=== PATIENT | male | born 1945 | race Caucasian/White ===

== ENCOUNTER → 2017-08-02 09:25 | Outpatient (CLI) | payer MEDICARE, SELFPAY ==
--- NOTE | 2017-08-02 09:38 | MRI_ITS ---
STUDY: MRI LUMBAR SPINE WITHOUT CONTRAST REASON FOR EXAM: Male, 71 years old. Stenosis. Left hip pain. TECHNIQUE: Standardized fat and water weighted pulse sequences were obtained in the sagittal and axial planes. COMPARISON: None FINDINGS: T9-T10: (Sagittal only). Irregularities of the vertebral endplates secondary to intervertebral osteochondrosis. Degenerative collapse of the disc space height. Minimal posterior marginal spurs. Normal central canal and bilateral intervertebral neural foramina. T10-T11: (Sagittal only). Irregularities of the vertebral endplates due to intervertebral osteochondrosis. Pronounced disc space height narrowing with marked loss of disc hydration. Minimal posterior marginal spurs. Normal central canal. Moderate stenosis of the right intervertebral neural foramen. Normal left intervertebral neural foramen. T11-T12: (Sagittal only). Anterior marginal spurs. Pronounced right sided disc space height narrowing with marked loss of disc hydration. Mild irregularities of the vertebral endplates secondary to intervertebral osteochondrosis. Minimal posterior marginal spurs. Normal central canal. Moderate stenosis of the right intervertebral neural foramen. Normal left intervertebral neural foramen. T12-L1: Anterior and posterior marginal spurs. Pronounced disc space height narrowing with Modic type II degenerative vertebral marrow fatty changes underneath the adjacent vertebral endplates. Posterior marginal spurs. Mild central canal stenosis. The AP canal diameter is 10 mm. Prominent bilateral medial synovial hypertrophy. Moderate degenerative facet hypertrophy. Moderate stenosis of the bilateral intervertebral neural foramina. Normal lumbar lordosis. There is no substantial scoliosis. Normal conus medullaris that terminates at the T12-L1 disc level. L1-2: Anterior marginal spurs. Pronounced right-sided disc space height narrowing with Modic type II degenerative vertebral marrow fatty changes underneath the right side of the adjacent vertebral endplates. Posterior marginal spurs. Normal central canal and bilateral lateral recesses. Mild left posterior ligamentum flavum hypertrophy. Moderate left degenerative facet hypertrophy. Mild right degenerative facet arthropathy. Mild stenosis of the right intervertebral neural foramen. Normal left intervertebral neural foramen. L2-3: Anterior and posterior marginal spurs. Modic type II degenerative vertebral marrow fatty changes underneath the adjacent vertebral endplates. Pronounced disc space height narrowing. Normal central canal and bilateral lateral recesses. Moderate left due to facet arthropathy. Normal right facet joint. Normal bilateral intervertebral neural foramina. L3-4: Pronounced left-sided disc space height narrowing with anterior and posterior marginal spurs. Modic type I degenerative vertebral marrow edema underneath the adjacent vertebral endplates. Left posterior ligamentum flavum hypertrophy and left medial synovial hypertrophy causing left lateral recess stenosis. Normal right lateral recess. Mild [id number] central canal stenosis due to left medial synovial hypertrophy. The central canal at the level of the medial synovial hypertrophy is 9 mm in diameter. Moderately pronounced left degenerative facet arthropathy and moderate right degenerative facet arthropathy. Mild stenosis of the right intervertebral neural foramen. Moderately pronounced stenosis of the left intervertebral neural foramen with suspicious impingement of the left L3 nerve. L4-5: Anterior and posterior marginal spurs with degenerative collapse of the disc space height. Modic type II degenerative vertebral marrow fatty changes underneath the adjacent vertebral endplates. Normal central canal and bilateral lateral recesses. Left medial synovial hypertrophy. Mild to moderate asymmetric degenerative facet arthropathy. Mild stenosis of the right intervertebral neural foramen. Normal left intervertebral neural foramen. L5-S1: Anterior marginal spurs and minimal posterior marginal spurs. Near-complete loss of the disc space height. No extruded disc fragment. Normal central canal and bilateral lateral recesses. Mild asymmetric degenerative facet arthropathy. Normal bilateral intervertebral neural foramina. Normal visualized sacral ala. Normal visualized paraspinous soft tissue structures. MRI/Spine Lumbar (Routine) IMPRESSION: 1. No MRI evidence of lumbar extruded disc fragment. 2. Pronounced L3-L4 left-sided disc space height narrowing with Modic type I degenerative vertebral marrow edema underneath the adjacent vertebral endplates, mild [id number] central canal stenosis due to left medial synovial hypertrophy, and moderately pronounced stenosis of the left intervertebral neural foramen with suspicious impingement of the left L3 nerve. 3. Pronounced L4-L5 disc space height narrowing with Modic type II degenerative vertebral marrow fatty changes underneath the adjacent vertebral endplates and mild stenosis of the right intervertebral neural foramen. 4. Pronounced L2-L3 disc space height narrowing with Modic type II degenerative vertebral marrow fatty changes underneath the adjacent vertebral endplates and moderately pronounced left degenerative facet arthropathy. 5. Pronounced right-sided L1-L2 disc space height narrowing with Modic type II degenerative vertebral marrow fatty changes underneath the right side of the adjacent vertebral endplates and moderate left degenerative facet arthropathy. 6. Pronounced T12-L1 disc space height narrowing with Modic type II degenerative vertebral marrow fatty changes are underneath the adjacent vertebral endplates, mild central canal stenosis and moderate stenosis of both intervertebral neural foramina. 7. Pronounced right-sided T11-T12 disc space height narrowing with mild irregularities of the vertebral endplates secondary to intervertebral osteochondrosis and moderate stenosis of the bilateral intervertebral neural foramina. 8. Pronounced T10-T11 disc space height narrowing with irregularities of the vertebral endplates secondary to intervertebral osteochondrosis and moderate stenosis of the right intervertebral neural foramen. 9. Pronounced T9-T10 disc space height narrowing with irregularities of the vertebral endplates secondary to intervertebral osteochondrosis. Electronically Signed: Ronald Crowell MD at 14:31 EST , Service support ,
== END ==
PROVIDERS: Family Provider Family Medicine; PCP Family Medicine; Visit Provider Nurse Practitioner Acute Care
DX: M48.062 Spinal stenosis, lumbar region with neurogenic claudication (principal)
CPT/HCPCS: 72148

== ENCOUNTER → 2017-08-15 13:46 | Outpatient (CLI) | payer MEDICARE, SELFPAY ==
--- NOTE | 2017-08-15 14:00 | ECHOD_ITS ---
Reason For Study: MV Repair Procedure This was a 2D Doppler, Color Flow transthoracic echocardiogram. The study was technically difficult. Exam performed in department. Left Ventricle Normal size and thickness. The estimated ejection fraction is 65 %. Septal motion consistent with IVCD. No regional wall motion abnormalities noted. Right Ventricle Normal size and thickness. Normal systolic function. Atria The left atrium is mildly enlarged. Normal right atrium. Probable chiari network. Saline contrast study demonstrates trivial right to left interatrial shunt. Hypermobile atrial septum. Mitral Valve Anterior leaflet diffuse mitral valve thickening. Peak transmitral valve gradient 7 mmHg. Mean transmitral valve gradient 2 mmHg. An annuloplasty ring is noted in the mitral position. Tricuspid Valve Normal tricuspid valve. Trivial tricuspid valve insufficiency. Right ventricular systolic pressure estimated to be 33 mmHg. Aortic Valve Trisinus/trileaflet aortic valve. Normal aortic valve. Pulmonic Valve Normal pulmonic valve. Great Vessels Normal aortic root. Normal arch. Normal inferior vena cava. Inferior vena cava collapse with sniff. Pericardium/Pleural No pericardial effusion. Medication 22 gauge I.V. with prn adaptor inserted into right arm. Performed a rapid injection of agitated mix of 9 cc saline and 1cc air to assess for atrial septal defect. MMode/2D Measurements & Calculations LVIDd: 4.2 cm IVSd: 1.2 cm Ao root diam: 4.1 cm LVIDs: 3.1 cm LVPWd: 1.2 cm LA dimension: 3.9 cm RVDd: 3.5 cm FS: 28.0 % LAV(MOD-bp): 62.9 ml LA A4 area: 21.2 cm2 RA A4 area: 14.3 cm2 LAV(MOD-bp) Indexed: 32.5 ml/m2 LAV(MOD-sp2): 68.4 ml LAV(MOD-sp4): 57.9 ml Time Measurements MV dec time: 0.29 sec Doppler Measurements & Calculations MV E max raz: 77.6 cm/sec Lat Peak E' Raz: 10.7 cm/sec Med Peak E' Raz: 6.6 cm/sec MV A max raz: 118.6 cm/sec E/E' lat: 7.3 E/E' med: 11.7 MV E/A: 0.65 MV V2 max: 130.8 cm/sec Ao V2 max: 107.7 cm/sec LV V1 max: 82.2 cm/sec MV max P.8 mmHg Ao max P.7 mmHg LV V1 max P.7 mmHg MV V2 mean: 69.5 cm/sec MV mean P.2 mmHg MV V2 VTI: 26.2 cm PA V2 max: 93.8 cm/sec TR max raz: 261.3 cm/sec TR max P.5 mmHg Interpretation Summary The estimated ejection fraction is 65 %. The left atrium is mildly enlarged. Hypermobile atrial septum. An annuloplasty ring is noted in the mitral position. Right ventricular systolic pressure estimated to be 33 mmHg. Compared to echo report dated 05/23/2016, no appreciable changes noted. Saline contrast study demonstrates trivial right to left interatrial shunt. Ordering Physician: Demond Lal Referring Physician: Victorino Vernon Performed By: Samantha Cerda RDCS, RVT
== END ==
PROVIDERS: Family Provider Family Medicine; PCP Family Medicine; Visit Provider Nurse Practitioner Family
DX: I25.10 Atherosclerotic heart disease of native coronary artery without angina pectoris (principal); Z95.2 Presence of prosthetic heart valve; Z95.1 Presence of aortocoronary bypass graft; Z98.890 Other specified postprocedural states
CPT/HCPCS: 93306; A4216

== ENCOUNTER → 2018-01-03 09:31 | Outpatient (CLI) | payer MEDICARE, SELFPAY ==
--- NOTE | 2018-01-03 09:34 | STE_ITS ---
Reason For Study: PREOP Stress Results Protocol: Dobutamine Protocol Maximum Predicted HR: 149 bpm Target HR: 127 bpm% Maximum Predicted HR: 85 % DurationHeart Rate Stage (mm:ss) (bpm) BPDos e BASELINE 70 131/89 STAGE 1 3:43 71 135/9910.00 STAGE 2 3:00 10 8 154/8420.00 STAGE 3 3:52 12 6 133/7630.00 RECOVERY 88 134/74 Stress Duration: 10:35 mm:ss Maximum Stress HR: 126 bpm Baseline Echocardiogram Findings The estimated ejection fraction is 65 %. Stress Echo Wall motion Data Resting WMIntermediate WMStress WM Resting Wall Motion Wall Motion Stress No regional wall motion No regional wall motion abnormalities noted. abnormalities noted. EKG Data Normal intervals are noted. The patient was titrated from 10 mcg to a maximun of 30 mcg of dobutamine during the stress. No clinical angina was noted. This was 91% of maximum predicted heart rate. The maximum heart rate attained was 137 beats per minute. During dobutamine infusion, there were no ST or T wave changes noted to suggest ischemia. Interpretation Summary The estimated ejection fraction is 65 %. Normal adequate dobutamine echocardiogram. Negative for ischemia by EKG and echocardiographic criteria. No anginal symptoms noted. Frequent PVCs and runs of ventricular arrhythmias which were self terminating. This is a nonspecific finding given dobutamine. No associated wall motion abnormalities during infusion. Final LVEF is 75%. Patient tolerated procedure well. No complications. Ordering Physician: Lamine Lassiter Referring Physician: Lamine Lassiter Performed By: Elvira Arellano RDCS
== END ==
PROVIDERS: Family Provider Family Medicine; PCP Family Medicine; Visit Provider Internal Medicine Cardiovascular Disease
DX: I25.10 Atherosclerotic heart disease of native coronary artery without angina pectoris (principal); I42.9 Cardiomyopathy, unspecified; Z98.890 Other specified postprocedural states; Z95.1 Presence of aortocoronary bypass graft; Z95.2 Presence of prosthetic heart valve
CPT/HCPCS: 93017; 93350; J7030; A4216

== ENCOUNTER → 2018-03-02 10:32 | Outpatient (CLI) | payer MEDICARE, SELFPAY ==
[2018-03-02 12:28] LABS: Absolute Lymphocyte Count 1.04 X10^3/ul (0.83-4.51); Absolute Neutrophil Count 6.4 X10^3/uL (2.0-7.7); Basophil# 0.03 X10^3/uL; Basophil% 0.3 % (0-1); Eosinophil# 0.67 X10^3/uL; Eosinophils% 7.5 % (0-5); Hematocrit 47.3 % (40-54); Hemoglobin 14.7 g/dl (13.0-16.5); Lymphocyte # 1.04 X10^3/ul (4.0); Lymphocyte % 11.6 % (19-41); Mean Corp Hgb Conc 31.1 g/gl (32-36); Mean Corpuscular Hgb 30.9 pg (27.0-32.0); Mean Corpuscular Volume 99.6 fL (80-94); Mean Platelet Vol. 11.3 fl (6.2-12.0); Monocyte# 0.78 X10^3/uL; Monocyte% 8.7 % (0-10); Neutrophil % 71.8 % (47-70); Platelet Count 219 K/mm3 (150-450); RBC Distribution Width CV 13.7 % (11.6-14.6); Red Blood Count 4.75 M/mm3 (4.6-6.2); White Blood Count 8.9 K/mm3 (4.4-11.0)
[2018-03-02 12:31] LABS: POSITIVE COUNT NO; POSITIVE DIFFERENTIAL NO; POSITIVE MORPHOLOGY NO
[2018-03-02 12:54] LABS: ALB/GLOB Ratio 0.9 RATIO (0.9-2.4); AST(SGOT) 15 U/L (15-37); Alanine Aminotransfer ALT/SGPT 19 U/L (16-61); Albumin, Serum 3.4 g/dL (3.2-5.0); Alkaline Phosphatase 91 U/L (45-117); Anion Gap 8 (5-15); BUN 16 mg/dL (7-18); BUN/Creat Ratio 14.3 RATIO (10-20); Calcium,Total 8.9 mg/dL (8.5-10.1); Chloride 107 mmol/L (98-107); Cholesterol 91 mg/dL (200); Creatinine, Serum 1.12 mg/dL (0.70-1.30); EST Glomerular Filtration Rate 69 mL/min (>60); Est Glom Filt Rate - Afr Amer 83 mL/min (>60); Globulin 3.7 g/dL (2.2-4.2); Glucose 64 mg/dL (74-106); High Density Lipoprotein 28 mg/dL; PSA,Total - Annual Screen 0.46 ng/mL (0.00-4.00); Potassium 4.3 mmol/L (3.5-5.1); Protein, Total 7.1 g/dL (6.4-8.2); Sodium Level 141 mmol/L (136-145); Triglycerides 79 mg/dL; Very Low Density Lipoprotein 16 mg/dL (5-40)
== END ==
PROVIDERS: Family Provider Family Medicine; PCP Family Medicine; Visit Provider Family Medicine
DX: I25.10 Atherosclerotic heart disease of native coronary artery without angina pectoris (principal); E78.5 Hyperlipidemia, unspecified; N40.0 Benign prostatic hyperplasia without lower urinary tract symptoms
CPT/HCPCS: 36415; 80053; 80061; 84153; 85025; G0103

== ENCOUNTER → 2018-03-08 14:58 | Outpatient (CLI) | payer MEDICARE, SELFPAY ==
--- NOTE | 2018-03-08 15:01 | US_ITS ---
STUDY: RENAL ULTRASOUND - COMPLETE REASON FOR EXAM: Male, 72 years old. Incomplete bladder emptying TECHNIQUE: Ultrasound evaluation of the kidneys was performed with real-time and static krueger-scale imaging. COMPARISON: None. FINDINGS: RIGHT KIDNEY: Normal location of the right kidney, which is normal in size. The right kidney measures 10.5 x 4.5 x 4.5 cm. There is diffuse thinning of the renal cortex. The renal cortex measures 0.9 cm. There is a 3 x 2 x 2.7 cm septated right renal cyst. There are no right renal calculi. There is no right hydronephrosis. DISTAL RIGHT URETER: There is non-visualization of the distal right ureter. There is no demonstrated right ureterovesical junction calculus. There is a visualized right ureteral jet. LEFT KIDNEY: Normal location of the left kidney, which is normal in size. The left kidney measures 10.5 x 5.5 x 6 cm. There is a normal cortex of the left kidney. The renal cortex measures 1.2 cm. There is no left renal mass or cyst. There are no left renal calculi. There is no left hydronephrosis. DISTAL LEFT URETER: There is non-visualization of the distal left ureter. There is no demonstrated left ureterovesical junction calculus. There is a visualized left ureteral jet. BLADDER: The distended urinary bladder has a volume of 120 ml. The empty urinary bladder has a volume of 34 ml. There is a 3.3 cm wall thickness of the distended urinary bladder is a focal wall prominence of 1.1 cm which is slightly heterogeneous and lobular in contour. There is layering debris within the urinary bladder. There are no demonstrated bladder calculi. US/Kidney and Bladder IMPRESSION: Abnormal urinary bladder with asymmetric lobular wall thickening of up to 1.2 cm. Debris within the urinary bladder. Present bilateral ureteral jets. Postvoid residual 34 ml. Septated right upper renal pole cyst. Right renal cortical thinning. Electronically Signed: Reyna Holm MD at 4:53 EDT , Service support ,
== END ==
PROVIDERS: Family Provider Family Medicine; PCP Family Medicine; Visit Provider Family Medicine
DX: R33.9 Retention of urine, unspecified (principal)
CPT/HCPCS: 76770

== ENCOUNTER → 2018-04-13 11:45 | Outpatient (CLI) | payer MEDICARE, SELFPAY ==
[2018-04-13 16:19] LABS: Absolute Lymphocyte Count 1.04 X10^3/ul (0.83-4.51); Absolute Neutrophil Count 5.4 X10^3/uL (2.0-7.7); Basophil# 0.05 X10^3/uL; Basophil% 0.7 % (0-1); Eosinophil# 0.51 X10^3/uL; Eosinophils% 6.7 % (0-5); Hematocrit 46.7 % (40-54); Hemoglobin 14.9 g/dl (13.0-16.5); Lymphocyte # 1.04 X10^3/ul (4.0); Lymphocyte % 13.7 % (19-41); Mean Corp Hgb Conc 31.9 g/gl (32-36); Mean Corpuscular Hgb 31.3 pg (27.0-32.0); Mean Corpuscular Volume 98.1 fL (80-94); Mean Platelet Vol. 11.8 fl (6.2-12.0); Monocyte# 0.55 X10^3/uL; Monocyte% 7.2 % (0-10); Neutrophil # 5.44 X10^3/uL (2.7-7.7); Neutrophil % 71.6 % (47-70); Platelet Count 200 K/mm3 (150-450); RBC Distribution Width CV 13.7 % (11.6-14.6); RBC Distribution Width SD 49.3 fl (35.1-43.9); Red Blood Count 4.76 M/mm3 (4.6-6.2); White Blood Count 7.6 K/mm3 (4.4-11.0)
[2018-04-13 16:21] LABS: POSITIVE COUNT NO; POSITIVE DIFFERENTIAL NO; POSITIVE MORPHOLOGY NO
[2018-04-13 16:32] LABS: Anion Gap 9 (5-15); BUN 15 mg/dL (7-18); BUN/Creat Ratio 13.5 RATIO (10-20); Calcium,Total 8.6 mg/dL (8.5-10.1); Chloride 106 mmol/L (98-107); Creatinine, Serum 1.11 mg/dL (0.70-1.30); EST Glomerular Filtration Rate 69 mL/min (>60); Est Glom Filt Rate - Afr Amer 84 mL/min (>60); Glucose 76 mg/dL (74-106); Potassium 4.7 mmol/L (3.5-5.1); Sodium Level 142 mmol/L (136-145)
== END ==
PROVIDERS: Family Provider Family Medicine; PCP Family Medicine; Referring Provider Family Medicine; Visit Provider Family Medicine
DX: R31.9 Hematuria, unspecified (principal)
CPT/HCPCS: 36415; 80048; 85025; 87086; 87088

== ENCOUNTER → 2018-04-20 13:25 | Outpatient (CLI) | payer MEDICARE, SELFPAY ==
--- NOTE | 2018-04-20 13:27 | CT_ITS ---
STUDY: CT ABDOMEN AND PELVIS WITH CONTRAST REASON FOR EXAM: Male, 72 years old. Painless hematuria for several months RADIATION DOSAGE (If Supplied By Facility): CTDIvol = ( 18.13 ) mGy, DLP = ( 1301.40 ) mGycm TECHNIQUE: Transaxial images were obtained from the dome of the diaphragm to the symphysis pubis without oral contrast. 100ml ml of Isovue 300 contrast was administered. Sagittal and coronal images were reconstructed. Individualized dose optimization techniques were used for this CT. COMPARISON: 03/08/2018 FINDINGS: The visualized lung bases are unremarkable. The visualized portions of the heart are within normal limits. Normal liver. Normal gallbladder and extrahepatic biliary system. Normal spleen. Normal pancreas. Normal bilateral adrenal glands. Well-defined low-density cystic lesion of the upper right kidney measures up to 3 cm, similar in size since recent renal ultrasound. Normal left kidney. Normal visualized stomach. Normal small intestine. There are multiple colonic diverticula consistent with diverticulosis. There is non-visualization of the appendix. There is diffuse atherosclerotic calcification of the abdominal aorta with elongation and tortuosity, but without a demonstrated aneurysm. Normal inferior vena cava. Normal retroperitoneum. There is irregular, lobular wall thickening of the left side of the urinary bladder that is identified anterior and posterior to the left ureter insertion (axial image 67 of series 1004). Wall thickness measures up to 13 mm, similar since prior ultrasound, accounting for differences in modality. Normal abdominal wall. There are diffuse degenerative changes of the visualized lumbar spine. Laminectomy defects at L2, L3, L4. No lytic or sclerotic bone lesions. CT/Abdomen/Pelvis WITH Contrast IMPRESSION: 1. Lobular wall thickening of the urinary bladder (from dome to base, left side) worrisome for neoplasm. Cystoscopic evaluation is recommended. 2. No pelvic sidewall or retroperitoneal adenopathy. 3. Stable cyst of the upper right kidney. 4. Atherosclerosis. 5. Diverticulosis. Electronically Signed: Nura Duval MD at 19:53 EST , Service support ,
== END ==
PROVIDERS: Family Provider Family Medicine; PCP Family Medicine; Referring Provider Family Medicine; Visit Provider Family Medicine
DX: R31.9 Hematuria, unspecified (principal)
CPT/HCPCS: 74177; Q9967

== ENCOUNTER 2018-05-11 05:29 | Day surgery (SDC) | payer MEDICARE, SELFPAY ==
[2018-05-04 11:19] VITALS: BP 132/69; PULSE 72; RESP 16; TEMP 37.1; O2SAT 96; BMI 29.3
--- NOTE | 2018-05-11 | BLB_PTH ---
PATIENT: VALE GARCIA LOC: [facility] – [place] U#:[id number] AGE/SX: 72/M ROOM: RE05/11/[address]: Dr. Rylan Gudino MD : 1945 BED: DIS: 05/11/2018 SPEC #: [id number] RECD: 05/11/18 09:04 STATUS: ARAM NARESH #: [id number] GENESIS: 05/11/18 00:[address]: Rylan Gudino DEPT: SURGICAL PATHOLOGY RECD BY: Jaya Garcia ENTERED: 05/11/18 13:00 SP TYPE: TURB OTHR DR: Dr. 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 BLADDER CANCER (TUR) SUMMARY: Procedure - TURBT Histologic type - urothelial (transitional cell) carcinoma Associated epithelial lesions - none identified Histologic grade - urothelial carcinoma (WHO 2004/ISUP) - high grade Tumor configuration - invasive and flat Adequacy of material for determining muscularis propria invasion - muscularis propria (detrusor muscle) is present and involved by tumor. Lymph-Vascular invasion - present. See comment. Microscopic extent of tumor - tumor invades muscularis propria (detrusor muscle). Additional pathologic findings - chronic inflammation. The above summary is in compliance with [employer] (CAP) Cancer Protocols Checklist and [place] Joint Committee on Cancer (AJCC), Staging Manual, 8th Ed. SJ:rg 05/14/18 COMMENT Most of the tumor consists of muscle invasive tumor. Immunohistochemistry ([id number]) supports the diagnosis of lymph-vascular invasion. MICROSCOPIC DESCRIPTION Slides are reviewed. GROSS DESCRIPTION Received in fixative is one container labeled with the patient's name and designated bladder tumor. The specimen consists of multiple fragments of cullen, indurated tissue that in aggregate measure 5 x 3 x 0.8 cm. The entire specimen is submitted in four cassettes. / SJ:rg 05/11/18 TC:0 CPT: 82942 ADDENDUM ADDENDUM ADDENDUM ADDENDUM ADDENDUM ADDENDUM ADDENDUM ADDENDUM ADDENDUM ADDENDUM ADDENDUM ADDENDUM ADDENDUM 07/27/2018 10:20 ADDENDUM 07/27/2018 10:20 ADDENDUM 07/27/2018 10:20 ADDENDUM 07/27/2018 10:20 ADDENDUM 07/27/2018 10:20 This addendum is added to incorporate an outside pathology consultation report. The case was examined at [facility] (#[id number]) and the following diagnosis was rendered. Urinary bladder, tumor, transurethral resection of bladder tumor: Invasive urothelial carcinoma, high grade, with plasmacytoid features. Tumor invades into the muscularis propria. Angiolymphatic invasion is identified. 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 Please see complete above mentioned consultation report in EMR
--- NOTE | 2018-05-11 | IMM_PTH ---
PATIENT: VALE GARCIA LOC: [facility] U#:[id number] AGE/SX: 72/M ROOM: RE05/11/[address]: Dr. Rylan Gudino MD : 1945 BED: DIS: 05/11/2018 SPEC #: [id number] RECD: 05/14/18 10:07 STATUS: ARAM REQ #: [id number] GENESIS: 05/11/18 00:[address]: Rylan Gudino DEPT: IMMUNOHISTOCHEMISTRY RECD BY: Talia Pelletier ENTERED: 05/14/18 10:15 SP TYPE: IMMUNO OTHR DR: Dr. Demond Davis MD Tissues: Urinary bladder, NOS Procedures: CD31 (add) Factor VIII (initial) PHYSICIAN & INSTITUTION [place] [id number] SPECIMEN INFORMATION: Tissue Source: Bladder tumor Clinical Info: Neoplasm of bladder Specimen Number: [id number] #3 CPT code: 15589, 74016 METHODOLOGY: Deparaffinized sections of prefer/formalin-fixed tissue or PAP/DQ stained slides are incubated with monoclonal/polyclonal antibodies/oligonucleotide probes. Localization is made via biotin free immunoperoxidase method. Appropriate controls are performed and reacted as expected. Results on target cell population are indicated in the following table: RESULTS: ANTIBODY / CLONE RESULT Block 3 Factor VIII (R Ag) positive CD31 (BOB/70A) positive These tests were developed and their performance characteristics determined by [facility]. They may not have been cleared or approved by the U.S. Food and Drug Administration. The FDA has determined that such clearance or approval is not necessary. INTERPRETATION: Bladder tumor, TUR: Invasive urothelial carcinoma, positive for lymph-vascular invasion. SJ:deirdre 05/14/18
[2018-05-11 05:49] VITALS: BP 136/71; PULSE 78; RESP 14; TEMP 36.8; O2SAT 99; BMI 29.3
[2018-05-11] MEDS: Cefazolin 2 GM in 0.9% Normal Saline 100 ML IV (07:24)
--- NOTE | 2018-05-11 08:14 | DCINST_ITS ---
Discharge Diet: Light diet - advance as tolerated Discharge Activity: May Not Drive, May Shower Call your doctor if your incision/area has: Continuous Slow Oozing, Sudden Increased Bleeding, Increased Pain/ Swelling, Increased Redness, Foul Smelling Discharge, Swelling at the incision site Call your doctor if you observe: Fever of 101 or Higher, Inability to urinate, Uncontrolled pain Suture Line Care: Avoid Pulling/Pushing, Avoid Pinching/Bending Instructions: Treating Bladder Cancer: TUR (Transurethral Resection) Allergies/Adverse Reactions: Allergies No Known Allergies Allergy (Verified 05/04/18 11:12) Medications to take at Discharge Tamsulosin HCl [Flomax] 0.4 mg PO DAILY 12/11/13 Travoprost 0.004% [Travatan 0.004% Eye Drop] 1 drp EACH EYE DAILY 12/11/13 aspirin 81 mg tablet,delayed release 81 mg PO QDAY 07/05/17 naproxen sodium 220 mg tablet 220 mg PO PRN PRN tab 07/05/17 atorvastatin 40 mg tablet 40 mg PO QDAY tab 12/22/17 metoprolol tartrate 25 mg tablet 25 mg PO BID tab 12/22/17 Acetaminophen [Tylenol Extra Strength] 500 - 1,000 mg PO Q6H PRN PRN 05/04/18 L.acidoph,Paracasei, B.lactis [Probiotic] 1 each PO DAILY 05/04/18 Multivitamin [Multiple Vitamins] 1 each PO DAILY 05/04/18 Acetaminophen [Tylenol Extra Strength] 500 mg PO Q4H PRN PRN #20 tablet 05/11/18 Ibuprofen 600 mg PO Q4H PRN PRN #20 tablet 05/11/18 Phenazopyridine [Pyridium] 100 mg PO TID PRN PRN #14 tablet 05/11/18 The following prescriptions were given: Acetaminophen [Tylenol Extra Strength] 500 mg PO Q4H PRN PRN #20 tablet PRN Reason: Pain Ibuprofen 600 mg PO Q4H PRN PRN #20 tablet PRN Reason: Pain Phenazopyridine [Pyridium] 100 mg PO TID PRN PRN #14 tablet PRN Reason: burning with urination Primary Care Physician: Demond Davis MD [Primary Care Provider] - Test Results: Test results from this visit will be discussed in further detail at your follow- up appointment, if applicable. Please Follow Up With: Terese,Yemi, MD When: in 2 weeks, please call to make an appointment.
[2018-05-11 08:22] VITALS: BP 136/71; BP 70/51; PULSE 48; RESP 16; TEMP 36.8; O2SAT 96
[2018-05-11 08:30] VITALS: BP 136/71; BP 80/51; PULSE 58; RESP 16; O2SAT 98
--- NOTE | 2018-05-11 08:37 | PCM.OPRPT ---
Report of Operation Date of Procedure: 05/11/18 Pre-Operative Diagnosis: Large bladder tumor, appears invasive Post-Operative Diagnosis: Same Surgery/Procedure Performed:: Transurethral resection of a very large bladder tumor Description of Surgical Findings:: 72-year-old male taken back to the operating room after smooth induction of general anesthesia he was placed supine on the table in the dorsolithotomy position I placed a 26 Croatian continuous flow resectoscope through the urethra the entire length the urethra is normal sphincter is normal prostate was normal slightly obstructive inside the bladder was heavily trabeculated bladder and there was a tumor that was sessile in nature, flat but very large against the patient's left lateral wall extending all the way up to the dome I started at the dome resected deep into the muscle fibers but I could tell immediately this was a muscle invasive cancer and that was not can be completely resectable by TUR resected down to the muscle fibers all the way down the left lateral side I then Ellik out all the tumor tissue that I resected for diagnosis and then extensively cauterized the left lateral wall the bladder all the way up to the dome. Did not give mitomycin since this is appears to be invasive tumor no benefit. Obtain good hemostasis drain the bladder patient anesthetic was reversed taken back to PACU good condition will follow-up in 2 weeks to review the tissue report. Type of Anesthesia:: General Drains: none - Admit VTE Documentation VTE Present on Admission: No VTE Mechan Device Prophylaxis: SCD's
[2018-05-11] MEDS: Ketorolac 15 MG/ML Vial IV (08:40)
[2018-05-11 08:45] VITALS: BP 109/69; BP 136/71; PULSE 72; RESP 16; O2SAT 99
[2018-05-11 08:54] VITALS: BP 108/59; BP 136/71; PULSE 62; RESP 16; TEMP 36.8; O2SAT 96
[2018-05-11] MEDS: Ondansetron 4 MG/2 ML Vial IV (09:40)
[2018-05-11] MEDS: Phenazopyridine 95 MG Tablet PO (09:45)
[2018-05-11] MEDS: Acetaminophen 325 MG Tablet 650 MG PO (09:45)
[2018-05-11 11:24] VITALS: BP 120/70; BP 136/71; PULSE 70; RESP 16; TEMP 36.8; O2SAT 99
== END 2018-05-11 11:24 | disposition home or self-care (01) ==
LOC: SDC 05:29 → AC 05:30
PROVIDERS: Family Provider Family Medicine; PCP Family Medicine; Referring Provider Urology; Visit Provider Urology
PROC: 0TBB8ZZ Excision of Bladder, Via Natural or Artificial Opening Endoscopic (ICD-10-PCS; CPT 52240; principal; 2018-05-11 07:20)
DX: C67.2 Malignant neoplasm of lateral wall of bladder (principal); N32.89 Other specified disorders of bladder; N40.1 Benign prostatic hyperplasia with lower urinary tract symptoms; R35.1 Nocturia; R31.0 Gross hematuria; R35.0 Frequency of micturition; I25.10 Atherosclerotic heart disease of native coronary artery without angina pectoris; I48.91 Unspecified atrial fibrillation; I10 Essential (primary) hypertension; H26.9 Unspecified cataract; H40.9 Unspecified glaucoma; H91.90 Unspecified hearing loss, unspecified ear; Z79.82 Long term (current) use of aspirin; Z79.899 Other long term (current) drug therapy; I25.2 Old myocardial infarction; Z87.891 Personal history of nicotine dependence; Z95.1 Presence of aortocoronary bypass graft
CPT/HCPCS: 52240; 88307; 88341; 88342; J7120; J2405

== ENCOUNTER → 2018-05-31 14:36 | Outpatient (CLI) | payer MEDICARE, SELFPAY ==
[2018-05-29 15:30] VITALS: BMI 28.7
--- NOTE | 2018-05-31 14:37 | CT_ITS ---
STUDY: CT CHEST WITHOUT CONTRAST REASON FOR EXAM: Male, 72 years old. The patient has a history of a bladder cancer. RADIATION DOSAGE (If Supplied By Facility): CTDIvol = ( 19.05 ) mGy, DLP = ( 714.16 ) mGycm TECHNIQUE: Transaxial imaging was performed without the administration of intravenous contrast material. Multiplanar coronal and sagittal images were reformatted. Individualized dose optimization techniques were used for this CT. COMPARISON: None. FINDINGS: There is evidence of emphysematous changes worse in the upper lobes. Mild degree of increased markings at the right lung base suggestive of a scarring. There is no demonstrated pleural abnormality. Sternal cerclage wires and vascular clips are present from a prior sternotomy and coronary artery bypass graft procedure (CABG). There are calcifications of the coronary arteries. There are several mediastinal lymph nodes. The largest is in the precarinal space and measures 2.1 cm. Normal hilar regions. Normal unenhanced pulmonary arteries. There is atherosclerotic calcification of the aortic arch with tortuosity and elongation of the aortic arch and descending thoracic aorta. The ascending thoracic aorta is slightly dilated measuring 4.1 cm in transverse dimension. There are multi-level degenerative changes of the thoracic spine. There is no demonstrated abnormality of the visualized upper abdomen. CT/Chest without Contrast IMPRESSION: Emphysematous changes worse in the upper lobes. Enlarged mediastinal lymph nodes. Electronically Signed: Shashank Ann MD at 15:17 EST Tel [phone], Service support ,
[2018-05-31 14:56] LABS: CREATININE FINGERSTICK 1.9 mg/dL (0.70-1.30)
--- OUTSIDE RECORDS SUMMARY | 2018-07-17 11:53 | XMS RPT_ITS ---
:1945 Author Organization [facility] Support Name Relationship Address Phone R Unavailable Unavailable Unavailable YUE GARCIA Unavailable [address] + [place] [address] R Unavailable Unavailable Unavailable YUE GARCIA Unavailable [address] + [place] [address] R Unavailable Unavailable Unavailable YUE GARCIA Unavailable [address] + [place] [address] R Unavailable Unavailable Unavailable YUE GARCIA Unavailable [address] + [place] [address] R Unavailable Unavailable Unavailable YUE GARCIA Unavailable [address] + [place] [address] R Unavailable Unavailable Unavailable YUE GARCIA Unavailable [address] + [place] [address] R Unavailable Unavailable Unavailable YUE GARCIA Unavailable [address] + [place] [address] R Unavailable Unavailable Unavailable YUE GARCIA Unavailable [address] + [place] [address] R Unavailable Unavailable Unavailable YUE GARCIA Unavailable [address] + [place] [address] R Unavailable Unavailable Unavailable YUE GARCIA Unavailable [address] + [place] [address] R Unavailable Unavailable Unavailable YUE GARCIA Unavailable [address] + [place] [address] R Unavailable Unavailable Unavailable YUE GARCIA Unavailable [address] + [place] [address] R Unavailable Unavailable Unavailable YUE GARCIA Unavailable [address] + [place] [address] R Unavailable Unavailable Unavailable YUE GARCIA Unavailable [address] + [place] [address] R Unavailable Unavailable Unavailable YUE GARCIA Unavailable [address] + [place] [address] R Unavailable Unavailable Unavailable YUE GARCIA Unavailable [address] + [place] [address] R Unavailable Unavailable Unavailable YUE GARCIA Unavailable [address] + [place] [address] R Unavailable Unavailable Unavailable YUE GARCIA Unavailable [address] + [place] [address] R Unavailable Unavailable Unavailable YUE GARCIA Unavailable [address] + [place] [address] R Unavailable Unavailable Unavailable YUE GARCIA Unavailable [address] + [place] [address] R Unavailable Unavailable Unavailable YUE GARCIA Unavailable [address] + [place] [address] R Unavailable Unavailable Unavailable YUE GARCIA Unavailable [address] + [place] [address] R Unavailable Unavailable Unavailable YUE GARCIA Unavailable [address] + [place] [address] R Unavailable Unavailable Unavailable YUE GARCIA Unavailable [address] + [place] [address] NOT GIVEN Unavailable Unavailable Unavailable YUE GARCIA Unavailable [address] + [place], [place] [phone] YUE GARCIA Unavailable [address] Unavailable [place] [phone] R Unavailable Unavailable Unavailable YUE GARCIA Unavailable [address] [phone] [place] [address] R Unavailable Unavailable Unavailable YUE GARCIA Unavailable [address] [phone] [place] [address] NOT GIVEN Unavailable Unavailable Unavailable YUE GARCIA Unavailable [address] + [place], [place] [phone] RAYYUE Lacey Unavailable [address] Unavailable [place], [place] [phone] R Unavailable Unavailable Unavailable RAYLYUE Unavailable [address] [phone] [place] [address] NOT GIVEN Unavailable Unavailable Unavailable RAYLYUE Unavailable [address] + [place], [place] [phone] RAYLYUE Unavailable [address] Unavailable [place], [place] [phone] NOT GIVEN Unavailable Unavailable Unavailable RAYLYUE Unavailable [address] + [place], [place] [phone] RAYYUE Lacey Unavailable [address] Unavailable [place], [place] [phone] R Unavailable Unavailable Unavailable RAYYUE Lacey Unavailable [address] + [place] [address] NOT GIVEN Unavailable Unavailable Unavailable RAYYUE Lacey Unavailable [address] + [place], [place] [phone] RAYYUE Lacey Unavailable [address] Unavailable [place], [place] [phone] Care Team Providers Name Role Phone JIMY DEL ROSARIO Admitting Unavailable JIMY DEL ROSARIO Attending Unavailable JIMY DEL ROSARIO Primary Care Unavailable RED, CECILY A Referring Unavailable RED, CECILY A Consulting Unavailable PROVIDER, UNKNOWN Consulting Unavailable PROVIDER, UNKNOWN Consulting Unavailable PROVIDER, UNKNOWN Consulting Unavailable PAUL LOPEZ Admitting Unavailable PAUL LOPEZ Attending Unavailable PAUL LOPEZ Primary Care Unavailable MARISOL, DR FILIBERTO Brewer Admitting Unavailable MARISOL, DR FILIBERTO Brewer Attending Unavailable RED, CECILY A Referring Unavailable MARISOL, DR FILIBERTO Brewer Primary Care Unavailable RED, CECILY A Consulting Unavailable PROVIDER, UNKNOWN Consulting Unavailable PROVIDER, UNKNOWN Consulting Unavailable PROVIDER, UNKNOWN Consulting Unavailable MARISOL, DR FILIBERTO Brewer Admitting Unavailable MARISOL, DR FILIBERTO Brewer Attending Unavailable MARISOL, DR FILIBERTO Brewer Primary Care Unavailable RED, CECILY A Consulting Unavailable PROVIDER, UNKNOWN Consulting Unavailable PROVIDER, UNKNOWN Consulting Unavailable PROVIDER, UNKNOWN Consulting Unavailable RED, CECILY A Admitting Unavailable RED, CECILY A Attending Unavailable RED, CECILY A Primary Care Unavailable RED, CECILY A Consulting Unavailable PROVIDER, UNKNOWN Consulting Unavailable PROVIDER, UNKNOWN Consulting Unavailable PROVIDER, UNKNOWN Consulting Unavailable Shamar Cardona Attending Unavailable TereseRylan Referring Unavailable Schinner, Demond E Primary Care Unavailable PraShamar campuzano Consulting Unavailable CebuCecily lacey Attending Unavailable Schinner, Demond E Referring Unavailable CebulCecily Attending Unavailable Cebul, Cecily Referring Unavailable Schinner, Demond E Primary Care Unavailable CeCecily cortez Attending Unavailable Cebul, Cecily Referring Unavailable Schinner, Demond E Primary Care Unavailable Lamine Lassiter Attending Unavailable Lamine Lassiter Referring Unavailable Red, Cecily Primary Care Unavailable Lamine Lassiter Attending Unavailable PraShamar campuzano Attending Unavailable TereseRylan Referring Unavailable Schinner, Demond E Primary Care Unavailable PraShamar campuzano Attending Unavailable TereseRylan Referring Unavailable Schinner, Demond E Primary Care Unavailable Shamar Cardona Consulting Unavailable CeCecily cortez Attending Unavailable Cebul, Cecily Referring Unavailable Schinner, Demond E Primary Care Unavailable Shamar Cardona Consulting Unavailable Rylan Gudino Attending Unavailable TereseRylan Referring Unavailable Schinner, Demond E Primary Care Unavailable Schinner, Demond E Attending Unavailable Schinner, Demond E Primary Care Unavailable Schinner, Demond E Referring Unavailable Schinner, Demond E Attending Unavailable Schinner, Demond E Primary Care Unavailable Schinner, Demond E Referring Unavailable Schinner, Demond E Attending Unavailable Schinner, Demond E Referring Unavailable Schinner, Demond E Primary Care Unavailable Schinner, Demond E Attending Unavailable Schinner, Demond E Primary Care Unavailable Lamine Lassiter Attending Unavailable Neda Cecily Referring Unavailable Red, Cecily Primary Care Unavailable Lamine Lassiter Attending Unavailable Frannie Seklton MENAGERIE CARETAKER-C Attending Unavailable Red, Cecily Primary Care Unavailable Frannie Skelton MENAGERIE CARETAKER-C Referring Unavailable Demond Lal Attending Unavailable Red, Cecily Primary Care Unavailable Demond Lal H Referring Unavailable Demond Lal H Attending Unavailable Red, Cecily Referring Unavailable Red, Cecily Primary Care Unavailable CebuCecily lacey Attending Unavailable Schinner, Demond E Referring Unavailable Cristian Baxter D.O. Attending Unavailable Cristian Baxter D.O. Referring Unavailable Schinner, Demond E Primary Care Unavailable TereseRylan lancaster Referring Unavailable Schinner, Demond E Primary Care Unavailable Shamar Cardona Consulting Unavailable Shamar Cardona Attending Unavailable Daniela Jeffers Attending Unavailable Schinner, Demond E Primary Care Unavailable Jeffers, Daniela Referring Unavailable Jeffers Daniela Attending Unavailable Demond Davis E Referring Unavailable Shamar Cardona Attending Unavailable Brendan, Shamar Referring Unavailable Demond Davis E Primary Care Unavailable Brendan, Shamar Attending Unavailable Rylan Gudino Referring Unavailable Schincornelio, Demond E Primary Care Unavailable Shamar Cardona Consulting Unavailable Cealexl, Cecily Attending Unavailable Cebul, Cecily Referring Unavailable SchDemond disla E Primary Care Unavailable Cealexl, Cecily Consulting Unavailable Brendan, Shamar Attending Unavailable Pratatianna, Shamar Referring Unavailable Schincornelio, Demond E Primary Care Unavailable PROBLEMS PROBLEMS DATE TYPE CONDITION / CODE ATTENDING STATUS SOURCE 07/06/2018 Unknown C67.2 - Malignant Shamar Cardona Active [facility] of lateral [facility] wall of bladder / Hospital C67.2(ICD-10) Repository 07/05/2018 Unknown R59.1 - Generalized CebuCecily lacey Active [facility] enlarged lymph nodes Community / R59.1(ICD-10) Hospital Repository 06/21/2018 Unknown R59.0 - Localized Cebul, Cecily Active [facility] enlarged lymph nodes Community / R59.0(ICD-10) Hospital Repository 06/18/2018 Unknown C67.9 - Malignant Shamar Cardona Active [facility] neoplasm of bladder, Community unspecified / Hospital C67.9(ICD-10) Repository 06/15/2018 Unknown R06.02 - Shortness of Jeffers, Active [facility] breath / Daniela Community R06.02(ICD-10) Hospital Repository 06/01/2018 Unknown C67.1 - Malignant CebuCecily lacey Active [facility] neoplasm of dome of Community bladder / Hospital C67.1(ICD-10) Repository 04/13/2018 Unknown 599.70 - Hematuria, Demond Davis Active [facility] unspecified / E Community 599.70(ICD-9) Hospital Repository 04/13/2018 Unknown R31.9 - Hematuria, Schmariocornelio Demond Active [facility] unspecified / E Community R31.9(ICD-10) Hospital Repository 12/22/2017 Unknown Z01.810 - Encounter Lamine Lassiter for preprocedural [facility] examination / Repository Z01.810(ICD-10) 12/22/2017 Unknown 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 / I25.10(ICD-10) 12/22/2017 Unknown 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 / Z95.1(ICD-10) Hospital Repository 12/22/2017 Unknown I42.9 - Lamine Lassiter Active [facility] Cardiomyopathy, Community unspecified / Hospital I42.9(ICD-10) Repository 12/22/2017 Unknown Z98.890 - Other Lamine Lassiter Active [facility] specified Community postprocedural states Hospital / Z98.890(ICD-10) Repository 12/22/2017 Unknown 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 / Z95.2(ICD-10) Hospital Repository 12/22/2017 Unknown 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 Active [facility] hyperlipidemia / Community E78.2(ICD-10) Hospital Repository PROCEDURES PROCEDURES No Procedure Records FoundRESULTS RESULTS ONCOLOGY VISIT REPORT Observed: 07/06/2018 Status: F Source: [place] 1:36 PM [facility] REPOSITORY [facility] [address] [place] [id number] OFFICE VISIT Date of Service: 07/05/18 0909 MR#: [id number] Acct: [id number] Name: VALE GARCIA Rep #: [id number] : 1945 From: Shamar Cardona MD Age/Sex: 72/M Location: ONC Status: Signed Subjective - Date of Service Date of Service:: 07/05/18 - Chief Complaint F/U for bx results and start chemotherapy. - History of Present Illness 72y.o. man presented with hematuria, CT scan showed bladder mass on 04/20/2018 . He had cystoscopy on 05/11/2018 which showed sessile tumor involving the left lateral wall extending all the way to the dome of the bladder. 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 Referred for neoadjuvant chemotherapy. PET/CT scan on 06/11/2018 showed hypermetabolic activities in bladder, bilateral pelvic nodes, retroperitoneal nodes, L inguinal node, mediastinal/bilateral hilar nodes and Posterior aspects of the 8th thoracic vertebra. He was referred of bone scan, bx of L inguinal node and mediastinal nodes and comes for follow up. - Past Medical/Social History Past Medical History Cancer: Bladder cancer Social History Smoking Status Former smoker Review of Systems Constitutional:: Denies: Fever, Sweats, Weight loss, Appetite change, Chills Cardiovascular:: Denies: Chest pain, Palpitations, Dyspnea on exertion, Orthopnea, PND, Shortness of breath Respiratory: Denies: Cough, Hemoptysis, Shortness of Breath, Wheezing Gastrointestinal:: Denies: Abdominal pain, Nausea, Vomiting, Diarrhea, Constipation, Hematochezia Genitourinary: Denies: Dysuria, Hematuria, 15, Flank pain Musculoskeletal:: Denies: Back pain, Myalgia, Arthralgia Skin: Denies: Rash, Skin Changes, Wounds Neurological:: Denies: Headache, Dizziness, Visual changes, Tinnitus, Hearing loss Psychiatric: Denies: Anxiety, Depression, Homicidal Ideations, Suicidal Ideations Vital Signs Height 5 ft 7.5 in Weight: 85.729 kg Weight in Pounds 189.0 lbs Pulse Ox 96 - Physical Exam General: Alert, Oriented x3, No apparent distress Diagnostic Data: Diagnostic Data PET, CT Tumor Imaging 06/11/18 10:37 IMPRESSION: 1. ABNORMAL EXAMINATION INDICATIVE OF MALIGNANT VIABLE NEOPLASM. 2. Increased glucose concentration observed in the lower pelvis contiguous to the posterior aspect of the urinary bladder wall fulfills quantitative criteria for viable neoplasm and presumably is loss control representative of the patient's primary urinary bladder malignancy. 3. Enhanced FDG uptake visualized in the abdominal retroperitoneum, bilateral hemipelvis and left inguinal lymph node distributions fulfills quantitative criteria for viable neoplasm. 4. Neoplastic infiltration appears evident in the mediastinal structures and bilateral thoracic perihilum. (Rich et al, Journal of Clinical Oncology 16:2142, 1998). 5. Apparent viable osseous neoplasm involves the posterior element of the eighth thoracic vertebra as defined above. (Maxime et al, Clinical Nuclear Medicine, 29:161, 2004). Electronic Signature Gunner Martinez D.O. Electronically Signed: Gunner Martinez DO at 21:35 EST Tel , Service support , 06/18/2018 Bone scan reviewed. NM/Bone Scan Whole Body IMPRESSION: 1. 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 2. Facilitated uptake noted in the cervical, additional thoracic and defined lumbar vertebra, bilateral elbows, both wrist articulations, right-left shoulders, forefoot bilaterally is likely attributed to degenerative arthritis. Plain film radiography correlation may be of benefit in the region of the lumbar spine and additional defined thoracic spine. Electronically Signed: Gunner Martinez, at 21:53 EST Pathology Data: 06/29/2016 EBUS bx of mediastinal nodes reviewed, is negative. 06/25/2017 Left groin bx reviewed, Left groin lymph node, biopsy: Polytypic lymphoid tissue. No evidence of malignancy. 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 PET/CT shows activities in mediastinal, retroperitoneal, pelvic and Left groin nodes, T8 vertebra bone, and bladder. Discussed findings, prognosis which is poor but depends on response to chemotherapy and management as stage IV disease with chemotherapy. Pt agrees to proceed. Discussed risks, benefits and side effects. Plan is to start chemotherapy with Cisplatin D1, Gemzar D1 AND 8, every 21 days today. Will do 2 cycles and reassess with CT scan. RTC 1 wk wi CBC/CMP/Mag. Medications: Prescriptions This Visit Medication Instructions Recorded Lidocaine/Prilocaine 1 applicatio TP DAILY PRN PRN 30 06/04/18 [Lidocaine-Prilocaine Cream] Days #1 tube Primary Care Provider: Demond Davis MD Referring Provider: Rylan Gudino - Problem List (1) Bladder cancer Status: Chronic Qualifiers: Bladder location: dome Qualified Code(s): C67.1 - Malignant neoplasm of dome of bladder (2) Chemotherapy management, encounter for Status: Acute Code Visit Office Visits / Consults: 63052 OV L5 Est 07/06/18 1336 <Electronically signed by Shamar Cardona MD> Date Shamar Cardona MD Cosigner Signature: Date (if applicable) CC: Rylan Gudino MD OPERATIVE REPORT - Observed: 06/29/2018 Status: F Source: [place] ENDOSCOPY 2:01 PM [facility] REPOSITORY [facility] Medical Records Department [address] [place] [address] Operative Report - Endoscopy MR#: [id number] Acct: [id number] Name: VALE GARCIA Rep #: [id number] : 1945 72 From: Cristian Baxter DO PCP: Demond Davis MD [place]: [place] [facility] Name: Vale Garcia Procedure Date: 06/29/2018 12:28 PM Date of : 1945 Age: 72 Procedure: Bronchoscopy Indications: Mediastinal adenopathy Providers: Cristian Baxter MD, Bob Anderson MD Referring MD: Cristian Baxter MD Medicines: General Anesthesia Complications: No immediate complications Procedure: Pre-Anesthesia Assessment: - [place] Protocol: - Pre-procedure Verification: Prior to the procedure, the patient's identity was verified by full name and date of . The patient's identity was verified on all pertinent medical records, including History and Physical. Also prior to the procedure, a History and Physical was performed, and patient medications, allergies and sensitivities were reviewed. The patient's tolerance of previous anesthesia was reviewed. The risks and benefits of the procedure and the sedation options and risks were discussed with the patient. All questions were answered and informed consent was obtained. - Time-Out: Prior to the start of the procedure, the patient's identification, proposed procedure, accurate signed consent, correctly labeled images and records, and need for prophylactic antibiotics were verified by the physician and the nurse in the procedure room. After I obtained informed consent, the scope was passed under direct vision. Throughout the procedure, the patient's blood pressure, pulse, and oxygen saturations were monitored continuously. The ultrasound bronchoscope was introduced through the mouth, via laryngeal mask airway and advanced to the tracheobronchial tree. The procedure was accomplished without difficulty. The patient tolerated the procedure well. Findings: The laryngeal mask airway is in good position. The vocal cords appear normal. The subglottic space is normal. The trachea is of normal caliber. The derek is sharp. The tracheobronchial tree was examined to at least the first subsegmental level. Bronchial mucosa and anatomy are normal; there are no endobronchial lesions, and no secretions. The scope was withdrawn and replaced with the EBUS bronchoscope to accomplish the ultrasound examination. Lymph Nodes: An endobronchial ultrasound endoscope was utilized to systematically examine the right lower paratracheal region (level 4R), subcarinal mediastinum (level 7) and left hilar region (level 10L) in order to assist with guiding the biopsy needle. Lymph node sizing was performed via endobronchial ultrasound for h/o bladder cancer. Sampling by transbronchial needle aspiration was also performed using an Olympus EBUS-TBNA 19 gauge needle in the right lower paratracheal region (level 4R), subcarinal mediastinum (level 7) and left hilar region (level 10L) and sent for routine cytology. - The 4R (lower paratracheal) node was evaluated. Five samples with the needle were obtained. - The 7 (subcarinal) node was. One sample with the needle was obtained. - The 10L (hilar) node was. Two samples with the needle were obtained. Impression: - Mediastinal adenopathy - The airway examination was normal. - Endobronchial ultrasound was performed. - Lymph node sampling was performed. Recommendation: - Await cytology results. - Follow up with referring physician as previously scheduled. Procedure Code(s): --- Professional --- 58579, Bronchoscopy, rigid or flexible, including fluoroscopic guidance, when performed; with endobronchial ultrasound (EBUS) guided transtracheal and/or transbronchial sampling (eg, aspiration[s]/biopsy[ies]), 3 or more mediastinal and/or hilar lymph node stations or structures Diagnosis Code(s): --- Professional --- R59.0, Localized enlarged lymph nodes R09.89, Other specified symptoms and signs involving the circulatory and respiratory systems CPT copyright 2017 [employer]. All rights reserved. The codes documented in this report are preliminary and upon batch blender review may be revised to meet current compliance requirements. DO Cristian Dillon MD 06/29/2018 2:01:16 PM This report has been signed electronically. Bob Anderson MD Number of Addenda: 0 Note Initiated On: 06/29/2018 12:28 PM 06/29/18 1401 Date Cristian Baxter DO Cosigner Signature: Date (if indicated) CC: Cristian Baxter D.O.; Demond Davis MD Date Dictated: 06/29/18 1228 Date Transcribed: Global Compensation Analyst: RICKY Signed FLUID/WASHING Observed: 06/29/2018 Status: F Source: [place] 12:00 AM [facility] REPOSITORY Patient: VALE GARCIA : 1945 (72/M) Acct Num: [id number] Phys: Cristian Baxter D.O. Unit Num: [id number] Loc: EN Specimen: [id number] Received: 06/29/18906 Spec Type: Fluid TISSUES 1 TISSUES: A. Lung, NOS B. Lung, NOS C. Lung, NOS D. Lung, NOS E. Lung, NOS F. Lung, NOS G. Lung, NOS H. Lung, NOS I. Lung, NOS J. Lung, NOS K. Lung, NOS COMMENT The specimen is evaluated at the time of procedure by Dr. Tao. Immediate Evaluation: A. Aspiration #1, site 4R: Negative for malignant cells. Specimen predominantly consists of respiratory epithelial cells. Reported to Dr. Baxter at 1:10 p.m. B. Aspiration #2, site 4R: Specimen predominantly consists of blood and a few respiratory cells. Negative for malignant cells. Reported to Dr. Anderson at 1: 16 p.m. C. Aspiration #3, site 7: Negative for malignant cells. Lymphocytes are present. Adequate for evaluation. Reported to Drs. Baxter and Justin at 1:24 p.m. D. Aspiration #4, site 10L: Specimen consists of mostly blood. Reported to Dr. Anderson at 1:27 p.m. E. Aspiration #5, site 10L: Negative for malignant cells. Respiratory epithelial cells and lymphocytes noted. Reported to Dr. Baxter at 1:31 p.m. F. Aspiration #6, site 4R: The specimen predominantly consists of mostly blood. Nondiagnostic. G. Aspiration #7, site 4R: Negative for malignant cells. A few lymphocytes and respiratory epithelial cells noted. Reported to Drs. Baxter and Justin at 1: 40 p.m. H. Aspiration #8, site 4R: Negative for malignant cells. Paucicellular. Rare lymphocytes are noted. Reported to Dr. Baxter at 1:43 p.m. Case has been reviewed in consultation with Dr. Napier who concurs with the above diagnosis. IDC:AM CYTOLOGY GROSS A - Received labeled with the patient's name and and designated TBNA, aspiration #1, site 4R. The specimen consists of two smears that are submitted for immediate cytologic evaluation (wet read). B - Received labeled with the patient's name and and designated TBNA, aspiration #2, site 4R. The specimen consists of two smears that are submitted for immediate cytologic evaluation (wet read). C - Received labeled with the patient's name and and designated TBNA, aspiration #3, site 7. The specimen consists of two smears that are submitted for immediate cytologic evaluation (wet read). D - Received labeled with the patient's name and and designated TBNA, aspiration #4, site 10L. The specimen consists of two smears that are submitted for immediate cytologic evaluation (wet read). E - Received labeled with the patient's name and and designated TBNA, aspiration #5, site 10L. The specimen consists of two smears that are submitted for immediate cytologic evaluation (wet read). F - Received labeled with the patient's name and and designated TBNA, aspiration #6, site 4R. The specimen consists of two smears that are submitted for immediate cytologic evaluation (wet read). G - Received labeled with the patient's name and and designated TBNA, aspiration #7, site 4R. The specimen consists of two smears that are submitted for immediate cytologic evaluation (wet read). H - Received labeled with the patient's name and and designated TBNA, aspiration #8, site 4R. The specimen consists of two smears that are submitted for immediate cytologic evaluation (wet read). I - Received in RPMI and labeled with the patient's name and and designated site 4R. Submitted for cytology preparation including cell block. J - Received in RPMI and labeled with the patient's name and and designated site 7. Submitted for cytology preparation including cell block. K - Received in RPMI and labeled with the patient's name and and designated site 10L. Submitted for cytology preparation including cell block. / SJ:deirdre 06/29/18 TC:5 CPT: 89429 x3, 58473 x3, 64189 x3, 70687 x5 CYTOLOGY STUDY Slides are reviewed. DIAGNOSIS CYTOLOGY A. EBUS, TBNA, Aspiration #1, site 4R (smears): Negative for malignant cells. Specimen predominantly consists of respiratory epithelial cells. B. EBUS, TBNA, Aspiration #2, site 4R (smears): Specimen predominantly consists of blood and a few respiratory cells. Negative for malignant cells. C. EBUS, TBNA, Aspiration #3, site 7 (smears): Negative for malignant cells. Lymphocytes are present. Adequate for evaluation. D. EBUS, TBNA, Aspiration #4, site 10L (smears): Specimen consists of mostly blood. E. EBUS, TBNA, Aspiration #5, site 10L (smears): Negative for malignant cells. Paucicellular specimen. A few respiratory epithelial cells and lymphocytes are noted. F. EBUS, TBNA, Aspiration #6, site 4R (smears): Negative for malignant cells. The specimen predominantly consists of blood. Rare respiratory epithelial cells noted. Nondiagnostic specimen. G. EBUS, TBNA, Aspiration #7, site 4R (smears): Negative for malignant cells. A few lymphocytes and respiratory epithelial cells noted. H. EBUS, TBNA, Aspiration #8, site 4R (smears): Negative for malignant cells. Paucicellular specimen. Rare lymphocytes are noted. I. EBUS, TBNA fluid, site 4R (cell block): Negative for malignancy. Respiratory epithelial cells and lymphocytes are noted. J. EBUS TBNAfluid, site 7 (cell block): Negative for malignancy. Respiratory epithelial cells and lymphocytes are noted. K. EBUS TBNA fluid, site 10L (cell block): Negative for malignancy. Respiratory epithelial cells and lymphocytes are noted. SJ:deirdre 07/02/18 HEADER OPERATION: EBUS with TBNA PRE-OP DIAGNOSIS: Mediastinal lymphadenopathy TISSUE SUBMITTED: A AND B - Site 4R (paratracheal), C - Site 7 (subcarina), D AND E - Site 10L (left hilar), F-H - Site 4R (paratracheal), I - Site 4R, J - Site 7 , K - Site 10L Signed Calvin Tao MD 07/02/18 <signature on file> Performed By: #### PFLU #### [facility] [address] [place], [place], [address] SURGERY VISIT REPORT Observed: 06/21/2018 Status: F Source: [place] 10:09 AM [facility] REPOSITORY [facility] [address] [place] [address] OFFICE VISIT Date of Service: 06/21/18 MR#: [id number] Acct: [id number] Name: VALE GARCIA Rep #: [id number] : 1945 Provider: Cecily Hernandez MD Age/Sex: 72/M Location: [facility] Status: Signed Intake Vital Signs06/21/18 Body Mass Index (BMI) 28.8 Intake Visit Reasons: discuss left groin LN biopsy Chief Complaint: F/U for PET/CT results. Allergies No Known Allergies Allergy (Verified 06/18/18 14:38) Medications Tamsulosin HCl [Flomax] 0.4 mg PO DAILY 12/11/13 [History Confirmed 06/18/18] Travoprost 0.004% [Travatan-Z 0.004% Eye Drop] 1 drp EACH EYE DAILY 12/11/13 [History Confirmed 06/18/18] aspirin 81 mg tablet,delayed release 162 mg PO QDAY 07/05/17 [History Confirmed 06/18/18] naproxen sodium 220 mg tablet 220 mg PO PRN PRN tab 07/05/17 [History Confirmed 06/18/18] atorvastatin 40 mg tablet 40 mg PO QDAY tab 12/22/17 [History Confirmed 06/18/18] metoprolol tartrate 25 mg tablet 25 mg PO BID tab 12/22/17 [History Confirmed 06/18/18] Acetaminophen [Tylenol] 500 - 1,000 mg PO Q6H PRN PRN 05/04/18 [History Confirmed 06/18/18] Multivitamin [Multiple Vitamins] 1 ea PO DAILY 05/04/18 [History Confirmed 06/18/18] Ibuprofen 600 mg PO Q4H PRN PRN #20 tab 05/11/18 [Rx Confirmed 06/18/18] Lidocaine/Prilocaine [Lidocaine-Prilocaine Cream] 1 applicatio TP DAILY PRN PRN 30 Days #1 tube 06/04/18 [Rx Confirmed 06/18/18] Ondansetron [Zofran] 8 mg PO Q8H PRN PRN 10 Days #30 tab 06/04/18 [Rx Confirmed 06/18/18] Dexamethasone [Decadron] 4 mg PO DAILY@0800 06/05/18 [History Confirmed 06/18/18] PFSH Medical History Lymphadenopathy, inguinal (Acute) Atherosclerosis of [place] coronary artery (Chronic) SOB (shortness of breath) (Chronic) PVCs (premature ventricular contractions) (Chronic) HTN (hypertension) (Chronic) HLD (hyperlipidemia) (Chronic) Cardiomyopathy (Chronic) Severe mitral insufficiency (Chronic) Bladder cancer (Acute 04/2018) Glaucoma (Acute) PORT PLACEMENT (Acute) Status post gamma knife treatment (Acute) Surgical History Hx of CABG (Chronic) History of heart valve replacement (Chronic) H/O arthroscopic knee surgery (Acute) History of back surgery (Acute) History of toe surgery (Acute) Family History Father Myocardial infarction CAD (coronary artery disease) Mother Heart disease Social History Smoking Status: Former smoker how long ago did patient quit smokin, 2ppd second hand exposure: Yes alcohol intake: former year quit: 1970 HPI HPI HPI: VALE GARCIA, is a 72 M who presents to the office today for planned ultrasound-guided biopsy left groin adenopathy. The patient has a history of bladder cancer. PET CT scan highlighted activity and adenopathy of the left groin. He presents now for tissue biopsy [facility] Imaging Services [address] [place] [address] Ext Non Vasc Limited/Soft Tiss MR#: [id number]:[id number] Name: VALE GARCIA [facility] #:[id number] : 1946M 72 From: Ronald Crowell MD PCP:Demond Davis MD Status:REG CLI Study:Ext Non Vasc Limited/Soft Tiss Date of Exam:06/18/18 Exam#[id number] Ordering Dr: Cecily Hernandez MD STUDY: SUPERFICIAL ULTRASOUND - BILATERAL GROIN. REASON FOR EXAM: Male, 72 years old. Lymphadenopathy. TECHNIQUE: A superficial ultrasound was performed with real- time and static white-scale imaging. COMPARISON: CT pelvis 04/20/2018. FINDINGS: Prominent lymph node in the right groin measuring 1.3 x 1.7 x 0.4 cm. Prominent lymph node in the left groin measuring 1.2 x 1.1 x 0.4 cm. US/Ext Non Vasc Limited/Soft Tiss IMPRESSION: Prominent lymph nodes in both inguinal regions. The dimensions are given above. These are unchanged when compared to CT of the pelvis dated 04/20/2018. Electronically Signed: Ronald Crowell MD at 11:25 EST , Service support , CC: Demond Davis MD; Cecily Hernandez MD Global Compensation Analyst: Exam Other: Nondescript rubbery fibrous fullness of the left groin. Nontender. No firm mass. Office Procedures [facility] [place] Procedure Performed By: Procedure performed by: Belen Details Ultrasound-guided mammotome biopsy left groin adenopathy Timeout and informed consent was obtained. 72-year-old gentleman was taken to procedure room placed upon the table. Left groin was prepped with Betadine. Ultrasound was performed demonstrating some mild nondescript adenopathy of the left groin. Medial to the femoral vessels and superficially there was a slightly elongated chain of lymph nodes. None of these appear to be overtly significantly enlarged. Under ultrasound guidance I was able to instill 1% lidocaine mixed 50-50 with 0.5% Marcaine. A total of 9 cc was used. I then made a small stab incision. A 13-gauge mammotome device was inserted. Under ultrasound guidance several cores were obtained of the lymph node chain. A marking clip was left in position. He tolerated this procedure well pressure was held for hemostasis. There was no significant bleeding no discomfort. He had good function of his leg. Steri-Strip Telfa OpSite dressing applied. After confirmation with pathology the specimen was placed in saline and immediately sent to pathology. Cecily Hernandez M.D., F.A.C.S. Assessment AND Plan Problems 1. Lymphadenopathy, inguinal R59.0 Plan Successful left groin ultrasound-guided mammotome lymph node biopsy with marking clip placement. The patient will be notified of pathology results as they become available Cecily Hernandez M.D., F.Drew.C.S. CC: Dr Demond Davis and Dr. Shamar Cardona Orders Orders: Coding Level of Care Code Attention Honey Processor Diagnoses Lymphadenopathy, inguinal R59.0 Comment [id number] 06/21/18 1009 <Electronically signed by Cecily Hernandez MD> Date Cecily Hernandez MD Cosigner Signature: Date (if applicable) CC: Demond Davis MD; Shamar Cardona MD MISCELLANEOUS LAB Collected: 06/21/2018 Status: F Source: [place] PROCEDURE 7:30 AM [facility] REPOSITORY Order Comment: Comments: [id number] Left groin LN; lymphadenopathy Test(s) Ordered: Flow [id number] TYPE CODE TESTS RESULT OUT OF RANGE REFERENCE UNITS LAB L801.1541 Insufficient Normal MISC quant. LAB TEST Performed By: #### L801.1541 #### [facility] [address] [place], [place], [id number] IMMUNOHISTOCHEMISTRY Observed: 06/21/2018 Status: F Source: [place] 12:00 AM [facility] REPOSITORY Patient: VALE GARCIA : 1945 (72/M) Acct Num: [id number] Phys: Cecily Hernandez MD Unit Num: [id number] Loc: LABSPEC Specimen: [id number] Received: 06/25/18 - 2612 Spec Type: IMMUNO TISSUES 1 TISSUES: Inguinal lymph node, NOS SPECIMEN INFORMATION: Tissue Source: Left groin lymph node, biopsy Clinical Info: Lymphadenopathy Specimen Number: [id number] CPT code: 07902, 69813 x8 METHODOLOGY: Deparaffinized sections of prefer/formalin-fixed tissue or PAP/DQ stained slides are incubated with monoclonal/polyclonal antibodies/oligonucleotide probes. Localization is made via biotin free immunoperoxidase method. Appropriate controls are performed and reacted as expected. Results on target cell population are indicated in the following table: RESULTS: ANTIBODY / CLONE RESULT CD3 (PS1) positive CD5 (SP10) positive CD20 (L26) positive CD45 (RP2/18) positive CD79a (11E3) positive CD138 (B-A38) negative AE1-3 (AE1/AE3/PCK26) negative P53 (DO-7) negative Ki-67 (30-9) positive, low These tests were developed and their performance characteristics determined by [facility]. They may not have been cleared or approved by the U.S. Food and Drug Administration. The FDA has determined that such clearance or approval is not necessary. INTERPRETATION: Left groin lymph node, biopsy: Polytypic lymphoid tissue. No evidence of malignancy. AM:deirdre 06/26/18 Comment: There is no evidence of lymphoproliferative disorder. PHYSICIAN AND INSTITUTION [address] [address] Signed Davon Napier DO 06/26/18 <signature on file> Performed By: #### PIMM #### [facility] [address] [place] [address]. [place], [place], [id number] LYMPH NODE BIOPSY Observed: 06/21/2018 Status: F Source: [place] 12:00 AM [facility] REPOSITORY Patient: VALE GARCIA : 1945 (72/M) Acct Num: [id number] Phys: Mary DRAKE,Cecily Unit Num: [id number] Loc: LABSPEC Specimen: [id number] Received: 06/21/18 - 08 Spec Type: LYMPH NODE TISSUES 1 TISSUES: Inguinal lymph node, NOS COMMENT Immunohistochemistry ([id number]) supports the above diagnosis. 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 GROSS DESCRIPTION Received in fixative is one container labeled with the patient's name and designated left groin lymph node tissue. The specimen consists of multiple elongated fragments of cullen-yellow fibroadipose tissue that in aggregate measure 2 x 1.5 x 0.1 cm. One core is submitted for flow cytometry study. Four touch imprints are prepared, two stained with Diff-Quik and two stained with H AND E stain. The entire specimen is submitted in one cassette. / SJ:deirdre 06/21/18 TC: 4 CPT: 16317 HEADER OPERATION: Left groin lymph node biopsy PRE-OP DIAGNOSIS: Lymphadenopathy TISSUE SUBMITTED: Left groin lymph node tissue MICROSCOPIC DESCRIPTION Slides are reviewed. MICROSCOPIC DIAGNOSIS Left groin lymph node, core biopsy: Lymphoid tissue with reactive change. No evidence of lymphoproliferative disorder. See comment. AM:deirdre 06/25/18 Signed Davon Napier DO 06/26/18 <signature on file> Performed By: #### PLYMN #### [facility] [address] [place], [place], [address] EXT NON VASC Observed: 06/18/2018 Status: F Source: [place] LIMITED/SOFT TISS 10:05 AM [facility] REPOSITORY [facility] Imaging Services [address] [place] [address] Ext Non Vasc Limited/Soft Tiss MR#: [id number] Acct: [id number] Name: VALE GARCIA Rep #: [id number] : 1945 M 72 From: Ronald Crowell MD PCP: Demond Davis MD Status: REG CLI Study: Ext Non Vasc Limited/Soft Tiss Date of Exam: 06/18/18 Exam# [id number] Ordering Dr: Cecily Hernandez MD STUDY: SUPERFICIAL ULTRASOUND - BILATERAL GROIN. REASON FOR EXAM: Male, 72 years old. Lymphadenopathy. TECHNIQUE: A superficial ultrasound was performed with real- time and static white-scale imaging. COMPARISON: CT pelvis 04/20/2018. FINDINGS: Prominent lymph node in the right groin measuring 1.3 x 1.7 x 0.4 cm. Prominent lymph node in the left groin measuring 1.2 x 1.1 x 0.4 cm. US/Ext Non Vasc Limited/Soft Tiss IMPRESSION: Prominent lymph nodes in both inguinal regions. The dimensions are given above. These are unchanged when compared to CT of the pelvis dated 04/20/2018. Electronically Signed: Ronald Crowell MD at 11:25 EST , Service support , CC: Demond Davis MD; Cecily Hernandez MD Global Compensation Analyst: Signed BONE SCAN WHOLE Observed: 06/18/2018 Status: F Source: [place] BODY 7:57 AM [facility] REPOSITORY [facility] Imaging Services [address] [place] [address] Bone Scan Whole Body MR#: [id number] Acct: [id number] Name: VALE GARCIA Rep #: [id number] : 1945 M 72 From: Gunner Martinez DO PCP: Demond Davis MD Status: REG CLI Study: Bone Scan Whole Body Date of Exam: 06/18/18 Exam# [id number] Ordering Dr: Shamar Cardona MD CLINICAL: 72-year-old male with reported history of carcinoma of the urinary bladder. WHOLE BODY 99m Tc MDP RADIONUCLIDE BONE SCINTIGRAPHY COMPARISON: None available FINDINGS: Following the intravenous administration of 24.7 mCi of 99m Tc MDP, whole body bone images reveal: 1. Increased radiopharmaceutical concentration is identified in the left posterior lateral eighth rib, left proximal clavicle and eighth thoracic vertebra. 2. Facilitated uptake is visualized in the mid-lower cervical spine posteriorly on the left and right, first-third, fifth, ninth- 12th thoracic, first-fifth lumbar vertebra heterogeneously, acromioclavicular compartments of both shoulders, glenohumeral compartment of the right shoulder, bilateral elbows, both wrist articulations, the right-left forefoot. 3. The remaining skeletal structures are scintigraphically unremarkable with normal-appearing renal images and urinary bladder activity identified. NM/Bone Scan Whole Body IMPRESSION: 1. 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 2. Facilitated uptake noted in the cervical, additional thoracic and defined lumbar vertebra, bilateral elbows, both wrist articulations, right-left shoulders, forefoot bilaterally is likely attributed to degenerative arthritis. Plain film radiography correlation may be of benefit in the region of the lumbar spine and additional defined thoracic spine. Electronically Signed: Gunner Martinez DO at 21:53 EST Tel , Service support , CC: Demond Davis MD; Shamar Cardona MD Global Compensation Analyst: Signed PULMONARY VISIT REPORT Observed: 06/15/2018 Status: F Source: [place] 2:05 PM [facility] REPOSITORY [facility] [address] [place] [address] OFFICE VISIT Date of Service: 06/15/18 MR#: [id number] Acct: [id number] Name: SIMONWillamVALE Alvarez Rep #: [id number] : 1945 Provider: Daniela Jeffers Age/Sex: 72/M Location: [facility] Status: Signed Assessment AND Plan 1. Mediastinal adenopathy R59.0 Plan New. Discussed the risks and benefits of an endobronchial ultrasound-guided biopsy procedure, patient is agreeable conveys understanding. Placed on the schedule for June 29, 2018. Blood coag studies to be drawn today. Follow-up with Dr. Baxter in 1 month, if pathology reports are available sooner the patient will be contacted to be added to the schedule to be seen sooner. Discussed this case with Dr. Baxter. Orders Orders: 2. 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 3. Pelvic lymphadenopathy R59.0 Plan Defer management to oncology, biopsy by general surgery pending. Orders Orders: 4. History of heart valve replacement Z95.2 Plan Complicates exam, plan, care and prognosis. The patient will need to hold his aspirin 7 days prior to the EBUS procedure. Plan Detail Other Orders Orders: HPI ONCOLOGY REFERRAL FOR EBUS: Chief Complaint: None HPI Comments Details: This patient presents the office today for initial consultation regarding mediastinal lymphadenopathy. He is ambulatory, currently in room air and accompanied today by his . The patient states that he was recently seen by his oncologist for bladder cancer, after receiving news that a PET scan showed positive lymph nodes in the lungs requiring additional testing. The patient was briefly educated on the need for an EBUS procedure. The patient reports that he was diagnosed with bladder cancer back in April. His symptoms began back in February with hematuria. He recently received an implanted chest port placement to prepare him for chemotherapy. Chemotherapy has been on delay as they are awaiting results of lymph node biopsy in both the chest and groin. The patient denies any shortness of breath, cough, pain or any other complaints. He states that he feels fine. He was previously a smoker of 2 packs/day x 30 years, quitting back in 1994. See complete review of systems. PET scan was completed on June 11, 2018 and showed increased uptake in the urinary bladder whalen, abdominal retroperitoneum, bilateral hemipelvis and left inguinal lymph node, mediastinum and bilateral thoracic perihilum. Also some concern for bone involvement, with a bone scan pending. Intake Vital Signs06/15/18 Height 5 ft 7.5 in 06/15/18 Weight: 187 lb Intake Visit Reasons: ONCOLOGY REFERRAL FOR EBUS Accompanied by: Allergies No Known Allergies Allergy (Verified 06/15/18 09:10) Medications Tamsulosin HCl [Flomax] 0.4 mg PO DAILY 12/11/13 [History Confirmed 06/15/18] Travoprost 0.004% [Travatan-Z 0.004% Eye Drop] 1 drp EACH EYE DAILY 12/11/13 [History Confirmed 06/15/18] aspirin 81 mg tablet,delayed release 81 mg PO QDAY 07/05/17 [History Confirmed 06/15/18] naproxen sodium 220 mg tablet 220 mg PO PRN PRN tab 07/05/17 [History Confirmed 06/15/18] atorvastatin 40 mg tablet 40 mg PO QDAY tab 12/22/17 [History Confirmed 06/15/18] metoprolol tartrate 25 mg tablet 25 mg PO BID tab 12/22/17 [History Confirmed 06/15/18] Acetaminophen [Tylenol] 500 - 1,000 mg PO Q6H PRN PRN 05/04/18 [History Confirmed 06/15/18] L.acidoph,Paracasei, B.lactis [Probiotic] 1 ea PO DAILY 05/04/18 [History Confirmed 06/15/18] Multivitamin [Multiple Vitamins] 1 ea PO DAILY 05/04/18 [History Confirmed 06/15/18] Ibuprofen 600 mg PO Q4H PRN PRN #20 tab 05/11/18 [Rx Confirmed 06/15/18] Lidocaine/Prilocaine [Lidocaine-Prilocaine Cream] 1 applicatio TP DAILY PRN PRN 30 Days #1 tube 06/04/18 [Rx Confirmed 06/15/18] Ondansetron [Zofran] 8 mg PO Q8H PRN PRN 10 Days #30 tab 06/04/18 [Rx Confirmed 06/15/18] Dexamethasone [Decadron] 4 mg PO DAILY@0800 06/05/18 [History Confirmed 06/15/18] PFSH Medical History Atherosclerosis of [place] coronary artery (Chronic) SOB (shortness of breath) (Chronic) PVCs (premature ventricular contractions) (Chronic) HTN (hypertension) (Chronic) HLD (hyperlipidemia) (Chronic) Cardiomyopathy (Chronic) Severe mitral insufficiency (Chronic) Glaucoma (Acute) PORT PLACEMENT (Acute) Status post gamma knife treatment (Acute) Bladder cancer (Acute 04/2018) Surgical History Hx of CABG (Chronic) History of heart valve replacement (Chronic) H/O arthroscopic knee surgery (Acute) History of back surgery (Acute) History of toe surgery (Acute) Family History Father Myocardial infarction CAD (coronary artery disease) Mother Heart disease Social History Smoking Status: Former smoker how long ago did patient quit smokin, 2ppd second hand exposure: Yes alcohol intake: former year quit: 1970 Review of Systems Const CONSTITUTIONAL: Positive fatigue; negative anorexia, body ache, chills, daytime sleepiness, fever(s), night sweats, oral thrush, stops breathing during sleep, weight loss, sleeping in chair, weight loss, weight gain, frequent colds, seasonal allergies, other, headache(s) or orthopnea EETM Ear Nose Throat Mouth: Positive hearing normal; negative hoarseness, dry mouth in morning, change in vision, itchy eyes, eye pain, swallowing Difficulty, ear pain, headache(s), mouth pain, nasal congestion, nasal discharge, sinus pain, sinus pressure, sore throat, other, hard of hearing, nose bleed or post nasal drip Cardio Cardiovascular: Negative chest pain, chest pain at rest, chest pain with activity, irregular heart rhythm, edema, shortness of breath when lying down, palpitations, other or murmur Resp Respiratory: Positive as per HPI; negative shortness of breath, pain with cough, wheezing, chest congestion, cough, chest tightness, pain on inspiration, inhalers, increase use of rescue inhalers, snoring, apnea or other Gastro Gastrointestional: Negative bloody stools, change in appetite, difficulty swallowing, reflux, hematemesis, melena stool, loose stool, constipation or other Genitourinary: Negative blood in urine, nocturia, pain with urination or other Musc Musculoskeletal: Negative body pain, back pain, neck pain or other Skin/Breast Skin/Breast: Negative dry skin, itching, unusual bruising, breast lump, other or rash Neuro Neurological: Negative restless legs, confusion, weakness or other Psych Psychocological: Negative abnormal sleep pattern, anxiety, thoughts of hurting self/others, hopelessness or other Lymph Lymphatic: Negative easy bleeding, easy bruising, other or swollen lymph nodes Exam Const Constitutional: Positive cooperative, in no acute respiratory distress, healthy appearing, well developed, well nourished, good hygiene and conversant Head Head: Positive normocephalic and atraumatic; negative cyanosis of lips/distal nose Eyes Eye: Positive clear conjunctiva; negative nystagmus or scleral abnormality Ears Ear: Positive hearing normal and external ears normal; negative hard of hearing Nose Nose: Positive external nose normal and no nasal discharge; negative epistaxis Mouth Mouth: Positive oral mucosae normal, no lesions, dentures and posterior oropharynx is adequate; negative post nasal drip, malodorous breath or oral thrush present Mallampati Score: I: Mallampati Score Neck Neck: Positive normal visual inspection, full ROM and trachea midline; negative lymphadenopathy, JVD or tender Chest Wall Chest: Positive normal inspection of the chest and symmetric chest movement; negative increased A/P diameter Resp lung sounds: Positive clear to auscultation, good air exchange, normal expiratory time and normal respiratory effort; negative diminished, wheezes, rhonchi, rales, dullness to percussion or wheeze present on forced exhalation Cardio Cardiac: Positive regular rate, regular rhythm, S1 normal and S2 normal; negative murmur GI GI: Positive normal to inspection; negative distended Genitourinary: Positive deferred Musc Musculoskeletal: Positive steady gait and ROM normal; negative kyphosis or scoliosis Skin Pulmonary Skin Exam: Positive intact; negative rash Pulses Pulse: Yes pulses normal x4 extremities Extremities Extremities: Yes capillary refill normal, No clubbing, No cyanosis, No edema, No stasis dermatitis Neuro Neurologic: Yes conversant, Yes no focal neuro deficits, Yes understands questions, Yes cooperative, Yes normal concentration, No tremor, Yes normal cognition, Yes normal coordination Lymph Lymphatic: No lymphadenopathy, No tenderness, No cervical adenopathy Psych Appearance: Positive grossly normal, eye contact and well kempt Mental Status: Positive mental status grossly normal Mood: Positive congruent mood Affect: Positive normal affect Coding Level of Care Code Off vis,new,level 4 Diagnoses Mediastinal adenopathy R59.0 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 Bladder location: dome Pelvic lymphadenopathy R59.0 History of heart valve replacement Z95.2 Time Spent (min) 45 06/15/18 1405 <Electronically signed by Daniela DAVE> Date Daniela DAVE Cosigner Signature: Date (if applicable) CC: Demond Davis MD ONCOLOGY VISIT REPORT Observed: 06/15/2018 Status: F Source: [place] 11:01 AM [facility] REPOSITORY [facility] [place] [address] OFFICE VISIT Date of Service: 06/04/18 1726 MR#: [id number] Acct: [id number] Name: SIMONWillamVALE Rep #: [id number] : 1945 From: Mili DAVE Age/Sex: 72/M Location: [facility] Status: Signed Subjective - Date of Service Date of Service:: 06/04/18 - Chief Complaint Chemotherapy education cisplatin gemcitabine - History of Present Illness 72y.o. man presented with hematuria, CT scan showed bladder mass on 04/20/2018 . He had cystoscopy on 05/11/2018 which showed sessile tumor involving the left lateral wall extending all the way to the dome of the bladder. 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 Referred for neoadjuvant chemotherapy. - Interval History The patient is presenting to clinic accompanied by spouse for chemotherapy education. It is been proposed he began neoadjuvant chemotherapy with cisplatin gemcitabine. Patient underwent staging CT chest and comes in to discuss results as well. Denies any outstanding complaint since he was last evaluated by Dr. Cardona. Describes good support system at home by way of family and spouse. - Past Medical/Social History Past Medical History Cancer: Bladder cancer Social History Smoking Status Former smoker Review of Systems Constitutional:: Reports: Weakness, Fatigue, Weight loss. Denies: Fever, Sweats, Appetite change, Chills Cardiovascular:: Denies: Chest pain, Palpitations, Dyspnea on exertion, Orthopnea, PND, Shortness of breath Respiratory: Denies: Cough, Hemoptysis, Shortness of Breath, Wheezing Gastrointestinal:: Denies: Abdominal pain, Nausea, Vomiting, Diarrhea, Constipation, Hematochezia Genitourinary: Denies: Dysuria, Hematuria, 15, Flank pain Musculoskeletal:: Denies: Back pain, Myalgia, Arthralgia Skin: Denies: Rash, Skin Changes, Wounds Neurological:: Denies: Headache, Dizziness, Numbness, Tingling, Frequent falls, Visual changes, Tinnitus, Hearing loss Psychiatric: Denies: Anxiety, Depression, Homicidal Ideations, Suicidal Ideations Vital Signs Height 5 ft 7.5 in Weight: 186 lb Weight in Pounds 186.0 lbs Pulse Ox 96 - Physical Exam General: Alert, Oriented x3, No apparent distress HEENT: Atraumatic, Normocephalic Psychiatric:: Appropriate affect, Euthymic Diagnostic Data: 05/31/2018 CT chest without contrast demonstrated several mediastinal lymph nodes with the largest in the precarinal space measuring 2.1 cm. Assessment and Plan 1. Invasive Bladder cancer it is been proposed the patient begin neoadjuvant chemotherapy with cisplatin and gemcitabine. CT chest without contrast was obtained 05/31/2018 for staging purposes. Imaging demonstrated several mediastinal lymph nodes with the largest in the precarinal space measuring 2.1 cm these results were communicated to the patient. Recommend PET/CT to investigate further. It is been proposed the patient begin neoadjuvant chemotherapy with cisplatin and gemcitabine. The patient has been thoroughly educated to risks/benefits associated with chemotherapy. Specifically, he has been educated to potential side effects, recommendations for symptom management, and circumstances in which he should contact provider immediately, such as the development of any signs/symptoms of infection inclusive of temperature > 100.4. Encouraged to go directly to ED should fever occur outside normal clinic hours. He has been provided written educational information and after hours contact information and prescriptions for prn antiemetics/EMLA cream. Greater than 50% of this one hour visit was spent in counseling and a significant amount of time was allotted for questions. All the patient's concerns were addressed to his satisfaction and he is agreeable to proceed. Tentatively, he will commence with cycle 1 on 06/14/2018, pending the results of PET/CT. Patient was also evaluated by Dr. Simental who led the decision- making process involved in the development the treatment plan as outlined above. Mili Vences, MSN, ACQUISITION MANAGER, AOCNP Medications: Prescriptions This Visit Medication Instructions Recorded Dexamethasone [Decadron] 4 mg PO DAILY@0800 63 Days #18 06/04/18 Primary Care Provider: Demond Davis MD Referring Provider: Rylan Gudino - Problem List (1) Bladder cancer Status: Chronic Qualifiers: Bladder location: dome Qualified Code(s): C67.1 - Malignant neoplasm of dome of bladder (2) Educational circumstance Status: Acute (3) Mediastinal adenopathy Status: Acute 06/06/18 1753 <Electronically signed by Mili Vences MENAGERIE CARETAKER-C> Date Mili Vences MENAGERIE CARETAKER-C 06/15/18 1101<Electronically signed by Shamar Cardona MD> Cosigner Signature: Date (if applicable) Shamar Cardona MD CC: PROTHROMBIN TIME W/INR Collected: 06/15/2018 Status: F Source: [place] 10:35 AM [facility] REPOSITORY TYPE CODE TESTS RESULT OUT OF RANGE REFERENCE UNITS LAB L300.4150 11.7-14.9 SECONDS Normal PROTIME 13.8 LAB L300.4200 Normal INR 1.1 Performed By: #### L300.3900, L300.4310 #### [facility] [address] [place], [place], [id number] PARTIAL THROMBOPLAST Collected: 06/15/2018 Status: F Source: [place] TIME 10:35 AM [facility] REPOSITORY TYPE CODE TESTS RESULT OUT OF RANGE REFERENCE UNITS LAB L300.4310 24.1-36.2 Seconds Normal PTT 32.5 Performed By: #### L300.3900, L300.4310 #### [facility] [address] [place], [address] ONCOLOGY VISIT REPORT Observed: 06/14/2018 Status: F Source: [place] 9:18 AM [facility] REPOSITORY [facility] [place] [place] [address] OFFICE VISIT Date of Service: 06/14/18 0859 MR#: [id number] Acct: [id number] Name: VALE GARCIA Rep #: [id number] : 1945 From: Shamar Cardona MD Age/Sex: 72/M Location: [facility] Status: Signed Subjective - Date of Service Date of Service:: 06/14/18 - Chief Complaint F/U for PET/CT results. - History of Present Illness 72y.o. man presented with hematuria, CT scan showed bladder mass on 04/20/2018 . He had cystoscopy on 05/11/2018 which showed sessile tumor involving the left lateral wall extending all the way to the dome of the bladder. 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 Referred for neoadjuvant chemotherapy. He had a PET/CT scan to stage disease and comes for follow up. - Past Medical/Social History Past Medical History Cancer: Bladder cancer Social History Smoking Status Former smoker Review of Systems Constitutional:: Denies: Fever, Sweats, Weight loss, Appetite change, Chills Cardiovascular:: Denies: Chest pain, Palpitations, Dyspnea on exertion, Orthopnea, PND, Shortness of breath Respiratory: Denies: Cough, Hemoptysis, Shortness of Breath, Wheezing Gastrointestinal:: Denies: Abdominal pain, Nausea, Vomiting, Diarrhea, Constipation, Hematochezia Genitourinary: Reports: Urinary frequency Musculoskeletal:: Denies: Back pain, Myalgia, Arthralgia Skin: Denies: Rash, Skin Changes, Wounds Neurological:: Denies: Headache, Dizziness, Visual changes, Tinnitus, Hearing loss Psychiatric: Denies: Anxiety, Depression, Homicidal Ideations, Suicidal Ideations Vital Signs Height 5 ft 7.5 in Weight: 84.822 kg Weight in Pounds 187.0 lbs Pulse Ox 96 - Physical Exam General: Alert, Oriented x3, No apparent distress Laboratory Data: Laboratory Tests Diagnostic Data: Diagnostic Data PET, CT Tumor Imaging 06/11/18 10:37 IMPRESSION: 1. ABNORMAL EXAMINATION INDICATIVE OF MALIGNANT VIABLE NEOPLASM. 2. Increased glucose concentration observed in the lower pelvis contiguous to the posterior aspect of the urinary bladder wall fulfills quantitative criteria for viable neoplasm and presumably is loss control representative of the patient's primary urinary bladder malignancy. 3. Enhanced FDG uptake visualized in the abdominal retroperitoneum, bilateral hemipelvis and left inguinal lymph node distributions fulfills quantitative criteria for viable neoplasm. 4. Neoplastic infiltration appears evident in the mediastinal structures and bilateral thoracic perihilum. (Rich et al, Journal of Clinical Oncology 16:2142, 1998). 5. Apparent viable osseous neoplasm involves the posterior element of the eighth thoracic vertebra as defined above. (Maxime et al, Clinical Nuclear Medicine, 29:161, 2004). Electronic Signature Gunner Martinez D.O. Electronically Signed: Gunner Martinez DO at 21:35 EST Tel , Service support , Assessment and Plan Invasive Bladder cancer for neoadjuvant chemotherapy. PET/CT shows activities in mediastinal, retroperitoneal, pelvic and Left groin nodes, T8 vertebra bone, and bladder. Discussed findings and complex nature of management. Discussed going ahead with therapy for metastatic disease vs finding more information with more biopsies. Pt want more biopsies and further evaluation. Plan is to obtain bone scan. Surgery consult for Left groin node bx. Pulmonary consult for EBUS + bx of mediastinal nodes. To hold chemotherapy with Cisplatin and Gemzar. RTC 2 wks. Medications: Prescriptions This Visit Medication Instructions Recorded Medications Added to Medication List This Visit 0.9% Normal Saline Med 06/14/18 00:00 Active 250 ml IV UD PRN 0.9% Saline Lock Med 06/14/18 00:00 Active Primary Care Provider: Demond Davis MD Referring Provider: Rylan Gudino - Problem List (1) Bladder cancer Status: Chronic Qualifiers: Bladder location: dome Qualified Code(s): C67.1 - Malignant neoplasm of dome of bladder (2) Retroperitoneal lymphadenopathy Status: Acute (3) Mediastinal adenopathy Status: Acute (4) Pelvic lymphadenopathy Status: Acute Code Visit Office Visits / Consults: 09782 OV L5 Est 06/14/18917 <Electronically signed by Shamar Cardona MD> Date Shamar Cruz Signature: Date (if applicable) CC: COMPREHENSIVE METABOLIC Collected: 06/14/2018 Status: F Source: [place] PROFIL 8:05 AM [facility] REPOSITORY Order Comment: Reason for Laboratory Test . TYPE CODE TESTS RESULT OUT OF RANGE REFERENCE UNITS LAB L501.0100 74-106 mg/dL Normal GLU 85 Result Comment: Please note revised GLUCOSE reference range effective 2017. LAB L501.1000 7-18 mg/dL Normal BUN 13 LAB L501.1100 0.70-1.30 mg/dL Normal CREAT,SERUM 1.08 Result Comment: The validity of the calculated GFR AND GFRAA in patients over 70 years has not been determined. Clinical correlation is essential. LAB L501.1110 >60 mL/min Normal EST GFR 72 Result Comment: Non- GFR Calc LAB L501.1115 >60 mL/min Normal EST GFR - AA 87 Result Comment: GFR Calc LAB L501.1255 ml/min Normal Estimated CRCL 58.65 LAB L501.1300 10-20 RATIO Normal BUN/CRE 12.0 LAB L501.1500 6.4-8. g/dL Normal 2 T PROT 6.9 LAB L501.1800 3.2-5. g/dL Normal 0 ALB 3.3 LAB L501.1950 2.2-4. g/dL Normal 2 GLOB 3.6 LAB L501.2000 0.9-2. RATIO Normal 4 A/G 0.9 LAB L501.2200 8.5-10 mg/dL Normal .1 CA 8.7 LAB L501.4100 15-37 U/L Low AST 12 LAB L501.4305 45-117 U/L Normal ALK P 109 LAB L501.4405 16-61 U/L Normal ALT 16 LAB L501.4600 0.20-1 mg/dL Normal .00 T BILI 0.60 LAB L501.5300 136-14 mmol/L Normal 5 NA 142 LAB L501.5600 3.5-5. mmol/L Normal 1 K 4.0 LAB L501.5900 98-107 mmol/L Normal CL 107 LAB L501.6100 21.0-3 mmol/L Normal 2.0 CO2 27.0 LAB L501.6200 5-15 Normal GAP 8 Performed By: #### L500.4050, L501.2300, L501.5200 #### [facility] [address] [place], [address] PHOSPHORUS Collected: 06/14/2018 Status: F Source: [place] 8:05 AM [facility] REPOSITORY Order Comment: Reason for Laboratory Test . TYPE CODE TESTS RESULT OUT OF RANGE REFERENCE UNITS LAB L501.2300 2.5-4.9 mg/dL Normal PHOS 3.1 Performed By: #### L500.4050, L501.2300, L501.5200 #### [facility] [address] [place], [place], [address] MAGNESIUM Collected: 06/14/2018 Status: F Source: [place] 8:05 [facility] REPOSITORY Order Comment: Reason for Laboratory Test . TYPE CODE TESTS RESULT OUT OF RANGE REFERENCE UNITS LAB L501.5200 1.6-2.6 mg/dL Normal MG 2.4 Performed By: #### L500.4050, L501.2300, L501.5200 #### [facility] [address] [place], [place], [address] CBC W/DIFF, AUTOMATED Collected: 06/14/2018 Status: F Source: [place] 8:05 [facility] REPOSITORY Order Comment: Reason for Laboratory Test . TYPE CODE TESTS RESULT OUT OF RANGE REFERENCE UNITS LAB L100.1000 4.4-11.0 K/mm3 Normal WBC 7.8 LAB L100.1200 4.6-6.2 M/mm3 Normal RBC 4.70 LAB L100.1300 13.0-16.5 g/dl Normal HGB 14.2 LAB L100.1400 40-54 % Normal HCT 44.3 LAB L100.1500 80-94 fL High MCV 94.3 LAB L100.1600 27.0-32.0 pg Normal MCH 30.2 LAB L100.1700 32-36 g/gl Normal MCHC 32.1 LAB L100.1810 11.6-14.6 % Normal RDW CV 13.6 LAB L100.1820 35.1-43.9 fl High RDW SD 47.1 LAB L100.1900 150-450 K/mm3 Normal PLT 178 LAB L100.2000 6.2-12.0 fl Normal MPV 10.9 LAB L100.2100 47-70 % Normal NEUT% 68.0 LAB L100.2200 19-41 % Low LY% 11.9 LAB L100.2300 0-10 % High MONO% 11.2 LAB L100.2400 0-5 % High EO% 8.2 LAB L100.2500 0-1 % Normal BASO% 0.6 LAB L100.2550 0.0-0.9 % Normal IM GRAN % 0.100 Result Comment: IG% - Immature Granulocytes (promyelocytes, myelocytes and metamyelocytes) > 1% indicates that a LEFT SHIFT is Present. LAB L100.2620 2.0-7.7 X10 3/uL Normal Absolute Neut 5.3 LAB L100.2720 0.83-4.51 X10 3/ul Normal Absolute Lymph 0.93 Performed By: #### L100.0100 #### [facility] [address] [facility] [place], [address] PET/CT TUMOR BASE Observed: 06/11/2018 Status: F Source: [facility] INIT 10:38 AM [facility] REPOSITORY [facility] Imaging Services [address] [place] [address] PET/CT Tumor Base -Thigh Init MR#: [id number] Acct: [id number] Name: SIMONVALE Lacey Kim Rep #: [id number] : 1945 M 72 From: Gunner Martinez DO PCP: Demond Davis MD Status: REG RCR Study: PET/CT Tumor Base -Thigh Init Date of Exam: 06/11/18 Exam# [id number] Ordering Dr: Shamar Cardona MD EXAMINATION: FDG PET/CT INDICATIONS: A 72-year-old male with reported history of carcinoma of the urinary bladder presenting for initial staging examination. COMPARISON EXAMINATION: CT of the chest report dated 05/31/18, CT of the abdomen and pelvis report dated 04/20/18 INDEX LESION SIZE SUV INTERPRETATION Lower pelvis, posterior aspect urinary bladder wall 18.4- mm (frame 106) 10.4 Fulfills quantitative criteria for viable neoplasm Abdominal retroperitoneum, bilateral hemipelvis, left inguinal lymph node distributions 28.6-mm (largest) (frame 117) 9.2 (max) Fulfills quantitative criteria for viable neoplasm Mediastinal structures, bilateral thoracic perihilum 13.8- mm (largest) (frame 246) 4.7 (max) Fulfills quantitative criteria for viable neoplasm Eighth thoracic vertebra 4.1 Fulfills quantitative criteria for viable osseous neoplasm TECHNIQUE: Following the intravenous administration of 15.4 mCi of F-18 deoxyglucose via the left antecubital fossa, multiplanar image acquisitions of the neck, chest, abdomen and pelvis to level of mid thigh, obtained at one hour post radiopharmaceutical administration contemporaneously interpreted with the current CT of the neck, chest, abdomen and pelvis to level of mid thigh, dated 06/11/[address] of the chest report dated 05/31/18, CT of the abdomen and pelvis report dated 04/20/18 reveal: SERUM GLUCOSE LEVEL: 73 mg/dl. HEIGHT: 67 inches. WEIGHT: 182 lbs. FINDINGS: 1. An increase in glucose metabolism is manifest in the lower pelvis contiguous to thickened urinary bladder wall generating a calculated maximal standard uptake value of 10.4. The maximal axial diameter of the corresponding metabolic, morphologic abnormality on review of CT of the pelvis dated 06/11/18 is 18.4-mm. 2. Multiple foci of increased FDG concentration are manifest in the mid abdominal retroperitoneum and bilateral hemipelvis, the left inguinal region, corresponding to soft tissue adenopathy, lymph nodes. The calculated maximal standard uptake value is 9.2. The maximal axial diameter of the largest, most conspicuous metabolic, morphologic abnormality on review of CT of the abdomen and pelvis dated 06/11/18 is 28.6-mm (AP). 3. There is an increase in FDG concentration defined in the pre-carinal level mediastinum and bilateral thoracic perihilum generating a calculated maximal standard uptake value of 4.7. The maximal axial diameter of the largest individual metabolic, morphologic abnormality on review of CT of the chest dated 06/11/18 is 13.8-mm (transverse). 4. Facilitated fluorine labeled glucose uptake is visualized in the region of the eighth thoracic vertebra to the left of the midline involving the posterior element to include the lamina, spinous process. The calculated maximal standard uptake value is 4.1. 5. Normal physiologic distribution of the radiopharmaceutical is apparent in the hepatic (2.7) and splenic parenchyma, both renal units, bladder and visualized intestinal tract. The visualized portion of the cerebral cortex demonstrate symmetric and preserved glucose metabolism. Diffuse radiopharmaceutical concentration is noted in all four quadrants of the abdomen and pelvis. An increase in glucose concentration is observed in the lower lumbar spine commensurate with postsurgical changes attributed to visualized spinal fusion operative intervention. Pertinent CT findings are as follows: CHEST: Michelet-cath placement is noted. Atherosclerotic calcification is defined in the thoracic aorta. The maximal axial diameter of the ascending thoracic aorta is 40.5-mm (AP). Coronary arterial calcification is observed. Right-left axillary soft tissue densities with fatty hilus formation are non-glucose avid. Emphysematous change is noted in the bilateral upper lung zones. There are no parenchymal densities-nodules defined in the right-left hemithorax manifesting quantitatively significant increased glucose metabolism. ABDOMEN AND PELVIS: There is atherosclerotic calcification defined in the abdominal aorta without evidence of dilatation-aneurysm formation. Pelvic arterial calcification is observed. Right-left inguinal soft tissue densities with fatty hilus formation are non-glucose avid. Colonic diverticulosis is defined. Postsurgical change appears evident in the lower pelvic mesentery. SKELETAL: Degenerative changes are noted in the cervical, thoracic and lumbar spine. Orthopedic hardware placement is defined in the lower lumbar spine commensurate with spinal fusion operative intervention demonstrating facilitated glucose metabolism as previously described. PET/PET/CT Tumor Base -Thigh Init IMPRESSION: 1. ABNORMAL EXAMINATION INDICATIVE OF MALIGNANT VIABLE NEOPLASM. 2. Increased glucose concentration observed in the lower pelvis contiguous to the posterior aspect of the urinary bladder wall fulfills quantitative criteria for viable neoplasm and presumably is loss control representative of the patient's primary urinary bladder malignancy. 3. Enhanced FDG uptake visualized in the abdominal retroperitoneum, bilateral hemipelvis and left inguinal lymph node distributions fulfills quantitative criteria for viable neoplasm. 4. Neoplastic infiltration appears evident in the mediastinal structures and bilateral thoracic perihilum. (Rich et al, Journal of Clinical Oncology 16:2142, 1998). 5. Apparent viable osseous neoplasm involves the posterior element of the eighth thoracic vertebra as defined above. (Maxime et al, Clinical Nuclear Medicine, 29:161, 2004). Electronic Signature Gunner Martinez D.O. Electronically Signed: Gunner Martinez DO at 21:35 EST Tel , Service support , CC: Demond Davis MD; Shamar Cardona MD Global Compensation Analyst: Signed DISCHARGE INSTRUCTION Observed: 06/07/2018 Status: F Source: [place] 2:44 PM [facility] REPOSITORY [facility] Medical Records Department [address] [place] [id number] Instructions for Home/Discharge Instructions 06/07/18 1208 MR#: [id number] Acct: [id number] Name: VALE GARCIA Rep #: [id number] : 1945 72 From: Cecily Hernandez MD PCP: Demond Davis MD [place] [facility] [place] Diet: Light diet - advance as tolerated - if you have questions about your diet instructions, please talk to you doctor. Discharge Activity: May Not Drive - for one day or while taking narcotic pain medicine. May shower in (days): 1 Lifting Restrictions: 10 pounds Call your doctor if your incision/area has: Continuous Slow Oozing, Sudden Increased Bleeding, Increased Pain/ Swelling, Increased Redness, Foul Smelling Discharge Call your doctor if you observe: Fever of 101 or Higher Suture Line Care: Avoid Pulling/Pushing, Avoid Pinching/Bending Additional Dressing/Incision Instructions:: Change or remove dressing in 3 days. Leave steri-strips in place for 1 week. Allergies/Adverse Reactions: Allergies No Known Allergies Allergy (Verified 06/05/18 15:44) Medications to take at Discharge Tamsulosin HCl [Flomax] 0.4 mg PO DAILY 12/11/13 Travoprost 0.004% [Travatan-Z 0.004% Eye Drop] 1 drp EACH EYE DAILY 12/11/13 aspirin 81 mg tablet,delayed release 81 mg PO QDAY 07/05/17 naproxen sodium 220 mg tablet 220 mg PO PRN PRN tab 07/05/17 atorvastatin 40 mg tablet 40 mg PO QDAY tab 12/22/17 metoprolol tartrate 25 mg tablet 25 mg PO BID tab 12/22/17 Acetaminophen [Tylenol] 500 - 1,000 mg PO Q6H PRN PRN 05/04/18 L.acidoph,Paracasei, B.lactis [Probiotic] 1 ea PO DAILY 05/04/18 Multivitamin [Multiple Vitamins] 1 ea PO DAILY 05/04/18 Ibuprofen 600 mg PO Q4H PRN PRN #20 tab 05/11/18 Lidocaine/Prilocaine [Lidocaine-Prilocaine Cream] 1 applicatio TP DAILY PRN PRN 30 Days #1 tube 06/04/18 Ondansetron [Zofran] 8 mg PO Q8H PRN PRN 10 Days #30 tablet 06/04/18 Dexamethasone [Decadron] 4 mg PO DAILY@0800 06/05/18 Primary Care Physician: Demond Davis MD [Primary Care Provider] - Test Results: Test results from this visit will be discussed in further detail at your follow-up appointment, if applicable. Please Follow Up With: Cecily Hernandez MD - [phone] When: Office follow up may be as needed 06/07/18 7939 <Electronically signed by Cecily Hernandez MD> Date Cecily Hernandez MD CC: Demond Davis MD OPERATIVE REPORT Observed: 06/07/2018 Status: F Source: [place] 1:07 PM [facility] REPOSITORY [facility] Medical Records Department [address] [place] [address] Operative Report 06/07/18 1303 MR#: [id number] Acct: [id number] Name: VALE GARCIA Rep #: [id number] : 1945 72 From: Cecily Hernandez MD PCP: Demond Davis MD Status: REG SDC Y Location: AC16-1 Problem List (1) Cancer of bladder wall Status: Acute Report of Operation Date of Procedure: 06/07/18 Pre-Operative Diagnosis: Urinary bladder carcinoma Post-Operative Diagnosis: Same Surgery/Procedure Performed:: Right internal jugular 6 [place] power port placement. Reference #[id number]. Lot number are [id number]. Expiry date 10/17/2019 Description of Surgical Findings:: Timeout and informed consent was obtained. 32-year gentleman was taken to the operating room. He was placed on the table. Ancef 2 g given intravenously preoperatively. The right neck and chest were sterilely prepped and draped. 1% lidocaine mixed 50-50 with 0.5% Marcaine was used as local anesthetic. A total of 18 cc was used. Ultrasound was used to identify the right internal jugular vein. Under ultrasound guidance local was instilled. A micropuncture needle inserted. Micropuncture wire inserted. Micropuncture sheath inserted. I initially tried to get the micropuncture wire to advance and it retrograde went up the neck. I tried an 035 J-wire and it made the same maneuver. I finally used a 035 angled Glidewire with each we advanced straight into the SVC. I was able to advance my micropuncture sheath. I then exchanged out for an 035 J-wire. Local was instilled down upon the chest and a transverse incision was created in the subtendinous pocket was created with electrocautery. The tubing was tunneled from the neck to the chest site. Then over the J-wire sheath dilator was inserted under fluoroscopic control. The wire and dilator were removed. The catheter was advanced through the sheath. The sheath was split. The catheter was positioned at the SVC atrial junction. It was amputated to length and connected the port and secured with the port attachment device. The port was placed in the pocket and secured there with interrupted 2-0 silk. The port site was closed with interrupted 3-0 Vicryl subdermal stitches. The neck was closed with interrupted 5-0 Vicryl subdermal stitches. Steri- Strips Telfa OpSite dressings applied. Sponge and instrument and needle counts were reported the surgeon be correct. Specimens none. Drains none. Blood loss minimal. The patient tolerated the procedure well and was taken to the recovery room in satisfactory condition without apparent complication. Stat portable chest x-ray is pending. Cecily Hernandez M.D., F.A.C.S. Type of Anesthesia:: Local MAC Anesthesiologist: Gordon Chaudhry 06/07/18 1307 <Electronically signed by Cecily Hernandez MD> Date Cecily Hernandez MD CC: Demond Davis MD; Cecily Hernandez MD Signed CXR FOR LINE PLACEMENT Observed: 06/07/2018 Status: F Source: [place] 12:08 PM [facility] REPOSITORY [facility] Imaging Services [address] [place] [address] CXR for Line Placement MR#: [id number] Acct: [id number] Name: VALE GARCIA Rep #: [id number] : 1945 M 72 From: Shashank Ann MD PCP: Demond Davis MD Status: [place] [facility] Study: CXR for Line Placement Date of Exam: 06/07/18 Exam# [id number] Ordering Dr: Cecily Hernandez MD STUDY: X-RAY CHEST REASON FOR EXAM: Male, 72 years old. Port placement. TECHNIQUE: Single AP portable view of the chest. COMPARISON: Comparison is made with prior study dated December 11, 2013. FINDINGS: A right-sided portacatheter has been placed. The tip is in the proximal portion of the superior vena cava. Increased markings with areas of confluence in the right infrahilar region suggestive of possible atelectasis superimposed on scarring. There is no demonstrated pleural abnormality. Sternal cerclage wires and vascular clips are present from a prior sternotomy and coronary artery bypass graft procedure (CABG). Normal mediastinum and yakov. Normal visualized pulmonary arteries. There is atherosclerotic calcification of the aortic arch with tortuosity. There are diffuse degenerative changes of the visualized thoracic spine. Normal visualized ribs, clavicles, and shoulders. There is no demonstrated abnormality of the visualized soft tissue structures of the upper abdomen. RAD/CXR for Line Placement IMPRESSION: The tip of the right portacatheter is in the proximal portion of the superior vena cava. Increased markings in the right infrahilar region suggestive of atelectasis superimposed on scarring. Electronically Signed: Shashank Ann MD at 13:51 EST Tel [phone], Service support , CC: Demond Davis MD; Cecily Hernandez MD Global Compensation Analyst: Signed SURGERY VISIT REPORT Observed: 06/01/2018 Status: F Source: [place] 1:44 PM [facility] REPOSITORY [facility] [address] [place] [address] [address] [place] [address] OFFICE VISIT Date of Service: 06/01/18 MR#: [id number] Acct: [id number] Name: VALE GARCIA Rep #: [id number] : 1945 Provider: Cecily Hernandez MD Age/Sex: 72/M Location: [facility] Status: Signed Intake Vital Signs06/01/18 Body Mass Index (BMI) 28.7 06/01/18 Height 5 ft 7 in 06/01/18 Weight: 184 lb 5 oz 06/01/18 Body Mass Index (BMI) 28.8 06/01/18 Blood Pressure 135/75 H Intake Visit Reasons: Port Placement Consult Chief Complaint: port placement --[facility] Material Spreader Required: No Is patient in pain?: No Allergies No Known Allergies Allergy (Verified 06/01/18 13:33) Medications Tamsulosin HCl [Flomax] 0.4 mg PO DAILY 12/11/13 [History Confirmed 06/01/18] Travoprost 0.004% [Travatan 0.004% Eye Drop] 1 drp EACH EYE DAILY 12/11/13 [History Confirmed 06/01/18] aspirin 81 mg tablet,delayed release 81 mg PO QDAY 07/05/17 [History Confirmed 06/01/18] naproxen sodium 220 mg tablet 220 mg PO PRN PRN tab 07/05/17 [History Confirmed 06/01/18] atorvastatin 40 mg tablet 40 mg PO QDAY tab 12/22/17 [History Confirmed 06/01/18] metoprolol tartrate 25 mg tablet 25 mg PO BID tab 12/22/17 [History Confirmed 06/01/18] Acetaminophen [Tylenol Extra Strength] 500 - 1,000 mg PO Q6H PRN PRN 05/04/18 [History Confirmed 06/01/18] L.acidoph,Paracasei, B.lactis [Probiotic] 1 ea PO DAILY 05/04/18 [History Confirmed 06/01/18] Multivitamin [Multiple Vitamins] 1 ea PO DAILY 05/04/18 [History Confirmed 06/01/18] Acetaminophen [Tylenol Extra Strength] 500 mg PO Q4H PRN PRN #20 tab 05/11/18 [Rx Confirmed 06/01/18] Ibuprofen 600 mg PO Q4H PRN PRN #20 tab 05/11/18 [Rx Confirmed 06/01/18] PFSH Medical History Atherosclerosis of [place] coronary artery (Chronic) SOB (shortness of breath) (Chronic) PVCs (premature ventricular contractions) (Chronic) HTN (hypertension) (Chronic) HLD (hyperlipidemia) (Chronic) Cardiomyopathy (Chronic) Severe mitral insufficiency (Chronic) Bladder cancer (Acute 04/2018) Glaucoma (Acute) Status post gamma knife treatment (Acute) Surgical History Hx of CABG (Chronic) History of heart valve replacement (Chronic) H/O arthroscopic knee surgery (Acute) History of back surgery (Acute) History of toe surgery (Acute) Family History Father Myocardial infarction CAD (coronary artery disease) Mother Heart disease Social History Smoking Status: Former smoker how long ago did patient quit smokin alcohol intake: former year quit: 1970 HPI HPI HPI: VALE GARCIA, is a 72 M who presents to the office today for surgical consultation regarding port placement with a history of recently diagnosed 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 performed a bladder biopsy on May 11, 2018. The patient is being seen by Dr. Cardona and chemotherapy is being recommended. The patient has need for IV access for form of a port to facilitate treatment. He has had previous cardiac surgery with valve replacement and coronary artery bypass.. He has also had previous back surgery. He denies any history of DVT. He is not on any anticoagulation ROS General General: No weight change, appetite, fatigue, colon cancer, breast cancer or weakness HEENT HEENT: No difficulty swallowing, eye injury, eye surgery, swollen glands or hoarseness Endo Endocrine: No thyroid disease, diabetes mellitus, thyroid cancer, Hair loss, heat intolerance or cold intolerance Musc Musculoskeletal: Yes back problems and arthritis; no rheumatoid arthritis, gout or joint pain Cardio Cardiovascular: Yes heart disease and heart attack; no murmur, pacemaker, atrial fibrillation, high blood pressure, heart stent, palpitations, shortness of breat with exertion or chest pain Additional Details: CABG x3 2010 Resp Respiratory: No shortness of breath, No sleep apnea, No cough, No COPD, No asthma, No emphysema, No wheezing Gastro Gastrointestinal: No abdominal pain, No nausea or vomiting, No diarrhea, No constipation, No blood in stool, No acid reflux, No hemorrhoids, No ulcers, No gallbladder problem, No black,tarry stools Francisco J Hematologic: Yes blood thinners, No blood disorders, Yes bleeding, No anemia, No blood clots Neuro Neurologic: No weakness Exam Const General: cooperative Nutritional Appearance: average body habitus Orientation: alert, awake [facility] Head: normal to inspection Eyes General: appearance normal, both eyes and all related structures Chest Other: Markedly increased anterior posterior diameter Resp Other: Diminished respiratory excursion, clear Cardio Rate: regular rate Rhythm: regular rhythm Heart Sounds: no murmurs Other: Well-healed median sternotomy incision GI Palpation: soft, no hepatosplenomegaly Extrem General: no clubbing, cyanosis or edema Psych Affect: normal affect Assessment AND Plan Problems 1. 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 Plan I have recommended the patient a right internal jugular port placement. He is aware of the technique, benefits, risks, alternatives. He has had an opting to ask and have questions answered. We will schedule and expedite his management. I very much appreciate the ongoing opportunity of assisting with his surgical care. Cc: Dr. Demond Davis and Dr. Cardona and Dr. Terese Hernandez M.D., F.A.C.S. Coding Level of Care Code Detailed, Low Diagnoses 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 Bladder location: dome 06/01/18 1344 <Electronically signed by Cecily Hernandez MD> Date Cecily Hernandez MD Cosigner Signature: Date (if applicable) CC: Demond Davis MD; Shamar Cardona MD; Rylan Gudino MD CREATININE FINGERSTICK Collected: 05/31/2018 Status: F Source: [place] 2:53 PM [facility] REPOSITORY TYPE CODE TESTS RESULT OUT OF REFERENCE UNITS RANGE LAB L9100.0210 0.70-1.30 mg/dL High CREATININE WB 1.9 LAB L9100.0220 >60 mL/min Low EGFR WB 38.0000 Performed By: #### L9100.0200 #### [facility] Point of Care [address] [place] [address] CHEST WITHOUT Observed: 05/31/2018 Status: F Source: [place] CONTRAST 2:37 PM [facility] REPOSITORY [facility] Imaging Services [address] [place] [address] Chest without Contrast MR#: [id number] Acct: [id number] Name: VALE GARCIA Rep #: [id number] : 1945 M 72 From: Shashank Ann MD PCP: Demond Davis MD Status: REG CLI Study: Chest without Contrast Date of Exam: 05/31/18 Exam# [id number] Ordering Dr: Shamar Cardona MD STUDY: CT CHEST WITHOUT CONTRAST REASON FOR EXAM: Male, 72 years old. The patient has a history of a bladder cancer. RADIATION DOSAGE (If Supplied By Facility): CTDIvol = ( 19.05 ) mGy, DLP = ( 714.16 ) mGycm TECHNIQUE: Transaxial imaging was performed without the administration of intravenous contrast material. Multiplanar coronal and sagittal images were reformatted. Individualized dose optimization techniques were used for this CT. COMPARISON: None. FINDINGS: There is evidence of emphysematous changes worse in the upper lobes. Mild degree of increased markings at the right lung base suggestive of a scarring. There is no demonstrated pleural abnormality. Sternal cerclage wires and vascular clips are present from a prior sternotomy and coronary artery bypass graft procedure (CABG). There are calcifications of the coronary arteries. There are several mediastinal lymph nodes. The largest is in the precarinal space and measures 2.1 cm. Normal hilar regions. Normal unenhanced pulmonary arteries. There is atherosclerotic calcification of the aortic arch with tortuosity and elongation of the aortic arch and descending thoracic aorta. The ascending thoracic aorta is slightly dilated measuring 4.1 cm in transverse dimension. There are multi-level degenerative changes of the thoracic spine. There is no demonstrated abnormality of the visualized upper abdomen. CT/Chest without Contrast IMPRESSION: Emphysematous changes worse in the upper lobes. Enlarged mediastinal lymph nodes. Electronically Signed: Shashank Ann MD at 15:17 EST Tel [phone], Service support , CC: Demond Davis MD; Shamar Cardona MD Global Compensation Analyst: Signed ONCOLOGY CONSULTATION Observed: 05/30/2018 Status: F Source: [place] 4:48 PM [facility] REPOSITORY [facility] [address] [place] [address] Oncology Consultation Date of Service: 05/29/18 1614 MR#: [id number] Acct: [id number] Name: VALE GARCIA Kim Rep #: [id number] : 1945 From: Shamar Cardona MD Age/Sex: 72/M Location: OMD Status: Signed Consult Referring Physician: Dr. Gudino Consult Results: Invasive bladder cancer Subjective Date of Service:: 05/29/18 Chief Complaint: Referred for neoadjuvant chemotherapy. History of Present Illness: 72y.o. man presented with hematuria, CT scan showed bladder mass on 04/20/2018 . He had cystoscopy on 05/11/2018 which showed sessile tumor involving the left lateral wall extending all the way to the dome of the bladder. 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 He is now referred for neoadjuvant chemotherapy. Power of Wholesale And Retail Merchant: No Living Will: No Health History: Past Medical History Cancer: Bladder cancer Past Medical History (Last Updated 05/29/18 @ 15:30 by Rut Javier) Atherosclerosis of [place] coronary artery (Chronic) SOB (shortness of breath) (Chronic) PVCs (premature ventricular contractions) (Chronic) HTN (hypertension) (Chronic) HLD (hyperlipidemia) (Chronic) Cardiomyopathy (Chronic) Severe mitral insufficiency (Chronic) Glaucoma (Acute) Status post gamma knife treatment (Acute) Past Surgical History (Last Updated 05/29/18 @ 15:37 by Rut Javier) Hx of CABG (Chronic) History of heart valve replacement (Chronic) H/O arthroscopic knee surgery (Acute) History of back surgery (Acute) History of toe surgery (Acute) Family History (Last Reviewed 12/22/17 @ 10:11 by Jane Oviedo) Father Myocardial infarction CAD (coronary artery disease) Allergies/Adverse Reactions: Allergy/AdvReac Type Severity Reaction Status Date / Time No Known Allergies Allergy Verified 05/29/18 15:27 Review of Systems Constitutional:: Denies: Fever, Sweats, Weight loss, Appetite change, Chills Cardiovascular:: Denies: Chest pain, Palpitations, Dyspnea on exertion, Orthopnea, PND, Shortness of breath Respiratory: Denies: Cough, Hemoptysis, Shortness of Breath, Wheezing Gastrointestinal:: Denies: Abdominal pain, Nausea, Vomiting, Diarrhea, Constipation, Hematochezia Genitourinary: Reports: Hematuria. Denies: Dysuria, Flank pain Musculoskeletal:: Denies: Back pain, Myalgia, Arthralgia Skin: Denies: Rash, Skin Changes, Wounds Neurological:: Denies: Headache, Dizziness, Visual changes, Tinnitus, Hearing loss Psychiatric: Denies: Anxiety, Depression, Homicidal Ideations, Suicidal Ideations Vital Signs Height 5 ft 7.5 in Weight: 84.368 kg Weight in Pounds 186.0 lbs Pulse Ox 99 - Physical Exam General: Alert, Oriented x3, No apparent distress HEENT: Atraumatic, PERRLA, EOMI, Normocephalic Oropharynx:: Dry mucosa Neck:: Supple, Trachea midline. Negative for: JVD, bilateral Cardiac:: Regular rate, Regular rhythm, Normal S1, Normal S2. Negative for: Murmur Lungs: Clear to auscultation, Excusion symmetrical. Negative for: Rhonchi, Wheezes Abdomen:: Bowel sounds x 4, Soft, Non-tender, Non-distended. Negative for: Hepatosplenomegaly Extremities:: Negative for: Cyanosis, Edema Neurological: Neuro grossly intact Skin:: Negative for: Lesions, Rash, Petechiae, Ecchymosis Psychiatric:: Appropriate affect, Euthymic Lymphatics:: Negative for: Cervical lymphadenopathy, Supraclavicular lymphadenopathy, Axillary lymphadenopathy Diagnostic Data: 04/20/2018 CT a/p reviewed. CT/Abdomen/Pelvis WITH Contrast IMPRESSION: 1. Lobular wall thickening of the urinary bladder (from dome to base, left side) worrisome for neoplasm. Cystoscopic evaluation is recommended. 2. No pelvic sidewall or retroperitoneal adenopathy. 3. Stable cyst of the upper right kidney. 4. Atherosclerosis. 5. Diverticulosis. Electronically Signed: Nura Duval MD at 19:53 EST Pathology Data: 05/11/2018 Pathology reviewed. MICROSCOPIC DIAGNOSIS Bladder tumor, TUR: Invasive high-grade urothelial carcinoma. Flat carcinoma in situ. BLADDER CANCER (TUR) SUMMARY: Procedure - TURBT Histologic type urothelial (transitional cell) carcinoma Associated epithelial lesions none identified Histologic grade - urothelial carcinoma (WHO 2004/ISUP) - high grade Tumor configuration invasive and flat Adequacy of material for determining muscularis propria invasion - muscularis propria (detrusor muscle) is present and involved by tumor. Lymph-Vascular invasion present. See comment. Microscopic extent of tumor tumor invades muscularis propria (detrusor muscle). Additional pathologic findings chronic inflammation. The above summary is in compliance with [employer] of [place] Path[employer] (CAP) Cancer Protocols Checklist and [place] Joint Committee on Cancer (AJCC), Staging Manual, 8th Ed. Assessment and Plan Invasive Bladder cancer for neoadjuvant chemotherapy. Discussed neoadjuvant chemotherapy with MVAC vs Cisplatin and Gemzar, risks benefits and side effects. Recommended Cisplatin and Gemzar, Pt accepted. Plan is to obtain CT chest to rule out lung metastases. Surgery consult for Port placement. To start chemotherapy with Cisplatin and Gemzar next week. RTC 1 wk. Primary Care Provider: Demond Davis MD Referring Provider: Rylan Gudino - Problem List (1) Bladder cancer Status: Chronic Qualifiers: Bladder location: dome Qualified Code(s): C67.1 - Malignant neoplasm of dome of bladder Code Visit Office Visits / Consults: 31216 OP Consult L5 05/30/18 1648 <Electronically signed by Shamar Cardona MD> Date Shamar Cardona MD Cosigner Signature: Date (if applicable) CC: Demond Davis MD; Rylan Gudino MD OPERATIVE REPORT Observed: 05/11/2018 Status: F Source: [place] 8:39 [facility] REPOSITORY [facility] Medical Records Department [address] [place] [address] Operative Report 05/11/18 0837 MR#: [id number] Acct: [id number] Name: VALE GARCIA Rep #: [id number] : 1945 72 From: Rylan Gudino MD PCP: Demond Davis MD Status: [facility] Location: [place] [address] Report of Operation Date of Procedure: 05/11/18 Pre-Operative Diagnosis: Large bladder tumor, appears invasive Post-Operative Diagnosis: Same Surgery/Procedure Performed:: Transurethral resection of a very large bladder tumor Description of Surgical Findings:: 72-year-old male taken back to the operating room after smooth induction of general anesthesia he was placed supine on the table in the dorsolithotomy position I placed a 26 [place]anese continuous flow resectoscope through the urethra the entire length the urethra is normal sphincter is normal prostate was normal slightly obstructive inside the bladder was heavily trabeculated bladder and there was a tumor that was sessile in nature, flat but very large against the patient's left lateral wall extending all the way up to the dome I started at the dome resected deep into the muscle fibers but I could tell immediately this was a muscle invasive cancer and that was not can be completely resectable by TUR resected down to the muscle fibers all the way down the left lateral side I then Ellik out all the tumor tissue that I resected for diagnosis and then extensively cauterized the left lateral wall the bladder all the way up to the dome. Did not give mitomycin since this is appears to be invasive tumor no benefit. Obtain good hemostasis drain the bladder patient anesthetic was reversed taken back to PACU good condition will follow-up in 2 weeks to review the tissue report. Type of Anesthesia:: General Drains: none - Admit VTE Documentation VTE Present on Admission: No VTE Mechan Device Prophylaxis: SCD's 05/11/18838 <Electronically signed by Rylan Gudino MD> Date Rylan Gudino MD CC: Demond Davis MD; Rylan Gudino MD Signed DISCHARGE INSTRUCTION Observed: 05/11/2018 Status: F Source: [place] 8:14 AM [facility] REPOSITORY [facility] Medical Records Department [address] [place] [address] Instructions for Home/Discharge Instructions 05/11/18812 MR#: [id number] Acct: [id number] Name: VALE GARCIA Rep #: [id number] : 1945 72 From: Rylan Gudino MD PCP: Demond Davis MD Status: [place] [facility] [place]charge Diet: Light diet - advance as tolerated Discharge Activity: May Not Drive, May Shower Call your doctor if your incision/area has: Continuous Slow Oozing, Sudden Increased Bleeding, Increased Pain/ Swelling, Increased Redness, Foul Smelling Discharge, Swelling at the incision site Call your doctor if you observe: Fever of 101 or Higher, Inability to urinate, Uncontrolled pain Suture Line Care: Avoid Pulling/Pushing, Avoid Pinching/Bending Instructions: Treating Bladder Cancer: TUR (Transurethral Resection) Allergies/Adverse Reactions: Allergies No Known Allergies Allergy (Verified 05/04/18 11:12) Medications to take at Discharge Tamsulosin HCl [Flomax] 0.4 mg PO DAILY 12/11/13 Travoprost 0.004% [Travatan 0.004% Eye Drop] 1 drp EACH EYE DAILY 12/11/13 aspirin 81 mg tablet,delayed release 81 mg PO QDAY 07/05/17 naproxen sodium 220 mg tablet 220 mg PO PRN PRN tab 07/05/17 atorvastatin 40 mg tablet 40 mg PO QDAY tab 12/22/17 metoprolol tartrate 25 mg tablet 25 mg PO BID tab 12/22/17 Acetaminophen [Tylenol Extra Strength] 500 - 1,000 mg PO Q6H PRN PRN 05/04/18 L.acidoph,Paracasei, B.lactis [Probiotic] 1 each PO DAILY 05/04/18 Multivitamin [Multiple Vitamins] 1 each PO DAILY 05/04/18 Acetaminophen [Tylenol Extra Strength] 500 mg PO Q4H PRN PRN #20 tablet 05/11/18 Ibuprofen 600 mg PO Q4H PRN PRN #20 tablet 05/11/18 Phenazopyridine [Pyridium] 100 mg PO TID PRN PRN #14 tablet 05/11/18 The following prescriptions were given: Acetaminophen [Tylenol Extra Strength] 500 mg PO Q4H PRN PRN #20 tablet PRN Reason: Pain Ibuprofen 600 mg PO Q4H PRN PRN #20 tablet PRN Reason: Pain Phenazopyridine [Pyridium] 100 mg PO TID PRN PRN #14 tablet PRN Reason: burning with urination Primary Care Physician: Demond Davis MD [Primary Care Provider] - Test Results: Test results from this visit will be discussed in further detail at your follow-up appointment, if applicable. Please Follow Up With: Rylan Gudino MD When: in 2 weeks, please call to make an appointment. 05/11/18813 <Electronically signed by Rylan Gudino MD> Date Rylan Gudino MD CC: Demond Davis MD BLADDER TUR Observed: 05/11/2018 Status: F Source: [place] 12:00 AM [facility] REPOSITORY Patient: VALE GARCIA : 1945 (72/M) Acct Num: [id number] Phys: Terese DRAKE,Rylan Dougherty Unit Num: [id number] [place] [facility] Specimen: [id number] Received: 05/11/18 - 903 Spec Type: TURB TISSUES 1 TISSUES: Urinary bladder, NOS COMMENT Most of the tumor consists of muscle invasive tumor. Immunohistochemistry ([id number]) supports the diagnosis of lymph-vascular invasion. GROSS DESCRIPTION Received in fixative is one container labeled with the patient's name and designated bladder tumor. The specimen consists of multiple fragments of cullen, indurated tissue that in aggregate measure 5 x 3 x 0.8 cm. The entire specimen is submitted in four cassettes. / KRISTI:deirdre 05/11/18 TC:0 CPT: 59604 HEADER OPERATION: Cysto, transurethral resection bladder, [employer] PRE-OP DIAGNOSIS: Neoplasm of bladder TISSUE SUBMITTED: Bladder tumor MICROSCOPIC DESCRIPTION Slides are reviewed. MICROSCOPIC DIAGNOSIS Bladder tumor, TUR: Invasive high-grade urothelial carcinoma. Flat carcinoma in situ. BLADDER CANCER (TUR) SUMMARY: Procedure - TURBT Histologic type - urothelial (transitional cell) carcinoma Associated epithelial lesions - none identified Histologic grade - urothelial carcinoma (WHO 2004/ISUP) - high grade Tumor configuration - invasive and flat Adequacy of material for determining muscularis propria invasion - muscularis propria (detrusor muscle) is present and involved by tumor. Lymph-Vascular invasion - present. See comment. Microscopic extent of tumor - tumor invades muscularis propria (detrusor muscle). Additional pathologic findings - chronic inflammation. The above summary is in compliance with [employer] (CAP) Cancer Protocols Checklist and [place] Joint Committee on Cancer (AJCC), Staging Manual, 8th Ed. KRISTI:deirdre 05/14/18 Signed Calvin Tao 05/14/18 <signature on file> Performed By: #### PBLB #### [facility] [address] [place], [place], [id number] IMMUNOHISTOCHEMISTRY Observed: 05/11/2018 Status: F Source: [place] 12:00 AM [facility] REPOSITORY Patient: VALE GARCIA : 1945 (72/M) Acct Num: [id number] Phys: Terese DRAKE,Rylan Dougherty Unit Num: [id number] [place] [facility] [place]: [id number] Received: 05/14/18 - 1007 Spec Type: IMMUNO TISSUES 1 TISSUES: Urinary bladder, NOS - #3 SPECIMEN INFORMATION: Tissue Source: Bladder tumor Clinical Info: Neoplasm of bladder Specimen Number: [id number] #3 CPT code: 53616, 54275 METHODOLOGY: Deparaffinized sections of prefer/formalin-fixed tissue or PAP/DQ stained slides are incubated with monoclonal/polyclonal antibodies/oligonucleotide probes. Localization is made via biotin free immunoperoxidase method. Appropriate controls are performed and reacted as expected. Results on target cell population are indicated in the following table: RESULTS: ANTIBODY / CLONE RESULT Block 3 Factor VIII (R Ag) positive CD31 (BOB/70A) positive These tests were developed and their performance characteristics determined by [facility]. They may not have been cleared or approved by the U.S. Food and Drug Administration. The FDA has determined that such clearance or approval is not necessary. INTERPRETATION: Bladder tumor, TUR: Invasive urothelial carcinoma, positive for lymph-vascular invasion. SJ:deirdre 05/14/18 PHYSICIAN AND INSTITUTION [place] [address] Signed Calvin Tao 05/14/18 <signature on file> Performed By: #### PIMM #### [facility] [address] [place] [address]. [place], [place], [id number] ABDOMEN/PELVIS WITH Observed: 04/20/2018 Status: F Source: [place] CONTRAST 1:28 PM [facility] REPOSITORY [facility] Imaging Services [address] [place] [id number] Abdomen/Pelvis WITH Contrast MR#: [id number] Acct: [id number] Name: VALE GARCIA Rep #: [id number] : 1945 M 72 From: Nura Duval MD PCP: Demond Davis MD Status: REG CLI Study: Abdomen/Pelvis WITH Contrast Date of Exam: 04/20/18 Exam# [id number] Ordering Dr: Demond Davis MD STUDY: CT ABDOMEN AND PELVIS WITH CONTRAST REASON FOR EXAM: Male, 72 years old. Painless hematuria for several months RADIATION DOSAGE (If Supplied By Facility): CTDIvol = ( 18.13 ) mGy, DLP = ( 1301.40 ) mGycm TECHNIQUE: Transaxial images were obtained from the dome of the diaphragm to the symphysis pubis without oral contrast. 100ml ml of Isovue 300 contrast was administered. Sagittal and coronal images were reconstructed. Individualized dose optimization techniques were used for this CT. COMPARISON: 03/08/2018 FINDINGS: The visualized lung bases are unremarkable. The visualized portions of the heart are within normal limits. Normal liver. Normal gallbladder and extrahepatic biliary system. Normal spleen. Normal pancreas. Normal bilateral adrenal glands. Well-defined low-density cystic lesion of the upper right kidney measures up to 3 cm, similar in size since recent renal ultrasound. Normal left kidney. Normal visualized stomach. Normal small intestine. There are multiple colonic diverticula consistent with diverticulosis. There is non-visualization of the appendix. There is diffuse atherosclerotic calcification of the abdominal aorta with elongation and tortuosity, but without a demonstrated aneurysm. Normal inferior vena cava. Normal retroperitoneum. There is irregular, lobular wall thickening of the left side of the urinary bladder that is identified anterior and posterior to the left ureter insertion (axial image 67 of series 1004). Wall thickness measures up to 13 mm, similar since prior ultrasound, accounting for differences in modality. Normal abdominal wall. There are diffuse degenerative changes of the visualized lumbar spine. Laminectomy defects at L2, L3, L4. No lytic or sclerotic bone lesions. CT/Abdomen/Pelvis WITH Contrast IMPRESSION: 1. Lobular wall thickening of the urinary bladder (from dome to base, left side) worrisome for neoplasm. Cystoscopic evaluation is recommended. 2. No pelvic sidewall or retroperitoneal adenopathy. 3. Stable cyst of the upper right kidney. 4. Atherosclerosis. 5. Diverticulosis. Electronically Signed: Nura Duval MD at 19:53 EST , Service support , CC: Demond Davis MD Global Compensation Analyst: Signed CBC W/DIFF, AUTOMATED Collected: 04/13/2018 Status: F Source: [place] 11:46 AM [facility] REPOSITORY TYPE CODE TESTS RESULT OUT OF RANGE REFERENCE UNITS LAB L100.1000 4.4-11.0 K/mm3 Normal WBC 7.6 LAB L100.1200 4.6-6.2 M/mm3 Normal RBC 4.76 LAB L100.1300 13.0-16.5 g/dl Normal HGB 14.9 LAB L100.1400 40-54 % Normal HCT 46.7 LAB L100.1500 80-94 fL High MCV 98.1 LAB L100.1600 27.0-32.0 pg Normal MCH 31.3 LAB L100.1700 32-36 g/gl Low MCHC 31.9 LAB L100.1810 11.6-14.6 % Normal RDW CV 13.7 LAB L100.1820 35.1-43.9 fl High RDW SD 49.3 LAB L100.1900 150-450 K/mm3 Normal PLT 200 LAB L100.2000 6.2-12.0 fl Normal MPV 11.8 LAB L100.2100 47-70 % High NEUT% 71.6 LAB L100.2200 19-41 % Low LY% 13.7 LAB L100.2300 0-10 % Normal MONO% 7.2 LAB L100.2400 0-5 % High EO% 6.7 LAB L100.2500 0-1 % Normal BASO% 0.7 LAB L100.2550 0.0-0.9 % Normal IM GRAN % 0.100 Result Comment: IG% - Immature Granulocytes (promyelocytes, myelocytes and metamyelocytes) > 1% indicates that a LEFT SHIFT is Present. LAB L100.2620 2.0-7.7 X10 3/uL Normal Absolute Neut 5.4 LAB L100.2720 0.83-4.51 X10 3/ul Normal Absolute Lymph 1.04 Performed By: #### L100.0100, L500.2500 #### [facility] [address] [place], [place], [id number] BASIC METABOLIC Collected: 04/13/2018 Status: F Source: [place] PROFILE (BMP) 11:46 AM [facility] REPOSITORY TYPE CODE TESTS RESULT OUT OF RANGE REFERENCE UNITS LAB L501.0100 74-106 mg/dL Normal GLU 76 Result Comment: Please note revised GLUCOSE reference range effective 2017. LAB L501.1000 7-18 mg/dL Normal BUN 15 LAB L501.1100 0.70-1.30 mg/dL Normal CREAT,SERUM 1.11 Result Comment: The validity of the calculated GFR AND GFRAA in patients over 70 years has not been determined. Clinical correlation is essential. LAB L501.1110 >60 mL/min Normal EST GFR 69 Result Comment: Non- GFR Calc LAB L501.1115 >60 mL/min Normal EST GFR - AA 84 Result Comment: GFR Calc LAB L501.1300 10-20 RATIO Normal BUN/CRE 13.5 LAB L501.2200 8.5-10.1 mg/dL CA Normal 8.6 LAB L501.5300 136-145 mmol/L NA Normal 142 LAB L501.5600 3.5-5.1 mmol/L K Normal 4.7 LAB L501.5900 98-107 mmol/L CL Normal 106 LAB L501.6100 21.0-32.0 mmol/L Normal CO2 27.0 LAB L501.6200 5-15 Normal GAP 9 Performed By: #### L100.0100, L500.2500 #### [facility] [address] [facility]. [place], [place], [address] Observed: 04/13/2018 Status: F Source: [place] CULTURE, URINE 10:00 AM [facility] REPOSITORY Urine Culture Below infection level. ORGANISM 1: GPC Poss Enterococcus sp Pollock Count <1000 Performed By: #### M100.0650 #### [facility] [address] [place], [address] KIDNEY AND BLADDER Observed: 03/08/2018 Status: F Source: [place] 3:01 PM [facility] REPOSITORY [facility] Imaging Services [address] [place] [address] Kidney and Bladder MR#: [id number] Acct: [id number] Name: VALE GARCIA Rep #: [id number] : 1945 M 72 From: Reyna Holm MD PCP: Demond Davis MD Status: REG CLI Study: Kidney and Bladder Date of Exam: 03/08/18 Exam# [id number] Ordering Dr: Demond Davis MD STUDY: RENAL ULTRASOUND - COMPLETE REASON FOR EXAM: Male, 72 years old. Incomplete bladder emptying TECHNIQUE: Ultrasound evaluation of the kidneys was performed with real-time and static krueger-scale imaging. COMPARISON: None. FINDINGS: RIGHT KIDNEY: Normal location of the right kidney, which is normal in size. The right kidney measures 10.5 x 4.5 x 4.5 cm. There is diffuse thinning of the renal cortex. The renal cortex measures 0.9 cm. There is a 3 x 2 x 2.7 cm septated right renal cyst. There are no right renal calculi. There is no right hydronephrosis. DISTAL RIGHT URETER: There is non-visualization of the distal right ureter. There is no demonstrated right ureterovesical junction calculus. There is a visualized right ureteral jet. LEFT KIDNEY: Normal location of the left kidney, which is normal in size. The left kidney measures 10.5 x 5.5 x 6 cm. There is a normal cortex of the left kidney. The renal cortex measures 1.2 cm. There is no left renal mass or cyst. There are no left renal calculi. There is no left hydronephrosis. DISTAL LEFT URETER: There is non-visualization of the distal left ureter. There is no demonstrated left ureterovesical junction calculus. There is a visualized left ureteral jet. BLADDER: The distended urinary bladder has a volume of 120 ml. The empty urinary bladder has a volume of 34 ml. There is a 3.3 cm wall thickness of the distended urinary bladder is a focal wall prominence of 1.1 cm which is slightly heterogeneous and lobular in contour. There is layering debris within the urinary bladder. There are no demonstrated bladder calculi. US/Kidney and Bladder IMPRESSION: Abnormal urinary bladder with asymmetric lobular wall thickening of up to 1.2 cm. Debris within the urinary bladder. Present bilateral ureteral jets. Postvoid residual 34 ml. Septated right upper renal pole cyst. Right renal cortical thinning. Electronically Signed: Reyna Holm MD at 4:53 EDT , Service support , CC: Demond Davis MD Global Compensation Analyst: Signed CBC W/DIFF, AUTOMATED Collected: 03/02/2018 Status: F Source: [place] 10:33 AM [facility] REPOSITORY Order Comment: Order Date: 03/02/18 Order Info: [id number] - CBCD TYPE CODE TESTS RESULT OUT OF RANGE REFERENCE UNITS LAB L100.1000 4.4-11.0 K/mm3 Normal WBC 8.9 LAB L100.1200 4.6-6.2 M/mm3 Normal RBC 4.75 LAB L100.1300 13.0-16.5 g/dl Normal HGB 14.7 LAB L100.1400 40-54 % Normal HCT 47.3 LAB L100.1500 80-94 fL High MCV 99.6 LAB L100.1600 27.0-32.0 pg Normal MCH 30.9 LAB L100.1700 32-36 g/gl Low MCHC 31.1 LAB L100.1810 11.6-14.6 % Normal RDW CV 13.7 LAB L100.1820 35.1-43.9 fl High RDW SD 50.0 LAB L100.1900 150-450 K/mm3 Normal PLT 219 LAB L100.2000 6.2-12.0 fl Normal MPV 11.3 LAB L100.2100 47-70 % High NEUT% 71.8 LAB L100.2200 19-41 % Low LY% 11.6 LAB L100.2300 0-10 % Normal MONO% 8.7 LAB L100.2400 0-5 % High EO% 7.5 LAB L100.2500 0-1 % Normal BASO% 0.3 LAB L100.2550 0.0-0.9 % Normal IM GRAN % 0.100 Result Comment: IG% - Immature Granulocytes (promyelocytes, myelocytes and metamyelocytes) > 1% indicates that a LEFT SHIFT is Present. LAB L100.2620 2.0-7.7 X10 3/uL Normal Absolute Neut 6.4 LAB L100.2720 0.83-4.51 X10 3/ul Normal Absolute Lymph 1.04 Performed By: #### L100.0100, L500.4050, L500.4100, L501.9910 #### [facility] [address] [place], [address] COMPREHENSIVE METABOLIC Collected: 03/02/2018 Status: F Source: [facility] 10:33 AM [facility] REPOSITORY Order Comment: Order Date: 03/02/18 Order Info: [id number] - CMP Order Info: [id number] - LIPID Order Info: 2857-1 - PSA TYPE CODE TESTS RESULT OUT OF RANGE REFERENCE UNITS LAB L501.0100 74-106 mg/dL Low GLU 64 Result Comment: Please note revised GLUCOSE reference range effective 2017. LAB L501.1000 7-18 mg/dL Normal BUN 16 LAB L501.1100 0.70-1.30 mg/dL Normal CREAT,SERUM 1.12 Result Comment: The validity of the calculated GFR AND GFRAA in patients over 70 years has not been determined. Clinical correlation is essential. LAB L501.1110 >60 mL/min Normal EST GFR 69 Result Comment: Non- GFR Calc LAB L501.1115 >60 mL/min Normal EST GFR - AA 83 Result Comment: GFR Calc LAB L501.1300 10-20 RATIO Normal BUN/CRE 14.3 LAB L501.1500 6.4-8.2 g/dL T Normal PROT 7.1 LAB L501.1800 3.2-5.0 g/dL Normal ALB 3.4 LAB L501.1950 2.2-4.2 g/dL Normal GLOB 3.7 LAB L501.2000 0.9-2.4 RATIO Normal A/G 0.9 LAB L501.2200 8.5-10.1 mg/dL CA Normal 8.9 LAB L501.4100 15-37 U/L Normal AST 15 LAB L501.4305 45-117 U/L Normal ALK P 91 LAB L501.4405 16-61 U/L Normal ALT 19 LAB L501.4600 0.20-1.00 mg/dL T Normal BILI 0.40 LAB L501.5300 136-145 mmol/L NA Normal 141 LAB L501.5600 3.5-5.1 mmol/L K Normal 4.3 LAB L501.5900 98-107 mmol/L CL Normal 107 LAB L501.6100 21.0-32.0 mmol/L Normal CO2 26.0 LAB L501.6200 5-15 Normal GAP 8 Performed By: #### L100.0100, L500.4050, L500.4100, L501.9910 #### [facility] [address] [place], [address] LIPID PROFILE Collected: 03/02/2018 Status: F Source: [place] 10:33 AM [facility] REPOSITORY Order Comment: Order Date: 03/02/18 Order Info: [id number] - CMP Order Info: [id number] - LIPID Order Info: [id number] - PSA TYPE CODE TESTS RESULT OUT OF RANGE REFERENCE UNITS LAB L501.4900 200 mg/dL Normal CHOL 91 Result Comment: <200 mg/dL Desirable 200-240 mg/dL Borderline >240 mg/dL High Risk LAB L501.5000 mg/dL Normal TRIG 79 Result Comment: The drugs N-Acetylcysteine and Metamizole may falsely depress this assay. Serum Triglycerides Reference Interval Normal <150 mg/dL Borderline high 150 - 199 mg/dL High 200 - 499 mg/dL Very High > or = 500 mg/dL LAB L501.6400 mg/dL Low HDL 28 Result Comment: The drugs N-Acetylcysteine and Metamizole may falsely depress this assay. Reference Range HDL <40 mg/dL Low HDL Cholesterol HDL >or= 60 mg/dL High HDL Cholesterol LAB L501.6500 0-130 mg/dL Normal LDL 47 LAB L501.6600 5-40 mg/dL Normal VLDL 16 Performed By: #### L100.0100, L500.4050, L500.4100, L501.9910 #### [facility] [address] [place], [address] PSA,TOTAL - ANNUAL Collected: 03/02/2018 Status: F Source: [place] SCREEN 10:33 AM [facility] REPOSITORY Order Comment: Order Date: 03/02/18 Order Info: [id number] - CMP Order Info: [id number] - LIPID Order Info: [id number] - PSA TYPE CODE TESTS RESULT OUT OF RANGE REFERENCE UNITS LAB L501.9910 0.00-4.00 ng/mL Normal PSA,TOT 0.46 SCREEN Result Comment: This test was performed using the TPSA assay method for the [employer] chemistry system. Values obtained with different assay methods cannot be used interchangably. When changing PSA assays in the course of monitoring a patient, additional sequential testing should be carried out to confirm baseline values. Performed By: #### L100.0100, L500.4050, L500.4100, L501.9910 #### [facility] [address] [place], [address] STRESS TEST ECHO W/O Observed: 01/03/2018 Status: F Source: [place] CONTRAST 2:43 PM [facility] REPOSITORY [facility] Cardiovascular Services [address] [facility] [place] [place] [address] Stress Test Echo w/o Contrast MR#: [id number] Acct: [id number] Name: VALE GARCIA Rep #: [id number] : 1945 72 From: Lamine Lassiter MD Primary Care: Cecily Red MD Status: REG CLI Ordering Dr: Lamine Lassiter MD Sex: M C Reason For Study: PREOP Stress Results Protocol: Dobutamine Protocol Maximum Predicted HR: 149 bpm Target HR: 127 bpm% Maximum Predicted HR: 85 % DurationHeart Rate Stage (mm:ss) (bpm) BPDos e BASELINE 70 131/89 STAGE 1 3:43 71 135/9910.00 STAGE 2 3:00 10 8 154/8420.00 STAGE 3 3:52 12 6 133/7630.00 RECOVERY 88 134/74 Stress Duration: 10:35 mm:ss Maximum Stress HR: 126 bpm Baseline Echocardiogram Findings The estimated ejection fraction is 65 %. Stress Echo Wall motion Data Resting WMIntermediate WMStress WM Resting Wall Motion Wall Motion Stress No regional wall motion No regional wall motion abnormalities noted. abnormalities noted. EKG Data Normal intervals are noted. The patient was titrated from 10 mcg to a maximun of 30 mcg of dobutamine during the stress. No clinical angina was noted. This was 91% of maximum predicted heart rate. The maximum heart rate attained was 137 beats per minute. During dobutamine infusion, there were no ST or T wave changes noted to suggest ischemia. Interpretation Summary The estimated ejection fraction is 65 %. Normal adequate dobutamine echocardiogram. Negative for ischemia by EKG and echocardiographic criteria. No anginal symptoms noted. Frequent PVCs and runs of ventricular arrhythmias which were self terminating. This is a nonspecific finding given dobutamine. No associated wall motion abnormalities during infusion. Final LVEF is 75%. Patient tolerated procedure well. No complications. Ordering Physician: Lamine Lassiter Referring Physician: Lamine Lassiter Performed By: Elvira Arellano [facility] 01/03/18 1443 Date Lamine Lassiter MD CC: Lamine Lassiter MD; Cecily Red MD Date Dictated: 01/03/18 0953 Date Transcribed: 01/03/18 144 Global Compensation Analyst: Signed CARDIOLOGY VISIT Observed: 12/22/2017 Status: F Source: [place] REPORT 10:38 AM [facility] REPOSITORY [facility] [address] [facility] [address] [place] [address] OFFICE VISIT Date of Service: 12/22/17 MR#: [id number] Acct: [id number] Name: VALE GARCIA Rep #: [id number] : 1945 Provider: Lamine Lassiter MD Age/Sex: 72/M Location: [facility] Status: Signed HPI HPI Chief Complaint: Routine f/u Details: referring physician: Dr. Red Mr Junior is a very pleasant 72-year-old gentleman with a history of hypertension, hypercholesterolemia, coronary artery disease status post 3 vessel bypass surgery at [facility] in 2009. At that time he received a JET to the RCA, and SVG to the obtuse marginal, and SVG to the left circumflex. Since that time the patient has had progressively worsening shortness of breath and was found to have severe mitral regurgitation. Patient was evaluated at the [facility] and underwent successful redo median sternotomy and mitral valve repair with a #35 mm Evans annuloplasty band by Dr. Cherry on 07/22/13 at the [facility]. Patient returns now for follow-up, and is part of is ongoing cardiac fitness, underwent a stress echocardiogram to evaluate him for cardiac rehab. This took place in November 2013 which was found to be normal. Since that time he has been doing very well. He denies any symptoms. He denies any chest pain, angina or shortness of breath.he has participated in and completed cardiac rehab.he has successfully quit smoking. He is quite active and taking his medicines without difficulty. The patient had a particularly heavy job around January 2013 at which time he had profound shortness of breath. The patient sought medical attention at [facility], and on 02/27/13the patient underwent diagnostic coronary angiogram. The patient hadboth right femoral artery and right brachial artery access, in order to visualize the JET. The patient was found to haveminimal disease of his left main, LAD, and ramus The left circumflex was nondominant and was 100% occluded. The RCA was also 100% occluded. His SVG to the OM1 was widely patent. It also retrofilledthe distal portion of the left circumflex artery. His JET to the PDA waswide Patent. His left ventriculogram estimated EF to be 45%with2- 3+ mitral regurgitation. It is unnclear whether the second saphenous vein graft to the OM wasaccessed. To better evaluate the mitral regurgitation, and determine whether it was catheter induced, the patient underwent a transesophageal echocardiogram on 03/01/13 at [facility]. This demonstrated an EF of 40-45% with mild to moderate RV dysfunction. The left atrium measured 5.4 cm,and there was evidence of bileaflet mitral valve prolapse. The estimated RVSP was 30 mmHg,and there was evidence of severe mitral regurgitationwwith a effective regurgitant orifice of 0.5 cmand in regurgitant volume of greater than 60 cc. At that time, the patient was recommended to have mitral valve repair surgery, but wished to be evaluated by his primary toolmaker helper, Dr Wiggins. The patient went [facility] on a vacation in March, and after a sending him out on a chair lift, the patient had profound shortness of breath requiring them to descend back down the mountain. Patient had no anginal symptoms at that time. Patient was referred here for a second opinion regarding medical management of this mitral ration versus surgical correction. the patient reports that he has been compliant with his medications, and does not smoke any longer. He reports and confirms that he has had progressively worsening dyspnea on exertion over the last several months, early satiety,abdominal fullness, but no evidence of lower extremity edema. He does report a decrease in his exercise capacity. Patient had repeat echocardiogram on 08/16/17 which showed normal LV function, no mitral regurgitation, and an RVSP of 33 mmHg. He is now here in follow-up. He is doing fairly well except for repeated episodes of C. difficile and recently finished antibiotics. Patient now requires back surgery, and his last stress echocardiogram was in 2013. He denies any chest pain, angina, shortness of breath or dyspnea on exertion. In fact he feels great. In our office today his blood pressure is130/64, and pulse is 64 and regular. His physical exam demonstrates a barrel chest, distant breath sounds bilaterally although clear to auscultation, regular rate and rhythm with a late peaking loud 4-6 holosystolic murmur best heard at the left lower sternal border, radiating to the axilla. I can detect no diastolic murmur or S3. He has no edema. He does have some abdominal fullness and mild hepatic engorgement. His EKG dated 02/26/13 demonstrated normal sinus rhythm with first-degree AV block, no evidence of previous myocardial infarction. EKG today demonstrates normal sinus rhythm with first-degree AV block, low voltage, old inferior wall myocardial infarction, probably involving the posterior wall as well, no acute changes per Intake Vital Signs12/22/17 Height 5 ft 8 in 12/22/17 Weight: 183 lb 12/22/17 Body Mass Index (BMI) 27.8 12/22/17 Blood Pressure 130/64 Intake Visit Reasons: 6 M FU Accompanied by: Is patient in pain?: No Allergies No Known Allergies Allergy (Verified 12/22/17 10:12) Medications Tamsulosin HCl [Flomax] 0.4 mg PO DAILY 12/11/13 [History Confirmed 12/22/17] Travoprost 0.004% [Travatan 0.004% Eye Drop] 1 drp EACH EYE DAILY 12/11/13 [History Confirmed 12/22/17] amoxicillin 500 mg tablet 500 mg PO .COMPLEX tab 07/05/17 [History Confirmed 07/05/17] aspirin 81 mg tablet,delayed release 81 mg PO QDAY 07/05/17 [History Confirmed 12/22/17] naproxen sodium 220 mg tablet 220 mg PO QDAY tab 07/05/17 [History Confirmed 12/22/17] atorvastatin 40 mg tablet 20 mg PO QDAY tab 12/22/17 [History Confirmed 12/22/17] metoprolol tartrate 25 mg tablet 25 mg PO BID tab 12/22/17 [History Confirmed 12/22/17] [facility] Medical History Atherosclerosis of [place] coronary artery (Chronic) SOB (shortness of breath) (Chronic) PVCs (premature ventricular contractions) (Chronic) HTN (hypertension) (Chronic) HLD (hyperlipidemia) (Chronic) Cardiomyopathy (Chronic) Severe mitral insufficiency (Chronic) Surgical History Hx of CABG (Chronic) History of heart valve replacement (Chronic) Family History Father Myocardial infarction CAD (coronary artery disease) Social History Smoking Status: Former smoker how long ago did patient quit smokin alcohol intake: former year quit: 1970 ROS Const Const: Positive for other (Here for pre-op eval for back surgery. Just finished ATB for c-diff in November); negative for fatigue, weakness, body ache, fever(s), headache(s), chills, frequent falls, night sweats, daytime sleepiness, difficulty sleeping, excessive sweating, weight gain, weight loss, increased appetite, poor appetite or anorexia Eyes Eyes: Negative for blind spots, loss of peripheral vision, transient loss of vision, blurry vision, change in vision, double vision, floaters, tunnel vision or other ENT ENT: Negative for headache(s), dizziness, hearing loss, tinnitus, Nosebleed/epistaxis, balance problems, post nasal drip, lip swelling, tongue swelling, bleeding gums, hoarseness, neck pain, dry mouth or other Cardio Chest Pain: No Palpitations: No Edema: None Muscle aches with walking: None Resp Respiratory: Negative for SOB with activity, SOB at rest, SOB orthopnea\SOB lying down, Coughing up blood/hemoptysis, chest congestion, pain on inspiration, snoring, stridor, wheezing, crackles, paroxysmal nocturnal dyspnea or other GI GI: Negative nausea, vomiting, heartburn, constipation, belching, bloating, cramping, vomiting blood/hematemesis, bright, red blood in stools, black,tarry stools, loose stools, Difficulty Swallowing or other : Negative for hematuria, frequent nighttime urination/ nocturia, erectile dysfunction or abnormal vaginal bleeding Musc Musc: Negative for balance problems, muscle aches/ myalgia, muscle weakness or joint pain Skin Skin: Negative redness, non-healing lesions, rash, unusual bruising, skin ulcer, wounds, jaundice or other Neuro Neuro: Negative for weakness, headache(s), frequent falls, blurry vision, double vision, dizziness, lightheadedness, near syncope, syncope, orthostatic symptoms, confusion, memory loss, restless legs, vertigo, seizures, lack of coordination or other Francisco J Hematologic/Lymphatic: Negative for easy bleeding, easy bruising, enlarged lymph nodes or other Endo Endo: Negative for fatigue, excessive sweating, cold intolerance, heat intolerance, flushing, increased thirst/drinking, increased hunger, hair loss, hair growth or other Psych Psych: Negative for anxiety, depression, thoughts of harming anyone, thoughts of harming yourself, visual hallucinations, panic attacks or audible hallucinations Allergy Allergy/Immunology: Negative for lip swelling, Negative for tongue swelling, Negative for rash, Negative for throat swelling, Negative for hives Cardiology Exam Const Appearance: cooperative, healthy appearing and no acute distress Nutritional Appearance: well nourished Orientation: alert, oriented x3 and oriented to person Head Head: normal to inspection, atraumatic and normocephalic Nose: external nose normal Face and Sinus: face symmetric Mouth: oral mucosae normal Eyes General: appearance normal, both eyes and all related structures Eyelids: eyelids normal Conjunctivae: conjunctivae normal Pupils: PERRL and normal by confrontation EOM: EOM intact bilaterally Neck Neck: normal visual inspection and full ROM Carotids: normal carotid upstroke Chest Chest inspection: normal inspection of the chest Auscultation: Bilateral: Clear to Auscultation Cardio Palpation: normal PMI Rate: regular rate Rhythm: regular rhythm Heart sounds: S1 normal and S2 normal GI GI: normal to inspection, no hepatosplenomegaly and bowel sounds present Neuro General: alert, oriented x3, awake, CN's II-XI intact bilaterally and moves all extremities Skin Skin: no rashes or lesions noted Extremities Pulses: Normal: Right Femoral Pulse, Left Femoral Pulse, Right Dorsalis Pedis Pulse, Left Dorsalis Pedis Pulse, Right Posterior Tibial Pulse, Left Posterior Tibial Pulse, Right Radial Pulse, Left Radial Pulse Lower Extremity Edema: None: Bilateral Psych Psychological: normal affect Assessment AND Plan 1. Atherosclerosis of [place] coronary artery of [place] heart without angina pectoris I25.10 CABG: JET to RCA, SVG to OM, SVG to CFX 11/2009. Plan 1. Coronary artery disease: No exertional anginal symptoms at this time. Patient requires back surgery and his last stress test was in 2013. I recommended he undergo a dobutamine echocardiogram for cardiac risk stratification. If this is negative for inducible ischemia he will be deemed at low risk for noncardiac surgery. If it is abnormal however he will require repeat catheterization with graft angiography for screening. I would not recommend SBE prophylaxis for his back surgery specifically however if he requires antibiotics per neurosurgery's protocol that is fine. Please be aware that he has had multiple episodes of C. difficile as a result of SBE prophylaxis antibiotics. In the meantime we will continue his baby aspirin, Lipitor, Lopressor. Orders Orders: 2. Mixed hyperlipidemia E78.2 Plan 2. Hyperlipidemia: We are awaiting a repeat lipid panel. Continue Lipitor. 3. 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 Status post mitral valve repair/ replacement: Patient is doing quite well. His most recent echocardiogram showed no significant mitral regurgitation in the face of normal RVSP. Continue lifelong SBE prophylaxis as indicated. 4. Return office in 6 months This note was generated using a voice recognition system and there may be incorrect words, spelling or punctuation that were not noted when reviewing the office note prior to saving. Orders Orders: Plan Detail Other Orders Orders: Follow Up +6M (Maikol) Coding Level of Care Code Off vis,est,level 3 Diagnoses Atherosclerosis of [place] coronary artery of [place] heart without angina pectoris I25.10 [place] vs. transplanted heart: [place] heart Associated angina: without angina Mixed hyperlipidemia E78.2 Hyperlipidemia type: mixed hyperlipidemia History of heart valve replacement Z95.2 Coding Level of Care Code Off vis,est,level 3 Diagnoses Atherosclerosis of [place] coronary artery of [place] heart without angina pectoris I25.10 [place] vs. transplanted heart: [place] heart Associated angina: without angina Mixed hyperlipidemia E78.2 Hyperlipidemia type: mixed hyperlipidemia History of heart valve replacement Z95.2 12/22/17 1038 <Electronically signed by Lamine Lassiter MD> Date Lamine Lassiter MD Cosigner Signature: Date (if applicable) CC: Cecily Brewer Observed: 11/27/2017 Status: F Source: [facility]JESH [facility] DIFF COMPLETE 1:00 PM [facility] REPOSITORY C-DIFF TOXIN POSITIVE C-DIFF AG POSITIVE { CALLED TO [employer] { READ BACK BY KL TO CWB AT 1533 INTERNAL NEG QC PASS INTERNAL POS QC PASS EXTERNAL QC DONE? YES INTERPRETATION: POSITIVE Ag,POSITIVE Tox = C. Diff is present & producing toxins POSITIVE Ag,NEGATIVE Tox = C. Diff is present NEGATICE Ag,NEGATICE Tox = C. Diff is not present A low percentage of specimens may test negative for antigen but positive for toxin. A fresh specimen should be resumbitted for retesting. Performed By: #### [id number] #### [facility],[address] [place] [id number] Observed: 11/27/2017 Status: F Source: [facility] CULTURE STOOL 1:00 PM [facility] REPOSITORY CULTURE STOOL _STOOL CULTURE_ M I C R O B I O L O G Y R E P O R T FINAL Antimicrobial Susceptibility and Organism Identification Report Specimen Number : [id number] Requested : 11/27/17 Specimen Source : STOOL Collected : 11/27/17 13:00 [facility] : OUTPATIENT Received : 11/27/17 13:00 Requesting Physician : NEDA TONY Patient/Specimen Tests and Comments Specimen Comments FINAL REPORT: SALMONELLA:NEGATIVE SHIGELLA:NEGATIVE YERSINIA:NEGATIVE CAMPYLOBACTER:NEGATIVE Tech : Source : STOOL ID # : [id number] FINAL Report Date : / / : Collected : 11/27/17 13:00 11/30/17.1140.BKO. 11/29/17.1142.BKO. 11/28/17.1150.BKO. 11/30/17.1140.BKO.COMPLETE Performed By: #### [id number] #### [facility],[address] [place] [address] ECHOCARDIOGRAM COMPLETE Observed: 08/16/2017 Status: F Source: [place] 10:31 AM [facility] REPOSITORY [facility] Cardiovascular Services [address] [place] [address] Echo Complete 08/15/17 1349 MR#: [id number] Acct: [id number] Name: VALE GARCIA Rep #: [id number] : 1945 71 From: Lamine Lassiter MD Attending Dr: Demond Lal NP Status: REG CLI Ordering Dr: Demond Lal MENAGERIE CARETAKER-C Date: 08/15/17 Location: [facility] Sex: M C Admitted: Reason For Study: MV Repair Procedure This was a 2D Doppler, Color Flow transthoracic echocardiogram. The study was technically difficult. Exam performed in department. Left Ventricle Normal size and thickness. The estimated ejection fraction is 65 %. Septal motion consistent with IVCD. No regional wall motion abnormalities noted. Right Ventricle Normal size and thickness. Normal systolic function. Atria The left atrium is mildly enlarged. Normal right atrium. Probable chiari network. Saline contrast study demonstrates trivial right to left interatrial shunt. Hypermobile atrial septum. Mitral Valve Anterior leaflet diffuse mitral valve thickening. Peak transmitral valve gradient 7 mmHg. Mean transmitral valve gradient 2 mmHg. An annuloplasty ring is noted in the mitral position. Tricuspid Valve Normal tricuspid valve. Trivial tricuspid valve insufficiency. Right ventricular systolic pressure estimated to be 33 mmHg. Aortic Valve Trisinus/trileaflet aortic valve. Normal aortic valve. Pulmonic Valve Normal pulmonic valve. Great Vessels Normal aortic root. Normal arch. Normal inferior vena cava. Inferior vena cava collapse with sniff. Pericardium/Pleural No pericardial effusion. Medication 22 gauge I.V. with prn adaptor inserted into right arm. Performed a rapid injection of agitated mix of 9 cc saline and 1cc air to assess for atrial septal defect. MMode/2D Measurements AND Calculations LVIDd: 4.2 cm IVSd: 1.2 cm Ao root diam: 4.1 cm LVIDs: 3.1 cm LVPWd: 1.2 cm LA dimension: 3.9 cm RVDd: 3.5 cm FS: 28.0 % LAV(MOD-bp): 62.9 ml LA A4 area: 21.2 cm2 RA A4 area: 14.3 cm2 LAV(MOD-bp) Indexed: 32.5 ml/m2 LAV(MOD-sp2): 68.4 ml LAV(MOD-sp4): 57.9 ml Time Measurements MV dec time: 0.29 sec Doppler Measurements AND Calculations MV E max viky: 77.6 cm/sec Lat Peak E' Viky: 10.7 cm/sec Med Peak E' Viky: 6.6 cm/sec MV A max viky: 118.6 cm/sec E/E' lat: 7.3 E/E' med: 11.7 MV E/A: 0.65 MV V2 max: 130.8 cm/sec Ao V2 max: 107.7 cm/sec LV V1 max: 82.2 cm/sec MV max P.8 mmHg Ao max P.7 mmHg LV V1 max P.7 mmHg MV V2 mean: 69.5 cm/sec MV mean P.2 mmHg MV V2 VTI: 26.2 cm PA V2 max: 93.8 cm/sec TR max viky: 261.3 cm/sec TR max P.5 mmHg Interpretation Summary The estimated ejection fraction is 65 %. The left atrium is mildly enlarged. Hypermobile atrial septum. An annuloplasty ring is noted in the mitral position. Right ventricular systolic pressure estimated to be 33 mmHg. Compared to echo report dated 05/23/2016, no appreciable changes noted. Saline contrast study demonstrates trivial right to left interatrial shunt. Ordering Physician: Demond Lal Referring Physician: Cecily Red Performed By: Samantha Cerda RDCS, RVT 08/16/17 1031 Date Lamine Lassiter MD CC: HU Lla; Cecily Red MD Date Dictated: 08/15/17 1349 Date Transcribed: 08/16/17 1031 Global Compensation Analyst: Signed EMERGENCY DEPARTMENT Observed: 08/05/2017 Status: F Source: [facility] SUMMARY 7:05 AM [facility] EMERGENCY DEPARTMENT SUMMARY NAME NUMBER SEX AGE ADMIT DISC TYPE MED.RECORD# RAYL VALE E [id number] M 71 07/31/17 07/31/17 E.R. [id number] ROOM:ER-D DATE OF :1945 PHYSICIAN NO.:[id number] PHYSICIAN NAME:ANA Damon M.D. PHYSICIAN:E-Sign Dr. Cecily Red MD CHIEF COMPLAINT: Diarrhea. HISTORY OF PRESENT ILLNESS: The patient had a colonoscopy done on the by Dr. Del Rosario. He states that ever since then he has been having ongoing diarrhea. Apparently, the colonoscopy showed a polyp that was removed and sent to be further evaluated. He has been taken Imodium, but continues to have diarrhea. He is not complaining of significant pain. He has not had any blood in his stools. He is not complaining of dizziness or lightheadedness. No chest pain or shortness of breath. PAST MEDICAL HISTORY: Significant for coronary artery disease. He has had previous coronary bypass surgery. He has also had carotid surgeries. MEDICATIONS: Per med rec list. ALLERGIES: He has no allergies. PAST SURGICAL HISTORY: He had the colonoscopy for a workup for anemia. SOCIAL HISTORY: He lives at home with his family. He comes here with his . He uses oral tobacco. He does not smoke. He does not drink alcohol. REVIEW OF SYSTEMS: As mentioned above. No cough, congestion, shortness of breath, dizziness, pain or swelling to the extremities. PHYSICAL EXAMINATION: This is a 71-year-old male alert, appropriate, does not appear toxic or in acute distress. His skin is pink, warm, and dry. HEENT: All within normal limits. Neck is supple without adenopathy or carotid bruits. Lungs are clear without crackles or wheezes. Cardiac exam is regular rhythm without any ectopy, murmurs, gallops, or rubs. Abdomen is very soft and nontender. Active bowel sounds. He has good peripheral pulses. Good capillary refill. Vital signs: Blood pressure 147/92, pulse 96, respirations 18, and temperature 97.5. DIAGNOSTIC DATA: He had some laboratory studies obtained, which showed a CBC with a white count of 11,300, normal differential, H&H 15.4 and 45.8. CMP was essentially all within normal limits with a BUN and creatinine of 13 and 1.1. CRP was 3.9. EMERGENCY DEPARTMENT COURSE AND TREATMENT: Orthostatic blood pressure and pulse were essentially unremarkable as noted in the chart. DIAGNOSIS: Post colonoscopy diarrhea. PLAN/DISPOSITION: We will order stool for culture. He did not have any diarrhea while in the ER. I did give him a prescription for Lomotil. He is to follow up with his family doctor or Dr. Del Rosario in the next 2 to 3 days if diarrhea persists, returning if symptoms worsen. D: Filiberto Damon MD TD: 09:39 JOB #: [id number] Electronically signed by: ANA Damon M.D. 08/05/17 07:05 Transcribed by: am 08/01/2017 09:15 ELECTRONICALLY SIGNED BY: ANA Damon M.D. 08/05/17 07:05 Observed: 08/02/2017 Status: F Source: [facility] CULTURE STOOL 11:00 AM [facility] REPOSITORY CULTURE STOOL _STOOL CULTURE_ M I C R O B I O L O G Y R E P O R T FINAL Antimicrobial Susceptibility and Organism Identification Report Specimen Number : [id number] Requested : 08/02/17 Specimen Source : STOOL Collected : 08/02/17 11:00 [facility] [place] : OUTPATIENT Received : 08/02/17 11:00 Requesting Physician : ERROL TERRY Patient/Specimen Tests and Comments Specimen Comments FINAL REPORT: SALMONELLA:NEGATIVE SHIGELLA:NEGATIVE YERSINIA:NEGATIVE CAMPYLOBACTER:NEGATIVE Tech : Source : STOOL ID # : [id number] FINAL Report Date : / / : Collected : 08/02/17 11:00 08/05/17.0702.LEIGHANNN. 08/04/17.1149.BKO. 08/03/17.1055.BKO. 08/05/17.0702.JLN.COMPLETE Performed By: #### [id number] #### Rajesh Replaced By [facility],[address] [place], [place] [id number] SPINE LUMBAR Observed: 08/02/2017 Status: F Source: [place] (ROUTINE) 9:38 AM [facility] REPOSITORY [facility] Imaging Services [address] [place] [id number] Spine Lumbar (Routine) MR#: [id number] Acct: [id number] Name: VALE GARCIA Rep #: [id number] : 1945 M 71 From: Ronald Crowell MD PCP: Cecily Red MD Status: REG CLI Study: Spine Lumbar (Routine) Date of Exam: 08/02/17 Exam# [id number] Ordering Dr: Frannie Skelton MENAGERIE CARETAKER-C STUDY: MRI LUMBAR SPINE WITHOUT CONTRAST REASON FOR EXAM: Male, 71 years old. Stenosis. Left hip pain. TECHNIQUE: Standardized fat and water weighted pulse sequences were obtained in the sagittal and axial planes. COMPARISON: None FINDINGS: T9-T10: (Sagittal only). Irregularities of the vertebral endplates secondary to intervertebral osteochondrosis. Degenerative collapse of the disc space height. Minimal posterior marginal spurs. Normal central canal and bilateral intervertebral neural foramina. T10-T11: (Sagittal only). Irregularities of the vertebral endplates due to intervertebral osteochondrosis. Pronounced disc space height narrowing with marked loss of disc hydration. Minimal posterior marginal spurs. Normal central canal. Moderate stenosis of the right intervertebral neural foramen. Normal left intervertebral neural foramen. T11-T12: (Sagittal only). Anterior marginal spurs. Pronounced right sided disc space height narrowing with marked loss of disc hydration. Mild irregularities of the vertebral endplates secondary to intervertebral osteochondrosis. Minimal posterior marginal spurs. Normal central canal. Moderate stenosis of the right intervertebral neural foramen. Normal left intervertebral neural foramen. T12-L1: Anterior and posterior marginal spurs. Pronounced disc space height narrowing with Modic type II degenerative vertebral marrow fatty changes underneath the adjacent vertebral endplates. Posterior marginal spurs. Mild central canal stenosis. The AP canal diameter is 10 mm. Prominent bilateral medial synovial hypertrophy. Moderate degenerative facet hypertrophy. Moderate stenosis of the bilateral intervertebral neural foramina. Normal lumbar lordosis. There is no substantial scoliosis. Normal conus medullaris that terminates at the T12-L1 disc level. L1-2: Anterior marginal spurs. Pronounced right-sided disc space height narrowing with Modic type II degenerative vertebral marrow fatty changes underneath the right side of the adjacent vertebral endplates. Posterior marginal spurs. Normal central canal and bilateral lateral recesses. Mild left posterior ligamentum flavum hypertrophy. Moderate left degenerative facet hypertrophy. Mild right degenerative facet arthropathy. Mild stenosis of the right intervertebral neural foramen. Normal left intervertebral neural foramen. L2-3: Anterior and posterior marginal spurs. Modic type II degenerative vertebral marrow fatty changes underneath the adjacent vertebral endplates. Pronounced disc space height narrowing. Normal central canal and bilateral lateral recesses. Moderate left due to facet arthropathy. Normal right facet joint. Normal bilateral intervertebral neural foramina. L3-4: Pronounced left-sided disc space height narrowing with anterior and posterior marginal spurs. Modic type I degenerative vertebral marrow edema underneath the adjacent vertebral endplates. Left posterior ligamentum flavum hypertrophy and left medial synovial hypertrophy causing left lateral recess stenosis. Normal right lateral recess. Mild [id number] central canal stenosis due to left medial synovial hypertrophy. The central canal at the level of the medial synovial hypertrophy is 9 mm in diameter. Moderately pronounced left degenerative facet arthropathy and moderate right degenerative facet arthropathy. Mild stenosis of the right intervertebral neural foramen. Moderately pronounced stenosis of the left intervertebral neural foramen with suspicious impingement of the left L3 nerve. L4-5: Anterior and posterior marginal spurs with degenerative collapse of the disc space height. Modic type II degenerative vertebral marrow fatty changes underneath the adjacent vertebral endplates. Normal central canal and bilateral lateral recesses. Left medial synovial hypertrophy. Mild to moderate asymmetric degenerative facet arthropathy. Mild stenosis of the right intervertebral neural foramen. Normal left intervertebral neural foramen. L5-S1: Anterior marginal spurs and minimal posterior marginal spurs. Near-complete loss of the disc space height. No extruded disc fragment. Normal central canal and bilateral lateral recesses. Mild asymmetric degenerative facet arthropathy. Normal bilateral intervertebral neural foramina. Normal visualized sacral ala. Normal visualized paraspinous soft tissue structures. MRI/Spine Lumbar (Routine) IMPRESSION: 1. No MRI evidence of lumbar extruded disc fragment. 2. Pronounced L3-L4 left-sided disc space height narrowing with Modic type I degenerative vertebral marrow edema underneath the adjacent vertebral endplates, mild [id number] central canal stenosis due to left medial synovial hypertrophy, and moderately pronounced stenosis of the left intervertebral neural foramen with suspicious impingement of the left L3 nerve. 3. Pronounced L4-L5 disc space height narrowing with Modic type II degenerative vertebral marrow fatty changes underneath the adjacent vertebral endplates and mild stenosis of the right intervertebral neural foramen. 4. Pronounced L2-L3 disc space height narrowing with Modic type II degenerative vertebral marrow fatty changes underneath the adjacent vertebral endplates and moderately pronounced left degenerative facet arthropathy. 5. Pronounced right-sided L1-L2 disc space height narrowing with Modic type II degenerative vertebral marrow fatty changes underneath the right side of the adjacent vertebral endplates and moderate left degenerative facet arthropathy. 6. Pronounced T12-L1 disc space height narrowing with Modic type II degenerative vertebral marrow fatty changes are underneath the adjacent vertebral endplates, mild central canal stenosis and moderate stenosis of both intervertebral neural foramina. 7. Pronounced right-sided T11-T12 disc space height narrowing with mild irregularities of the vertebral endplates secondary to intervertebral osteochondrosis and moderate stenosis of the bilateral intervertebral neural foramina. 8. Pronounced T10-T11 disc space height narrowing with irregularities of the vertebral endplates secondary to intervertebral osteochondrosis and moderate stenosis of the right intervertebral neural foramen. 9. Pronounced T9-T10 disc space height narrowing with irregularities of the vertebral endplates secondary to intervertebral osteochondrosis. Electronically Signed: Ronald Crowell MD at 14:31 EST , Service support , CC: Frannie Skelton; Cecily Red MD Global Compensation Analyst: Signed CBC Collected: 07/31/2017 Status: F Source: RAJESH LECHUGA 8:37 AM [facility] REPOSITORY TYPE CODE TESTS RESULT OUT OF RANGE REFERENCE UNITS LAB CBC(LOINC) CBC Result Comment: CBC-COMPLETE BLOOD COUNT LAB WBC(LOINC) 4.5 - 10.8 x 10EE3/UL WBC High 11.3 LAB RBC(LOINC) 4.50 - x 10EE6/UL 6.00 RBC 4.95 LAB HEMOGLOBIN(LOINC 13.0 - g/dl ) 17.5 HEMOGLOBIN 15.4 LAB HEMATOCRIT(LOINC 40.0 - % ) 52.0 HEMATOCRIT 45.8 LAB MCV(LOINC) 81 - 98 fl MCV 92 LAB MCH(LOINC) 27 - 33 pg MCH 31 LAB MCHC(LOINC) 32 - 36 X10 3 MCHC 34 LAB RDW/CV(LOINC) 12.0 - % 15.6 RDW/CV High 17.5 LAB PLATELET(LOINC) 150 - 450 x10EE3/UL PLATELET 167 LAB MPV(LOINC) 6.4 - 10.5 fl MPV 9.4 Result Comment: AUTOMATED DIFFERENTIAL LAB NEUT %(LOINC) 46.0 - 76.0 % NEUT % 75.1 LAB LYMPH %(LOINC) 20.0 - 45.0 % Low LYMPH % 8.8 LAB MONOS %(LOINC) 0.0 - 10.0 % MONOS % 9.6 LAB EO %(LOINC) 0.0 - 7.0 % EO % 6.2 LAB BASO %(LOINC) 0.0 - 2.0 % BASO % 0.3 LAB Lymph #(LOINC) 0.80 - 2.80 x10EE3/U L Lymph # 1.00 LAB Neut #(LOINC) 1.50 - 7.10 x10EE3/U L Neut # High 8.50 LAB [place] #(LOINC) 0.20 - 1.00 x10EE3/U L [place] # High 1.10 LAB EO #(LOINC) 0.00 - 0.50 x10EE3/U L EO # High 0.70 LAB Baso #(LOINC) 0.00 - 0.10 x10EE3/U L Baso # 0.00 LAB MANUAL DIFF(LOINC) MANUAL DIFF N/A LAB MORPHOLOGY(LOINC ) MORPHOLOGY N/A Result Comment: {CD] Performed By: #### [id number] #### [place] [id number] C-REACTIVE PROTEIN Collected: 07/31/2017 Status: F Source: [facility] 8:[address] [facility] REPOSITORY TYPE CODE TESTS RESULT OUT OF RANGE REFERENCE UNITS LAB CRP(LOINC) 0.00 - 1.00 mg/dl High CRP 3.90 Performed By: #### [id number] #### [place] [id number] CMP WITH EGFR Collected: 07/31/2017 Status: F Source: [facility] 8:[address] [facility] REPOSITORY TYPE CODE TESTS RESULT OUT OF RANGE REFERENCE UNITS LAB CMP with eGFR(LOINC) CMP with eGFR Result Comment: COMPREHENSIVE METABOLIC PANEL LAB SODIUM(LOINC) 136 - 145 mmol/l SODIUM 141 LAB POTASSIUM(LOINC) 3.5 - 5.1 mmol/L POTASSIUM 3.5 LAB CHLORIDE(LOINC) 98 - 107 mmol/L CHLORIDE 105 LAB CO2(LOINC) 21.0 - mmol/L 31.0 CO2 28.8 LAB GLUCOSE(LOINC) 74 - 106 mg/dl GLUCOSE 95 LAB BUN(LOINC) 6 - 20 mg/dl BUN 13 LAB CREATININE(LOINC) 0.7 - 1.3 mg/dl CREATININE 1.1 LAB AST/SGOT(LOINC) 13 - 39 U/L AST/SGOT 16 LAB ALK PHOS(LOINC) 38 - 126 U/L ALK PHOS 66 LAB CALCIUM(LOINC) 8.6 - mg/dl 10.2 CALCIUM 9.0 LAB TOTAL PROTEIN(LOINC) 6.4 - 8.3 g/dl TOTAL Low PROTEIN 6.2 LAB ALBUMIN(LOINC) 3.4 - 4.8 g/dL ALBUMIN 3.6 LAB GLOBULIN(LOINC) 1.5 - 3.8 G/DL GLOBULIN 2.6 LAB A/G RATIO(LOINC) 0.9 - 1.6 A/G RATIO 1.4 LAB TOTAL BILI(LOINC) 0.0 - 1.5 mg/dl TOTAL BILI 0.6 LAB B/C RATIO(LOINC) 0 - 30 ratio B/C RATIO 12 LAB ALT/SGPT(LOINC) 10 - 40 U/L ALT/SGPT 24 LAB ANION GAP(LOINC) 10 - 20 mmol/L ANION GAP 11 LAB AGE(LOINC) years AGE 71 LAB eGFR(LOINC) 60 - 999 ML/MINUTE eGFR >60 LAB eGFR(AA)(LOINC) 60 - 999 ML/MINUTE eGFR(AA) >60 Result Comment: ACCORDING TO THE NATIONAL KIDNEY DISEASE EDUCATION PROGRAM(NKDE), A NORMAL eGFR IS A VALUE GREATER THAN OR EQUAL TO 60 ML/MIN/1.73 SQ METERS. CHRONIC KIDNEY DISEASE: <60mL/MIN/1.73 SQ METERS KIDNEY FAILURE: <15mL/MIN/1.73 SQ METERS THIS TEST SHOULD ONLY BE USED FOR PATIENTS 18 YEARS OF AGE AND OLDER. Performed By: #### [id number] #### Rajesh Replaced By [facility],[address] [place] [address] OPERATIVE REPORT Observed: 07/27/2017 Status: F Source: RAJESHMEEK LECHUGA 10:35 AM [facility] OPERATIVE REPORT NAME NUMBER SEX AGE ADMIT DISC TYPE MED.RECORD# RADHA Alvarez [id number] M 71 07/26/17 07/26/17 O/P [id number] ROOM:[facility] DATE OF :1945 PHYSICIAN NO.:[id number] PHYSICIAN NAME:E-SIGN DR. DEL ROSARIO PHYSICIAN:E-Sign Dr. Cecily Red MD DATE OF SURGERY: July 26, 2017 SURGEON: Jimy Del Rosario MD BUSINESS BANKING REPRESENTATIVE: ANESTHESIOLOGIST: ANESTHETIC: MAC. PREOPERATIVE DIAGNOSES: (1) Anemia. (2) Screening colonoscopy. POSTOPERATIVE DIAGNOSES: (1) Hiatal hernia. (2) Sigmoid diverticulosis. (3) Rectal polyp 10 cm from the anal verge. (4) Anal verge polyp. OPERATION PERFORMED: (1) EGD. (2) Colonoscopy with hot snare polypectomy 10 cm from the anal verge and cold grasp polypectomy at the anal verge. (3) Random cold grasp biopsy of rectal mucosa. (4) Bowel tattoo at the distal margin of the rectal polyp 10 cm from the anal verge. COMPLICATIONS: None. ESTIMATED BLOOD LOSS: Minimal. DRAINS: None. SPECIMENS: (1) Rectal polyp 10 cm from the anal verge. (2) Anal verge polyp. (3) Rectal mucosa biopsy. SIGNIFICANT FINDINGS: Small hiatal hernia without associated gastritis or esophagitis. No evidence of peptic ulcer disease. Colon prep was good. Mild diverticulosis confined to the sigmoid colon, large pedunculated polyp 10 cm from the anal verge and a small, sessile polyp at the anal verge. A bowel tattoo was placed at the distal margin of the 10 cm rectal polyp. No new active or old bleeding was appreciated. No overt etiologies for anemia were appreciated. DISPOSITION: Home. Diet: Regular. Activity: Regular. Medications: Regular. Follow up in Dr. Del Rosario's clinic in two weeks. DESCRIPTION OF OPERATION: Prior to initiation of MAC anesthesia, the patient's oropharyngeal cavity was locally anesthetized, and a bite block was placed. Following the initiation of MAC anesthesia, the patient was placed in the left lateral decubitus position. The flexible endoscope was then introduced into the oral cavity and advanced under direct visualization. There were no abnormalities appreciated along the length of the esophagus. The GE junction appeared grossly within normal limits. The scope was advanced into the stomach, and the stomach was insufflated. There was no evidence of gastritis. The scope was then advanced to the gastric antrum and retroflexed. On retroflexion, the patient was noted to have a small hiatal hernia. The scope was then straightened and advanced to the second portion of the duodenum. The scope was then slowly withdrawn from that vantage point. There were no abnormalities appreciated within the second portion of the duodenum, first portion of the duodenum, the duodenal bulb, or the gastric antrum. There was no evidence of peptic ulcer disease. The scope was then desufflated and removed. On removal, the esophagus was once again inspected, and there was no evidence of esophagitis, varices or any other abnormalities. The vocal cords were seen on the way out and were within normal limits. The patient was then prepared for colonoscopy. A digital rectal examination was performed. There were no findings on digital rectal examination. The flexible colonoscope was then introduced into the anus and advanced to the ileocecal junction under direct visualization. The scope was then slowly withdrawn and the colonic mucosa inspected meticulously. It was noted that the colonic prep was good. There were no abnormalities appreciated within the cecum, ascending colon, transverse colon, or descending colon. Within the sigmoid colon, the patient was found to have a small, sparse, mild diverticulosis. The diverticulosis was confined to the sigmoid colon. There was no evidence of diverticulitis and/or diverticular bleeding. As the scope was withdrawn, at approximately the rectosigmoid junction the patient began to have numerous small plaques. The plaques were punctate and white with surrounding hyperemia. Within the rectum, some random mucosal biopsies were obtained from these areas using cold grasp biopsy forceps. Within the rectum, 10 cm from the anal verge, the patient was found to have a large pedunculated polyp. The polyp was removed using the hot snare polypectomy device and retrieved with the suction basket. Because of the size, a bowel tattoo was placed at the distal margin of the lesion. As the scope was withdrawn, the patient was found to have a small sessile polyp at the anal verge. The polyp was removed using the cold grasp polypectomy device. Retroflexion of the scope within the rectum did not reveal any further abnormalities. The scope was straightened, the colon desufflated, and the scope removed. The patient was then awakened and taken to the PACU in good and stable condition. D: Jimy Del Rosario MD TD: 10:44 JOB #: [id number] Electronically signed by: ANIL DEL ROSARIO 07/27/17 10:35 Transcribed by: bravo 07/27/2017 08:55 HISTORY AND PHYSICAL Observed: 07/27/2017 Status: F Source: [facility] EXAM 10:35 AM [facility] HISTORY AND PHYSICAL EXAMINATION NAME NUMBER SEX AGE ADMIT DISC TYPE MED.RECORD# RADHA Alvarez [id number] M 71 07/26/17 O/P [id number] ROOM:[facility] DATE OF :1945 PHYSICIAN NO.:[id number] PHYSICIAN NAME:E-АЛЕКСАНДР DEL ROSARIO PHYSICIAN:E- Александр Red MD CHIEF COMPLAINT: Anemia. HISTORY OF PRESENT ILLNESS: Mr. Garcia is a 71-year-old male who presents with anemia. At this point, the patient denies any upper gastrointestinal symptoms. Specifically, he denies signs and symptoms of peptic ulcer disease. He denies frequent reflux. He does admit to taking NSAIDs on a frequent basis. He does use tobacco. He denies alcohol and/or illicit drug use. The patient denies any worrisome lower GI signs and symptoms. He denies any family history of colonic problems. He has never had a colonoscopy. PAST MEDICAL HISTORY: Significant for obesity, coronary artery disease, and mitral valve disease. PAST SURGICAL HISTORY: Foot surgery in 2003, CABG x2 in 2009, left carotid artery surgery in 2009, mitral valve repair in 2013, and gamma knife resection of a vestibular schwannoma in October of 2015. MEDICATIONS: See MAR. ALLERGIES: None. SOCIAL HISTORY: The patient is . Positive tobacco use. Negative for alcohol. Negative for drugs. REVIEW OF SYSTEMS: Ten system review of systems is negative. PHYSICAL EXAMINATION GENERAL APPEARANCE: He is alert and oriented. VITAL SIGNS: He is afebrile, with his vital signs stable and within normal limits. LUNGS: Clear to auscultation bilaterally. HEART: Regular rate and rhythm. ABDOMEN: Soft, nontender and nondistended. EXTREMITIES: No cyanosis, edema or gross deformities. NEUROLOGICAL: His GCS is 15. Cranial nerves II through XII are grossly intact. He has 5/5 muscle strength. Sensation is grossly intact. PREOPERATIVE ASSESSMENT: 1. The patient was evaluated by Cardiology and felt to be sufficiently safe from a cardiac standpoint for the procedure. Echocardiogram in March of 2015 was normal. 2. The patient did receive a vascular consult with a carotid duplex ultrasound that was sufficiently patent. 3. Plan to proceed with EGD and colonoscopy for evaluation of anemia and colon cancer screening. The risks, benefits, and alternatives were discussed with the patient. All questions were answered. The patient voiced understanding and agreement with the plan. D: Jimy Del Rosario MD TD: 08:49 JOB #: [id number] Electronically signed by: E-SIGN DR. DEL ROSARIO 07/27/17 10:35 Transcribed by: bravo 07/26/2017 11:28 Update to H&P: [] No changes: I have examined the patient and reviewed the H&P and there are no changes. [] As previously dictated with the following changes: PHYSICIAN SIGNATURE: TIME: DATE: FINAL SURGICAL Observed: 07/26/2017 Status: F Source: [facility] PATHOLOGY REPORT 2:09 PM [facility] REPOSITORY . Pathology Reports Accession: Collected Date/Time: Received Date/Time: Pathologist: [id number] 07/26/2017 14:09 EST 07/26/2017 14:09 EST DO GUILHERME BEATTY Final Surgical Pathology Report DIAGNOSIS: A) RECTAL BIOPSIES -- FEATURES SUGGESTIVE OF ISCHEMIC COLITIS. NEGATIVE FOR DYSPLASIA. 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 C) FRAGMENTS OF TUBULAR ADENOMA, ANAL VERGE. COMMENT: [facility] - A# [id number] CLINICAL INFORMATION: ANEMIA, SCREENING SPECIMEN: A COLON, BX - RECTUM, RANDOM MUCOSAL BIOPSY B COLON, BX - RECTUM 10 CM FROM ANAL VERGE C POLYP, COLORECT - ANAL VERGE POLYP GROSS DESCRIPTION: _A. Received in formalin labeled rectum random mucosal biopsies are 2 cullen-red glistening soft tissues averaging 0.4 cm. A S -1 B. Received in formalin labeled rectum 10 cm from verge are multiple cullen glistening soft tissues ranging from 0.2-0.6 cm. A S -1 C. Received in formalin labeled anal verge polyp are 3 cullen glistening soft tissues averaging 0.4 cm. A S -1 Dictated by TAMIKA HAIR ([facility]) MICROSCOPIC DESCRIPTION: A,B&C) Slides reviewed. Electronically Signed by Pathology Report verified by [facility] Electronically signed by GUILHERME BEATTY DO Sign out Date: 07/27/2017 12:42 Performing Lab: [address] Performed By: #### SPFR #### [place] [address] CARDIOLOGY VISIT Observed: 07/19/2017 Status: F Source: [place] REPORT 2:08 PM [facility] REPOSITORY [facility] [address] [place] [address] OFFICE VISIT Date of Service: 07/13/17 MR#: [id number] Acct: [id number] Name: VALE GARCIA Rep #: [id number] : 1945 Provider: HU Lal Age/Sex: 71/M Location: [facility] Status: Signed with Addenda ADDENDUM by HU Lal on 07/14/17 at 1452 Addendum entered and electronically signed by TENZIN Aquino 07/14/17 14:52: Carotid duplex ultrasound from outside hospital was reviewed. Right side shows 60-79% stenosis with previous documentation showing 0-39%. There was question regarding the accuracy of the test. Left internal carotid artery showed 1-39%. Based on these results patient may proceed with upper and lower GI scope. He should also proceed with reevaluation for accuracy of right internal carotid artery. Assessment AND Plan 1. Atherosclerosis of [place] coronary artery of [place] heart without angina pectoris I25.10 CABG: JET to RCA, SVG to OM, SVG to CFX 11/2009. Plan - TENZIN Aquino Patient denies any chest pain, arm pain, jaw pain, neck pain, shortness of breath, or fatigue suggestive of angina at this time. We will continue to monitor this. We will not make any medication regimen changes and will continue risk factor modification. Orders Orders: 2. History of heart valve replacement Z98.890; Z95.2 Mitral valve repair 07/22/2013 at [facility] and redo of median sternotomy Plan - TENZIN Aquino Patient's last echocardiogram from May 2016 showed stable mitral valve angioplasty ring. Patient denies any shortness of breath, activity intolerance, or lower extremity pedal edema. We will repeat an echocardiogram as a part of his yearly evaluation of his mitral valve repair. We will continue current medications. We will wait for the results of the echocardiogram for further recommendation. Orders Orders: 3. Essential hypertension I10 Plan TENZIN Curtis Patient's blood pressure is well-controlled today in the office. We will continue to monitor this. We will not make any medication regimen changes. 4. Mixed hyperlipidemia E78.2 TENZIN Laureano This is managed by primary care physician. We will continue current cholesterol-lowering medication. 5. Hx of CABG Z95.1 CABG: JET to RCA, SVG to OM, SVG to CFX 11/2009. Franko - TENZIN Aquino We will continue to monitor this. We will continue current medications which include aspirin, cholesterol medication, and beta-joaquin. Orders Orders: 6. Hematuria, unspecified type R31.9 Plan - TENZIN Aquino Patient states having 2 episodes of hematuria over the last 2 months. He was asked to continue to follow-up with primary care physician and/or urologist for this. We will defer to their treatment and recommendation. 7. Pre-op evaluation Z01.818 Plan - TENZIN Aquino Patient states having upcoming upper and lower GI scope due to low iron level. This is to rule out any sources of bleeding. He had an ECG done yesterday that showed sinus rhythm with first-degree AV block and was similar to previous ECG. Patient did mention having a carotid duplex ultrasound done in March that showed significant change. We will obtain records from the [place] for further evaluation. We will wait for the results of his carotid duplex ultrasound for further recommendations/clearance of colonoscopy. Depending on the results of his carotid duplex ultrasound his colonoscopy may have to be held. If his carotid ultrasound is satisfactory he may proceed with colonoscopy. He will not be undergoing any stress test for further evaluation. His echocardiogram is done mainly for yearly evaluation of his mitral valve repair. Plan Detail Additional Comments - TENZIN Aquino Discussed the above patient with Dr. Lassiter, he agrees with the plan of care. Thank you for allowing us to participate in the patients plan of care, if you have any questions please do not hesitate to call. This note was generated using a voice recognition system and there may be incorrect words, spelling or punctuation that were not noted when reviewing the office note prior to saving. Follow Up 6 Months (DJN) 07/14/17 2182 <Electronically signed by Demond DAVE> Date Demond Lal cc: Cecily Red MD * Signed HPI 6 M FU: Details: VALE GARCIA, is a 71 M who presents to the office today for cardiovascular outpatient follow-up. Patient has history of coronary artery disease status post bypass surgery at [facility] in 2009 with a JET to the RCA, SVG to obtuse marginal, and SVG to left circumflex, severe mitral valve regurgitation status post mitral valve repair with a #35 mm Evans angioplasty band by Dr. Cherry in July 2013 at [facility], hypertension, and hyperlipidemia. Pt. states have blood in urine for the second time in two months. Pt. states having a decrease in iron, which has prompted an upper and lower GI scope. He now takes Iron supplement, which has resulted in black stool. Pt. denies chest, arm, jaw, or neck discomfort. His exercise tolerance is stable. Pt. denies symptoms of CHF, palpitations, lightheadedness, dizziness, near syncope, or syncopal episodes. Pt. denies edema or claudication issues. Pt. denies orthopnea, PND, fever, chills, blood in stool, myalgia, or unexplainable fatigue. Echocardiogram from May 2016 showed an ejection fraction 65%, RVSP of 26 mmHg, normal functioning mitral angioplasty ring, and when compared to previous echocardiogram in March 2015 no appreciable change were noted. Stress test from November 2013 showed an estimated ejection fraction of 60%, was negative for myocardial ischemia by both ECG and echo criteria. Intake Vital Signs07/13/17 Height 5 ft 8 in 07/13/17 Weight: 189 lb 07/13/17 Body Mass Index (BMI) 28.7 07/13/17 Blood Pressure 134/84 Intake Visit Reasons: 6 M FU Allergies No Known Allergies Allergy (Verified 07/13/17 11:23) Medications Atorvastatin Calcium [Lipitor] 20 mg PO BID 12/11/13 [History Confirmed 07/05/17] Metoprolol Tartrate [Lopressor (Beta Joaquin)] 25 mg PO DAILY 12/11/13 [History Confirmed 07/05/17] Tamsulosin HCl [Flomax] 0.4 mg PO DAILY 12/11/13 [History Confirmed 07/05/17] Travoprost 0.004% [Travatan 0.004% Eye Drop] 1 drp EACH EYE DAILY 12/11/13 [History Confirmed 07/05/17] amoxicillin 500 mg tablet 500 mg PO .COMPLEX tab 07/05/17 [History Confirmed 07/05/17] aspirin 81 mg tablet,delayed release 81 mg PO QDAY 07/05/17 [History Confirmed 07/05/17] naproxen sodium 220 mg tablet 220 mg PO QDAY tab 07/05/17 [History Confirmed 07/05/17] Ejection fraction %: 65 to 70 [facility] Medical History Atherosclerosis of [place] coronary artery (Chronic) SOB (shortness of breath) (Chronic) PVCs (premature ventricular contractions) (Chronic) HTN (hypertension) (Chronic) HLD (hyperlipidemia) (Chronic) Cardiomyopathy (Chronic) Severe mitral insufficiency (Chronic) Surgical History Hx of CABG (Chronic) History of heart valve replacement (Chronic) Family History Father Myocardial infarction CAD (coronary artery disease) Social History Smoking Status: Former smoker how long ago did patient quit smokin alcohol intake: former year quit: 1970 ROS Const Const: Negative for fatigue, weakness, body ache, fever(s) or chills ENT ENT: Negative for dizziness Cardio Chest Pain: No Palpitations: Positive for No Edema: None Muscle aches with walking: None Resp Respiratory: Negative for SOB with activity, SOB at rest, SOB orthopnea\SOB lying down or paroxysmal nocturnal dyspnea GI GI: Negative nausea, black,tarry stools, bright, red blood in stools or vomiting blood/hematemesis : Positive for hematuria; negative for frequent nighttime urination/ nocturia Musc Musc: Negative for muscle aches/ myalgia Neuro Neuro: Negative for weakness, Negative for dizziness, Negative for lightheadedness, Negative for near syncope, Negative for syncope, Negative for orthostatic symptoms Endo Endo: Negative for fatigue Cardiology Exam Const Appearance: cooperative, healthy appearing, comfortable and no acute distress Orientation: alert, awake and oriented x3 Head Head: normal to inspection Mouth: oral mucosae normal Neck Neck: no JVD and normal visual inspection Carotids: normal carotid upstroke Chest Chest inspection: normal inspection of the chest and normal respiratory effort Auscultation: Bilateral: Clear to Auscultation Cardio Rate: regular rate Rhythm: regular rhythm Heart sounds: S1 normal and S2 normal; negative rub or gallop GI GI: normal to inspection Neuro General: alert, awake, oriented x3 and CN's II-XI intact bilaterally Skin Skin: no rashes or lesions noted Extremities Pulses: Normal: Right Posterior Tibial Pulse, Left Posterior Tibial Pulse, Right Radial Pulse, Left Radial Pulse Lower Extremity Edema: None: Bilateral Psych Psychological: normal affect Assessment AND Plan 1. Atherosclerosis of [place] coronary artery of [place] heart without angina pectoris I25.10 CABG: JET to RCA, SVG to OM, SVG to CFX 11/2009. Plan - Demond H Roof, MENAGERIE CARETAKER-C Patient denies any chest pain, arm pain, jaw pain, neck pain, shortness of breath, or fatigue suggestive of angina at this time. We will continue to monitor this. We will not make any medication regimen changes and will continue risk factor modification. Orders Orders: 2. History of heart valve replacement Z98.890; Z95.2 Mitral valve repair 07/22/2013 at [facility] and redo of median sternotomy TENZIN Laureano Patient's last echocardiogram from May 2016 showed stable mitral valve angioplasty ring. Patient denies any shortness of breath, activity intolerance, or lower extremity pedal edema. We will repeat an echocardiogram as a part of his yearly evaluation of his mitral valve repair. We will continue current medications. We will wait for the results of the echocardiogram for further recommendation. Orders Orders: 3. Essential hypertension I10 TENZIN Laureano Patient's blood pressure is well-controlled today in the office. We will continue to monitor this. We will not make any medication regimen changes. 4. Mixed hyperlipidemia E78.2 TENZIN Laureano This is managed by primary care physician. We will continue current cholesterol-lowering medication. 5. Hx of CABG Z95.1 CABG: JET to RCA, SVG to OM, SVG to CFX 11/2009. TENZIN Laureano We will continue to monitor this. We will continue current medications which include aspirin, cholesterol medication, and beta-joaquin. Orders Orders: 6. Hematuria, unspecified type R31.9 TENZIN Laureano Patient states having 2 episodes of hematuria over the last 2 months. He was asked to continue to follow-up with primary care physician and/or urologist for this. We will defer to their treatment and recommendation. 7. Pre-op evaluation Z01.818 TENZIN Laureano Patient states having upcoming upper and lower GI scope due to low iron level. This is to rule out any sources of bleeding. He had an ECG done yesterday that showed sinus rhythm with first-degree AV block and was similar to previous ECG. Patient did mention having a carotid duplex ultrasound done in March that showed significant change. [facility]. We will wait for the results of his carotid duplex ultrasound for further recommendations/clearance of colonoscopy. Depending on the results of his carotid duplex ultrasound his colonoscopy may have to be held. If his carotid ultrasound is satisfactory he may proceed with colonoscopy. He will not be undergoing any stress test for further evaluation. His echocardiogram is done mainly for yearly evaluation of his mitral valve repair. Plan Detail Additional Comments - Demond Lal NP-C Discussed the above patient with Dr. Lassiter, he agrees with the plan of care. Thank you for allowing us to participate in the patients plan of care, if you have any questions please do not hesitate to call. This note was generated using a voice recognition system and there may be incorrect words, spelling or punctuation that were not noted when reviewing the office note prior to saving. Follow Up 6 Months (DJN) Coding Level of Care Code Off vis,est,level 3 Diagnoses Atherosclerosis of [place] coronary artery of [place] heart without angina pectoris I25.10 [place] vs. transplanted heart: [place] heart Associated angina: without angina History of heart valve replacement Z98.890; Z95.2 Essential hypertension I10 Hypertension type: essential hypertension Mixed hyperlipidemia E78.2 Hyperlipidemia type: mixed hyperlipidemia Hx of CABG Z95.1 Hematuria, unspecified type R31.9 Hematuria type: unspecified type Pre-op evaluation Z01.818 07/13/17 1633 <Electronically signed by Demond LOVEC> Date Demond LOVEC Cosigner Signature: Date (if applicable) CC: Cecily Red MD CBC Collected: 07/12/2017 Status: F Source: [facility]ESH LECHUGA 10:52 AM [facility] REPOSITORY TYPE CODE TESTS RESULT OUT OF RANGE REFERENCE UNITS LAB CBC(LOINC) CBC Result Comment: CBC-COMPLETE BLOOD COUNT LAB WBC(LOINC) 4.5 - 10.8 x 10EE3/UL WBC High 12.3 LAB RBC(LOINC) 4.50 - x 10EE6/UL 6.00 RBC 4.87 LAB HEMOGLOBIN(LOINC 13.0 - g/dl ) 17.5 HEMOGLOBIN 14.7 LAB HEMATOCRIT(LOINC 40.0 - % ) 52.0 HEMATOCRIT 44.9 LAB MCV(LOINC) 81 - 98 fl MCV 92 LAB MCH(LOINC) 27 - 33 pg MCH 30 LAB MCHC(LOINC) 32 - 36 X10 3 MCHC 33 LAB RDW/CV(LOINC) 12.0 - % 15.6 RDW/CV High 17.3 LAB PLATELET(LOINC) 150 - 450 x10EE3/UL PLATELET 245 LAB MPV(LOINC) 6.4 - 10.5 fl MPV 9.9 Result Comment: AUTOMATED DIFFERENTIAL LAB NEUT %(LOINC) 46.0 - 76.0 % NEUT % High 77.1 LAB LYMPH %(LOINC) 20.0 - 45.0 % Low LYMPH % 9.6 LAB MONOS %(LOINC) 0.0 - 10.0 % MONOS % 7.8 LAB EO %(LOINC) 0.0 - 7.0 % EO % 5.0 LAB BASO %(LOINC) 0.0 - 2.0 % BASO % 0.5 LAB Lymph #(LOINC) 0.80 - 2.80 x10EE3/U L Lymph # 1.20 LAB Neut #(LOINC) 1.50 - 7.10 x10EE3/U L Neut # High 9.40 LAB [place] #(LOINC) 0.20 - 1.00 x10EE3/U L [place] # 1.00 LAB EO #(LOINC) 0.00 - 0.50 x10EE3/U L EO # High 0.60 LAB Baso #(LOINC) 0.00 - 0.10 x10EE3/U L Baso # 0.10 LAB MANUAL DIFF(LOINC) MANUAL DIFF N/A LAB MORPHOLOGY(LOINC ) MORPHOLOGY N/A Result Comment: {CD] Performed By: #### [id number] #### [facility],[address] [place], [place] [id number] CMP WITH EGFR Collected: 07/12/2017 Status: F Source: [facility] 10:52 AM [facility] REPOSITORY TYPE CODE TESTS RESULT OUT OF RANGE REFERENCE UNITS LAB CMP with eGFR(LOINC) CMP with eGFR Result Comment: COMPREHENSIVE METABOLIC PANEL LAB SODIUM(LOINC) 136 - 145 mmol/l SODIUM 141 LAB POTASSIUM(LOINC) 3.5 - 5.1 mmol/L POTASSIUM 4.3 LAB CHLORIDE(LOINC) 98 - 107 mmol/L CHLORIDE 106 LAB CO2(LOINC) 21.0 - mmol/L 31.0 CO2 29.9 LAB GLUCOSE(LOINC) 74 - 106 mg/dl GLUCOSE 82 LAB BUN(LOINC) 6 - 20 mg/dl BUN 15 LAB CREATININE(LOINC) 0.7 - 1.3 mg/dl CREATININE 1.1 LAB AST/SGOT(LOINC) 13 - 39 U/L AST/SGOT 15 LAB ALK PHOS(LOINC) 38 - 126 U/L ALK PHOS 72 LAB CALCIUM(LOINC) 8.6 - mg/dl 10.2 CALCIUM 9.0 LAB TOTAL PROTEIN(LOINC) 6.4 - 8.3 g/dl TOTAL PROTEIN 6.4 LAB ALBUMIN(LOINC) 3.4 - 4.8 g/dL ALBUMIN 3.8 LAB GLOBULIN(LOINC) 1.5 - 3.8 G/DL GLOBULIN 2.6 LAB A/G RATIO(LOINC) 0.9 - 1.6 A/G RATIO 1.5 LAB TOTAL BILI(LOINC) 0.0 - 1.5 mg/dl TOTAL BILI 0.6 LAB B/C RATIO(LOINC) 0 - 30 ratio B/C RATIO 14 LAB ALT/SGPT(LOINC) 10 - 40 U/L ALT/SGPT 16 LAB ANION GAP(LOINC) 10 - 20 mmol/L ANION Low GAP 9 LAB AGE(LOINC) years AGE 71 LAB eGFR(LOINC) 60 - 999 ML/MINUTE eGFR >60 LAB eGFR(AA)(LOINC) 60 - 999 ML/MINUTE eGFR(AA) >60 Result Comment: ACCORDING TO THE NATIONAL KIDNEY DISEASE EDUCATION PROGRAM(NKDE), A NORMAL eGFR IS A VALUE GREATER THAN OR EQUAL TO 60 ML/MIN/1.73 SQ METERS. CHRONIC KIDNEY DISEASE: <60mL/MIN/1.73 SQ METERS KIDNEY FAILURE: <15mL/MIN/1.73 SQ METERS THIS TEST SHOULD ONLY BE USED FOR PATIENTS 18 YEARS OF AGE AND OLDER. Performed By: #### [id number] #### Rajesh Replaced By [facility],[address] [place] [address] ALLERGIES ALLERGIES DATE TYPE / CODE NAME / CODE REACTION SEVERITY SOURCE 07/05/2018 Drug No Known Unknown [place] Allergy/872510811(S Allergies/F[address] [place]) [address](RXNORM) Hospital Repository Miscellaneous No Known Drug Moderate Rajesh Lechuga Allergy/326684104(S Allergies ([facility] NOM[facility]) Modifier) Hospital (Qualifier Repository Value) ENCOUNTERS ENCOUNTERS ADMIT/DISCHARGE ACCOUNT ADMITTING ENCOUNTER LOCATION SOURCE NUMBER CLASS 07/05/2018 [id number] Ambulatory BMSBuilding:B [place] 7 [facility] Repository 07/05/2018 [id number] Ambulatory [place] Senthil 4 [facility] ing:ONC Repository 06/29/2018/ [id number] Ambulatory Senthil [place] 9 0 [facility] ing:EN Repository 06/21/2018 [id number] Ambulatory Senthil [place] 2 [facility] ing:SDC Repository 06/21/2018 [id number] Ambulatory Senthil Senthil 1 [facility] ing:LABSPEC Repository 06/21/2018/ [id number] Ambulatory BMSBuilding:B [place] 9 8 [facility] Repository 06/18/2018 [id number] Ambulatory [place] Senthil 7 [facility] ing:NM Repository 06/15/2018 [id number] Ambulatory Senthil [place] 6 [facility] ing:MEDOUTP Repository 06/15/2018/ [id number] Ambulatory BMSBuilding:B Senth[place] 8 5 [facility] Repository 06/14/2018 [id number] Ambulatory BMSBuilding:B [place] 0 [facility] Repository 06/07/2018 [id number] Ambulatory BMSBuilding:B S[place] 2 [facility] Repository 06/07/2018/ [id number] Ambulatory [place] Senthil 8 7 [facility] ing:SDCRoom: Repository AC16 06/04/2018 [id number] Ambulatory BMSBuilding:B S[place] 4 [facility] Repository 06/01/2018/ [id number] Ambulatory BMSBuilding:B S[place] 8 4 MS.[facility] Repository 05/31/2018 [id number] Ambulatory [place] Senthil 1 [facility] ing:CT Repository 05/29/2018 [id number] Ambulatory BMSBuilding:B [place] 4 [facility] Repository 05/11/2018/ [id number] Ambulatory Senthil [place] 8 4 [facility] ing:SDC Repository 04/20/2018 [id number] Ambulatory Senthil [place] 2 [facility] ing:CT Repository 04/13/2018 [id number] Ambulatory Senthil [place] 5 [facility] ing:MFPLAB Repository 03/08/2018 [id number] [place]ulatory [place] 4 [facility] ing:US Repository 03/02/2018 [id number] Ambulatory Senthil Esnthil 7 [facility] ing:MFPLAB Repository 01/03/2018 [id number] Ambulatory [place] 0 [facility] ing:CVS Repository 01/03/2018 [id number] Ambulatory BMSBuilding:W Senthil 5 [facility] Repository 12/22/2017/ [id number] Ambulatory BMSBuilding:B Senthil 8 0 MS.[facility] Repository 11/27/2017/ [id number] CECILY RED Ambulatory [facility] 8 [facility] Repository 08/15/2017 [id number] Ambulatory BMSBuilding:W Senth[place] 5 [facility] Repository 08/15/2017 [id number] Ambulatory [place] 7 [facility] ing:CVS Repository 08/02/2017/ [id number] DR FILIBERTO DAMON Ambulatory [address] Repository 08/02/2017 [id number] Ambulatory Senthil Senthil 8 [facility] ing:MRI Repository 07/31/2017/ [id number] DR FILIBERTO DAMON Emergency Buildin[address] [place] [address] C oom: ERBed: D [facility] Repository 07/26/2017/ [id number] [place], Ambulatory BuildinR [place] [address] JIMY Platt oom: [address] Repository 07/13/2017/01/25 [id number] Ambulatory BMSBuilding:B S[place] 8 8 MS.[facility] Repository 07/12/2017/ [id number] PAUL LOPEZ [facility] Rajesh [address] Repository PAYERS PAYERS ENCOUNTER GUARANTOR PAYER SUBSCRIBER SOURCE 07/05/2018 VALE Alvarez Primary VALE Alvarez RAYLDOB: [place] [id number] TR Insurance:ANTHEM [id number] Community [address] [facility] [place] [address]Tel: Number: Repository [id number] (HP) Date:3242-29-26TG [address] [place] [address] 245[address]UC: 07/05/2018 Secondary NOT GIVENUNK [place] Insurance:SELF PAY [facility] Number: Effective Repository Date:2018-07-05 07/05/2018 VALE Alvarez Primary VALE Alvarez RAYLDOB: [place] [id number] TR Insurance:ANTHEM [id number] Community [address] [facility] [facility] [place] [address]Tel: Number: Repository [id number] (HP) Date:9576-43-30IY [address] [place] [address] 46588ZE: 07/05/2018 Secondary NOT GIVENUNK Senthli Insurance:SELF PAY [facility] Number: Effective Repository Date:2018-05-28 06/29/2018 VALE Alvarez Primary VALE Alvarez RAYLDOB: [place] [id number] TR Insurance:ANTHEM [id number] Community [address] [facility] [place] [address]Ocy: Number: Repository [id number] (HP) Date:5542-63-51YX [address]JHRPH [place] [address]RS: 06/29/2018 Secondary NOT GIVENUNK Senthil Insurance:SELF PAY [facility] Number: Effective Repository Date:2018-06-15 06/21/2018 VALE Alvarez Primary VALE Alvarez RAYLDOB: Senthil [id number] TR Insurance:ANTHEM [id number] Community [address] [facility] [place] [address]Cph: Number: Repository [id number] (HP) Date:0562-21-05[address]FALWJXF, [place] [address]QY: 06/21/2018 Secondary NOT GIVENUNK Senthil Insurance:SELF PAY [facility] Number: Effective Repository Date:2018-06-15 06/21/2018 VALE Alvarez Primary VALE Alvarez RAYLDOB: [place] [id number] TR Insurance:ANTHEM [id number] Community [address] [facility] [place] [address]Vrj: Number: Repository [id number] (HP) Date:3273-42-40[address]DXANFIZ, [place] [address]CU: 06/21/2018 Secondary NOT GIVENUNK Senthil Insurance:SELF PAY [facility] Number: Effective Repository Date:2018-06-21 06/21/2018 VALE Alvarez Primary VALE Alvarez RAYLDOB: S[place] [id number] TR Insurance:ANTHEM [id number] Community [address] [facility] [place] [address]Jwm: Number: Repository [id number] (HP) Date:0753-10-14[address]MOXTLPY [place] [address]NF: 06/21/2018 Secondary NOT GIVENUNK Senthil Insurance:SELF PAY [facility] Number: Effective Repository Date:2018-06-18 06/18/2018 VALE Alvarez Primary VALE Alvarez RAYLDOB: Senthil [id number] TR Insurance:ANTHEM [id number] Community [address] [facility] [place] [address]Adq: Number: Repository [id number] (HP) Date:6692-30-91LJ [address]KQXFSQP, [place] [address]AE: 06/18/2018 Secondary NOT GIVENUNK Senthil Insurance:SELF PAY [facility] Number: Effective Repository Date:2018-06-14 06/15/2018 VALE Alvarez Primary VALE Alvarez RAYLDOB: Senthil [id number] TR Insurance:ANTHEM [id number] Community [address] [facility] [place] [address]Epa: Number: Repository [id number] (HP) Date:9103-20-06UC [address] [place] [address]WI: 06/15/2018 Secondary NOT GIVENUNK [place] Insurance:SELF PAY [facility] Number: Effective Repository Date:2018-06-15 06/15/2018 VALE Alvarez Primary VALE Alvarez RAYLDOB: S[place] [id number] TR Insurance:ANTHEM [id number] Community [address] [facility] [place] [address]Yyx: Number: Repository [id number] (HP) Date:2524-86-50LD [address] [place] [address] 16492IQ: 06/15/2018 Secondary NOT GIVENUNK [place] Insurance:SELF PAY [facility] Number: Effective Repository Date:2018-06-14 06/14/2018 VALE Alvarez Primary VALE Alvarez RAYLDOB: Senthil [id number] TR Insurance:ANTH [id number] Community [address] [facility] [place] [address]Zsz: Number: Repository [id number] (HP) Date:7994-96-74AX [address] [place] [address] 13178DG: 06/14/2018 Secondary NOT GIVENUNK [place] Insurance:SELF PAY [facility] Number: Effective Repository Date:2018-06-14 06/07/2018 VALE Alvarez Primary VALE Alvarez RAYLDOB: Senthil [id number] TR Insurance:ANTHEM [id number] Community [address] [facility] [place] [address]Zhd: Number: Repository [id number] (HP) Date:3395-68-58KR [address] [place] [address] 42667HD: 06/07/2018 Secondary NOT GIVENUNK [place] Insurance:SELF PAY [facility] Number: Effective Repository Date:2018-06-07 06/07/2018 VALE Alvarez Primary VALE Alvarez RAYLDOB: Senthil [id number] TR Insurance:ANTH [id number] Community [address] [facility] [place] [address]Tel: Number: Repository [id number] (HP) Date:1924-84-71HF [address]OR[address] [place] [address] 48461WT: 06/07/2018 Secondary NOT GIVENUNK [place] Insurance:SELF PAY [facility] Number: Effective Repository Date:2018-06-01 06/04/2018 VALE Alvarez Primary VALE Alvarez RAYLDOB: [place] [id number] TR Insurance:ANTHEM [id number] Community [address] [facility] [place] [address]Tel: Number: Repository [id number] (HP) Date:1998-46-16HX [address] [place] [address] 81979AV: 06/04/2018 Secondary NOT GIVENUNK Senthil Insurance:SELF PAY [facility] Number: Effective Repository Date:2018-06-04 06/01/2018 VALE Alvarez Primary VALE Alvarez RAYLDOB: [place] [id number] TR Insurance:ANTHEM [id number] Community [address] [facility] [place] [address]Tel: Number: Repository [id number] (HP) Date:9070-97-49NX [address] [place] [address] [place] [address]BG: 06/01/2018 Secondary NOT GIVENUNK [place] Insurance:SELF PAY [facility] Number: Effective Repository Date:2018-05-31 05/31/2018 VALE Alvarez Primary VALE Alvarez RAYLDOB: [place] [id number] TR Insurance:ANTHEM [id number] Community [address] [facility] [place] [address]Bny: Number: Repository [id number] (HP) Date:6614-41-22YI [address] [place] [address] 896[address]LD: 05/31/2018 Secondary NOT GIVENUNK Senthil Insurance:SELF PAY [facility] Number: Effective Repository Date:2018-05-29 05/29/2018 VALE Alvarez Primary VALE Alvarez RAYLDOB: Senth[place] [id number] TR Insurance:ANTHEM [id number] Community [address] [facility] [place] [address]Juz: Number: Repository [id number] (HP) Date:6388-94-79TJ [address] [place] [address] 62561ZH: 05/29/2018 Secondary NOT GIVENUNK [place] Insurance:SELF PAY [facility] Number: Effective Repository Date:2018-05-29 05/11/2018 VALE Alvarez Primary VALE Alvarez RAYLDOB: S[place] [id number] TR Insurance:ANTHEM [id number] Community [address] [facility] [place] [address]Flt: Number: Repository [id number] (HP) Date:9929-23-86FQ [address] [place] [address] 94225VR: 05/11/2018 Secondary NOT GIVENUNK [place] Insurance:SELF PAY [facility] Number: Effective Repository Date:2018-04-30 04/20/2018 VALE Alvarez Primary VALE Alvarez RAYLDOB: [place] [id number] TR Insurance:ANTHEM [id number] Community [address] [facility] [place] [address]Ggs: Number: Repository [id number] (HP) Date:4947-65-68AG [address] [place] [address] 13719SL: 04/20/2018 Secondary NOT GIVENUNK Senthil Insurance:SELF PAY [facility] Number: Effective Repository Date:2018-04-16 04/13/2018 VALE Alvarez Primary VALE Alvarez RAYLDOB: S[place] [id number] TR Insurance:ANTHEM [id number] Community [address] [facility] [place] [address]Bcw: Number: Repository [id number] (HP) Date:9379-83-34IN [address] [address]ZO: 04/13/2018 Secondary NOT GIVENUNK Senthil Insurance:SELF PAY [facility] Number: Effective Repository Date:2018-04-13 03/08/2018 VALE Alvarez Primary VALE Alvarez RAYLDOB: [place] [id number] TR Insurance:ANTH [id number] Community [address] [facility] [place] [address]Lzb: Number: Repository [id number] (HP) Date:0467-61-41SB [address] [place] [address] 56955DY: 03/08/2018 Secondary NOT GIVENUNK [place] Insurance:SELF PAY [facility] Number: Effective Repository Date:2018-03-05 03/02/2018 VALE Alvarez Primary VALE Alvarez RAYLDOB: [place] [id number] TR Insurance:ANTH [id number] Community [address] [facility] [place] [address]Tef: Number: Repository [id number] (HP) Date:2110-17-29PM [address] [place] [address] 049[address]NB: 03/02/2018 Secondary NOT GIVENUNK Senth[place] Insurance:SELF PAY [facility] Number: Effective Repository Date:2018-03-02 01/03/2018 VALE Alvarez Primary VALE Alvarez RAYLDOB: [place] [id number] TR Insurance:ANTH [id number] Community [address] [facility] [place] [address]Eiw: Number: Repository [id number] (HP) Date:9738-00-47HS [address]LAUQXOM, [place] [address]YH: 01/03/2018 Secondary NOT GIVENUNK [place] Insurance:SELF PAY [facility] Number: Effective Repository Date:2018-01-02 01/03/2018 VALE Alvarez Primary VALE Alvarez RAYLDOB: S[place] [id number] TR Insurance:ANTH [id number] Community [address] [facility] [place] [address]Yzd: Number: Repository [id number] (HP) Date:3551-94-63GA [address]AXIABJM, [place] [address]DG: 01/03/2018 Secondary NOT GIVENUNK S[place] Insurance:SELF PAY [facility] Number: Effective Repository Date:2018-01-03 12/22/2017 VALE Alvarez Primary VALE Alvarez RAYLDOB: S[place] [id number] Insurance:ANTH [id number] Community [address] MEDICARE [facility] [place], Number: Repository [place] [address]Kix: [id number] Date:8381-67-34ED [address] () [address]MGWEAFJ, [place] [address]AU: 12/22/2017 Secondary NOT GIVENUNK [place] Insurance:SELF PAY [facility] Number: Effective Repository Date:2017-12-22 11/27/2017 VALE Alvarez Primary Insurance:PAULA GEORGEOB: Rajesh Lechuga RAYLDOB: [facility] [id number] [facility] [id number] [address] TR Number: [address] [place] [address], Repository [address] [place] [address], [id number] [place] [id number] [place] Date:Plan Name:B3P O [id number]: [address]VTEAAYJ, [place] [address]WU: [phone] ([phone] 08/15/2017 VALE Alvarez Primary VALE Alvarez RAYLDOB: S[place] [id number] TR Insurance:ANTHEM [id number] Community [address] [facility] [place] [address]Ybt: Number: Repository [phone] [id number] (HP) Date:4172-85-42CD [address]KAAQLAY, [place] [address]PA: 08/15/2017 Secondary NOT GIVENUNK [place] Insurance:SELF PAY [facility] Number: Effective Repository Date:2017-08-15 08/15/2017 VALE Alvarez Primary VALE Alvarez RAYLDOB: S[place] [id number] TR Insurance:[facility] [id number] Community [address] [facility] [place] [address]Equ: Number: Repository [phone] [id number] (HP) Date:9845-97-21ZC [address]XDSDQOE, [place] [address]GG: 08/15/2017 Secondary NOT GIVENUNK [place] Insurance:SELF PAY [facility] Number: Effective Repository Date:2017-07-13 08/02/2017 VALE Alvarez Primary Insurance:PAULA Alvarez RAYLDOB: Rajesh Lechuga RAYLDOB: [facility] [id number] [facility] [id number] [address] TR Number: [address] [place] [address], Repository [address] [place] [address], [id number] [place] [id number] [place] Date:Plan Name:[facility] [id number]: [address]VOSZUFNVENTURA BENITES [id number]: [phone] ([phone] 08/02/2017 VALE Alvarez Primary VALE Alvarez RAYLDOB: [place] [id number] TR Insurance:[facility] [id number] Community [address] [facility] [place] [address]Pbw: Number: Repository [phone] [id number] (HP) Date:0412-03-86SZ [address]HDNNRHCVENTURA BENITES [address]MO: 08/02/2017 Secondary NOT GIVENUNK S[place] Insurance:SELF PAY [facility] Number: Effective Repository Date:2017-07-20 07/31/2017 VALE Alvarez Primary Insurance:PAULA GEORGEOB: Rajesh Chetindigo GEORGEOB: [facility] [id number] [facility] [address] [facility] TR Number: [address] [place] [address], Repository [address] [place] [address], [id number] [place] [id number] [place] Date:Plan Name:[facility] [id number]: [address]MMVBGNX, [place] [address]AF: [phone] 07/26/2017 VALE Alvarez Primary Insurance:PAULA GEORGEOB: Rajesh GEORGEOB: [facility] [id number] [facility] [address] [facility] TR Number: [address] [place] [address], Repository [address] [place] [address], [id number] [place] [id number] [place] Date:Plan Name:[facility] [id number]: [address]YCEAHCY, [place] [address]NA: [phone] 07/13/2017 VALE Alvarez Primary VALE GEORGEOB: Senthil [id number] Insurance:ANTH [id number] Community [address] [facility]ICARE [facility] [place], Number: Repository [place] [address]Npz: [id number] Date:4997-15-18RG [address] () [address]ORRRLBG, [place] [address]YV: 07/13/2017 Secondary NOT GIVENUNK [place] Insurance:SELF PAY [facility] Number: Effective Repository Date:2017-06-21 07/12/2017 VALE Alvarez Primary Insurance:PAULA Alvarez RAYOSIRISOB: Rajesh Lechuga RAYLDOB: [facility] [id number] [facility] OUTPATIENTPolicy [address] [facility] TR [facility]: [facility] Rep[facility], [id number] [place] [id number] [place] Date:Plan Name:[facility] [id number]: JEREMIAH [address]WJGZPQP, [place] [address]HI: [phone] ([phone]
== END ==
PROVIDERS: Family Provider Family Medicine; PCP Family Medicine; Referring Provider Internal Medicine Medical Oncology; Visit Provider Internal Medicine Medical Oncology
DX: C67.9 Malignant neoplasm of bladder, unspecified (principal)
CPT/HCPCS: 71250

== ENCOUNTER 2018-06-07 09:22 | Day surgery (SDC) | payer MEDICARE, SELFPAY ==
[2018-06-01 13:40] VITALS: BMI 28.7
[2018-06-04 14:01] VITALS: BMI 28.7
[2018-06-07] VITALS (8 sets, daily range): BP systolic 91–120; BP diastolic 68–80; PULSE 66–78; RESP 16; TEMP 36.4–36.9; O2SAT 92–97; BMI 28.4
[2018-06-07] MEDS: Cefazolin 2 GM in 0.9% Normal Saline 100 ML IV (12:05)
--- NOTE | 2018-06-07 12:07 | RAD_ITS ---
STUDY: X-RAY CHEST REASON FOR EXAM: Male, 72 years old. Port placement. TECHNIQUE: Single AP portable view of the chest. COMPARISON: Comparison is made with prior study dated December 11, 2013. FINDINGS: A right-sided portacatheter has been placed. The tip is in the proximal portion of the superior vena cava. Increased markings with areas of confluence in the right infrahilar region suggestive of possible atelectasis superimposed on scarring. There is no demonstrated pleural abnormality. Sternal cerclage wires and vascular clips are present from a prior sternotomy and coronary artery bypass graft procedure (CABG). Normal mediastinum and yakov. Normal visualized pulmonary arteries. There is atherosclerotic calcification of the aortic arch with tortuosity. There are diffuse degenerative changes of the visualized thoracic spine. Normal visualized ribs, clavicles, and shoulders. There is no demonstrated abnormality of the visualized soft tissue structures of the upper abdomen. RAD/CXR for Line Placement IMPRESSION: The tip of the right portacatheter is in the proximal portion of the superior vena cava. Increased markings in the right infrahilar region suggestive of atelectasis superimposed on scarring. Electronically Signed: Shashank Ann MD at 13:51 EST Tel [phone], Service support ,
--- NOTE | 2018-06-07 12:09 | DCINST_ITS ---
Discharge Diet: Light diet - advance as tolerated - if you have questions about your diet instructions, please talk to you doctor. Discharge Activity: May Not Drive - for one day or while taking narcotic pain medicine. May shower in (days): 1 Lifting Restrictions: 10 pounds Call your doctor if your incision/area has: Continuous Slow Oozing, Sudden Increased Bleeding, Increased Pain/ Swelling, Increased Redness, Foul Smelling Discharge Call your doctor if you observe: Fever of 101 or Higher Suture Line Care: Avoid Pulling/Pushing, Avoid Pinching/Bending Additional Dressing/Incision Instructions:: Change or remove dressing in 3 days. Leave steri-strips in place for 1 week. Allergies/Adverse Reactions: Allergies No Known Allergies Allergy (Verified 06/05/18 15:44) Medications to take at Discharge Tamsulosin HCl [Flomax] 0.4 mg PO DAILY 12/11/13 Travoprost 0.004% [Travatan-Z 0.004% Eye Drop] 1 drp EACH EYE DAILY 12/11/13 aspirin 81 mg tablet,delayed release 81 mg PO QDAY 07/05/17 naproxen sodium 220 mg tablet 220 mg PO PRN PRN tab 07/05/17 atorvastatin 40 mg tablet 40 mg PO QDAY tab 12/22/17 metoprolol tartrate 25 mg tablet 25 mg PO BID tab 12/22/17 Acetaminophen [Tylenol] 500 - 1,000 mg PO Q6H PRN PRN 05/04/18 L.acidoph,Paracasei, B.lactis [Probiotic] 1 ea PO DAILY 05/04/18 Multivitamin [Multiple Vitamins] 1 ea PO DAILY 05/04/18 Ibuprofen 600 mg PO Q4H PRN PRN #20 tab 05/11/18 Lidocaine/Prilocaine [Lidocaine-Prilocaine Cream] 1 applicatio TP DAILY PRN PRN 30 Days #1 tube 06/04/18 Ondansetron [Zofran] 8 mg PO Q8H PRN PRN 10 Days #30 tablet 06/04/18 Dexamethasone [Decadron] 4 mg PO DAILY@0800 06/05/18 Primary Care Physician: Demond Davis MD [Primary Care Provider] - Test Results: Test results from this visit will be discussed in further detail at your follow- up appointment, if applicable. Please Follow Up With: Victorino Hernandez MD - [phone] When: Office follow up may be as needed
[2018-06-07] MEDS: Bupivacaine Mpf 0.5% 30 ML VIAL (12:45)
--- NOTE | 2018-06-07 13:03 | PCM.OPRPT ---
Problem List (1) Cancer of bladder wall Status: Acute Report of Operation Date of Procedure: 06/07/18 Pre-Operative Diagnosis: Urinary bladder carcinoma Post-Operative Diagnosis: Same Surgery/Procedure Performed:: Right internal jugular 6 Armenian power port placement. Reference #[id number]. Lot number are [id number]. Expiry date 10/17/2019 Description of Surgical Findings:: Timeout and informed consent was obtained. 32-year gentleman was taken to the operating room. He was placed on the table. Ancef 2 g given intravenously preoperatively. The right neck and chest were sterilely prepped and draped. 1% lidocaine mixed 50-50 with 0.5% Marcaine was used as local anesthetic. A total of 18 cc was used. Ultrasound was used to identify the right internal jugular vein. Under ultrasound guidance local was instilled. A micropuncture needle inserted. Micropuncture wire inserted. Micropuncture sheath inserted. I initially tried to get the micropuncture wire to advance and it retrograde went up the neck. I tried an 035 J-wire and it made the same maneuver. I finally used a 035 angled Glidewire with each we advanced straight into the SVC. I was able to advance my micropuncture sheath. I then exchanged out for an 035 J-wire. Local was instilled down upon the chest and a transverse incision was created in the subtendinous pocket was created with electrocautery. The tubing was tunneled from the neck to the chest site. Then over the J-wire sheath dilator was inserted under fluoroscopic control. The wire and dilator were removed. The catheter was advanced through the sheath. The sheath was split. The catheter was positioned at the SVC atrial junction. It was amputated to length and connected the port and secured with the port attachment device. The port was placed in the pocket and secured there with interrupted 2-0 silk. The port site was closed with interrupted 3-0 Vicryl subdermal stitches. The neck was closed with interrupted 5-0 Vicryl subdermal stitches. Steri-Strips Telfa OpSite dressings applied. Sponge and instrument and needle counts were reported the surgeon be correct. Specimens none. Drains none. Blood loss minimal. The patient tolerated the procedure well and was taken to the recovery room in satisfactory condition without apparent complication. Stat portable chest x-ray is pending. Victorino Hernandez M.D., F.A.C.S. Type of Anesthesia:: Local MAC Anesthesiologist: Gordon Chaudhry
--- NOTE | 2018-06-07 13:07 | OP.PCM_ITS ---
Problem List (1) Cancer of bladder wall Status: Acute Report of Operation Date of Procedure: 06/07/18 Pre-Operative Diagnosis: Urinary bladder carcinoma Post-Operative Diagnosis: Same Surgery/Procedure Performed:: Right internal jugular 6 Romanian power port placement. Reference #[id number]. Lot number are [id number]. Expiry date 10/17/2019 Description of Surgical Findings:: Timeout and informed consent was obtained. 32-year gentleman was taken to the operating room. He was placed on the table. Ancef 2 g given intravenously preoperatively. The right neck and chest were sterilely prepped and draped. 1% lidocaine mixed 50-50 with 0.5% Marcaine was used as local anesthetic. A total of 18 cc was used. Ultrasound was used to identify the right internal jugular vein. Under ultrasound guidance local was instilled. A micropuncture needle inserted. Micropuncture wire inserted. Micropuncture sheath inserted. I initially tried to get the micropuncture wire to advance and it retrograde went up the neck. I tried an 035 J-wire and it made the same maneuver. I finally used a 035 angled Glidewire with each we advanced straight into the SVC. I was able to advance my micropuncture sheath. I then exchanged out for an 035 J- wire. Local was instilled down upon the chest and a transverse incision was created in the subtendinous pocket was created with electrocautery. The tubing was tunneled from the neck to the chest site. Then over the J-wire sheath dilator was inserted under fluoroscopic control. The wire and dilator were removed. The catheter was advanced through the sheath. The sheath was split. The catheter was positioned at the SVC atrial junction. It was amputated to length and connected the port and secured with the port attachment device. The port was placed in the pocket and secured there with interrupted 2-0 silk. The port site was closed with interrupted 3-0 Vicryl subdermal stitches. The neck was closed with interrupted 5-0 Vicryl subdermal stitches. Steri-Strips Telfa OpSite dressings applied. Sponge and instrument and needle counts were reported the surgeon be correct. Specimens none. Drains none. Blood loss minimal. The patient tolerated the procedure well and was taken to the recovery room in satisfactory condition without apparent complication. Stat portable chest x-ray is pending. Victorino Hernandez M.D., F.A.C.S. Type of Anesthesia:: Local MAC Anesthesiologist: Gordon Chaudhry
== END 2018-06-07 14:26 | disposition home or self-care (01) ==
LOC: SDC 09:29 → AC 09:29
PROVIDERS: Family Provider Family Medicine; PCP Family Medicine; Referring Provider Surgery; Visit Provider Surgery
DX: C67.1 Malignant neoplasm of dome of bladder (principal); I25.10 Atherosclerotic heart disease of native coronary artery without angina pectoris; I49.3 Ventricular premature depolarization; E78.5 Hyperlipidemia, unspecified; I11.9 Hypertensive heart disease without heart failure; I43 Cardiomyopathy in diseases classified elsewhere; I34.0 Nonrheumatic mitral (valve) insufficiency; H40.9 Unspecified glaucoma; M19.90 Unspecified osteoarthritis, unspecified site; Z79.82 Long term (current) use of aspirin; Z79.1 Long term (current) use of non-steroidal anti-inflammatories (NSAID); Z79.899 Other long term (current) drug therapy; Z95.1 Presence of aortocoronary bypass graft; Z95.2 Presence of prosthetic heart valve; Z87.891 Personal history of nicotine dependence
CPT/HCPCS: 36561; 71045; 77001; J7120; C1769

== ENCOUNTER → 2018-06-15 10:26 | Outpatient (CLI) | payer MEDICARE, SELFPAY ==
[2018-06-15 09:10] VITALS: BMI 28.8
[2018-06-15 11:10] LABS: International Normalized Ratio 1.1; Prothrombin Time (Protime)PT. 13.8 SECONDS (11.7-14.9)
[2018-06-15 11:11] LABS: Partial Thromboplast Time 32.5 Seconds (24.1-36.2)
== END ==
LOC: PAVLAB 11:49 → ONC 12:03 → MEDOUTP 12:46
PROVIDERS: Family Provider Family Medicine; PCP Family Medicine; Referring Provider Nurse Practitioner Acute Care; Visit Provider Nurse Practitioner Acute Care
DX: Z45.2 Encounter for adjustment and management of vascular access device (principal); C67.9 Malignant neoplasm of bladder, unspecified; R06.02 Shortness of breath
CPT/HCPCS: 36591; 85610; 85730; A4216

== ENCOUNTER → 2018-06-18 07:55 | Outpatient (CLI) | payer MEDICARE, SELFPAY ==
[2018-06-14 08:16] VITALS: BMI 28.8
[2018-06-15 09:10] VITALS: BMI 28.8
--- NOTE | 2018-06-18 07:57 | NM_ITS ---
CLINICAL: 72-year-old male with reported history of carcinoma of the urinary bladder. WHOLE BODY 99m Tc MDP RADIONUCLIDE BONE SCINTIGRAPHY COMPARISON: None available FINDINGS: Following the intravenous administration of 24.7 mCi of 99m Tc MDP, whole body bone images reveal: 1. Increased radiopharmaceutical concentration is identified in the left posterior lateral eighth rib, left proximal clavicle and eighth thoracic vertebra. 2. Facilitated uptake is visualized in the mid-lower cervical spine posteriorly on the left and right, first-third, fifth, ninth-12th thoracic, first-fifth lumbar vertebra heterogeneously, acromioclavicular compartments of both shoulders, glenohumeral compartment of the right shoulder, bilateral elbows, both wrist articulations, the right-left forefoot. 3. The remaining skeletal structures are scintigraphically unremarkable with normal-appearing renal images and urinary bladder activity identified. NM/Bone Scan Whole Body IMPRESSION: 1. 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 2. Facilitated uptake noted in the cervical, additional thoracic and defined lumbar vertebra, bilateral elbows, both wrist articulations, right-left shoulders, forefoot bilaterally is likely attributed to degenerative arthritis. Plain film radiography correlation may be of benefit in the region of the lumbar spine and additional defined thoracic spine. Electronically Signed: Gunner Martinez DO at 21:53 EST Tel , Service support ,
--- NOTE | 2018-06-18 10:05 | US_ITS ---
STUDY: SUPERFICIAL ULTRASOUND - BILATERAL GROIN. REASON FOR EXAM: Male, 72 years old. Lymphadenopathy. TECHNIQUE: A superficial ultrasound was performed with real-time and static white-scale imaging. COMPARISON: CT pelvis 04/20/2018. FINDINGS: Prominent lymph node in the right groin measuring 1.3 x 1.7 x 0.4 cm. Prominent lymph node in the left groin measuring 1.2 x 1.1 x 0.4 cm. US/Ext Non Vasc Limited/Soft Tiss IMPRESSION: Prominent lymph nodes in both inguinal regions. The dimensions are given above. These are unchanged when compared to CT of the pelvis dated 04/20/2018. Electronically Signed: Ronald Crowell MD at 11:25 EST , Service support ,
== END ==
PROVIDERS: Family Provider Family Medicine; PCP Family Medicine; Referring Provider Internal Medicine Medical Oncology; Visit Provider Internal Medicine Medical Oncology
DX: C67.9 Malignant neoplasm of bladder, unspecified (principal); R59.0 Localized enlarged lymph nodes
CPT/HCPCS: 76882; 78306

== ENCOUNTER → 2018-06-21 08:19 | Outpatient (CLI) | payer MEDICARE, SELFPAY ==
--- NOTE | 2018-06-21 | IMM_PTH ---
PATIENT: VALE GARCIA LOC: [facility] U#:[id number] AGE/SX: 79/M ROOM: RE06/21/[address]: Dr. Victorino Hernandez MD : 1945 BED: DIS: SPEC #: [id number] RECD: 06/25/18 13:32 STATUS: ARAM REQ #: [id number] GENESIS: 06/21/18 00:[address]: Victorino Hernandez DEPT: IMMUNOHISTOCHEMISTRY RECD BY: Talia Pelletier ENTERED: 06/25/18 13:34 SP TYPE: IMMUNO OTHR DR: MD Dr. Demond Haywood MD Tissues: Inguinal lymph node, NOS Procedures: CD138 (add) CD20 (add) CD45 (add) CD5 (add) CD79A (add) KI-67 (add) P53 (add) Pankeratin (add) CD3 (initial) PHYSICIAN & INSTITUTION [place] [id number] SPECIMEN INFORMATION: Tissue Source: Left groin lymph node, biopsy Clinical Info: Lymphadenopathy Specimen Number: [id number] CPT code: 11364, 88300 x8 METHODOLOGY: Deparaffinized sections of prefer/formalin-fixed tissue or PAP/DQ stained slides are incubated with monoclonal/polyclonal antibodies/oligonucleotide probes. Localization is made via biotin free immunoperoxidase method. Appropriate controls are performed and reacted as expected. Results on target cell population are indicated in the following table: RESULTS: ANTIBODY / CLONE RESULT CD3 (PS1) positive CD5 (SP10) positive CD20 (L26) positive CD45 (RP2/18) positive CD79a (11E3) positive CD138 (B-A38) negative AE1-3 (AE1/AE3/PCK26) negative P53 (DO-7) negative Ki-67 (30-9) positive, low These tests were developed and their performance characteristics determined by [facility]. They may not have been cleared or approved by the U.S. Food and Drug Administration. The FDA has determined that such clearance or approval is not necessary. INTERPRETATION: Left groin lymph node, biopsy: Polytypic lymphoid tissue. No evidence of malignancy. AM:deirdre 06/26/18 Comment: There is no evidence of lymphoproliferative disorder.
--- NOTE | 2018-06-21 | LYMN_PTH ---
PATIENT: VALE GARCIA LOC: [facility] U#:[id number] AGE/SX: 79/M ROOM: RE06/21/[address]: Dr. Victorino Hernandez MD : 1945 BED: DIS: SPEC #: [id number] RECD: 06/21/18 08:08 STATUS: ARAM NARESH #: [id number] GENESIS: 06/21/18 00:[address]: Victorino Hernandez DEPT: SURGICAL PATHOLOGY RECD BY: Jaya Garcia ENTERED: 06/21/18 08:24 SP TYPE: LYMPH NODE OTHR DR: MD Dr. Demond Haywood MD Tissues: Inguinal lymph node, NOS Procedures: Surgery Specimen Level IV Diff Quik Stain (control) H & E (control) HEADER OPERATION: Left groin lymph node biopsy PRE-OP DIAGNOSIS: Lymphadenopathy TISSUE SUBMITTED: Left groin lymph node tissue MICROSCOPIC DIAGNOSIS Left groin lymph node, core biopsy: Lymphoid tissue with reactive change. No evidence of lymphoproliferative disorder. See comment. AM:deirdre 06/25/18 COMMENT Immunohistochemistry ([id number]) supports the above diagnosis. 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 MICROSCOPIC DESCRIPTION Slides are reviewed. GROSS DESCRIPTION Received in fixative is one container labeled with the patient's name and designated left groin lymph node tissue. The specimen consists of multiple elongated fragments of cullen-yellow fibroadipose tissue that in aggregate measure 2 x 1.5 x 0.1 cm. One core is submitted for flow cytometry study. Four touch imprints are prepared, two stained with Diff-Quik and two stained with H & E stain. The entire specimen is submitted in one cassette. / SJ:deirdre 06/21/18 TC:4 CPT: 30965
[2018-06-21 07:52] VITALS: BMI 28.8
[2018-06-27 10:30] LABS: Miscellaneous Lab Procedure QNS
== END ==
PROVIDERS: Family Provider Family Medicine; PCP Family Medicine; Referring Provider Surgery; Visit Provider Surgery
DX: R59.1 Generalized enlarged lymph nodes (principal)
CPT/HCPCS: 88305; 88341; 88342

== ENCOUNTER 2018-06-29 10:58 | Day surgery (SDC) | payer MEDICARE, SELFPAY ==
[2018-06-15 09:10] VITALS: BMI 28.8
[2018-06-21 07:52] VITALS: BMI 28.8
[2018-06-29] VITALS (12 sets, daily range): BP systolic 76–134; BP diastolic 57–85; PULSE 54–61; RESP 14–18; TEMP 36.3–37.1; O2SAT 93–100; BMI 29.2
--- NOTE | 2018-06-29 | FLU_PTH ---
PATIENT: VALE GARCIA LOC: EN U#:[id number] AGE/SX: 72/M ROOM: RE06/29/[address]: Dr. Cristian Baxter DO : 1945 BED: DIS: 06/29/2018 SPEC #: [id number] RECD: 06/29/18 09:07 STATUS: ARAM NARESH #: [id number] GENESIS: 06/29/18 00:[address]: Cristian Baxter DEPT: CYTOLOGY RECD BY: Gunner Barillas ENTERED: 07/02/18 09:09 SP TYPE: Fluid OTHR DR: Dr. Demond Davis MD Tissues: A - Lung, NOS B - Lung, NOS C - Lung, NOS D - Lung, NOS E - Lung, NOS F - Lung, NOS G - Lung, NOS H - Lung, NOS I - Lung, NOS J - Lung, NOS K - Lung, NOS Procedures: Special Stain Group II Surgery Specimen Level IV Cytospin Fluid Cytology Other HEADER OPERATION: EBUS with TBNA PRE-OP DIAGNOSIS: Mediastinal lymphadenopathy TISSUE SUBMITTED: A & B - Site 4R (paratracheal), C - Site 7 (subcarina), D & E - Site 10L (left hilar), F-H - Site 4R (paratracheal), I - Site 4R, J - Site 7, K - Site 10L DIAGNOSIS CYTOLOGY A. EBUS, TBNA, Aspiration #1, site 4R (smears): Negative for malignant cells. Specimen predominantly consists of respiratory epithelial cells. B. EBUS, TBNA, Aspiration #2, site 4R (smears): Specimen predominantly consists of blood and a few respiratory cells. Negative for malignant cells. C. EBUS, TBNA, Aspiration #3, site 7 (smears): Negative for malignant cells. Lymphocytes are present. Adequate for evaluation. D. EBUS, TBNA, Aspiration #4, site 10L (smears): Specimen consists of mostly blood. E. EBUS, TBNA, Aspiration #5, site 10L (smears): Negative for malignant cells. Paucicellular specimen. A few respiratory epithelial cells and lymphocytes are noted. F. EBUS, TBNA, Aspiration #6, site 4R (smears): Negative for malignant cells. The specimen predominantly consists of blood. Rare respiratory epithelial cells noted. Nondiagnostic specimen. G. EBUS, TBNA, Aspiration #7, site 4R (smears): Negative for malignant cells. A few lymphocytes and respiratory epithelial cells noted. H. EBUS, TBNA, Aspiration #8, site 4R (smears): Negative for malignant cells. Paucicellular specimen. Rare lymphocytes are noted. I. EBUS, TBNA fluid, site 4R (cell block): Negative for malignancy. Respiratory epithelial cells and lymphocytes are noted. J. EBUS TBNAfluid, site 7 (cell block): Negative for malignancy. Respiratory epithelial cells and lymphocytes are noted. K. EBUS TBNA fluid, site 10L (cell block): Negative for malignancy. Respiratory epithelial cells and lymphocytes are noted. KRISTI:deirdre 07/02/18 COMMENT The specimen is evaluated at the time of procedure by Dr. Tao. Immediate Evaluation: A. Aspiration #1, site 4R: Negative for malignant cells. Specimen predominantly consists of respiratory epithelial cells. Reported to Dr. Baxter at 1:10 p.m. B. Aspiration #2, site 4R: Specimen predominantly consists of blood and a few respiratory cells. Negative for malignant cells. Reported to Dr. Anderson at 1:16 p.m. C. Aspiration #3, site 7: Negative for malignant cells. Lymphocytes are present. Adequate for evaluation. Reported to Drs. Baxter and Justin at 1:24 p.m. D. Aspiration #4, site 10L: Specimen consists of mostly blood. Reported to Dr. Anderson at 1:27 p.m. E. Aspiration #5, site 10L: Negative for malignant cells. Respiratory epithelial cells and lymphocytes noted. Reported to Dr. Baxter at 1:31 p.m. F. Aspiration #6, site 4R: The specimen predominantly consists of mostly blood. Nondiagnostic. G. Aspiration #7, site 4R: Negative for malignant cells. A few lymphocytes and respiratory epithelial cells noted. Reported to Drs. Baxter and Justin at 1:40 p.m. H. Aspiration #8, site 4R: Negative for malignant cells. Paucicellular. Rare lymphocytes are noted. Reported to Dr. Baxter at 1:43 p.m. Case has been reviewed in consultation with Dr. Napier who concurs with the above diagnosis. IDC:AM CYTOLOGY STUDY Slides are reviewed. CYTOLOGY GROSS A - Received labeled with the patient's name and and designated TBNA, aspiration #1, site 4R. The specimen consists of two smears that are submitted for immediate cytologic evaluation (wet read). B - Received labeled with the patient's name and and designated TBNA, aspiration #2, site 4R. The specimen consists of two smears that are submitted for immediate cytologic evaluation (wet read). C - Received labeled with the patient's name and and designated TBNA, aspiration #3, site 7. The specimen consists of two smears that are submitted for immediate cytologic evaluation (wet read). D - Received labeled with the patient's name and and designated TBNA, aspiration #4, site 10L. The specimen consists of two smears that are submitted for immediate cytologic evaluation (wet read). E - Received labeled with the patient's name and and designated TBNA, aspiration #5, site 10L. The specimen consists of two smears that are submitted for immediate cytologic evaluation (wet read). F - Received labeled with the patient's name and and designated TBNA, aspiration #6, site 4R. The specimen consists of two smears that are submitted for immediate cytologic evaluation (wet read). G - Received labeled with the patient's name and and designated TBNA, aspiration #7, site 4R. The specimen consists of two smears that are submitted for immediate cytologic evaluation (wet read). H - Received labeled with the patient's name and and designated TBNA, aspiration #8, site 4R. The specimen consists of two smears that are submitted for immediate cytologic evaluation (wet read). I - Received in RPMI and labeled with the patient's name and and designated site 4R. Submitted for cytology preparation including cell block. J - Received in RPMI and labeled with the patient's name and and designated site 7. Submitted for cytology preparation including cell block. K - Received in RPMI and labeled with the patient's name and and designated site 10L. Submitted for cytology preparation including cell block. / SJ:rg 06/29/18 TC:5 CPT: 33200 x3, 46631 x3, 71932 x3, 68757 x5
--- NOTE | 2018-06-29 14:01 | OP.ENDO_ITS ---
Patient Name: Smith Jaeger Procedure Date: 06/29/2018 12:28 PM Date of : 1945 Age: 72 Procedure: Bronchoscopy Indications: Mediastinal adenopathy Providers: Cristian Baxter MD, Bob Anderson MD Referring MD: Cristian Baxter MD Medicines: General Anesthesia Complications: No immediate complications Procedure: Pre-Anesthesia Assessment: - [place] Protocol: - Pre-procedure Verification: Prior to the procedure, the patient's identity was verified by full name and date of . The patient's identity was verified on all pertinent medical records, including History and Physical. Also prior to the procedure, a History and Physical was performed, and patient medications, allergies and sensitivities were reviewed. The patient's tolerance of previous anesthesia was reviewed. The risks and benefits of the procedure and the sedation options and risks were discussed with the patient. All questions were answered and informed consent was obtained. - Time-Out: Prior to the start of the procedure, the patient's identification, proposed procedure, accurate signed consent, correctly labeled images and records, and need for prophylactic antibiotics were verified by the physician and the nurse in the procedure room. After I obtained informed consent, the scope was passed under direct vision. Throughout the procedure, the patient's blood pressure, pulse, and oxygen saturations were monitored continuously. The ultrasound bronchoscope was introduced through the mouth, via laryngeal mask airway and advanced to the tracheobronchial tree. The procedure was accomplished without difficulty. The patient tolerated the procedure well. Findings: The laryngeal mask airway is in good position. The vocal cords appear normal. The subglottic space is normal. The trachea is of normal caliber. The derek is sharp. The tracheobronchial tree was examined to at least the first subsegmental level. Bronchial mucosa and anatomy are normal; there are no endobronchial lesions, and no secretions. The scope was withdrawn and replaced with the EBUS bronchoscope to accomplish the ultrasound examination. Lymph Nodes: An endobronchial ultrasound endoscope was utilized to systematically examine the right lower paratracheal region (level 4R), subcarinal mediastinum (level 7) and left hilar region (level 10L) in order to assist with guiding the biopsy needle. Lymph node sizing was performed via endobronchial ultrasound for h/o bladder cancer. Sampling by transbronchial needle aspiration was also performed using an Olympus EBUS-TBNA 19 gauge needle in the right lower paratracheal region (level 4R), subcarinal mediastinum (level 7) and left hilar region (level 10L) and sent for routine cytology. - The 4R (lower paratracheal) node was evaluated. Five samples with the needle were obtained. - The 7 (subcarinal) node was. One sample with the needle was obtained. - The 10L (hilar) node was. Two samples with the needle were obtained. Impression: - Mediastinal adenopathy - The airway examination was normal. - Endobronchial ultrasound was performed. - Lymph node sampling was performed. Recommendation: - Await cytology results. - Follow up with referring physician as previously scheduled. Procedure Code(s): --- Professional --- 70841, Bronchoscopy, rigid or flexible, including fluoroscopic guidance, when performed; with endobronchial ultrasound (EBUS) guided transtracheal and/or transbronchial sampling (eg, aspiration[s]/biopsy[ies]), 3 or more mediastinal and/or hilar lymph node stations or structures Diagnosis Code(s): --- Professional --- R59.0, Localized enlarged lymph nodes R09.89, Other specified symptoms and signs involving the circulatory and respiratory systems CPT copyright 2017 [employer]. All rights reserved. The codes documented in this report are preliminary and upon belt sander stone review may be revised to meet current compliance requirements. DO Cristian Dillon MD 06/29/2018 2:01:16 PM This report has been signed electronically. Bob Anderson MD Number of Addenda: 0 Note Initiated On: 06/29/2018 12:28 PM
== END 2018-06-29 15:51 | disposition home or self-care (01) ==
PROVIDERS: Family Provider Family Medicine; PCP Family Medicine; Referring Provider Internal Medicine Critical Care Medicine; Visit Provider Internal Medicine Critical Care Medicine
PROC: BB4BZZZ Ultrasonography of Pleura (ICD-10-PCS; principal; 2018-06-29 12:00)
DX: R59.0 Localized enlarged lymph nodes (principal); C67.1 Malignant neoplasm of dome of bladder; I25.10 Atherosclerotic heart disease of native coronary artery without angina pectoris; I49.3 Ventricular premature depolarization; I42.9 Cardiomyopathy, unspecified; I10 Essential (primary) hypertension; E78.5 Hyperlipidemia, unspecified; H40.9 Unspecified glaucoma; N40.0 Benign prostatic hyperplasia without lower urinary tract symptoms; Z79.82 Long term (current) use of aspirin; Z79.1 Long term (current) use of non-steroidal anti-inflammatories (NSAID); Z79.899 Other long term (current) drug therapy; Z87.891 Personal history of nicotine dependence; Z95.2 Presence of prosthetic heart valve; Z95.1 Presence of aortocoronary bypass graft
CPT/HCPCS: 31653; 88108; 88161; 88305; 88313; J7120; A4216

== ENCOUNTER → 2018-07-13 11:58 | Outpatient (CLI) | payer MEDICARE, SELFPAY ==
[2018-06-15 09:10] VITALS: BMI 28.8
[2018-07-12 09:25] VITALS: BMI 28.5
== END ==
PROVIDERS: Family Provider Family Medicine; PCP Family Medicine; Referring Provider Surgery; Visit Provider Surgery
DX: Z53.9 Procedure and treatment not carried out, unspecified reason (principal)

== ENCOUNTER → 2018-08-07 14:48 | Outpatient (CLI) | payer MEDICARE, SELFPAY ==
[2018-07-26 08:47] VITALS: BMI 28.7
[2018-08-02 08:10] VITALS: BMI 27.8
--- NOTE | 2018-08-07 14:49 | CT_ITS ---
STUDY: CT CHEST WITH CONTRAST REASON FOR EXAM: Male, 72 years old. Positioning shortness of breath, history of bladder carcinoma. RADIATION DOSAGE (If Supplied By Facility): CTDIvol = ( 17.61 ) mGy, DLP = ( 2446.27 ) mGycm TECHNIQUE: Transaxial imaging was performed following intravenous administration of Isovue 300 100ml IV. Individualized dose optimization techniques were used for this CT. COMPARISON: None. FINDINGS: There is evidence of emphysematous changes worse in the upper lobes. Mild degree of increased markings at the right lung base suggestive of a scarring. There is no demonstrated pleural abnormality. Sternal cerclage wires and vascular clips are present from a prior sternotomy and coronary artery bypass graft procedure (CABG). There are calcifications of the coronary arteries. There are several subcentimeter mediastinal lymph nodes. Normal hilar regions. Normal unenhanced pulmonary arteries. There is atherosclerotic calcification of the aortic arch with tortuosity and elongation of the aortic arch and descending thoracic aorta. The ascending thoracic aorta is slightly dilated measuring 4.1 cm in transverse dimension. There are multi-level degenerative changes of the thoracic spine. There is no demonstrated abnormality of the visualized upper abdomen. CT/Chest WITH Contrast IMPRESSION: Emphysematous changes worse in the upper lobes. No acute pulmonary process, no suspicious noncalcified mass or nodule. Electronically Signed: Gilmar Jackson MD at 15:35 EST , Service support ,
--- NOTE | 2018-08-07 14:49 | CT_ITS ---
STUDY: CT ABDOMEN AND PELVIS WITH CONTRAST REASON FOR EXAM: Male, 72 years old. History of bladder cancer TECHNIQUE: Transaxial images were obtained from the dome of the diaphragm to the symphysis pubis without oral contrast. Isovue 300 100ml IV/Oral was administered. Sagittal and coronal images were reconstructed. Individualized dose optimization techniques were used for this CT. COMPARISON: None. FINDINGS: Bilateral atelectasis versus scar formation at the lung bases. The visualized portions of the heart are within normal limits. Hypoattenuated focus in the inferior aspect of the right anterior hepatic segment. Normal gallbladder and extrahepatic biliary system. Normal spleen. Normal pancreas. Normal bilateral adrenal glands. Hypoattenuated lesions within both kidneys measuring near water density.. No hydronephrosis. Normal bilateral ureters. Normal visualized stomach. Normal small intestine. Diverticular disease of the mid sigmoid colon without localized inflammation.. The appendix is not definitively visualized. Mild atherosclerotic calcification of the abdominal vasculature. Normal inferior vena cava. Normal retroperitoneum. There is mild asymmetric thickening of the left superior urinary bladder wall. There is mass effect upon the posterior wall of the urinary bladder by prominent median lobe of the prostate. Normal abdominal wall. There are diffuse degenerative changes of the visualized lumbar spine. CT/Abdomen/Pelvis WITH Contrast IMPRESSION: 1. No evidence of an acute intra-abdominal abnormality. 2. Cyst versus hemangioma within the inferior aspect of the right anterior hepatic segment. 3. Simple appearing bilateral renal cysts. 4. Mild sigmoid colonic diverticulosis with no evidence of acute diverticulitis. 5. Prominence of the median lobe of the prostate which exerts mass effect upon the posterior wall of the urinary bladder. 6. Mild asymmetric thickening of the left superior wall of the urinary bladder. Electronically Signed: Jaya Pedroza MD at 3:55 EST Tel , Service support ,
== END ==
PROVIDERS: Family Provider Family Medicine; PCP Family Medicine; Referring Provider Internal Medicine Medical Oncology; Visit Provider Internal Medicine Medical Oncology
DX: C67.3 Malignant neoplasm of anterior wall of bladder (principal); Z79.899 Other long term (current) drug therapy
CPT/HCPCS: 71260; 74177; Q9967; A4216

== ENCOUNTER → 2018-08-20 10:43 | Outpatient (CLI) | payer MEDICARE, SELFPAY ==
[2018-08-17 10:05] VITALS: BMI 28.8
--- NOTE | 2018-08-20 10:50 | ECHODONC_ITS ---
Reason For Study: MV Repair Procedure This was a 2D Doppler, Color Flow transthoracic echocardiogram. Myocardial strain analysis was performed in this exam to aid in the assessment of cardiac function. Exam performed in department. Left Ventricle Normal size and thickness. The estimated ejection fraction is 65 %. Stage 1 diastolic dysfunction. No regional wall motion abnormalities noted. Right Ventricle Mildly dilated right ventricle. Normal systolic function. Atria The left atrium is mildly enlarged. The right atrium is mildly enlarged. Hypermobile atrial septum. Mitral Valve Mild diffuse mitral valve thickening. Mild mitral valve stenosis. Trivial mitral valve insufficiency. Tricuspid Valve Normal tricuspid valve. Trivial tricuspid valve insufficiency. Right ventricular systolic pressure estimated to be 30 mmHg. Aortic Valve Normal aortic valve. Trisinus/trileaflet aortic valve. Pulmonic Valve The pulmonic valve is not well visualized. Great Vessels Normal aortic root. Normal arch. Normal inferior vena cava. Inferior vena cava collapse with sniff. Pericardium/Pleural No pericardial effusion. MMode/2D Measurements & Calculations LVIDd: 3.6 cm IVSd: 1.2 cm Ao root diam: 4.0 cm LVIDs: 2.5 cm LVPWd: 1.2 cm RVDd: 3.8 cm FS: 30.2 % LAV(MOD-bp): 77.1 ml EDV(MOD-sp4): 113.9 ml EDV(MOD-sp2): 96.0 ml LAV(MOD-bp) Indexed: 39.9 ml/m2 ESV(MOD-sp4): 49.2 ml EF(MOD-sp2): 49.6 % LAV(MOD-sp2): 80.8 ml EF(MOD-sp4): 56.8 % LAV(MOD-sp4): 74.0 ml SV(MOD-sp4): 64.7 ml SV(MOD-sp2): 47.6 ml LA A4 area: 24.0 cm2 LA dimension(2D): 3.3 cm RA A4 area: 24.0 cm2 Doppler Measurements & Calculations MV E max raz: 81.0 cm/sec Lat Peak E' Raz: 7.4 cm/sec Med Peak E' Raz: 4.4 cm/sec MV A max raz: 109.0 cm/sec E/E' lat: 10.9 E/E' med: 18.4 MV E/A: 0.74 MV V2 max: 133.2 cm/sec MV P1/2t max raz: 105.3 cm/sec Ao V2 max: 106.0 cm/sec MV max P.1 mmHg MV P1/2t: 93.1 msec Ao max P.5 mmHg MV V2 mean: 74.1 cm/sec MV dec slope: 331.4 cm/sec2 MV mean P.5 mmHg MV V2 VTI: 40.5 cm MVA(P1/2t): 2.4 cm2 LV V1 max: 97.3 cm/sec PA V2 max: 94.2 cm/sec TR max raz: 239.4 cm/sec LV V1 max P.8 mmHg TR max P.0 mmHg Interpretation Summary The estimated ejection fraction is 65 %. Stage 1 diastolic dysfunction. Mildly dilated right ventricle. The left atrium is mildly enlarged. The right atrium is mildly enlarged. Hypermobile atrial septum. Mild mitral valve stenosis. Trivial mitral valve insufficiency. Trivial tricuspid valve insufficiency. Right ventricular systolic pressure estimated to be 30 mmHg. There is no comparison study available. Ordering Physician: Lamine Lassiter Referring Physician: Lamine Lassiter Performed By: Elvira Arellano RDCS
== END ==
PROVIDERS: Family Provider Family Medicine; PCP Family Medicine; Referring Provider Internal Medicine Cardiovascular Disease; Visit Provider Internal Medicine Cardiovascular Disease
DX: I25.10 Atherosclerotic heart disease of native coronary artery without angina pectoris (principal); I34.0 Nonrheumatic mitral (valve) insufficiency; I10 Essential (primary) hypertension; E78.5 Hyperlipidemia, unspecified; I42.9 Cardiomyopathy, unspecified; R06.02 Shortness of breath; Z98.890 Other specified postprocedural states; Z95.1 Presence of aortocoronary bypass graft; Z95.2 Presence of prosthetic heart valve
CPT/HCPCS: 0399T; 93306

== ENCOUNTER → 2018-09-20 13:17 | Outpatient (CLI) | payer MEDICARE, SELFPAY ==
[2018-09-06 08:21] VITALS: BMI 28.7
--- NOTE | 2018-09-20 13:19 | CT_ITS ---
HISTORY: CHEMO CHECK-BLADDER CA, LAST CHEMO 10 DAYS AGO, PREV CABG,LUMBAR FUSION, RT ENDARTECTOMY EXAMINATION: CT Abdomen And Pelvis W/ Contrast TECHNIQUE: Helically acquired images were obtained of the abdomen and pelvis following oral and IV contrast. IV Contrast dosage and agent: 100 Isovue 300 Oral contrast: Yes. COMPARISON: 08/07/18 CT abdomen pelvis. FINDINGS: LOWER CHEST: Emphysema. No acute findings. LIVER: Subcentimeter hypodensity right lobe unchanged most likely an incidental cyst. GALLBLADDER AND BILIARY TREE: No calcified gallstones. There is no gallbladder distension or wall edema. No intra- or extrahepatic biliary ductal dilation. KIDNEYS AND URETERS: Incidental bilateral renal cysts. Symmetric renal excretion bilaterally. No hydronephrosis. ADRENAL GLANDS: No mass. SPLEEN: Normal size without focal cystic or solid mass. PANCREAS: No focal cystic or solid mass. BOWEL: No evidence of acute appendicitis. No stomach or bowel distension. No focal inflammatory change observed. LYMPH NODES: No enlarged mesenteric or retroperitoneal lymph nodes. PERITONEUM: No ascites or free air. No other fluid collection. VESSELS: 3.2 cm infrarenal abdominal aortic aneurysm. Atherosclerosis. No hemorrhage. URINARY BLADDER: Asymmetric wall thickening of the left anterior urinary bladder wall, similar to prior. REPRODUCTIVE ORGANS: No pelvic masses. ABDOMINAL WALL: No discrete abdominal or pelvic wall hernia observed. BONES: 2.1 cm in greatest dimension sclerotic lesion in the right inferior pubic ramus posteriorly, not significant change compared to the most remote study of 04/20/18. No fracture or other osseous lesions. Status post lower lumbar laminectomy and posterior fusion. CT/Abdomen/Pelvis WITH Contrast IMPRESSION: No concerning interval change. Persistent mild residual left anterior urinary bladder wall thickening unchanged. Sclerotic focus left inferior pubic ramus posteriorly, unchanged. 3.2 cm infrarenal abdominal aortic aneurysm, other chronic findings as above. Individualized dose optimization techniques were used for this CT. at 1144 Reported and signed by: Juan García MD Electronically Signed: Juan García, at 23:03 EDT Tel , Service support ,
--- NOTE | 2018-09-20 13:19 | CT_ITS ---
HISTORY: CHEMO CHECK-BLADDER CA, LAST CHEMO 10 DAYS AGO, PREV CABG,LUMBAR FUSION, RT ENDARTECTOMY EXAMINATION: CT Chest W/ Contrast TECHNIQUE: Helically acquired images were obtained of the chest following IV contrast. A radiation dose optimization technique was used for this scan. IV Contrast dosage and agent: 100 Isovue 250 COMPARISON: CT chest 08/07/18. FINDINGS: UPPER ABDOMEN: No acute pathology. Right renal cyst. HEART AND PERICARDIUM: Previous CABG and mitral valve replacement. Heart size normal. No pericardial effusion. VESSELS: Thoracic aorta is tortuous but not dilated. There is no aortic dissection. There is no central pulmonary embolism although this study was not performed with the pulmonary embolism protocol. MEDIASTINUM AND RAYMUNDO: There is no mediastinal or hilar adenopathy. Mildly prominent subcarinal lymph node unchanged. Esophagus is unremarkable. There is no hiatal hernia. OTHER SOFT TISSUES: Included thyroid gland is unremarkable. There is no axillary, supraclavicular or lower cervical adenopathy. LUNGS AND LARGE AIRWAYS: Moderate emphysema again demonstrated. No suspicious nodules or masses in the lungs. No pneumothorax. PLEURA: Unremarkable. No pleural effusion or thickening. BONES: No suspicious lytic or blastic abnormality observed. Degenerative changes with mild S-shaped scoliosis. CT/Chest WITH Contrast IMPRESSION: No evidence of metastatic disease. No concerning interval change. Moderate emphysema. Individualized dose optimization techniques were used for this CT. at 4148 Reported and signed by: Juan García MD Electronically Signed: Juan García, at 22:56 EDT Tel , Service support ,
== END ==
PROVIDERS: Family Provider Family Medicine; PCP Family Medicine; Referring Provider Internal Medicine Medical Oncology; Visit Provider Internal Medicine Medical Oncology
DX: C67.9 Malignant neoplasm of bladder, unspecified (principal)
CPT/HCPCS: 71260; 74177; Q9967

== ENCOUNTER → 2018-10-10 11:20 | Outpatient (CLI) | payer MEDICARE, SELFPAY ==
[2018-10-04 08:39] VITALS: BMI 28.2
[2018-10-10 12:31] LABS: Hemoglobin A1c 5.7 % (4.2-6.3)
[2018-10-10 12:54] LABS: Cholesterol 100 mg/dL (200); Ferritin 203 ng/mL (26-388); High Density Lipoprotein 35 mg/dL; Iron 59 ug/dL (65-175); Iron Binding Capacity,Total 277 ug/dL (250-450); PERCENT IRON SATURATION 21.3 % (15.0-55.0); Triglycerides 121 mg/dL; Very Low Density Lipoprotein 24 mg/dL (5-40)
[2018-10-10 13:12] LABS: Vitamin B12 296 pg/mL (211-911)
== END ==
PROVIDERS: Family Provider Family Medicine; PCP Family Medicine; Referring Provider Family Medicine; Visit Provider Family Medicine
DX: R73.02 Impaired glucose tolerance (oral) (principal); D64.9 Anemia, unspecified; E78.5 Hyperlipidemia, unspecified
CPT/HCPCS: 36415; 80061; 82607; 82728; 82746; 83036; 83540; 83550

== ENCOUNTER → 2018-10-29 10:20 | Outpatient (CLI) | payer MEDICARE, SELFPAY ==
[2018-10-12 13:41] VITALS: BMI 28.2
[2018-10-18 08:57] VITALS: BMI 27.9
--- NOTE | 2018-10-29 10:30 | NM_ITS ---
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 WHOLE BODY 99m Tc MDP RADIONUCLIDE BONE SCINTIGRAPHY COMPARISON: Previous whole body bone scintigraphy study dated 06/18/2018 FINDINGS: Following the intravenous administration of 26.2 mCi of 99m Tc MDP, whole body bone images reveal: 1. Increased radiopharmaceutical concentration is persistently defined in the 10th thoracic, first-second and fifth lumbar vertebra, the sternoclavicular and acromioclavicular compartments of both shoulders, both wrists, the right and left forefoot. 2. The remaining skeletal structures are scintigraphically unremarkable with normal-appearing renal images and urinary bladder activity identified. The previously identified left posterior lateral ribs, left clavicle and eighth thoracic vertebral abnormalities are not visualized on the present examination. NM/Bone Scan Whole Body IMPRESSION: 1. The increase in radiopharmaceutical concentration currently defined in the Kristin lumbar spine, bilateral shoulders, wrist reticulations bilaterally, bilateral forefoot is most consistent with degenerative arthritis. 2. There is interim resolution of the previously identified left posterior ribs, left clavicular and eighth thoracic vertebral scintigraphic abnormalities. 3. Overall compared to the previous whole body bone scintigraphy study dated 06/18/2018, there is current absence of defined skeletal metastatic disease. Electronically Signed: Gunner Martinez DO at 0:01 EDT Tel , Service support ,
== END ==
PROVIDERS: Family Provider Family Medicine; PCP Family Medicine; Referring Provider Internal Medicine Medical Oncology; Visit Provider Internal Medicine Medical Oncology
DX: C67.9 Malignant neoplasm of bladder, unspecified (principal); C79.51 Secondary malignant neoplasm of bone
CPT/HCPCS: 78306

== ENCOUNTER → 2018-11-02 07:49 | Outpatient (CLI) | payer MEDICARE, SELFPAY ==
[2018-10-12 13:41] VITALS: BMI 28.2
[2018-10-18 08:57] VITALS: BMI 27.9
--- NOTE | 2018-11-02 07:50 | CT_ITS ---
STUDY: CT ABDOMEN AND PELVIS WITH CONTRAST REASON FOR EXAM: Male, 73 years old. Bladder cancer RADIATION DOSAGE (If Supplied By Facility): CTDIvol = ( 20.94 ) mGy, DLP = ( 2543.04 ) mGycm TECHNIQUE: Transaxial images were obtained from the dome of the diaphragm to the symphysis pubis with oral contrast. 100 IV/Oral Isovue 300 was administered. Sagittal and coronal images were reconstructed. Individualized dose optimization techniques were used for this CT. COMPARISON: 09/20/2018 FINDINGS: Lung bases described on chest CT report. Subcentimeter cyst of the right hepatic lobe on image 27 is stable. The gallbladder is contracted. Normal spleen. Normal pancreas. Normal bilateral adrenal glands. Simple cyst of the right kidney is stable. No hydronephrosis or solid masses. Normal visualized stomach. No small bowel wall thickening or dilation. Normal colon. There is non-visualization of the appendix. There is diffuse atherosclerotic calcification of the abdominal aorta with elongation and tortuosity, but without a demonstrated aneurysm (maximum diameter measures up to 2.9 cm). Normal inferior vena cava. Normal retroperitoneum. Urinary bladder is not well distended with persistent asymmetric thickening along the left superolateral wall (axial image 74, coronal image 72). Normal abdominal wall. Degenerative and operative changes of the lumbar spine. Sclerotic focus of the posterior, inferior left pubic ramus is stable (axial image 100). CT/Abdomen/Pelvis WITH Contrast IMPRESSION: Since 09/20/2018, stable exam. Localized wall thickening of the left superolateral bladder wall, although bladder is not well-distended. Electronically Signed: Nura Duval MD at 13:54 EDT , Service support ,
--- NOTE | 2018-11-02 07:50 | CT_ITS ---
STUDY: CT CHEST WITH CONTRAST REASON FOR EXAM: Male, 73 years old. Bladder cancer, follow-up RADIATION DOSAGE (If Supplied By Facility): CTDIvol = ( ) mGy, DLP = ( ) mGycm TECHNIQUE: Transaxial imaging was performed following intravenous administration of 100 IV Isovue 300. Multiplanar coronal and sagittal images were reformatted. Individualized dose optimization techniques were used for this CT. COMPARISON: 09/20/2018 FINDINGS: Right jugular chest port is stable. There are emphysematous changes of the lungs mild fibrotic changes. Minimal bronchovascular micronodularity and groundglass opacities of the right upper lobe on images 44-58 new since the prior study, most typical of infection. No suspicious pulmonary nodule. There is no demonstrated pleural abnormality. Normal heart and pericardium. Sternal wires and mediastinal surgical clips compatible with prior CABG. Normal mediastinum. Normal hilar regions. Normal enhanced pulmonary arteries. There is atherosclerotic tortuosity of the aortic arch and descending thoracic aorta. There are multi-level degenerative changes of the thoracic spine. Sclerotic focus of the medial left clavicle on axial image 9 is stable. There is also a sclerotic lesion of left posterolateral eighth rib on image 70, which is also stable. Upper abdomen described on abdomen/pelvis CT report. CT/Chest WITH Contrast IMPRESSION: 1. Since 09/20/2018, stable exam. No intrathoracic metastasis. 2. Stable left clavicle, T8 spinous process and right eighth rib sclerotic lesions. Electronically Signed: Nura Duval MD at 14:00 EDT , Service support ,
[2018-11-02] MEDS: 0.9% Saline Lock 10 ML Syringe IV (08:14)
== END ==
PROVIDERS: Family Provider Family Medicine; PCP Family Medicine; Referring Provider Internal Medicine Medical Oncology; Visit Provider Internal Medicine Medical Oncology
DX: C67.9 Malignant neoplasm of bladder, unspecified (principal); C79.51 Secondary malignant neoplasm of bone
CPT/HCPCS: 71260; 74177; Q9967; A4216

== ENCOUNTER → 2018-11-07 19:46 | Outpatient (CLI) | payer MEDICARE, SELFPAY ==
[2018-10-12 13:41] VITALS: BMI 28.2
== END ==
PROVIDERS: Family Provider Family Medicine; PCP Family Medicine; Referring Provider Nurse Practitioner Acute Care; Visit Provider Nurse Practitioner Acute Care
DX: G47.33 Obstructive sleep apnea (adult) (pediatric) (principal)
CPT/HCPCS: 95811

== ENCOUNTER → 2018-11-22 09:00 | Outpatient (CLI) | payer MEDICARE, SELFPAY ==
[2018-11-08 09:17] VITALS: BMI 28.0
== END ==
PROVIDERS: Family Provider Family Medicine; PCP Family Medicine; Referring Provider Internal Medicine Critical Care Medicine; Visit Provider Internal Medicine Critical Care Medicine
DX: G47.33 Obstructive sleep apnea (adult) (pediatric) (principal)

== ENCOUNTER → 2019-02-05 10:30 | Outpatient (CLI) | payer MEDICARE, SELFPAY ==
[2019-02-05 10:30] VITALS: BMI 27.4
[2019-02-05 12:41] LABS: Hemoglobin A1c 5.3 % (4.2-6.3)
[2019-02-05 12:45] LABS: Cholesterol 106 mg/dL (200); High Density Lipoprotein 32 mg/dL; Triglycerides 157 mg/dL; Very Low Density Lipoprotein 31 mg/dL (5-40)
== END ==
PROVIDERS: Family Provider Family Medicine; PCP Family Medicine; Referring Provider Family Medicine; Visit Provider Family Medicine
DX: E78.5 Hyperlipidemia, unspecified (principal); R73.02 Impaired glucose tolerance (oral)
CPT/HCPCS: 36415; 80061; 83036

== ENCOUNTER → 2019-03-26 08:18 | Outpatient (CLI) | payer MEDICARE, SELFPAY ==
[2018-12-24 11:35] VITALS: BMI 27.4
[2019-02-05 10:30] VITALS: BMI 27.4
--- NOTE | 2019-03-26 08:20 | CT_ITS ---
STUDY: CT ABDOMEN AND PELVIS WITH CONTRAST REASON FOR EXAM: Male, 73 years old. Bladder cancer RADIATION DOSAGE (If Supplied By Facility): CTDIvol = ( 16.33 ) mGy, DLP = ( 1386.19 ) mGycm TECHNIQUE: Transaxial images were obtained from the dome of the diaphragm to the symphysis pubis with oral contrast. IV/Oral Isovue 300 100CC was administered. Sagittal and coronal images were reconstructed. Individualized dose optimization techniques were used for this CT. COMPARISON: 11/02/2018 FINDINGS: The visualized lung bases are unremarkable. The visualized portions of the heart are within normal limits. Normal liver. Normal gallbladder and extrahepatic biliary system. Normal spleen. Normal pancreas. Normal bilateral adrenal glands. No change in the 3 cm cyst in the upper pole the right kidney. Normal left kidney. Normal visualized stomach. Normal small intestine. Normal colon. The appendix is visualized and appears normal. Normal abdominal aorta. Normal inferior vena cava. Normal retroperitoneum. Asymmetric wall thickening of the left side of the dome of the bladder measuring 1.5 x 3.2 cm worrisome for recurrent transitional cell carcinoma the bladder. Normal abdominal wall. Status post transpedicular fixation in the lower lumbar spine. 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 Correlation with cystoscopy is recommended. Electronically Signed: Gunner Mae MD at 11:55 EDT Tel , Service support ,
--- NOTE | 2019-03-26 08:20 | CT_ITS ---
STUDY: CT CHEST WITH CONTRAST REASON FOR EXAM: Male, 73 years old. Bladder cancer RADIATION DOSAGE (If Supplied By Facility): CTDIvol = ( 16.33 ) mGy, DLP = ( 1386.19 ) mGycm TECHNIQUE: Transaxial imaging was performed following intravenous administration of IV Isovue 300 100CC. Individualized dose optimization techniques were used for this CT. COMPARISON: 11/02/2018 FINDINGS: Right internal jugular chest port. Status post median sternotomy. Mild emphysematous changes. No noncalcified nodule or mass. There is no demonstrated pleural abnormality. Normal heart and pericardium. Normal mediastinum. Normal hilar regions. Normal enhanced pulmonary arteries. Normal aorta arch and descending thoracic aorta. No change in the sclerotic areas of the left clavicle and the spinous process of T8 consistent with blastic metastases. Lesion of the right eighth rib is clearly identified. There is no demonstrated abnormality of the visualized upper abdomen. CT/Chest WITH Contrast IMPRESSION: No CT evidence of metastatic disease to the chest. No change in blastic metastases of the left clavicle and the spinous process of T8. Electronically Signed: Gunner Mae MD at 11:51 EDT Tel , Service support ,
== END ==
PROVIDERS: Family Provider Family Medicine; PCP Family Medicine; Referring Provider Internal Medicine Medical Oncology; Visit Provider Internal Medicine Medical Oncology
DX: C67.9 Malignant neoplasm of bladder, unspecified (principal)
CPT/HCPCS: 71260; 74177; Q9967; A4216

== ENCOUNTER → 2019-04-02 08:59 | Outpatient (CLI) | payer MEDICARE, SELFPAY ==
[2019-03-28 10:56] VITALS: BMI 28.8
--- NOTE | 2019-04-02 09:03 | RAD_ITS ---
STUDY: X-RAY - PELVIS AND LEFT HIP REASON FOR EXAM: Male, 73 years old. Hip pain TECHNIQUE: 2 views of the pelvis and hip. COMPARISON: None. FINDINGS: There is a non-specific bowel gas pattern. Normal visualized soft tissue structures. Normal bilateral iliac wings, sacroiliac joints and visualized sacrum. Normal bilateral superior and inferior pubic rami. Normal pubic symphysis. Normal bilateral ischial tuberosities. 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 Normal acetabulum. Normal hip joint. 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 Electronically Signed: Gunner Mae MD at 9:36 EDT Tel , Service support ,
== END ==
PROVIDERS: Family Provider Family Medicine; PCP Family Medicine; Referring Provider Family Medicine; Visit Provider Family Medicine
DX: M25.552 Pain in left hip (principal)
CPT/HCPCS: 73502

== ENCOUNTER → 2019-04-16 | Outpatient (CLI) | payer MEDICARE, SELFPAY ==
[2019-04-05 10:48] VITALS: BMI 28.6
--- NOTE | 2019-04-16 10:26 | NM_ITS ---
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 WHOLE BODY 99m Tc MDP RADIONUCLIDE BONE SCINTIGRAPHY COMPARISON: Previous whole body bone scintigraphy study dated 10/29/2018 FINDINGS: Following the intravenous administration of 25.7 mCi of 99m Tc MDP, whole body bone images reveal: 1. Newly identified increased radiopharmaceutical concentration is visualized in the left proximal clavicle, the left anterolateral fifth rib. 2. Facilitated tracer concentration is noted in the midlower cervical spine, the second, fourth, sixth, 10th-12th thoracic vertebra, first-fifth lumbar vertebra, right elbow, bilateral wrist articulations, dorsal medial compartment of the right ankle, the bilateral midfoot. 3. The remaining skeletal structures are scintigraphically unremarkable with normal-appearing renal images and urinary bladder activity identified. A linear increase in tracer concentration extends from the proximal to distal sternum most consistent with prior median sternotomy. NM/Bone Scan Whole Body IMPRESSION: 1. The increase in radiopharmaceutical concentration defined in the left proximal clavicle, the left anterolateral fifth rib may be further investigated with plain film radiography in the setting of known primary bladder carcinoma. 2. Degenerative arthritis appears expressed in the cervical, thoracic and lumbar spine, right elbow, right and left wrists, right ankle, midfoot bilaterally. 3. Overall compared to the previous whole body bone scintigraphy study dated 10/29/2018, the increase in radiopharmaceutical concentration presently visualized in the left proximal clavicle and left anterolateral rib warrent further radiologic investigation. Electronically Signed: Gunner Martinez DO at 0:03 EDT Tel , Service support ,
--- NOTE | 2019-04-16 14:36 | ECHOD_ITS ---
Reason For Study: valve replacement - eval Procedure This was a 2D Doppler, Color Flow transthoracic echocardiogram. Myocardial strain analysis was performed in this exam to aid in the assessment of cardiac function. Exam performed in department. Left Ventricle Normal size and thickness. The estimated ejection fraction is 65 %. Septal motion consistent with IVCD. No regional wall motion abnormalities noted. Right Ventricle Normal size and thickness. Normal systolic function. Atria The left atrium is moderately enlarged. Normal right atrium. Normal atrial septum. Mitral Valve Moderate diffuse mitral valve thickening. Mitral valve doming/Hockey Sticking. Moderate mitral annular calcification extending into the posterior leaflet. Mild mitral valve stenosis. Peak transmitral valve gradient 8 mmHg. Mean transmitral valve gradient 3 mmHg. Tricuspid Valve Normal tricuspid valve. Trivial tricuspid valve insufficiency. Right ventricular systolic pressure estimated to be 28 mmHg. Aortic Valve Trisinus/trileaflet aortic valve. Normal aortic valve. Pulmonic Valve Normal pulmonic valve. Great Vessels Normal aortic root. Normal arch. Normal inferior vena cava. Inferior vena cava collapse with sniff. Pericardium/Pleural No pericardial effusion. MMode/2D Measurements & Calculations LVIDd: 4.4 cm IVSd: 1.2 cm Ao root diam: 4.0 cm LVIDs: 2.8 cm LVPWd: 1.1 cm RVDd: 3.5 cm FS: 35.0 % LAV(MOD-bp): 77.8 ml LA A4 area: 24.6 cm2 LA dimension(2D): 4.6 cm LAV(MOD-bp) Indexed: 40.7 ml/m2 LAV(MOD-sp2): 74.4 ml LAV(MOD-sp4): 82.0 ml RA A4 area: 15.5 cm2 Time Measurements MV dec time: 0.23 sec Doppler Measurements & Calculations MV E max raz: 90.3 cm/sec Lat Peak E' Raz: 9.4 cm/sec Med Peak E' Raz: 5.7 cm/sec MV A max raz: 129.3 cm/sec E/E' lat: 9.6 E/E' med: 15.9 MV E/A: 0.70 MV V2 max: 142.2 cm/sec MV P1/2t max raz: 94.9 cm/sec Ao V2 max: 106.1 cm/sec MV max P.1 mmHg MV P1/2t: 91.6 msec Ao max P.5 mmHg MV V2 mean: 77.7 cm/sec MV dec slope: 303.5 cm/sec2 MV mean P.8 mmHg MV V2 VTI: 35.3 cm MVA(P1/2t): 2.4 cm2 LV V1 max: 77.1 cm/sec MR max raz: 492.0 cm/sec PA V2 max: 92.4 cm/sec LV V1 max P.4 mmHg MR max P.8 mmHg TR max raz: 224.2 cm/sec TR max P.1 mmHg Interpretation Summary The estimated ejection fraction is 65 %. Mild mitral valve stenosis. Trivial tricuspid valve insufficiency. Right ventricular systolic pressure estimated to be 28 mmHg. Compared to echo report dated 08/20/2018, no appreciable changes noted. Ordering Physician: Lamine Lassiter Referring Physician: Demond Davis Performed By: Samantha Cerda RDCS, RVT
== END | disposition home or self-care (01) ==
LOC: NM 10:21
PROVIDERS: Family Provider Family Medicine; PCP Family Medicine; Referring Provider Internal Medicine Cardiovascular Disease; Visit Provider Internal Medicine Cardiovascular Disease
DX: G47.33 Obstructive sleep apnea (adult) (pediatric) (principal); C67.9 Malignant neoplasm of bladder, unspecified; Z95.2 Presence of prosthetic heart valve
CPT/HCPCS: 78306; 93306

== ENCOUNTER → 2019-04-18 13:53 | Outpatient (CLI) | payer MEDICARE, SELFPAY ==
[2019-04-05 10:48] VITALS: BMI 28.6
--- NOTE | 2019-04-18 13:55 | RAD_ITS ---
STUDY: X-RAY - UNILATERAL RIBS ( LEFT ) WITH CHEST REASON FOR EXAM: Male, 73 years old. Abnormal bone scan. History of bladder carcinoma. TECHNIQUE - RIBS: 4 view(s) of the ribs. TECHNIQUE - CHEST: Single PA view of the chest. COMPARISON: Comparison is made with prior bone scan dated April 16, 2019. FINDINGS - RIBS: Normal visualized ribs without a demonstrated fracture. FINDINGS - CHEST: A right-sided portacatheter is seen with the tip in the proximal superior vena cava. Hyperinflation. Blunting of the left costophrenic angle. Sternal cerclage wires and vascular clips are present from a prior sternotomy and coronary artery bypass graft procedure (CABG). Normal mediastinum and yakov. Normal visualized pulmonary arteries. There is atherosclerotic calcification of the aortic arch with tortuosity. There are diffuse degenerative changes of the visualized thoracic spine. There is degenerative osteoarthritis of the bilateral shoulders. There is no demonstrated abnormality of the visualized soft tissue structures of the upper abdomen. RAD/Ribs Uni Min 3V w/PA Chest IMPRESSION: RIBS: Normal x-ray examination of the ribs. CHEST: Hyperinflation. Electronically Signed: Shashank Ann, at 8:31 EST , Service support ,
--- NOTE | 2019-04-18 13:55 | RAD_ITS ---
HISTORY: Abnormal bone scan. History of bladder cancer. Bone scan report is from April 16, 2019. 3 images of the left shoulder. Findings: No definitive metastatic disease to the left shoulder is perceived. Some left lower arthritis is present. Acromioclavicular arthritis is present. Atherosclerotic disease within the aortic arch. Previous median sternotomy. RAD/Clavicle IMPRESSION: Left shoulder arthritis without definitive lytic or blastic expansile metastasis perceived at 0029 Reported and signed by: Manjit Madsen MD Electronically Signed: Manjit Madsen MD at 0:28 EST Tel , Service support ,
== END ==
PROVIDERS: Family Provider Family Medicine; PCP Family Medicine; Referring Provider Urology; Visit Provider Urology
DX: R93.89 Abnormal findings on diagnostic imaging of other specified body structures (principal); R94.8 Abnormal results of function studies of other organs and systems; Z85.51 Personal history of malignant neoplasm of bladder
CPT/HCPCS: 71101; 73000

== ENCOUNTER 2019-04-26 07:32 | Day surgery (SDC) | payer MEDICARE, SELFPAY ==
[2019-04-05 10:48] VITALS: BMI 28.6
[2019-04-26] VITALS (8 sets, daily range): BP systolic 71–143; BP diastolic 49–88; PULSE 52–77; RESP 16; TEMP 36.3–36.7; O2SAT 96–99; BMI 28.7
--- NOTE | 2019-04-26 07:44 | EKG12_ITS ---
Test Reason : PREOP Blood Pressure : / mmHG Vent. Rate : 077 BPM Atrial Rate : 077 BPM P-R Int : 224 ms QRS Dur : 094 ms QT Int : 406 ms P-R-T Axes : 040 -61 050 degrees QTc Int : 459 ms Sinus rhythm with 1st degree A-V block Left axis deviation Inferior infarct (cited on or before 08-AUG-2003) Abnormal ECG When compared with ECG of 11-DEC-2013 09:16, No significant change was found Confirmed by JAYJAY DRAKE, NARGIS ([id number]), manager editorial JENNIFER MORTON ([id number]) on 04/30/2019 3:00:58 PM Referred By: Rylan Gudino Confirmed By:NARGIS RO MD
[2019-04-26] MEDS: Lactated Ringers 1,000 ML 100 ML IV (08:15)
[2019-04-26] MEDS: Cefazolin 2 GM in 0.9% Normal Saline 100 ML IV (09:41)
--- NOTE | 2019-04-26 09:50 | BLA_PTH ---
PATIENT: VALE GARCIA LOC: [facility] U#:[id number] AGE/SX: 73/M ROOM: RE04/26/[address]: Dr. Rylan Gudino MD : 1945 BED: DIS: 04/26/2019 SPEC #: [id number] RECD: 04/26/19 10:50 STATUS: ARAM REObey #: [id number] GENESIS: 04/26/19 09:[address]: Rylan Gudino DEPT: SURGICAL PATHOLOGY RECD BY: Jim Valle ENTERED: 04/26/19 11:37 SP TYPE: BLADDER BX OTHR DR: Dr. Demond Davis MD Tissues: Urinary bladder, NOS Procedures: Surgery Specimen Level V HEADER OPERATION: Cysto, transurethral resection bladder, [facility] PRE-OP DIAGNOSIS: Malignant neoplasm of lateral wall of bladder; metastatic bony neoplasm TISSUE SUBMITTED: Bladder mass MICROSCOPIC DIAGNOSIS Bladder mass, TUR: Invasive high grade urothelial carcinoma. See cancer summary below. SJ:rg 04/29/19 BLADDER CANCER (TUR) SUMMARY: Procedure - TURBT Histologic type - urothelial (transitional cell) carcinoma Associated epithelial lesions - none identified Histologic grade - urothelial carcinoma (WHO 2004/ISUP) - 3/3 high grade Tumor configuration - invasive Adequacy of material for determining muscularis propria invasion - muscularis propria (detrusor muscle) is present and involved by tumor. Lymph-Vascular invasion - not seen Microscopic extent of tumor - the tumor invades muscularis propria (detrusor muscle). Additional pathologic findings - chronic inflammation. See comment. The above summary is in compliance with [employer] [place] [employer] (CAP) Cancer Protocols Checklist and [place] Joint Committee on Cancer (AJCC), Staging Manual, 8th Ed. COMMENT The entire tumor consists of invasive carcinoma. Extensive detrusor muscle invasion is also noted. Please make reference to previous specimens ([id number]), bladder tumor, TUR with diagnosis of invasive high grade urothelial carcinoma and ([id number]) urine for cytology with diagnosis of mild atypical degenerating urothelial cells are noted. Case has been reviewed in consultation with Dr. Napier who concurs with the above diagnosis. IDC:AM MICROSCOPIC DESCRIPTION Slides are reviewed. GROSS DESCRIPTION Received in fixative is one container labeled with the patient's name and designated bladder mass. The specimen consists of multiple irregular fragments of cullen-pink soft tissue that in aggregate measure 2.5 x 1.5 x 0.3 cm. The entire specimen is submitted in one cassette. / SJ:deirdre 04/26/19 TC:0 CPT: 52552
--- NOTE | 2019-04-26 10:09 | PCM.DC ---
- Discharge Diagnoses Current Active Problems: bladder cancer Reason(s) for Visit for Discharge Instructions: resection of bladder cancer You will use the following diet at home:: Regular Your food should be the consistency of: Regular Discharge Activity: Return to Normal Activity Call your doctor if your incision/area has: Continuous Slow Oozing, Sudden Increased Bleeding Suture Line Care: Avoid Pulling/Pushing, Avoid Pinching/Bending Allergies/Adverse Reactions: Allergies No Known Allergies Allergy (Verified 04/26/19 07:56) Medications to take at Discharge Travoprost 0.004% [Travatan-Z 0.004% Eye Drop] 1 drp EACH EYE QHS 12/11/13 aspirin 81 mg tablet,delayed release 162 mg PO QHS 07/05/17 naproxen sodium 220 mg tablet 220 mg PO PRN PRN tab 07/05/17 atorvastatin 40 mg tablet 40 mg PO QDAY tab 12/22/17 metoprolol tartrate 25 mg tablet 25 mg PO BID tab 12/22/17 Acetaminophen [Tylenol] 500 - 1,000 mg PO Q6H PRN PRN 05/04/18 tamsulosin 0.4 mg capsule 0.8 mg PO DAILY cap 08/17/18 Hydrocodone/Acetaminophen [[place] 5-325 Tablet] 1 ea PO Q4H PRN PRN 5 Days #14 tab 04/26/19 The following prescriptions were given: Hydrocodone/Acetaminophen [[place] 5-325 Tablet] 1 ea PO Q4H PRN PRN 5 Days #14 tab PRN Reason: Pain Score 1-10/10 Prescription Printed Primary Care Physician: Demond Davis MD [Primary Care Provider] - Test Results: Test results from this visit will be discussed in further detail at your follow-up appointment, if applicable. Please Follow Up With: Rylan Gudino MD When: 2 weeks.
--- NOTE | 2019-04-26 10:11 | PCM.OPRPT ---
Report of Operation Date of Procedure: 04/26/19 Pre-Operative Diagnosis: Recurrent bladder cancer with a large mass in the dome of the bladder, the masses 4 x 5 cm Post-Operative Diagnosis: Same Surgery/Procedure Performed:: Transurethral resection of a large bladder tumor Description of Surgical Findings:: 73-year-old male with history of invasive bladder cancer comes back for restaging, recent imaging demonstrates that he has resolution of many of his cancer spots before there is still a persistent mass in the bladder question of this is persistent disease or recurrent disease and also he is completed chemotherapy. Plan to do a resection of the bladder mass today I suspect he still has cancer within the bladder and we plan to do a PET scan to see if is any other disease metastatic. Reviewed the case with the oncologist. Patient was taken back to the operating room at the smooth induction of general anesthesia he was placed in dorsolithotomy position within the bladder with a 21 [place] rigid cystourethroscope the entire length urethra is normal sphincter was intact prostate was normal inside the bladder identified the trigone and then in the left lateral wall the bladder there was a large mass that was occupying the bladder about 4 x 5 cm in size I then switched over the resectoscope and resected this mass to be sessile invasive solid mass. After resecting the mass I then cauterized the resection site patient anesthetic is being reversed plan to see him back in a few weeks to review the tissue report will plan to do a PET scan to see if he is in a metastatic disease and then we may consider either radiation to the bladder or definitive surgery with cystectomy depending on the findings of PET scan. Type of Anesthesia:: General Drains: none - Admit VTE Documentation VTE Present on Admission: No VTE Mechan Device Prophylaxis: SCD's
== END 2019-04-26 12:03 | disposition home or self-care (01) ==
LOC: SDC 07:32 → AC 07:33
PROVIDERS: Family Provider Family Medicine; PCP Family Medicine; Referring Provider Urology; Visit Provider Urology
PROC: 0TBB8ZZ Excision of Bladder, Via Natural or Artificial Opening Endoscopic (ICD-10-PCS; CPT 52240; principal; 2019-04-26 09:40)
DX: C67.2 Malignant neoplasm of lateral wall of bladder (principal); C79.51 Secondary malignant neoplasm of bone; N40.1 Benign prostatic hyperplasia with lower urinary tract symptoms; R35.0 Frequency of micturition; I10 Essential (primary) hypertension; Z79.82 Long term (current) use of aspirin; Z79.1 Long term (current) use of non-steroidal anti-inflammatories (NSAID); Z79.899 Other long term (current) drug therapy; I25.2 Old myocardial infarction; Z87.891 Personal history of nicotine dependence; Z95.1 Presence of aortocoronary bypass graft
CPT/HCPCS: 52240; 88305; 88307; 93005; J7120; J2405

== ENCOUNTER → 2019-06-28 13:16 | Outpatient (CLI) | payer MEDICARE, SELFPAY ==
[2019-06-24 09:15] VITALS: BMI 27.6
--- NOTE | 2019-06-28 13:18 | CT_ITS ---
STUDY: CT ABDOMEN AND PELVIS WITH CONTRAST REASON FOR EXAM: Male, 73 years old. Bladder cancer, assess chemo response. CABG and heart valve repaid RADIATION DOSAGE (If Supplied By Facility): CTDIvol = ( 17.71 ) mGy, DLP = ( 2201.12 ) mGycm TECHNIQUE: Transaxial images were obtained from the dome of the diaphragm to the symphysis pubis with oral contrast. IV 100mL Isovue-300/Readi-Cat was administered. Sagittal and coronal images were reconstructed. Individualized dose optimization techniques were used for this CT. COMPARISON: Comparison is made with prior examination dated March 26, 2019. FINDINGS: The visualized lung bases are unremarkable. Prior CABG. Normal liver. Normal gallbladder and extrahepatic biliary system. Normal spleen. Normal pancreas. Normal bilateral adrenal glands. Stable 3 cm cyst in the upper midportion of the right kidney. Stable 1 cm cyst in the lateral aspect of the left kidney. Normal visualized stomach. Normal small intestine. There are multiple colonic diverticula consistent with diverticulosis. The appendix is visualized and appears normal. There is diffuse atherosclerotic calcification of the abdominal aorta. The distal abdominal aorta has a transverse dimension of 3 cm. Minimal degree of the mural thrombus. Normal inferior vena cava. Normal retroperitoneum. Residual thickening along the left lateral wall of the urinary bladder. The thickness presently measures 7.4 mm versus 15 mm. The left measures approximately 3.8 cm. There is enlargement of the prostate gland. This causes indentation at the bladder base. Normal abdominal wall. There are diffuse degenerative changes of the visualized lumbar spine. The patient is status post interpedicular screw fixation at the L3-L4 level. CT/Abdomen/Pelvis WITH Contrast IMPRESSION: Since prior study, there has been improvement in the thickness of the left lateral bladder wall. Persistent enlargement of the prostate. Electronically Signed: Shashank Ann, at 14:01 EST , Service support ,
--- NOTE | 2019-06-28 13:18 | CT_ITS ---
STUDY: CT CHEST WITH CONTRAST REASON FOR EXAM: Male, 73 years old. Bladder cancer, assess chemo response. CABG and heart valve repair RADIATION DOSAGE (If Supplied By Facility): CTDIvol = ( 17.71 ) mGy, DLP = ( 2201.12 ) mGycm TECHNIQUE: Transaxial imaging was performed following intravenous administration of IV 100mL Isovue-300. Multiplanar coronal and sagittal images were reformatted. Individualized dose optimization techniques were used for this CT. COMPARISON: None. FINDINGS: The lungs are normally expanded with mild bilateral emphysematous changes primarily seen within the bilateral upper lobes near the lung apices. Otherwise normal lung parenchyma. There is no demonstrated pleural abnormality. Heart is of normal size with coronary artery calcifications. Normal mediastinum. Normal hilar regions. Normal enhanced pulmonary arteries. There is atherosclerotic calcification of the aortic arch with tortuosity and elongation of the aortic arch and descending thoracic aorta. Multilevel spondylosis/degenerative disease of the thoracic spine with no acute fracture. There is no demonstrated abnormality of the visualized upper abdomen. CT/Chest WITH Contrast IMPRESSION: Mild emphysematous changes as described above, otherwise no acute cardiopulmonary disease. Electronically Signed: Ina Casillas MD at 2:42 EST , Service support ,
[2019-06-28] MEDS: 0.9% Saline Lock 10 ML Syringe IV (13:35)
== END ==
PROVIDERS: Family Provider Family Medicine; PCP Family Medicine; Referring Provider Internal Medicine Medical Oncology; Visit Provider Internal Medicine Medical Oncology
DX: C67.1 Malignant neoplasm of dome of bladder (principal); R59.0 Localized enlarged lymph nodes
CPT/HCPCS: 71260; 74177; Q9967; A4216

== ENCOUNTER → 2019-08-12 08:50 | Outpatient (CLI) | payer MEDICARE, SELFPAY ==
[2019-07-29 08:55] VITALS: BMI 28.0
[2019-08-05 10:45] VITALS: BMI 27.1
--- NOTE | 2019-08-12 08:52 | NM_ITS ---
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 WHOLE BODY 99m Tc MDP RADIONUCLIDE BONE SCINTIGRAPHY COMPARISON: Previous whole body bone scintigraphy study dated 04/16/2019, CT of the chest, abdomen and pelvis reports 06/28/2019 FINDINGS: Following the intravenous administration of 27.0 mCi of 99m Tc MDP, whole body bone images reveal: 1. Increased radiopharmaceutical concentration persists in the left proximal clavicle. 2. Enhanced tracer distribution is observed in the mid cervical spine posteriorly on the left and right, acromioclavicular compartments of both shoulders, the left wrist, right forefoot, 10th thoracic, first-fifth lumbar vertebra. 3. The remaining skeletal structures are scintigraphically unremarkable with normal-appearing renal images and urinary bladder activity identified. NM/Bone Scan Whole Body IMPRESSION: 1. Increased tracer concentration redefined in the left proximal clavicle is of uncertain etiology. Plain film radiographs dated 04/18/2019 reveal no corresponding radiographic abnormalities. There is interval resolution of the previously defined left anterolateral fifth rib focus. 2. 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 3. Overall compared previous whole body bone scintigraphy study dated 04/16/2019, there is no significant interval change. Electronically Signed: Gunner Martinez DO at 0:05 EST Tel , Service support ,
== END ==
PROVIDERS: PCP Family Medicine; Referring Provider Internal Medicine Medical Oncology; Visit Provider Internal Medicine Medical Oncology
DX: C67.9 Malignant neoplasm of bladder, unspecified (principal); C79.51 Secondary malignant neoplasm of bone
CPT/HCPCS: 78306

== ENCOUNTER → 2019-08-16 08:08 | Outpatient (CLI) | payer MEDICARE, SELFPAY ==
[2019-07-29 08:55] VITALS: BMI 28.0
[2019-08-05 10:45] VITALS: BMI 27.1
--- NOTE | 2019-08-16 08:12 | CT_ITS ---
STUDY: CT CHEST WITH CONTRAST REASON FOR EXAM: Male, 73 years old. bladder cancer with bone mets. chemo only. currently on chemo RADIATION DOSAGE (If Supplied By Facility): CTDIvol = ( 17.62 ) mGy, DLP = ( 2229.27 ) mGycm TECHNIQUE: Transaxial imaging was performed following intravenous administration of Oral and amp; IV Readi-CAT and amp; 100mL Isovue-300. Individualized dose optimization techniques were used for this CT. COMPARISON: 06/28/2019 FINDINGS: Right internal jugular chest port. Status post median sternotomy. Mild emphysematous changes. No noncalcified nodule or mass. There is no demonstrated pleural abnormality. Normal heart and pericardium. Normal mediastinum. Normal hilar regions. Normal enhanced pulmonary arteries. Normal aorta arch and descending thoracic aorta. There are multi-level degenerative changes of the thoracic spine. There is no demonstrated abnormality of the visualized upper abdomen. CT/Chest WITH Contrast IMPRESSION: No CT evidence of metastatic disease. Electronically Signed: Gunner Mae MD at 14:36 EST Tel , Service support ,
--- NOTE | 2019-08-16 08:12 | CT_ITS ---
STUDY: CT ABDOMEN AND PELVIS WITH CONTRAST REASON FOR EXAM: Male, 73 years old. Bladder cancer with bone mets. chemo only and currently on chemo RADIATION DOSAGE (If Supplied By Facility): CTDIvol = ( 17.62 ) mGy, DLP = ( 2229.27 ) mGycm COMPARISON: Previous CT scan of the abdomen and pelvis obtained on 04/05/2019 TECHNIQUE: A CT scan of the abdomen and pelvis was performed with IV contrast contrast administration. Oral contrast was also administered. Coronal and sagittal reconstruction images were reviewed. This exam was performed according to our departmental dose-optimization program, which includes automated exposure control, adjustment of the mA and/or kV according to patient size and/or use of iterative reconstruction technique. FINDINGS: The lung bases and the base of the heart are normal. The liver is normal.The spleen is normal.The adrenal glands are normal.The head, body, and tail of the pancreas are normal. The right and left kidneys were examined and there appears to be a 2 cm simple cyst in the superior right kidney. Both ureters appear to be normal, and no obstructive uropathy is identified. The abdominal aortal is normal along its course and distribution. There is very mild aneurysmal dilatation noted of the distal abdominal aorta measuring 2.9 x 3 cm in maximal AP and transverse dimension with a small amount of mural thrombus identified. This was identified previously and is unchanged No paraortic lymphadenopathy is seen. No abdominal masses or lesions are seen. The CT scan of the pelvis was then reviewed. The common iliac vessels, external iliac vessels, and common femoral vessels are normal along their course and distribution I didn''t notice some bowel wall thickening along the left lateral wall of the urinary bladder which was identified previously and has not significantly changed. This residual wall thickening represents the patient''s known treated bladder carcinoma which is unchanged. No pelvis masses or lesions are seen. The appendix is normal. No pericecal inflammatory reaction is seen. Bone scan windows reveal lumbar spine and pelvis show a spinal fusion at the L3-[address]/Abdomen/Pelvis WITH Contrast IMPRESSION: 1. Left-sided bladder wall thickening is again identified and is unchanged probably due to the sequela of previous bladder cancer treatment. 2. Mild fusiform aneurysmal dilatation of the distal abdominal aorta measuring 2.9 x 3 cm in dimension. AAA Size: Follow-up Recommendation (1): 3.0 - 3.4 cm Every 3 years (1)Based upon the Society for Vascular Surgery Guidelines: J Vasc Surg. 2009 Oct;50(4 Suppl):S2-49 (2)For aortas of max feroz of 2.6-2.9 cm that meet criteria for AAA (>= 1.5 x proximal normal segment) Electronically Signed: Demond Hernandez, at 11:23 EST Tel , Service support ,
[2019-08-16] MEDS: 0.9% Saline Lock 10 ML Syringe IV (08:40)
== END ==
PROVIDERS: PCP Family Medicine; Referring Provider Internal Medicine Medical Oncology; Visit Provider Internal Medicine Medical Oncology
DX: C67.9 Malignant neoplasm of bladder, unspecified (principal); C79.51 Secondary malignant neoplasm of bone
CPT/HCPCS: 71260; 74177; Q9967; A4216

== ENCOUNTER → 2019-09-23 08:12 | Outpatient (CLI) | payer MEDICARE, SELFPAY ==
[2019-09-09 09:07] VITALS: BMI 27.8
[2019-09-20 11:08] VITALS: BMI 27.1
--- NOTE | 2019-09-23 08:12 | CT_ITS ---
STUDY: CT CHEST WITH CONTRAST REASON FOR EXAM: Male, 74 years old. BLADDER CA RADIATION DOSAGE (If Supplied By Facility): CTDIvol = ( 17.20 ) mGy, DLP = ( 1549.00 ) mGycm TECHNIQUE: Transaxial imaging was performed following intravenous administration of Oral and amp; IV Readi-CAT and amp; 100mL Isovue-300. Multiplanar coronal and sagittal images were reformatted. Individualized dose optimization techniques were used for this CT. COMPARISON: Comparison is made with prior examination dated August 16, 2019. FINDINGS: A right-sided portacatheter is seen with the tip in the superior vena cava. There is hyperinflation of the lungs consistent with chronic obstructive lung disease (COPD). Emphysematous blebs are seen in the upper lobes. This is unchanged. There now is evidence of patchy airspace disease in both lower lobes worse on the left side with a nodular appearance. Radiographic follow-up is recommended. There is no demonstrated pleural abnormality. Sternal cerclage wires and vascular clips are present from a prior sternotomy and coronary artery bypass graft procedure (CABG). Coronary artery calcification. There are multiple small lymph nodes within the mediastinum, which are normal in size and morphology most compatible with reactive lymph hyperplasia. Normal hilar regions. Normal enhanced pulmonary arteries. Normal aorta arch and descending thoracic aorta. There are multi-level degenerative changes of the thoracic spine. There is no demonstrated abnormality of the visualized upper abdomen. CT/Chest WITH Contrast IMPRESSION: Bibasilar airspace disease worse on the left side with a nodular appearance. Radiographic follow-up is recommended. Electronically Signed: Shashank Ann, at 10:17 EDT , Service support ,
--- NOTE | 2019-09-23 08:12 | CT_ITS ---
STUDY: CT ABDOMEN AND PELVIS WITH CONTRAST REASON FOR EXAM: Male, 74 years old. BLADDER CA RADIATION DOSAGE (If Supplied By Facility): CTDIvol = ( 17.20 ) mGy, DLP = ( 1549.00 ) mGycm TECHNIQUE: Transaxial images were obtained from the dome of the diaphragm to the symphysis pubis without oral contrast. Oral and amp; IV Readi-CAT and amp; 100mL Isovue-300 was administered. Sagittal and coronal images were reconstructed. Individualized dose optimization techniques were used for this CT. COMPARISON: Comparison is made with prior examination of August 16, 2019. FINDINGS: Since prior examination, there is evidence of patchy bibasilar infiltrates. The left basilar infiltrate has a nodular appearance. Follow-up is recommended. Coronary calcification. Prior CABG. Stable subcentimeter cyst seen in the inferior aspect of the right lobe of the liver. Normal gallbladder and extrahepatic biliary system. Normal spleen. Normal pancreas. Normal bilateral adrenal glands. Stable 2 cm cyst in the upper pole of the right kidney. Stable 1 cm cyst in the lateral aspect of the mid portion of the left kidney. Normal visualized stomach. Normal small intestine. Normal colon. The appendix is visualized and appears normal. There is diffuse atherosclerotic calcification of the abdominal aorta and its major visceral branches. Minimal intimal dilatation of the distal abdominal aorta with a transverse dimension of 2.9 cm. Normal inferior vena cava. Normal retroperitoneum. Once again, there is asymmetrical bladder wall thickening along the left side of the urinary bladder. This is unchanged. There is enlargement of the prostate gland. This causes indentation at the bladder base. Normal abdominal wall. There are diffuse degenerative changes of the visualized lumbar spine. Prior interpedicular screw fixation at the L3-L4 level. Straightening of the normal lumbar lordosis. CT/Abdomen/Pelvis WITH Contrast IMPRESSION: Stable examination except for new patchy infiltrates in the lower lobes more prominent on the left side with a nodular appearance. Radiographic follow-up is recommended. Electronically Signed: Shashank Ann, at 10:14 EDT , Service support ,
[2019-09-23] MEDS: 0.9% Saline Lock 10 ML Syringe IV (08:28)
== END ==
PROVIDERS: PCP Family Medicine; Referring Provider Internal Medicine Medical Oncology; Visit Provider Internal Medicine Medical Oncology
DX: C67.1 Malignant neoplasm of dome of bladder (principal)
CPT/HCPCS: 71260; 74177; Q9967; A4216

== ENCOUNTER → 2019-10-15 11:28 | Outpatient (CLI) | payer MEDICARE, SELFPAY ==
[2019-09-30 10:29] VITALS: BMI 27.1
[2019-10-15 15:13] LABS: Cholesterol 134 mg/dL (200); High Density Lipoprotein 38 mg/dL; Triglycerides 98 mg/dL; Very Low Density Lipoprotein 20 mg/dL (5-40)
[2019-10-15 15:32] LABS: Hemoglobin A1c 5.3 % (4.2-6.3)
== END ==
PROVIDERS: PCP Family Medicine; Referring Provider Family Medicine; Visit Provider Family Medicine
DX: E78.5 Hyperlipidemia, unspecified (principal); R73.02 Impaired glucose tolerance (oral)
CPT/HCPCS: 36415; 80061; 83036

== ENCOUNTER → 2019-10-22 | Outpatient (CLI) | payer MEDICARE, SELFPAY ==
--- NOTE | 2019-10-22 14:00 | LES_PTH ---
PATIENT: VALE GARCIA LOC: [facility] U#:[id number] AGE/SX: 74/M ROOM: RE10/22/[address]: Dr. Victorino Hernandez MD : 1945 BED: DIS: 10/22/2019 SPEC #: [id number] RECD: 10/22/19 15:35 STATUS: ARAM NARESH #: [id number] GENESIS: 10/22/19 14:[address]: Victorino Hernandez DEPT: SURGICAL PATHOLOGY RECD BY: Trish Gallardo ENTERED: 10/23/19 08:54 SP TYPE: Lesion OTHR DR: Dr. 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 Extensive solar elastosis and actinic change with mild to moderate atypia. See comment. AM:deirdre 10/24/19 COMMENT The margins of excision are free of carcinoma. Case has been reviewed in consultation with Dr. Tao who concurs with the above diagnosis. IDC:SJ MICROSCOPIC DESCRIPTION Slides are reviewed. GROSS DESCRIPTION Received in fixative is one container labeled with the patient's name and designated right forearm. The specimen consists of an ellipse of light cullen excised skin measuring 3.3 x 1.7 x 0.2 cm. The specimen is inked, serially sectioned and totally submitted in two cassettes. / AM:deirdre 10/23/19 TC:0 CPT: [id number]
[2019-10-22 14:24] VITALS: BMI 27.1
== END | disposition home or self-care (01) ==
LOC: LABSPEC 15:51
PROVIDERS: PCP Family Medicine; Referring Provider Surgery; Visit Provider Surgery
DX: C44.622 Squamous cell carcinoma of skin of right upper limb, including shoulder (principal)
CPT/HCPCS: 88305

== ENCOUNTER → 2019-11-21 07:45 | Outpatient (CLI) | payer MEDICARE, SELFPAY ==
[2019-09-30 10:29] VITALS: BMI 27.1
[2019-10-31 09:15] VITALS: BMI 27.1
--- NOTE | 2019-11-21 07:46 | CT_ITS ---
STUDY: CT CHEST WITH CONTRAST REASON FOR EXAM: Male, 74 years old. MONITORING BLADDER CANCER FOLLOWING 3 ROUNDS OF CHEMO. RADIATION DOSAGE (If Supplied By Facility): CTDIvol = ( 13.84 ) mGy, DLP = ( 453.31 ) mGycm TECHNIQUE: Transaxial imaging was performed following intravenous administration of Oral and amp; IV Readi-CAT and amp; 100mL Isovue-370. Multiplanar coronal and sagittal images were reformatted. Individualized dose optimization techniques were used for this CT. COMPARISON: Comparison is made with prior examination dated September 23, 2019. FINDINGS: A right-sided port catheter is seen with the tip in the superior vena cava. Stable emphysematous changes with bleb formation more prominent in the upper lobes. The previously seen areas of groundglass appearance in the lower lobes has improved. Minimal residual changes persist. There is no demonstrated pleural abnormality. Sternal cerclage wires and vascular clips are present from a prior sternotomy and coronary artery bypass graft procedure (CABG). There are calcifications of the coronary arteries. There are multiple small lymph nodes within the mediastinum, which are normal in size and morphology most compatible with reactive lymph hyperplasia. Normal hilar regions. Normal enhanced pulmonary arteries. There is atherosclerotic calcification of the aortic arch with tortuosity and elongation of the aortic arch and descending thoracic aorta. There are multi-level degenerative changes of the thoracic spine. There is no demonstrated abnormality of the visualized upper abdomen. CT/Chest WITH Contrast IMPRESSION: Interval improvement in the previously seen areas of groundglass appearance in the lower lobes. Minimal residual changes persist. Electronically Signed: Shashank Ann, at 9:05 EDT , Service support ,
--- NOTE | 2019-11-21 07:46 | CT_ITS ---
STUDY: CT ABDOMEN AND PELVIS WITH CONTRAST REASON FOR EXAM: Male, 74 years old. MONITORING BLADDER CANCER FOLLOWING 2 ROUNDS OF CHEMO. RADIATION DOSAGE (If Supplied By Facility): CTDIvol = ( 18.755 ) mGy, DLP = ( 1570.10 ) mGycm TECHNIQUE: Transaxial images were obtained from the dome of the diaphragm to the symphysis pubis with oral contrast. Oral and amp; IV Readi-CAT and amp; 100mL Isovue-370 was administered. Sagittal and coronal images were reconstructed. Individualized dose optimization techniques were used for this CT. COMPARISON: Comparison is made with prior study dated September 23, 2019. FINDINGS: Since prior study, there has been moderate improvement of the bibasilar groundglass appearance. Minimal residual changes persist. Coronary artery calcifications. Prior CABG. A dual-chamber pacemaker is seen. Normal liver. Normal gallbladder and extrahepatic biliary system. Normal spleen. Normal pancreas. Normal bilateral adrenal glands. Stable 2 cm cyst in the upper pole of the right kidney. Stable 1 cm cyst in the lateral aspect of the midportion of the left kidney. Surgical clips are seen in the region of the gastroesophageal junction most likely secondary to prior hiatal hernia repair. Normal small intestine. There are multiple colonic diverticula consistent with diverticulosis. The appendix is visualized and appears normal. There is diffuse atherosclerotic calcification of the abdominal aorta and its major visceral branches, without a demonstrated aneurysm. Normal inferior vena cava. Normal retroperitoneum. Persistent irregular nodular thickening along the left lateral wall of the urinary bladder. Since prior study, this appears to have become more prominent. Normal abdominal wall. There are diffuse degenerative changes of the visualized lumbar spine. Status post interpedicular screw and pramod fixation at the L3-L4 level. Straightening of the normal lumbar lordosis. CT/Abdomen/Pelvis WITH Contrast IMPRESSION: Since prior study, there is progressive irregular thickening along the left lateral wall of the urinary bladder. The remainder of the examination is unchanged. Electronically Signed: Shashank Ann, at 9:00 EDT , Service support ,
[2019-11-21 08:00] LABS: CREATININE FINGERSTICK 0.9 mg/dL (0.70-1.30); EGFR FINGERSTICK > 60.0000 mL/min (>60)
[2019-11-21] MEDS: 0.9% Saline Lock 10 ML Syringe IV (08:08)
== END ==
PROVIDERS: PCP Family Medicine; Referring Provider Internal Medicine Medical Oncology; Visit Provider Internal Medicine Medical Oncology
DX: C67.9 Malignant neoplasm of bladder, unspecified (principal)
CPT/HCPCS: 71260; 74177; Q9967; A4216

== ENCOUNTER → 2020-01-08 09:16 | Outpatient (CLI) | payer MEDICARE, SELFPAY ==
[2019-10-31 09:15] VITALS: BMI 27.1
[2019-12-30 09:49] VITALS: BMI 28.2
--- NOTE | 2020-01-08 09:19 | STE_ITS ---
Reason For Study: S/P CABG Stress Results Protocol: Bob Protocol Maximum Predicted HR: 147 bpm Target HR: 125 bpm % Maximum Predicted HR: 95 % DurationHeart Rate Stage (mm:ss) (bpm) BP Comment BASELINE 78 102/60 STAGE 1 3:00 110 150/68SLIGHT SOB STAGE 2 2:30 139 17/70 INCREASED SOB, INCREASED ECTOPY, NO CHEST PAIN RECOVERY 90 150/78 Stress Duration: 5:30 mm:ss Maximum Stress HR: 139 bpm Baseline Echocardiogram Findings The estimated ejection fraction is 65 %. Stress Echo Wall motion Data Resting WM Intermediate WM Stress WM Resting Wall Motion Wall Motion Stress No regional wall motion No regional wall motion abnormalities noted. abnormalities noted. EKG Data The baseline ECG displays normal sinus rhythm. The patient exercised according to the regular Bob protocol for a total duration of 5:31. The maximum heart rate attained was 162 beats per minute. This was 110% of maximum predicted heart rate. The patient exercised into stage 2 of the Bob protocol. During stress, there were no ST or T wave changes noted to suggest ischemia. No clinical angina was noted. Doppler Measurements & Calculations MV V2 max: 136.6 cm/sec MV max P.5 mmHg MV V2 mean: 90.8 cm/sec MV mean P.6 mmHg MV V2 VTI: 36.6 cm Interpretation Summary The estimated ejection fraction is 65 %. Normal, adequate, treadmill echocardiogram. Negative for ischemia by EKG and echocardiographic criteria. No anginal symptoms noted. Frequent PVCs and wide-complex rhythm during exercise and into recovery which may be aberrancy. Test terminated due to dyspnea on exertion. Below average exercise capacity for age. Final LVEF is 75%. Appropriate blood pressure response to exercise. Patient tolerated procedure well. No complications. Ordering Physician: Lamine Lassiter Referring Physician: Lamine Lassiter Performed By: Paz Lal, LYNNE, RVT
== END ==
PROVIDERS: PCP Family Medicine; Referring Provider Internal Medicine Cardiovascular Disease; Visit Provider Internal Medicine Cardiovascular Disease
DX: I25.10 Atherosclerotic heart disease of native coronary artery without angina pectoris (principal); Z95.1 Presence of aortocoronary bypass graft
CPT/HCPCS: 93017; 93350

== ENCOUNTER → 2020-01-10 06:22 | Outpatient (CLI) | payer MEDICARE, SELFPAY ==
[2019-12-30 09:49] VITALS: BMI 28.2
[2020-01-10 07:05] LABS: T4 Free Direct 0.92 ng/dL (0.76-1.46)
[2020-01-10 11:46] LABS: T3 Total - Triiodothyronine 1.42 ng/mL (0.6-1.81)
[2020-01-12 04:47] LABS: Adrenocorticotropic Hormone 55.1 pg/mL (7.2-63.3)
== END ==
PROVIDERS: PCP Family Medicine; Referring Provider Nurse Practitioner Family; Visit Provider Nurse Practitioner Family
DX: C67.9 Malignant neoplasm of bladder, unspecified (principal); R53.83 Other fatigue; Z92.89 Personal history of other medical treatment
CPT/HCPCS: 36415; 82024; 82533; 84439; 84480

== ENCOUNTER → 2020-01-15 16:50 | Outpatient (CLI) | payer MEDICARE, SELFPAY ==
[2019-12-30 09:49] VITALS: BMI 28.2
--- NOTE | 2020-01-15 16:50 | MRI_ITS ---
STUDY: MRI BRAIN WITH AND WITHOUT CONTRAST REASON FOR EXAM: Male, 74 years old. BRAIN METS -- dizziness and blurred vision, recent new med, hx bladder cancer with brain met 2016, gamma knife left temporal 2016 TECHNIQUE: Standardized multiplanar fat and water weighted pulse sequences were obtained. IV dotarem 15ml was administered for the contrast portion of the examination. COMPARISON: None. FINDINGS: Normal size of the ventricles and extra-axial spaces for the patient''s age. Minimal periventricular white matter ischemic changes.. Normal bilateral basal ganglia. Normal thalami. There is no extra-axial fluid accumulation. Normal flow voids within the major intracranial circulation suggesting patency by spin echo criteria. Normal venous enhancement. There is a small enhancing lesion noted within the left cerebellopontine angle cistern extending into the proximal internal auditory canal measuring approximately 1.33 x 2.7 cm. Normal sella turcica, pituitary gland, infundibular stalk, optic chiasm and hypothalamus. Normal tectal plate and pineal gland. Normal midbrain, santana and medulla. Normal cerebellum. Normal basal cisterns. Normal bilateral temporal bones. Normal bilateral internal auditory canals. No demonstrated orbital abnormality, within the constraints of a routine brain study. Normal visualized paranasal sinuses. Normal calvarium and skull base. Normal visualized soft tissue structures. Normal visualized upper cervical spine. MRI/Brain W/WO Contrast IMPRESSION: Minimal white matter ischemic changes without evidence for acute infarct. 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 No definitive evidence for metastatic disease Clinical correlation recommended Electronically Signed: Miguel A Ochoa MD at 18:25 EDT , Service support ,
== END ==
PROVIDERS: PCP Family Medicine; Referring Provider Nurse Practitioner Family; Visit Provider Nurse Practitioner Family
DX: C67.9 Malignant neoplasm of bladder, unspecified (principal); H53.8 Other visual disturbances; R53.83 Other fatigue
CPT/HCPCS: 70553; A9575

== ENCOUNTER → 2020-01-27 07:24 | Outpatient (CLI) | payer MEDICARE, SELFPAY ==
[2020-01-20 09:51] VITALS: BMI 27.3
[2020-01-27 07:59] LABS: Absolute Lymphocyte Count 0.91 X10^3/uL (0.83-4.51); Absolute Neutrophil Count 4.2 X10^3/uL (2.0-7.7); Basophil# 0.04 X10^3/uL; Basophil% 0.6 % (0-1); Eosinophil# 0.45 X10^3/uL; Eosinophils% 7.2 % (0-5); Hematocrit 45.1 % (40-54); Hemoglobin 14.4 g/dL (13.0-16.5); Lymphocyte # 0.91 X10^3/ul (4.0); Lymphocyte % 14.6 % (19-41); Mean Corp Hgb Conc 31.9 g/dL (32-36); Mean Corpuscular Hgb 32.1 pg (27.0-32.0); Mean Corpuscular Volume 100.4 fL (80-94); Mean Platelet Vol. 9.8 fl (6.2-12.0); Monocyte# 0.61 X10^3/uL; Monocyte% 9.8 % (0-10); NRBC Flagged by Analyzer 0 % (0-5); Neutrophil # 4.22 X10^3/uL (2.7-7.7); Neutrophil % 67.5 % (47-70); Platelet Count 113 K/mm3 (150-450); RBC Distribution Width CV 12.5 % (11.6-14.6); RBC Distribution Width SD 46.6 fl (35.1-43.9); Red Blood Count 4.49 M/mm3 (4.6-6.2); White Blood Count 6.3 K/mm3 (4.4-11.0)
[2020-01-27 08:23] LABS: ALB/GLOB Ratio 1.2 RATIO (0.9-2.4); AST(SGOT) 15 U/L (15-37); Alanine Aminotransfer ALT/SGPT 18 U/L (16-61); Albumin, Serum 3.5 g/dL (3.2-5.0); Alkaline Phosphatase 83 U/L (45-117); Anion Gap 5 (5-15); BUN 16 mg/dL (7-18); BUN/Creat Ratio 13.1 RATIO (10-20); Calcium,Total 8.5 mg/dL (8.5-10.1); Chloride 106 mmol/L (98-107); Creatinine, Serum 1.22 mg/dL (0.70-1.30); EST Glomerular Filtration Rate 62 mL/min (>60); Est Glom Filt Rate - Afr Amer 75 mL/min (>60); Glucose 93 mg/dL (74-106); Potassium 4.2 mmol/L (3.5-5.1); Protein, Total 6.5 g/dL (6.4-8.2); Sodium Level 139 mmol/L (136-145); Thyroid Stim Hormone (TSH) 2.02 uIU/mL (0.358-3.74)
[2020-01-27 15:28] LABS: Xtra Tube EP Lab EXTRA TUBE
[2020-01-28 14:49] LABS: Adrenocorticotropic Hormone 57.7 pg/mL (7.2-63.3)
== END ==
PROVIDERS: PCP Family Medicine; Referring Provider Nurse Practitioner Family; Visit Provider Nurse Practitioner Family
DX: R53.83 Other fatigue (principal); Z92.89 Personal history of other medical treatment
CPT/HCPCS: 36415; 80053; 82024; 82533; 84443; 85025

== ENCOUNTER → 2020-02-26 07:53 | Outpatient (CLI) | payer MEDICARE, SELFPAY ==
[2020-02-11 09:30] VITALS: BMI 27.1
--- NOTE | 2020-02-26 07:54 | CT_ITS ---
STUDY: CT CHEST WITH CONTRAST REASON FOR EXAM: Male, 74 years old. BLADDER CA, 2 ROUNDS OF CHEMO RADIATION DOSAGE (If Supplied By Facility): CTDIvol = ( 13.46 ) mGy, DLP = ( 396.72 ) mGycm TECHNIQUE: Transaxial imaging was performed following intravenous administration of Oral and amp; IV Readi-CAT and amp; 100mL Isovue-300. Multiplanar coronal and sagittal images were reformatted. Individualized dose optimization techniques were used for this CT. COMPARISON: Comparison is made with prior examination dated 11/21/2019. FINDINGS: A right-sided portacatheter is seen. The tip is in the superior vena cava. Hyperinflation. Emphysematous changes worse in the upper lobes with bullous formation. Minimal scarring in the anterior aspect of the right upper lobe as well as the medial aspect of the lingular segment of the left upper lobe. 6.1 mm slightly ill-defined nodule in the posterior aspect of the right lower lobe as seen on axial image #80. This was not seen on prior study. This may represent focal area of scarring. Follow-up examination in 6 months is recommended. Stable mild scarring at the lung bases. Sternal cerclage wires and vascular clips are present from a prior sternotomy and coronary artery bypass graft procedure (CABG). [place] coronary artery calcifications. There are multiple small lymph nodes within the mediastinum, which are normal in size and morphology most compatible with reactive lymph hyperplasia. Normal hilar regions. Normal enhanced pulmonary arteries. There is atherosclerotic calcification of the aortic arch with tortuosity and elongation of the aortic arch and descending thoracic aorta. There are multi-level degenerative changes of the thoracic spine. Right renal cyst. CT/Chest WITH Contrast IMPRESSION: Stable examination except for a new 6.1 mm slightly ill-defined nodule in the posterior aspect of the right lower lobe as described. This may represent a focal area of scarring. A repeat CT scan in 6 months is recommended. Electronically Signed: Shashank Ann, at 13:24 EDT , Service support ,
--- NOTE | 2020-02-26 07:54 | CT_ITS ---
STUDY: CT ABDOMEN AND PELVIS WITH CONTRAST REASON FOR EXAM: Male, 74 years old. BLADDER CA, 2 ROUNDS OF CHEMO RADIATION DOSAGE (If Supplied By Facility): CTDIvol = ( 15.99 ) mGy, DLP = ( 1026.31 ) mGycm TECHNIQUE: Transaxial images were obtained from the dome of the diaphragm to the symphysis pubis with oral contrast. Oral and amp; IV Readi-CAT and amp; 100mL Isovue-300 was administered. Sagittal and coronal images were reconstructed. Individualized dose optimization techniques were used for this CT. COMPARISON: Comparison is made with prior study dated 11/21/2019. FINDINGS: Emphysematous changes are seen at both lung bases. Prior CABG. Dual chamber pacemaker is in situ. Normal liver. Normal gallbladder and extrahepatic biliary system. Normal spleen. Normal pancreas. Normal bilateral adrenal glands. Stable 2 cm cyst in the upper pole of the right kidney. Stable 1 cm cyst in the lateral aspect of the midportion of left kidney. Surgical clips are once again seen in the gastroesophageal junction. Normal small intestine. There are multiple colonic diverticula consistent with diverticulosis. The appendix is visualized and appears normal. There is diffuse atherosclerotic calcification of the abdominal aorta. Stable dilatation of the infrarenal abdominal aortic aneurysm. Normal inferior vena cava. Normal retroperitoneum. Stable persistent bladder wall thickening along the left lateral wall of the bladder. This is unchanged. Stable enlargement of the prostate with indentation at the bladder base. Normal abdominal wall. There are diffuse degenerative changes of the visualized lumbar spine. CT/Abdomen/Pelvis W IV Cont ONLY IMPRESSION: Stable examination. Electronically Signed: Shashank Ann, at 13:35 EDT , Service support ,
[2020-02-26] MEDS: 0.9% Saline Lock 10 ML Syringe IV (08:27)
== END ==
PROVIDERS: PCP Family Medicine; Referring Provider Internal Medicine Medical Oncology; Visit Provider Internal Medicine Medical Oncology
DX: C67.9 Malignant neoplasm of bladder, unspecified (principal)
CPT/HCPCS: 71260; 74177; Q9967; A4216

== ENCOUNTER → 2020-04-14 09:36 | Outpatient (CLI) | payer MEDICARE, SELFPAY ==
[2020-04-13 10:53] VITALS: BMI 27.2
[2020-04-14 12:53] LABS: Hemoglobin A1c 5.3 % (3.8-5.6)
[2020-04-14 13:14] LABS: Cholesterol 112 mg/dL (200); High Density Lipoprotein 35 mg/dL; Triglycerides 73 mg/dL; Very Low Density Lipoprotein 15 mg/dL (5-40)
== END ==
PROVIDERS: PCP Family Medicine; Referring Provider Family Medicine; Visit Provider Family Medicine
DX: R73.02 Impaired glucose tolerance (oral) (principal); E78.5 Hyperlipidemia, unspecified
CPT/HCPCS: 36415; 80061; 83036

== ENCOUNTER → 2020-05-08 11:07 | Outpatient (CLI) | payer MEDICARE, SELFPAY ==
[2020-05-04 09:26] VITALS: BMI 27.1
[2020-05-08 13:25] LABS: PSA,Total - Annual Screen 0.33 ng/mL (0.00-4.00)
== END ==
PROVIDERS: PCP Family Medicine; Visit Provider Family Medicine
DX: Z12.5 Encounter for screening for malignant neoplasm of prostate (principal)
CPT/HCPCS: 36415; 84153; G0103

== ENCOUNTER → 2020-05-20 07:48 | Outpatient (CLI) | payer MEDICARE, SELFPAY ==
[2020-05-04 09:26] VITALS: BMI 27.1
--- NOTE | 2020-05-20 07:49 | CT_ITS ---
STUDY: CT CHEST WITH CONTRAST REASON FOR EXAM: Male, 74 years old. Bladder cancer-evaluate treatment response, no new problems or pain. Prior CABG, valve repair, [employer]. RADIATION DOSAGE (If Supplied By Facility): CTDIvol = ( 15.13 ) mGy, DLP = ( 1903.11 ) mGycm TECHNIQUE: Transaxial imaging was performed following intravenous administration of Oral and amp; IV Readi-CAT and amp; 100mL Isovue-300. Multiplanar coronal and sagittal images were reformatted. Individualized dose optimization techniques were used for this CT. COMPARISON: Comparison is made with prior examination to 02/26/2020. FINDINGS: A right-sided portacatheter is seen with the tip in the superior vena cava. There is evidence of emphysematous changes more prominent in the upper lobes with centrilobular emphysematous changes. Stable mild increased markings at the right lung base suggestive of scarring. The previously seen 6.1 mm slightly ill-defined nodule in the posterior aspect of the right lower lobe is not seen at this time. This most likely represents an area of scarring. There is no demonstrated pleural abnormality. Sternal cerclage wires and vascular clips are present from a prior sternotomy and coronary artery bypass graft procedure (CABG). There are calcifications of the coronary arteries. There are multiple small lymph nodes within the mediastinum, which are normal in size and morphology most compatible with reactive lymph hyperplasia. Normal hilar regions. Normal enhanced pulmonary arteries. There is atherosclerotic calcification of the aortic arch with tortuosity and elongation of the aortic arch and descending thoracic aorta. There are multi-level degenerative changes of the thoracic spine. There is no demonstrated abnormality of the visualized upper abdomen. CT/Chest WITH Contrast IMPRESSION: Emphysematous changes. Increased markings at the right lung base suggestive of scarring. The previously seen 6.1 mm slightly irregular nodule in the posterolateral aspect of the right lower lobe is not seen at this time. Electronically Signed: Shashank Ann, at 10:15 EST , Service support ,
--- NOTE | 2020-05-20 07:49 | CT_ITS ---
STUDY: CT ABDOMEN AND PELVIS WITH CONTRAST REASON FOR EXAM: Male, 74 years old. Bladder cancer-evaluate treatment response, no new problems or pain. Prior CABG, valve repair, [employer]. RADIATION DOSAGE (If Supplied By Facility): CTDIvol = ( 15.13 ) mGy, DLP = ( 1903.11 ) mGycm TECHNIQUE: Transaxial images were obtained from the dome of the diaphragm to the symphysis pubis without oral contrast. Oral and amp; IV Readi-CAT and amp; 100mL Isovue-300 was administered. Sagittal and coronal images were reconstructed. Individualized dose optimization techniques were used for this CT. COMPARISON: Comparison is made with prior study dated 02/26/2020. FINDINGS: Mild increased markings at the right lung base suggestive of a scarring. Coronary artery calcification. Normal liver. Normal gallbladder and extrahepatic biliary system. Normal spleen. Normal pancreas. Normal bilateral adrenal glands. Stable right renal cysts. Stable 1 cm cyst in the lateral aspect of the midportion of the left kidney. Normal left kidney. Normal visualized stomach. Normal small intestine. There are multiple colonic diverticula consistent with diverticulosis. The appendix is visualized and appears normal. There is diffuse atherosclerotic calcification of the abdominal aorta. Stable dilatation of the infrarenal abdominal aorta with a transverse dimension of 2.5 cm. Normal inferior vena cava. Normal retroperitoneum. Since prior study, the soft tissue mass arising from the lateral wall of the left-sided bladder as increased in size and inhomogeneity. There is enlargement of the prostate gland. This is unchanged. Normal abdominal wall. There are diffuse degenerative changes of the visualized lumbar spine. CT/Abdomen/Pelvis WITH Contrast IMPRESSION: Since prior study, there has been progression of the mass arising from the bladder wall on the left side. The remainder of the examination is unchanged. Electronically Signed: Shashank Ann, at 10:21 EST , Service support ,
[2020-05-20] MEDS: 0.9% Saline Lock 10 ML Syringe IV (08:10)
== END ==
PROVIDERS: PCP Family Medicine; Referring Provider Internal Medicine Medical Oncology; Visit Provider Internal Medicine Medical Oncology
DX: C67.1 Malignant neoplasm of dome of bladder (principal)
CPT/HCPCS: 71260; 74177; Q9967; A4216

== ENCOUNTER → 2020-07-07 09:24 | Outpatient (CLI) | payer MEDICARE, SELFPAY ==
[2020-05-28 10:01] VITALS: BMI 28.3
[2020-06-04 08:52] VITALS: BMI 28.4
[2020-07-07 09:52] LABS: Erythrocyte Sedimentation Rate 2 mm/hr (0-20)
[2020-07-07 10:11] LABS: Absolute Lymphocyte Count 0.42 X10^3/uL (0.83-4.51); Absolute Neutrophil Count 5.1 X10^3/uL (2.0-7.7); Basophil# 0.04 X10^3/uL; Basophil% 0.6 % (0-1); Eosinophil# 0.52 X10^3/uL; Eosinophils% 7.8 % (0-5); Hematocrit 43.7 % (40-54); Hemoglobin 14.3 g/dL (13.0-16.5); Lymphocyte # 0.42 X10^3/ul (4.0); Lymphocyte % 6.3 % (19-41); Mean Corp Hgb Conc 32.7 g/dL (32-36); Mean Corpuscular Hgb 32.9 pg (27.0-32.0); Mean Corpuscular Volume 100.7 fL (80-94); Mean Platelet Vol. 9.9 fl (6.2-12.0); Monocyte# 0.53 X10^3/uL; NRBC Flagged by Analyzer 0 % (0-5); Neutrophil # 5.12 X10^3/uL (2.7-7.7); Neutrophil % 76.8 % (47-70); POSITIVE DIFFERENTIAL YES; Platelet Count 135 K/mm3 (150-450); RBC Distribution Width CV 13.3 % (11.6-14.6); RBC Distribution Width SD 49.7 fl (35.1-43.9); Red Blood Count 4.34 M/mm3 (4.6-6.2); White Blood Count 6.7 K/mm3 (4.4-11.0)
[2020-07-07 10:19] LABS: CRP < 2.90 mg/L (0.0-3.0); Creatinine, Serum 1.32 mg/dL (0.70-1.30); EST Glomerular Filtration Rate 56 mL/min (>60); Est Glom Filt Rate - Afr Amer 68 mL/min (>60)
[2020-07-07 10:21] LABS: Differential Indicated SCAN CRITERIA MET
[2020-07-07 10:36] LABS: Differential Comment SCANNED
[2020-07-08 17:24] LABS: PROEL- A/G Ratio 1.2 (0.7-1.7); PROEL- Albumin 3.6 g/dL (2.9-4.4); PROEL- Alpha-1 Globulin 0.2 g/dL (0.0-0.4); PROEL- Alpha-2 Globulin 0.9 g/dL (0.4-1.0); PROEL- Beta Globulin 0.9 g/dL (0.7-1.3); PROEL- TOTAL PROTEIN 6.6 g/dL (6.0-8.5)
== END ==
PROVIDERS: PCP Family Medicine; Referring Provider Nurse Practitioner; Visit Provider Nurse Practitioner
DX: Z51.0 Encounter for antineoplastic radiation therapy (principal); C67.1 Malignant neoplasm of dome of bladder; M48.062 Spinal stenosis, lumbar region with neurogenic claudication
CPT/HCPCS: 36415; 77336; 77387; 77412; 82565; 84165; 85025; 85652; 86140

== ENCOUNTER → 2020-08-31 08:16 | Outpatient (CLI) | payer MEDICARE, SELFPAY ==
[2020-05-28 10:01] VITALS: BMI 28.3
[2020-08-17 09:54] VITALS: BMI 28.1
--- NOTE | 2020-08-31 08:21 | CT_ITS ---
STUDY: CT CHEST, ABDOMEN T PELVIS WITH CONTRAST REASON FOR EXAM: Male, 74 years old. BLADDER CANCER-CHEMO, NO SURG, CABG AND MITRAL VALVE REPAIR RADIATION DOSAGE (If Supplied By Facility): CTDIvol = ( 17.36 ) mGy, DLP = ( 1946.17 ) mGycm TECHNIQUE: Transaxial imaging was performed following intravenous administration of IV 100mL Isovue-300. Individualized dose optimization techniques were used for this CT. COMPARISON: 05/20/2020 FINDINGS: CHEST Right internal jugular chest port. Mild emphysematous changes. No noncalcified nodule or mass. There is no demonstrated pleural abnormality. Normal heart and pericardium. Normal mediastinum. Normal hilar regions. Normal unenhanced pulmonary arteries. Normal aorta arch and descending thoracic aorta. Normal osseous structures. There is no demonstrated abnormality of the visualized upper abdomen. ABDOMEN The visualized lung bases are unremarkable. The visualized portions of the heart are within normal limits. Normal liver. Normal gallbladder and extrahepatic biliary system. Normal spleen. Normal pancreas. Normal bilateral adrenal glands. 2.5 cm cyst in the upper pole the right kidney. Normal left kidney. Normal visualized stomach. Normal small intestine. There is diverticulosis, with thickening of the colon wall, and pericolonic inflammation changes consistent with acute diverticulitis. The appendix is visualized and appears normal. Normal abdominal aorta. Normal inferior vena cava. Normal retroperitoneum. Normal abdominal wall. Mild dextroscoliosis of the lumbar spine with degenerative disc disease. Status post transpedicular fixation at L3/L4 PELVIS Normal urinary bladder. Normal visualized small intestine. Normal visualized colon. There is no pelvic fluid. There is no pelvic lymphadenopathy or mass lesion. Normal visualized pelvic arteries. Normal abdominal wall. Normal osseous structures. CT/CT Chest, Abd, Pel w/Contrast IMPRESSION: No CT evidence of residual, recurrent, or metastatic bladder cancer. Electronically Signed: Gunner Mae MD at 17:33 EDT Tel , Service support ,
[2020-08-31] MEDS: 0.9% Saline Lock 10 ML Syringe IV (08:35)
== END ==
PROVIDERS: PCP Family Medicine; Referring Provider Internal Medicine Medical Oncology; Visit Provider Internal Medicine Medical Oncology
DX: C67.9 Malignant neoplasm of bladder, unspecified (principal); C79.51 Secondary malignant neoplasm of bone; C77.2 Secondary and unspecified malignant neoplasm of intra-abdominal lymph nodes
CPT/HCPCS: 71260; 74177; Q9967; A4216

== ENCOUNTER → 2020-09-03 08:24 | Outpatient (CLI) | payer MEDICARE, SELFPAY ==
[2020-05-28 10:01] VITALS: BMI 28.3
[2020-08-17 09:54] VITALS: BMI 28.1
--- NOTE | 2020-09-03 08:26 | NM_ITS ---
CLINICAL: 74-year-old male with reported history of carcinoma of the urinary bladder WHOLE BODY 99m Tc MDP RADIONUCLIDE BONE SCINTIGRAPHY COMPARISON: Previous whole body bone scintigraphy report 08/12/2019 FINDINGS: Following the intravenous administration of approximately 25.0 mCi of 99m Tc MDP, whole body bone images reveal: 1. Increased radiopharmaceutical concentration is redemonstrated in the left proximal clavicle. Corresponding sclerotic changes noted in the analogous location on review of CT of the chest dated 08/31/2020. 2. Enhanced tracer uptake is noted in the acromioclavicular, glenohumeral and sternoclavicular compartments of both shoulders, bilateral elbows, wrists and hands, 10th thoracic vertebra posteriorly on the left, first-fifth lumbar vertebra. 3. The remaining skeletal structures are scintigraphically unremarkable with normal-appearing renal images and urinary bladder activity identified. NM/Bone Scan Whole Body IMPRESSION: 1. The increase in tracer uptake defined in the left proximal clavicle is likely most consistent with trauma-fracture. 2. Degenerative arthritis appears expressed in the bilateral shoulders and elbows, right and left wrists, both hands, thoracic and lumbar spine. 3. There is no definitive typical scintigraphic evidence of diffuse axial skeletal metastatic disease on the current examination. Electronically Signed: Gunner Martinez DO at 20:59 EDT Tel , Service support ,
== END ==
PROVIDERS: PCP Family Medicine; Referring Provider Internal Medicine Medical Oncology; Visit Provider Internal Medicine Medical Oncology
DX: C67.9 Malignant neoplasm of bladder, unspecified (principal); C79.51 Secondary malignant neoplasm of bone
CPT/HCPCS: 78306

== ENCOUNTER → 2020-09-18 10:18 | Outpatient (CLI) | payer MEDICARE, SELFPAY ==
[2020-05-28 10:01] VITALS: BMI 28.3
[2020-08-17 09:54] VITALS: BMI 28.1
--- NOTE | 2020-09-18 10:16 | MRI_ITS ---
STUDY: MRI BRAIN WITH AND WITHOUT CONTRAST (ATTENTION INTERNAL AUDITORY CANALS - I.A.C.''s) REASON FOR EXAM: Male, 75 years old. Left Acoustic Neuroma -- ATTENTION TO THE INTERNAL AUDITORY CANALS TECHNIQUE: Standardized multiplanar fat and water weighted pulse sequences were obtained. 15 ml of dotarem contrast material was administered intravenously for the contrast portion of the examination. COMPARISON: MRI of the brain dated January 15, 2020. FINDINGS: Normal bilateral temporal bones. Normal bilateral internal auditory canals. 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 This is unchanged when compared to the prior study. The right internal auditory canal and associated structures are normal. There is no enhancement of the bilateral VIIth or VIIIth cranial nerves. Normal bilateral cochlea, vestibules and semicircular canals. There is mild cerebral atrophy with widening of the extra-axial spaces and ventricular dilatation. There are a limited number of small white matter hyperintensities, distributed throughout the deep white matter tracts of the cerebral hemispheres, consistent with mild chronic white matter ischemic changes. Normal bilateral basal ganglia. Normal thalami. Normal flow voids within the major intracranial circulation suggesting patency by spin echo criteria. Normal venous enhancement. There is no enhancing intra-axial or extra-axial abnormality. There is no extra-axial fluid accumulation. Normal sella turcica, pituitary gland, infundibular stalk, optic chiasm and hypothalamus. Normal tectal plate and pineal gland. Normal midbrain, santana and medulla. Normal cerebellum. Normal basal cisterns. No demonstrated orbital abnormality, within the constraints of a routine brain study. Normal visualized paranasal sinuses. Normal calvarium and skull base. Normal visualized soft tissue structures. Normal visualized upper cervical spine. MRI/Brain W/WO Contrast IMPRESSION: 1. 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 This is unchanged when compared to the prior study. The right internal auditory canal and associated structures are normal. Electronically Signed: Daniel Smith MD at 14:01 EDT , Service support ,
== END ==
PROVIDERS: PCP Family Medicine; Referring Provider Psychiatry & Neurology Neurology; Visit Provider Psychiatry & Neurology Neurology
DX: D33.3 Benign neoplasm of cranial nerves (principal)
CPT/HCPCS: 70553; A9575

== ENCOUNTER → 2020-11-30 11:19 | Outpatient (CLI) | payer MEDICARE, SELFPAY ==
[2020-05-28 10:01] VITALS: BMI 28.3
[2020-11-30 09:55] VITALS: BMI 27.1
--- NOTE | 2020-11-30 11:22 | RAD_ITS ---
STUDY: X-RAY CHEST REASON FOR EXAM: Male, 75 years old. BLADDER CANCER-SOB AFTER EATING TECHNIQUE: PA and lateral views of the chest. COMPARISON: CT 08/31/2020 FINDINGS: Right chest port stable. There is hyperinflation of the lungs consistent with chronic obstructive lung disease (COPD). No airspace consolidation. There is no demonstrated pleural abnormality. Stable size heart. Mitral valve operative changes. Normal visualized pulmonary arteries. There is atherosclerotic tortuosity of the aortic arch and descending thoracic aorta. Fusion hardware of the upper lumbar spine. Degenerative changes of the spine. There is no demonstrated abnormality of the visualized soft tissue structures of the upper abdomen. RAD/Chest PA and Lateral IMPRESSION: 1. No acute cardiopulmonary process. Electronically Signed: Nura Duval MD ([place]) at 7:47 EDT , Service support ,
== END ==
PROVIDERS: PCP Family Medicine; Referring Provider Internal Medicine Medical Oncology; Visit Provider Internal Medicine Medical Oncology
DX: R06.02 Shortness of breath (principal); C67.1 Malignant neoplasm of dome of bladder; I10 Essential (primary) hypertension
CPT/HCPCS: 36591; 71046; 80053; 83615; 84100; 84443; 85025; A4216

== ENCOUNTER → 2020-12-10 09:52 | Outpatient (CLI) | payer MEDICARE, SELFPAY ==
[2020-05-28 10:01] VITALS: BMI 28.3
[2020-12-07 10:36] VITALS: BMI 27.6
[2020-12-10 12:12] LABS: ALB/GLOB Ratio 1.2 RATIO (0.9-2.4); AST(SGOT) 13 U/L (15-37); Alanine Aminotransfer ALT/SGPT 25 U/L (16-61); Albumin, Serum 3.6 g/dL (3.2-5.0); Alkaline Phosphatase 96 U/L (45-117); Anion Gap 4 (5-15); BUN 18 mg/dL (7-18); BUN/Creat Ratio 13.8 RATIO (10-20); Calcium,Total 8.6 mg/dL (8.5-10.1); Chloride 104 mmol/L (98-107); Cholesterol 109 mg/dL (200); EST Glomerular Filtration Rate 57 mL/min (>60); Est Glom Filt Rate - Afr Amer 69 mL/min (>60); Glucose 71 mg/dL (74-106); High Density Lipoprotein 36 mg/dL; Potassium 4.5 mmol/L (3.5-5.1); Protein, Total 6.6 g/dL (6.4-8.2); Sodium Level 138 mmol/L (136-145); Triglycerides 76 mg/dL; Very Low Density Lipoprotein 15 mg/dL (5-40)
[2020-12-10 12:15] LABS: Hemoglobin A1c 5.2 % (3.8-5.6)
== END ==
PROVIDERS: PCP Family Medicine; Referring Provider Family Medicine; Visit Provider Family Medicine
DX: E78.5 Hyperlipidemia, unspecified (principal); R73.02 Impaired glucose tolerance (oral)
CPT/HCPCS: 36415; 80053; 80061; 83036

== ENCOUNTER → 2021-03-17 13:08 | Outpatient (CLI) | payer MEDICARE, SELFPAY ==
[2020-05-28 10:01] VITALS: BMI 28.3
--- NOTE | 2021-03-17 13:10 | CT_ITS ---
STUDY: CT CHEST, ABDOMEN T PELVIS WITH CONTRAST REASON FOR EXAM: Male, 75 years old. ASSESS TREATMENT RESPONSE. IV CONTRAST ONLY. Patient has a history of bladder cancer. RADIATION DOSAGE (If Supplied By Facility): CTDIvol = ( 15.28 ) mGy, DLP = ( 1511.18 ) mGycm TECHNIQUE: Transaxial imaging was performed following intravenous administration of IV 100mL Isovue-300. Individualized dose optimization techniques were used for this CT. COMPARISON: Comparison is made with prior study dated 08/31/2020 FINDINGS: CHEST A right-sided portacatheter is seen with the tip in the superior vena cava. Mild degree of emphysematous changes. Stable minimal linear scarring at the right lung base. There is no demonstrated pleural abnormality. Sternal cerclage wires and vascular clips are present from a prior sternotomy and coronary artery bypass graft procedure (CABG). Coronary artery calcification. Normal mediastinum. Normal hilar regions. Normal unenhanced pulmonary arteries. There is atherosclerotic calcification of the aortic arch with tortuosity and elongation of the aortic arch and descending thoracic aorta. There are multi-level degenerative changes of the thoracic spine. ABDOMEN Normal liver. Normal gallbladder and extrahepatic biliary system. Normal spleen. Normal pancreas. Normal bilateral adrenal glands. There is a 3.4 cm cyst in the upper midportion of the right kidney. Normal left kidney. Normal visualized stomach. Normal small intestine. There are multiple colonic diverticula consistent with diverticulosis. There is non-visualization of the appendix. There is diffuse atherosclerotic calcification of the abdominal aorta, without a demonstrated aneurysm. Normal inferior vena cava. Normal retroperitoneum. Normal abdominal wall. There are diffuse degenerative changes of the visualized lumbar spine. The patient is status post fixation at the L3-L4 level. PELVIS Normal urinary bladder. Normal visualized small intestine. Normal visualized colon. There is no pelvic fluid. There is no pelvic lymphadenopathy or mass lesion. There is diffuse atherosclerotic calcification of the pelvic arteries. CT/CT Chest, Abd, Pel w/Contrast IMPRESSION: Stable examination. Electronically Signed: Shashank Ann MD at 14:26 EDT , Service support ,
[2021-03-17] MEDS: 0.9% Saline Lock 10 ML Syringe IV (13:25)
== END ==
PROVIDERS: PCP Family Medicine; Visit Provider Internal Medicine Medical Oncology
DX: C67.9 Malignant neoplasm of bladder, unspecified (principal)
CPT/HCPCS: 71260; 74177; Q9967; A4216

== ENCOUNTER → 2021-04-07 10:45 | Outpatient (CLI) | payer MEDICARE, SELFPAY ==
[2020-05-28 10:01] VITALS: BMI 28.3
--- NOTE | 2021-04-07 10:47 | CDU_ITS ---
Reason For Study: Carotid Endarterectomy Rt. Velocities/BP Lt. Velocities/BP Prox CCA 61/19 cm/sec. Prox CCA 82/25 cm/sec. Mid CCA 78/20 cm/sec. Mid CCA 72/26 cm/sec. Dist CCA 72/18 cm/sec. Dist CCA 69/23 cm/sec. Prox ICA 70/28 cm/sec. Prox ICA 68/23 cm/sec. Mid ICA 81/30 cm/sec. Mid ICA 75/29 cm/sec. Dist ICA 70/25 cm/sec. Dist ICA 61/26 cm/sec. Rt. ICA/CCA = 1.0. Lt. ICA/CCA = 1.0. Prox ECA 70/11 cm/sec. Prox ECA 100/22 cm/sec. Rt. Vert. 24/8 cm/sec. Lt. Vert. 49/16 cm/sec. Right Extracranial There is heterogeneous, irregular atherosclerotic plaque noted in the right common carotid artery. There is heterogeneous, irregular atherosclerotic plaque noted in the right internal carotid artery. There is intimal thickening but no significant atherosclerotic plaque noted in the right external carotid artery. Antegrade flow is noted in the right vertebral artery. Left Extracranial There is heterogeneous, irregular atherosclerotic plaque noted in the left common carotid artery. There is heterogeneous, irregular atherosclerotic plaque noted in the left internal carotid artery. There is heterogeneous, irregular atherosclerotic plaque noted in the left external carotid artery. Antegrade flow is noted in the left vertebral artery. Procedure Carotid Duplex 12945. This is a Carotid Duplex examination using B-mode, color flow and specral Doppler. Exam performed in department. VL/Carotid Duplex Ultrasound Interpretation Summary Irregular plaque at the proximal right internal carotid artery with less than 5 0% stenosis Less than 50% stenosis right external carotid artery Postoperative change left carotid bulb and proximal internal carotid artery wit h irregular plaque. Less than 50% stenosis left internal carotid artery Less than 50% stenosis left external carotid artery Patent and antegrade vertebral arteries bilaterally Ordering Physician: Jomar Quinteros Referring Physician: Demond Davis Performed By: Paz Lal RDCS, RVT
== END ==
PROVIDERS: PCP Family Medicine; Referring Provider Internal Medicine Cardiovascular Disease; Visit Provider Internal Medicine Cardiovascular Disease
DX: I65.22 Occlusion and stenosis of left carotid artery (principal)
CPT/HCPCS: 93880

== ENCOUNTER → 2021-06-17 10:42 | Outpatient (CLI) | payer MEDICARE, SELFPAY ==
[2020-05-28 10:01] VITALS: BMI 28.3
--- NOTE | 2021-06-17 10:48 | US_ITS ---
INDICATION: incomplete bladder emptying, history of bph and bladder CA EXAMINATION: Ultrasound US Post Void Residual Urine/Bladder TECHNIQUE: Thorpe scale and color doppler imaging was performed of the urinary bladder. COMPARISON: None. FINDINGS: Unremarkable anechoic internal echogenicity visualized within the urinary bladder, no evidence of bladder stones or masses. Mild irregularity in the bladder wall visualized with focal hyperechoic area/septations seen, mild prominence of the wall of the urinary bladder is seen. Bilateral ureteral jets are visualized and unremarkable. Pre-void volume is 201.5. Post-void volume is 88.1. Post-void residual is 43%. US/Post Void Residual Bladder IMPRESSION: No evidence of bladder wall mass, post void residual of 43%. Electronically Signed: Vickey Jackman MD at 16:19 EST Tel , Service support ,
== END ==
PROVIDERS: PCP Family Medicine; Referring Provider Family Medicine; Visit Provider Family Medicine
DX: R33.9 Retention of urine, unspecified (principal)
CPT/HCPCS: 51798

== ENCOUNTER 2021-06-28 11:55 | Outpatient (CLI) | payer MEDICARE, SELFPAY ==
[2020-05-28 10:01] VITALS: BMI 28.3
--- NOTE | 2021-06-28 11:59 | RAD_ITS ---
HISTORY: ACUTE BRONCHITIS EXAMINATION/TECHNIQUE: XR Chest 2 Views: COMPARISON: November 30, 2020 FINDINGS: LINES/DEVICES: Unchanged right chest port. LUNGS: No airspace consolidation. Mild basilar peribronchial thickening. No effusion. No pneumothorax. MEDIASTINUM: No cardiomegaly. Bilateral pulmonary arterial enlargement. Aortic tortuosity. MUSCULOSKELETAL: No acute osseous finding. Sternotomy wires midline and intact. RAD/Chest PA and Lateral IMPRESSION: No evidence of consolidative pneumonia Mild basilar peribronchial thickening which can be seen with bronchitis/bronchiolitis. Pulmonary arterial enlargement compatible with pulmonary hypertension. at 0536 Reported and signed by: Andrés Morris MD Electronically Signed: Andrés Morris MD at 5:35 EST Tel , Service support ,
== END 2021-06-28 23:59 | disposition short-term general hospital (02) ==
LOC: MTRAD 11:57
PROVIDERS: PCP Family Medicine; Referring Provider Family Medicine; Visit Provider Family Medicine
DX: J20.9 Acute bronchitis, unspecified (principal)
CPT/HCPCS: 71046

== ENCOUNTER 2021-07-09 14:27 | Outpatient (CLI) | payer MEDICARE, SELFPAY ==
[2021-07-09 12:56] VITALS: BMI 28.3
== END 2021-07-09 23:59 | disposition short-term general hospital (02) ==
LOC: LABSPEC 14:28
PROVIDERS: PCP Family Medicine; Referring Provider Physician Assistant Surgical; Visit Provider Physician Assistant Surgical
DX: Z20.822 Contact with and (suspected) exposure to COVID-19 (principal)
CPT/HCPCS: 87635; U0003; U0005

== ENCOUNTER 2021-08-24 07:11 | Day surgery (SDC) | payer MEDICARE, SELFPAY ==
--- NOTE | 2021-08-24 | GASB_PTH ---
PATIENT: VALE GARCIA LOC: [facility] U#:[id number] AGE/SX: 75/M ROOM: RE08/24/[address]: Dr. Victorino Hernandez MD : 1945 BED: DIS: 08/24/2021 SPEC #: [id number] RECD: 08/24/21 12:19 STATUS: ARAM NARESH #: [id number] GENESIS: 08/24/21 00:[address]: Victorino Hernandez DEPT: SURGICAL PATHOLOGY RECD BY: Jaya Garcia ENTERED: 08/24/21 12:19 SP TYPE: Gastric Bx OTHR DR: Dr. Demond Davis MD Tissues: A - Gastric mucous membrane B - Stomach, NOS C - Esophageal mucous membrane D - Rectum, NOS Procedures: Special Stain Group II Surgery Specimen Level IV Alcian Blue/PAS (control) HEADER OPERATION: Colonoscopy, EGD (MAC), biopsy, polyp PRE-OP DIAGNOSIS: History of colonic polyps TISSUE SUBMITTED: A ? Antrum biopsy for H. pylori and path, B ? Lesser curvature biopsy, C ? Distal esophagus biopsy, D ? Rectal polyp MICROSCOPIC DIAGNOSIS A. Antrum, biopsy: Mild gastritis. See microscopic description and comment. B. Lesser curvature, biopsy: Mild gastritis. See microscopic description. C. Distal esophagus, biopsy: Fragments of gastroesophageal mucosa with mild chronic inflammation. Intestinal metaplasia (goblet cell metaplasia) not identified. See comment. D. Rectal polyp, biopsy: Fragments of tubular adenoma. SJ:deirdre 08/25/2021 COMMENT A. The results of immunohistochemistry for Helicobacter pylori will be reported separately ([id number]). C. Alcian blue/PAS stain with matched control is used in the evaluation of the specimen. MICROSCOPIC DESCRIPTION Slides are reviewed. A. The specimen shows fragments of gastric mucosa with chronic inflammatory cell infiltrates in the lamina propria consisting of lymphocytes and plasma cells, consistent with mild chronic gastritis. B. The specimen shows fragments of gastric mucosa with chronic inflammatory cell infiltrates in the lamina propria consisting of lymphocytes and plasma cells, consistent with mild chronic gastritis. Focal mucosal congestion is also noted. GROSS DESCRIPTION A - Received in fixative is one container labeled with the patient's name and designated antrum biopsy. The specimen consists of one irregular fragment of light cullen soft tissue that measures 0.3 x 0.3 x 0.1 cm. The specimen is totally submitted in one cassette. B - Received in fixative is one container labeled with the patient's name and designated lesser curvature biopsy. The specimen consists of one irregular fragment of light cullen soft tissue that measures 0.3 x 0.3 x 0.1 cm. The specimen is totally submitted in one cassette. C - Received in fixative is one container labeled with the patient's name and designated distal esophagus biopsy. The specimen consists of two irregular fragments of light cullen soft tissue that in aggregate measure 0.6 x 0.3 x 0.1 cm. The specimen is totally submitted in one cassette. D - Received in fixative is one container labeled with the patient's name and designated rectal polyp. The specimen consists of a piece of cullen-pink polyp measuring 0.6 x 0.5 x 0.3 cm. Also present in the container are a few fragments of fecal material. The entire specimen is submitted in one cassette. / KRISTI:deirdre 08/24/2021 TC:1 CPT: 45685 x4, 81936
--- NOTE | 2021-08-24 07:18 | HP.PCM_ITS ---
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: No Is patient in pain?: No Allergies No Known Allergies Allergy (Verified 08/10/21 13:37) Medications travoprost 1 drp EACH EYE QHS 12/11/13 [History Confirmed 08/10/21] atorvastatin 40 mg tablet 40 mg PO QDAY tablet 12/22/17 [History Confirmed 08/10/21] acetaminophen 500 - 1,000 mg PO Q6H PRN PRN 05/04/18 [History Confirmed 08/10/21] tamsulosin 0.4 mg capsule 0.8 mg PO DAILY cap 08/17/18 [History Confirmed 08/10/21] aspirin 162 mg PO DAILY 01/20/20 [History Confirmed 08/10/21] naproxen sodium 220 mg PO DAILY PRN 01/20/20 [History Confirmed 08/10/21] multivitamin with folic acid 1 tablet PO DAILY 02/11/20 [History Confirmed 08/10/21] pembrolizumab 25 mg/mL intravenous solution 200 mg .ROUTE .Q3WK ml 09/22/20 [History Confirmed 08/10/21] amantadine HCl 100 mg capsule 100 mg PO BID #60 cap 05/12/21 [Rx Confirmed 08/10/21] metoprolol tartrate 25 mg tablet 25 mg PO BID #180 tablet 08/09/21 [Rx Confirmed 08/10/21] potassium phosphate, monobasic 500 mg soluble tablet 1,000 mg PO DAILY #14 tab 08/09/21 [Rx Confirmed 08/10/21] gabapentin 100 mg capsule 100 mg PO TID cap 08/10/21 [History Confirmed 08/10/21] PFS Medical History Anemia due to chemotherapy Arthritis Atherosclerotic heart disease of [place] coronary artery without angina pectoris Bladder cancer (04/2018) Cancer of bladder wall Chemotherapy management, encounter for CINV (chemotherapy-induced nausea and vomiting) Educational circumstance Essential hypertension Fatigue Glaucoma History of squamous cell carcinoma (~10/2019) HLD (hyperlipidemia) Iron deficiency anemia Lung infiltrate on CT Lymphadenopathy, inguinal Mediastinal adenopathy Nonrheumatic mitral (valve) insufficiency KAYLYNN (obstructive sleep apnea) Parkinson disease Pelvic lymphadenopathy PVCs (premature ventricular contractions) Retroperitoneal lymphadenopathy Shingles Skin lesion SOB (shortness of breath) 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 Witnessed episode of apnea Surgical History H/O arthroscopic knee surgery H/O coronary artery bypass surgery (11/2009) History of back surgery History of biopsy of bladder History of left-sided carotid endarterectomy (02/2010) History of mitral valve repair (07/22/13) History of squamous cell carcinoma excision (~10/2019) History of toe surgery PORT PLACEMENT Family History (Updated 08/10/21 @ 13:35 by [facility]) Father Myocardial infarction CAD (coronary artery disease) Heart disease Mother Heart disease Dementia Hypertension Social History Smoking Status: Former smoker Tobacco: How many years used: 20 Smokeless tobacco user: snuff Electronic Cigarette Use: not used second hand exposure: No alcohol intake: never substance use type: does not use caffeine: Yes Type: coffee Number of servings: 3 and tea Number of servings: 2 HPI HPI HPI: VALE GARCIA, is a 75 M who presents to the office today for for surgical consultation regarding a colonoscopy. The patient is referred by his primary care physician Dr Demond Davis and a written copy my surgical consult recommendations will return to him. The patient had a previous colonoscopy greater than 5 years ago at [facility] and polyps were identified. The patient has had a history of cardiac bypass surgery and mitral valve repair. He is on low-dose aspirin therapy. He is currently on pembrolizumab for bladder cancer under the care of Dr. Shamar Cardona. The patient is to hold his Keytruda prior to cataract surgery. He has also to have a spinal stimulator implanted in the near future. After the patient's departure we were able to obtain pathology records from his previous colonoscopy July 26, 2017 performed at [facility] by . Rectal biopsies suggested findings concerning for ischemic colitis. 10 cm from the anal verge there were fragments of tubulovillous adenoma and at the anal verge there was a tubular adenoma. The patient had anemia at that time. An upper endoscopy was done as well showing a small hiatal hernia but no active disease. A tattoo was placed to the size of a large tubulovillous adenoma. ROS General General: No weight change, appetite, fatigue, colon cancer, breast cancer or weakness HEENT HEENT: No difficulty swallowing, eye injury, eye surgery, swollen glands or hoarseness Endo Endocrine: No thyroid disease, diabetes mellitus, thyroid cancer, Hair loss, heat intolerance or cold intolerance Skin Skin: No rash or changing moles Musc Musculoskeletal: Yes back problems and arthritis; No rheumatoid arthritis, gout or joint pain Cardio Cardiovascular: Yes heart disease and heart attack; No murmur, pacemaker, atrial fibrillation, high blood pressure, heart stent, palpitations, shortness of breat with exertion or chest pain Psych Psychiatric: No depression, anxiety or hearing voices Resp Respiratory: Yes shortness of breath, Yes sleep apnea, No cough, No COPD, No asthma, No emphysema and No wheezing Gastro Gastrointestinal: No abdominal pain, No nausea or vomiting, No diarrhea, No constipation, No blood in stool, No acid reflux, No hemorrhoids, No ulcers, No gallbladder problem and No black,tarry stools Francisco J Hematologic: Yes blood thinners, No blood disorders, No bleeding, No anemia and No blood clots Additional Details: Aspirin 81mg two daily Neuro Neurologic: No system reviewed and no additional complaints, except as documented, No as per HPI, No abnormal gait, No abnormal hearing, No abnormal movements, No abnormal speech, No behavioral changes, No burning sensations, No confusion, No convulsions, No disequilibrium, No dizziness, No localized weakness, No frequent falls, No headache(s), No lack of coordination, No loss of vision, No memory loss, No numbness, No other visual disturbances, No radicular pain, No restless legs, No sensory deficit, No syncope, No tingling, No tremor(s), No weakness and No other Exam Const General: cooperative, comfortable and no acute distress Nutritional Appearance: average body habitus Orientation: alert and awake [facility] Head: normal to inspection Eyes General: appearance normal, both eyes and all related structures Chest Chest palpation & inspection: normal inspection of the chest Resp Effort & Inspection: normal respiratory effort Auscultation: clear to auscultation bilaterally Cardio Rate: regular rate Rhythm: regular rhythm GI Palpation: soft and no hepatosplenomegaly Auscultation: normal bowel sounds Musc Cervical Spine: normal cervical lordosis Skin General: no rashes or lesions noted Neuro General: patient alert and patient awake Extrem General: no calf tenderness Psych Appearance: grossly normal Assessment and Plan Assessment and Plan (1) Personal history of colonic polyps: Status: Acute Plan - Dr. Victorino Hernandez MD: Having reviewed the pathology I do believe that the benefit risk ratio is in his favor for repeat colonoscopy with possible biopsy or polypectomy as indicated. Performing this during a period of time when you have is off his Keytruda would be pertinent. We will notify him of this finding. I would propose monitored anesthesia care. He is aware of the technique, benefit, risk, alternatives. He has had an opportunity to ask and have questions answered. We will schedule and proceed at his discretion. I appreciate the opportunity of assisting with the surgical care. Copy: Dr Demond Davis and Dr. Shamar Hernandez M.D., F.A.C.S. I have re-examined the patient. There are no clinical changes since date of exam.
[2021-08-24 07:40] VITALS: BP 117/72; PULSE 63; RESP 18; TEMP 36.3; O2SAT 97; BMI 27.8
[2021-08-24] MEDS: Lactated Ringers 1,000 ML 15 ML IV (07:58)
--- NOTE | 2021-08-24 08:15 | IMM_PTH ---
PATIENT: VALE GARCIA LOC: [facility] U#:[id number] AGE/SX: 75/M ROOM: RE08/24/[address]: Dr. Victorino Hernandez MD : 1945 BED: DIS: 08/24/2021 SPEC #: [id number] RECD: 08/24/21 13:49 STATUS: ARAM NARESH #: [id number] GENESIS: 08/24/21 08:[address]: Victorino Hernandez DEPT: IMMUNOHISTOCHEMISTRY RECD BY: Talia Pelletier ENTERED: 08/24/21 13:50 SP TYPE: IMMUNO OTHR DR: Dr. Demond Davis MD Tissues: A - Stomach, NOS Procedures: H Pylori (initial) PHYSICIAN & INSTITUTION [place] [address] SPECIMEN INFORMATION: Tissue Source: A ? Antrum biopsy Clinical Info: History of colonic polyps Specimen Number: [id number] CPT code: 07638 METHODOLOGY: Deparaffinized sections of prefer/formalin-fixed tissue or PAP/DQ stained slides are incubated with monoclonal/polyclonal antibodies/oligonucleotide probes. Localization is made via biotin free immunoperoxidase method. Appropriate controls are performed and reacted as expected. Results on target cell population are indicated in the following table: RESULTS: ANTIBODY / CLONE RESULT Block A H Pylori (polyclonal) negative These tests were developed and their performance characteristics determined by [facility]. They may not have been cleared or approved by the U.S. Food and Drug Administration. The FDA has determined that such clearance or approval is not necessary. INTERPRETATION: A. Antrum, biopsy: Negative for Helicobacter pylori organisms. SJ:deirdre 08/25/2021
[2021-08-24 09:05] VITALS: BP 117/72; BP 90/53; PULSE 61; RESP 16; TEMP 36.6; O2SAT 100
--- NOTE | 2021-08-24 09:05 | OP.EGD_ITS ---
Patient Name: Smith Jaeger Procedure Date: 08/24/2021 8:26 AM Date of : 1945 Age: 75 Procedure: Upper GI endoscopy Indications: Suspected gastro-esophageal reflux disease Providers: Victorino Hernandez MD Referring MD: Demond Davis Medicines: See the Anesthesia note for documentation of the administered medications Complications: No immediate complications. Procedure: Pre-Anesthesia Assessment: - Prior to the procedure, a History and Physical was performed, and patient medications and allergies were reviewed. The patient's tolerance of previous anesthesia was also reviewed. The risks and benefits of the procedure and the sedation options and risks were discussed with the patient. All questions were answered, and informed consent was obtained. Prior Anticoagulants: The patient has taken no previous anticoagulant or antiplatelet agents. ASA Grade Assessment: II - A patient with mild systemic disease. After reviewing the risks and benefits, the patient was deemed in satisfactory condition to undergo the procedure. After obtaining informed consent, the endoscope was passed under direct vision. Throughout the procedure, the patient's blood pressure, pulse, and oxygen saturations were monitored continuously. The Endoscope was introduced through the mouth, and advanced to the second part of duodenum. The upper GI endoscopy was accomplished without difficulty. The patient tolerated the procedure well. Scope In: 8:35:01 AM Scope Out: 8:40:08 AM Total Procedure Duration Time 0 hours 5 minutes 7 seconds Findings: Esophagitis with no bleeding was found 40 cm from the incisors. Biopsies were taken with a cold forceps for histology. Localized mild inflammation characterized by linear erosions was found on the lesser curvature of the stomach and in the gastric antrum. Biopsies were taken with a cold forceps for histology. The examined duodenum was normal. A small hiatal hernia was present. Impression: - Reflux esophagitis. Biopsied. Hiatal hernia noted. - Chronic gastritis. Biopsied. - Normal examined duodenum. Recommendation: - Discharge patient to home. - Resume previous diet. - Continue present medications. - Use Prilosec (omeprazole) 20 mg PO daily. Procedure Code(s): --- Professional --- 98115, Esophagogastroduodenoscopy, flexible, transoral; with biopsy, single or multiple Diagnosis Code(s): --- Professional --- K21.0, Gastro-esophageal reflux disease with esophagitis K29.50, Unspecified chronic gastritis without bleeding CPT copyright 2017 [employer]. All rights reserved. The codes documented in this report are preliminary and upon general education instructor review may be revised to meet current compliance requirements. Victorino Hernandez MD 08/24/2021 9:04:57 AM This report has been signed electronically. Number of Addenda: 0 Note Initiated On: 08/24/2021 8:26 AM
--- NOTE | 2021-08-24 09:06 | OP.CCLET_ITS ---
08/24/2021 Demond Davis [address] [place] [address] Re : Upper GI endoscopy procedure for Smith Jaeger Dear Dr. Davis This procedure was performed on Tuesday, August 24, 2021. My impressions and recommendations are as follows: Impressions : - Reflux esophagitis. Biopsied. Hiatal hernia noted. - Chronic gastritis. Biopsied. - Normal examined duodenum. Recommendations : - Discharge patient to home. - Resume previous diet. - Continue present medications. - Use Prilosec (omeprazole) 20 mg PO daily. My findings are described in the full procedure note, which is enclosed. If I can be of further assistance, please feel free to contact me at Doctor phone number(s): Work: . Sincerely, Victorino Hernandez MD 08/24/2021 9:04:57 AM This report has been signed electronically.
[2021-08-24 09:10] VITALS: BP 117/72; BP 90/57; PULSE 61; RESP 16; O2SAT 99
--- NOTE | 2021-08-24 09:11 | OP.COLON_ITS ---
Patient Name: Smith Jaeger Procedure Date: 08/24/2021 8:40 AM Date of : 1945 Age: 75 Procedure: Colonoscopy Indications: High risk colon cancer surveillance: Personal history of colonic polyps Providers: Victorino Hernandez MD Referring MD: Demond Davis Medicines: See the Anesthesia note for documentation of the administered medications Patient Profile: Last Colonoscopy: July 2017. Complications: No immediate complications. Procedure: Pre-Anesthesia Assessment: - Prior to the procedure, a History and Physical was performed, and patient medications and allergies were reviewed. The patient's tolerance of previous anesthesia was also reviewed. The risks and benefits of the procedure and the sedation options and risks were discussed with the patient. All questions were answered, and informed consent was obtained. Prior Anticoagulants: The patient has taken no previous anticoagulant or antiplatelet agents. ASA Grade Assessment: II - A patient with mild systemic disease. After reviewing the risks and benefits, the patient was deemed in satisfactory condition to undergo the procedure. After I obtained informed consent, the scope was passed under direct vision. Throughout the procedure, the patient's blood pressure, pulse, and oxygen saturations were monitored continuously. The Colonoscope was introduced through the anus and advanced to the cecum, identified by appendiceal orifice and ileocecal valve. The colonoscopy was performed without difficulty. The patient tolerated the procedure well. The quality of the bowel preparation was fair. Scope In: 8:41:54 AM Scope Out: 8:59:26 AM Total Procedure Duration Time 0 hours 17 minutes 32 seconds Findings: The digital rectal exam findings include non-thrombosed external hemorrhoids, non-thrombosed internal hemorrhoids and internal hemorrhoids that prolapse with straining, but spontaneously regress to the resting position (Grade II). A 12 mm polyp was found in the rectum. The polyp was sessile. The polyp was removed with a hot snare. Resection and retrieval were complete. Multiple diverticula were found in the sigmoid colon. The exam was otherwise without abnormality. Impression: - Preparation of the colon was fair. - Non-thrombosed external hemorrhoids, non-thrombosed internal hemorrhoids and internal hemorrhoids that prolapse with straining, but spontaneously regress to the resting position (Grade II) found on digital rectal exam. - One 12 mm polyp in the rectum, removed with a hot snare. Resected and retrieved. - Diverticulosis in the sigmoid colon. - The examination was otherwise normal. Recommendation: - Discharge patient to home. - Resume previous diet. - Continue present medications. - Repeat colonoscopy in 5 years for surveillance based on pathology results. - Telephone my office for pathology results in 1 week. Procedure Code(s): --- Professional --- 11329, Colonoscopy, flexible; with removal of tumor(s), polyp(s), or other lesion(s) by snare technique Diagnosis Code(s): --- Professional --- Z86.010, Personal history of colonic polyps K64.1, Second degree hemorrhoids K64.4, Residual hemorrhoidal skin tags K62.1, Rectal polyp K57.30, Diverticulosis of large intestine without perforation or abscess without bleeding CPT copyright 2017 [employer]. All rights reserved. The codes documented in this report are preliminary and upon fruit grader review may be revised to meet current compliance requirements. Victorino Hernandez MD 08/24/2021 9:11:06 AM This report has been signed electronically. Number of Addenda: 0 Note Initiated On: 08/24/2021 8:40 AM
--- NOTE | 2021-08-24 09:12 | OP.CCLET_ITS ---
08/24/2021 Demond Davis [address] [place] [address] Re : Colonoscopy procedure for Smith Jaeger Dear Dr. Davis This procedure was performed on Tuesday, August 24, 2021. My impressions and recommendations are as follows: Impressions : - Preparation of the colon was fair. - Non-thrombosed external hemorrhoids, non-thrombosed internal hemorrhoids and internal hemorrhoids that prolapse with straining, but spontaneously regress to the resting position (Grade II) found on digital rectal exam. - One 12 mm polyp in the rectum, removed with a hot snare. Resected and retrieved. - Diverticulosis in the sigmoid colon. - The examination was otherwise normal. Recommendations : - Discharge patient to home. - Resume previous diet. - Continue present medications. - Repeat colonoscopy in 5 years for surveillance based on pathology results. - Telephone my office for pathology results in 1 week. My findings are described in the full procedure note, which is enclosed. If I can be of further assistance, please feel free to contact me at Doctor phone number(s): Work: . Sincerely, Victorino Hernandez MD 08/24/2021 9:11:06 AM This report has been signed electronically.
[2021-08-24 09:15] VITALS: BP 117/72; BP 92/68; PULSE 65; RESP 16; O2SAT 98
[2021-08-24 09:20] VITALS: BP 112/59; BP 117/72; PULSE 64; RESP 16; TEMP 36.7; O2SAT 100
== END 2021-08-24 23:59 | disposition home or self-care (01) ==
LOC: EN 07:12 → AC 07:12
PROVIDERS: PCP Family Medicine; Referring Provider Family Medicine; Visit Provider Surgery
PROC: 0DJD8ZZ Inspection of Lower Intestinal Tract, Via Natural or Artificial Opening Endoscopic (ICD-10-PCS; CPT 45378; principal; 2021-08-24 08:10)
DX: Z12.11 Encounter for screening for malignant neoplasm of colon (principal); G20 Parkinson's disease; K57.30 Diverticulosis of large intestine without perforation or abscess without bleeding; K21.00 Gastro-esophageal reflux disease with esophagitis, without bleeding; D12.8 Benign neoplasm of rectum; K29.50 Unspecified chronic gastritis without bleeding; K44.9 Diaphragmatic hernia without obstruction or gangrene; K64.1 Second degree hemorrhoids; K64.4 Residual hemorrhoidal skin tags; Z20.822 Contact with and (suspected) exposure to COVID-19; I25.10 Atherosclerotic heart disease of native coronary artery without angina pectoris; I10 Essential (primary) hypertension; E78.5 Hyperlipidemia, unspecified; M19.90 Unspecified osteoarthritis, unspecified site; H40.9 Unspecified glaucoma; G47.33 Obstructive sleep apnea (adult) (pediatric); Z79.82 Long term (current) use of aspirin; Z79.1 Long term (current) use of non-steroidal anti-inflammatories (NSAID); I25.2 Old myocardial infarction; K25.9 Gastric ulcer, unspecified as acute or chronic, without hemorrhage or perforation; Z85.51 Personal history of malignant neoplasm of bladder; Z87.891 Personal history of nicotine dependence; Z86.010 Personal history of colon polyps
CPT/HCPCS: 45385; 43239; 87426; 88305; 88313; 88342; C9803; J7120; A4216; J2405

== ENCOUNTER → 2021-10-07 | Outpatient (CLI) | payer MEDICARE, SELFPAY ==
[2021-10-07 15:19] LABS: Hemoglobin A1c 5.2 % (3.8-5.6)
[2021-10-07 15:58] LABS: Cholesterol 103 mg/dL (200); High Density Lipoprotein 33 mg/dL; Triglycerides 151 mg/dL; Very Low Density Lipoprotein 30 mg/dL (5-40)
== END | disposition home or self-care (01) ==
LOC: MFPLAB 14:14
PROVIDERS: PCP Family Medicine; Visit Provider Family Medicine
DX: R73.02 Impaired glucose tolerance (oral) (principal); I25.10 Atherosclerotic heart disease of native coronary artery without angina pectoris
CPT/HCPCS: 36415; 80061; 83036

== ENCOUNTER → 2021-10-14 | Outpatient (CLI) | payer MEDICARE, SELFPAY ==
--- NOTE | 2021-10-14 08:13 | CT_ITS ---
STUDY: CT CHEST, ABDOMEN T PELVIS WITH CONTRAST REASON FOR EXAM: Male, 76 years old. ASSESS TREATMENT RESPONSE. Patient has a history of metastatic bladder cancer. RADIATION DOSAGE (If Supplied By Facility): CTDIvol = ( 18.4 ) mGy, DLP = ( 1484.61 ) mGycm TECHNIQUE: Transaxial imaging was performed following intravenous administration of IV 100mL Isovue-300. Individualized dose optimization techniques were used for this CT. COMPARISON: Comparison is made with prior study dated 03/17/2021. FINDINGS: CHEST A right-sided portacatheter is seen with the tip in the superior vena cava. Diffuse emphysematous changes. Minimal degree of increased markings at the right lung base suggestive of a linear scarring. This has improved as compared to prior study. There is no demonstrated pleural abnormality. Sternal cerclage wires and vascular clips are present from a prior sternotomy and coronary artery bypass graft procedure (CABG). There are calcifications of the coronary arteries. There are multiple small lymph nodes within the mediastinum, which are normal in size and morphology most compatible with reactive lymph hyperplasia. Normal hilar regions. Normal unenhanced pulmonary arteries. Normal aorta arch and descending thoracic aorta. There are multi-level degenerative changes of the thoracic spine. Stable 3.7 cm cyst in the upper pole of the right kidney. ABDOMEN Normal liver. Normal gallbladder and extrahepatic biliary system. Normal spleen. Normal pancreas. Normal bilateral adrenal glands. Stable right renal cyst. Normal left kidney. Normal visualized stomach. Normal small intestine. Normal colon. The appendix is visualized and appears normal. There is diffuse atherosclerotic calcification of the abdominal aorta and its major visceral branches, without a demonstrated aneurysm. Normal inferior vena cava. Normal retroperitoneum. Normal abdominal wall. There are diffuse degenerative changes of the visualized lumbar spine. PELVIS Mild degree of diffuse bladder wall thickening. Prostatic enlargement with indentation at the bladder base. There is no pelvic fluid. There is no pelvic lymphadenopathy or mass lesion. There is diffuse atherosclerotic calcification of the pelvic arteries. CT/CT Chest, Abd, Pel w/Contrast IMPRESSION: Stable examination. Electronically Signed: Shashank Ann MD at 14:11 EDT ,
[2021-10-14] MEDS: 0.9% Saline Lock 10 ML Syringe IV (08:35)
== END | disposition home or self-care (01) ==
LOC: CT 08:11
PROVIDERS: PCP Family Medicine; Referring Provider Internal Medicine Medical Oncology; Visit Provider Internal Medicine Medical Oncology
DX: C79.11 Secondary malignant neoplasm of bladder (principal); C80.1 Malignant (primary) neoplasm, unspecified
CPT/HCPCS: 71260; 74177; Q9967; A4216

== ENCOUNTER → 2021-11-05 | Outpatient (CLI) | payer MEDICARE, SELFPAY ==
--- NOTE | 2021-11-05 07:48 | AAAS_ITS ---
Reason For Study: AAA Aorta Measurements Aorta Doppler Measurements Proximal aorta measures1.64 x 1.74cm. in cross- Peak systolic flow velocities within the proximal sectional axis. aorta measure 78.2 cm/sec. Proximal aorta measures1.54cm. in longitudinal Peak systolic flow velocities within the mid aorta axis. measure 33.2 cm/sec. Mid aorta measures2.93 x 2.94cm. in cross- Peak systolic flow velocities within the distal sectional axis. aorta measure 48.6 cm/sec. Mid aorta measures2.84cm. in longitudinal axis. Distal aorta measures1.94 x 2.21cm. in cross- sectional axis. Distal aorta measures1.97cm. in longitudinal axis. Left Iliac Artery Left iliac artery measures 0.78 x 0.81 cm. in the cross-sectional axis. Left iliac artery measures 0.80 cm. in the longitudinal axis. Peak systolic velocity in the left iliac artery measures 88.2 cm/sec. Right Iliac Artery Right iliac artery measures 0.62 x 0.65 cm. in the cross-sectional axis. Right iliac artery measures 0.57 cm. in the longitudinal axis. Peak systolic velocity in the right iliac artery measures 132.1 cm/sec. VL/AAA Screening Interpretation Summary Maximal mid abdominal aortic dimension 2.93 x 2.94 cm consistent with aortic [place]. Normal flow velocity identified. Normal left common iliac 0.78 x 0.81 cm Normal right common iliac 0.62 x 0.65 cm Ordering Physician: Demond Davis Referring Physician: Demond Davis Performed By: Ellis Morin RVT
== END | disposition home or self-care (01) ==
LOC: CVS 07:45
PROVIDERS: PCP Family Medicine; Referring Provider Family Medicine; Visit Provider Family Medicine
DX: I71.4 Abdominal aortic aneurysm, without rupture (principal)
CPT/HCPCS: 76706

== ENCOUNTER → 2021-11-09 | Outpatient (CLI) | payer MEDICARE, SELFPAY ==
--- NOTE | 2021-11-09 10:55 | MRI_ITS ---
STUDY: MRI BRAIN WITH AND WITHOUT CONTRAST (ATTENTION INTERNAL AUDITORY CANALS - I.A.C.''s) REASON FOR EXAM: Male, 76 years old. 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 ml of 15ml Dotarem contrast material was administered intravenously for the contrast portion of the examination. COMPARISON: MRI of the brain/IAC dated SEPTEMBER 18, 2020 FINDINGS: Normal bilateral temporal bones. Normal bilateral internal auditory canals. Reidentification of a stable 1.26 x 0.77 cm (prior measurement 1.22 x 0.82 cm) intensely enhancing lobular nodule of the left 7th and 8th cranial nerves and cerebellar pontine angle/opening of the IAC junction consistent with a benign acoustic neuroma. There is no demonstrated right intracanalicular or cisternal vestibular schwannoma (acoustic neuroma). There is no enhancement of the bilateral VIIth or VIIIth cranial nerves. Normal bilateral cochlea, vestibules and semicircular canals. There is mild cerebral atrophy with widening of the extra-axial spaces and ventricular dilatation. There are a limited number of small white matter hyperintensities, distributed throughout the deep white matter tracts of the cerebral hemispheres, consistent with mild chronic white matter ischemic changes. There is no evidence for recent intracranial ischemia or other cause of cytotoxic edema on diffusion weighted imaging (DWI). Normal bilateral basal ganglia. Normal thalami. Normal flow voids within the major intracranial circulation suggesting patency by spin echo criteria. Normal venous enhancement. There is no enhancing intra-axial or extra-axial abnormality. There is no extra-axial fluid accumulation. Normal sella turcica, pituitary gland, infundibular stalk, optic chiasm and hypothalamus. Normal tectal plate and pineal gland. Normal midbrain, santana and medulla. Normal cerebellum. Normal basal cisterns. No demonstrated orbital abnormality, within the constraints of a routine brain study. Normal visualized paranasal sinuses. Normal calvarium and skull base. Normal visualized soft tissue structures. Normal visualized upper cervical spine. MRI/Brain W/WO Contrast IMPRESSION: 1. Involutional changes of the brain, as described above. 2. Reidentification of a stable 1.26 x 0.77 cm (prior measurement 1.22 x 0.82 cm) intensely enhancing lobular nodule of the left 7th and 8th cranial nerves and cerebellar pontine angle/opening of the IAC junction consistent with a benign acoustic neuroma. Electronically Signed: Daniel Smith MD at 14:43 EDT Reading Location ID and State: [facility] / [place] , Service support ,
[2021-11-09] MEDS: 0.9% Saline Lock 10 ML Syringe IV (12:34)
== END | disposition home or self-care (01) ==
LOC: MRI 10:54
PROVIDERS: PCP Family Medicine; Referring Provider Psychiatry & Neurology Neurology; Visit Provider Psychiatry & Neurology Neurology
DX: D33.3 Benign neoplasm of cranial nerves (principal)
CPT/HCPCS: 70553; A9575; A4216

== ENCOUNTER → 2022-01-18 | Outpatient (CLI) | payer MEDICARE, SELFPAY ==
--- NOTE | 2022-01-18 09:05 | RAD_ITS ---
INDICATION: BRONCHITIS EXAMINATION/TECHNIQUE: X-RAY - XR Chest 2 Views COMPARISON: 06/28/2021. FINDINGS: LINES/DEVICES: Right chest port visualizes catheter tip in the SVC. Sternal wires seen in position.. LUNGS: Peribronchial cuffing bilateral hilar prominence demonstrates no change in comparison to the prior study. No consolidation, edema or effusion. No pneumothorax. MEDIASTINUM AND CARDIOVASCULAR STRUCTURES: Cardiac silhouette not enlarged. Central airways and mediastinal contour are unremarkable. BONES AND SOFT TISSUES: Unremarkable. RAD/Chest PA and Lateral IMPRESSION: No radiographic evidence of acute cardiopulmonary disease. Electronically Signed: Vickey Jackman MD at 9:20 EDT ,
[2022-01-18 10:50] LABS: Hemoglobin A1c 5.2 % (3.8-5.6)
[2022-01-18 11:00] LABS: ALB/GLOB Ratio 1.1 RATIO (0.9-2.4); AST(SGOT) 13 U/L (15-37); Alanine Aminotransfer ALT/SGPT 23 U/L (16-61); Albumin, Serum 3.6 g/dL (3.2-5.0); Alkaline Phosphatase 98 U/L (45-117); Anion Gap 3 (5-15); BUN 17 mg/dL (7-18); BUN/Creat Ratio 12.6 RATIO (10-20); Calcium,Total 8.6 mg/dL (8.5-10.1); Chloride 103 mmol/L (98-107); Cholesterol 115 mg/dL (200); Creatinine, Serum 1.35 mg/dL (0.70-1.30); EST Glomerular Filtration Rate 55 mL/min (>60); Est Glom Filt Rate - Afr Amer 66 mL/min (>60); Globulin 3.3 g/dL (2.2-4.2); Glucose 87 mg/dL (74-106); High Density Lipoprotein 34 mg/dL; Potassium 4.4 mmol/L (3.5-5.1); Protein, Total 6.9 g/dL (6.4-8.2); Sodium Level 137 mmol/L (136-145); Triglycerides 76 mg/dL; Very Low Density Lipoprotein 15 mg/dL (5-40)
== END | disposition home or self-care (01) ==
LOC: MTLAB 09:01
PROVIDERS: PCP Family Medicine; Referring Provider Family Medicine; Visit Provider Family Medicine
DX: J20.9 Acute bronchitis, unspecified (principal); E78.5 Hyperlipidemia, unspecified; R73.02 Impaired glucose tolerance (oral)
CPT/HCPCS: 36415; 71046; 80053; 80061; 83036

== ENCOUNTER 2022-03-07 10:15 | Day surgery (SDC) | payer MEDICARE, SELFPAY ==
[2022-03-07] VITALS (15 sets, daily range): BP systolic 86–149; BP diastolic 56–91; PULSE 52–66; RESP 16–18; TEMP 36.2–36.7; O2SAT 97–100; BMI 29.2
[2022-03-07] MEDS: Lactated Ringers 1,000 ML 15 ML IV (11:17)
--- NOTE | 2022-03-07 12:05 | RAD_ITS ---
HISTORY: PERM SPINAL CORD STIM. TECHNIQUE: 12 spot images. COMPARISON: None. FINDINGS: OSSEOUS STRUCTURES: Midline sternotomy. Lumbar spinal fusion hardware. Thoracic spinal electrode noted with surgical instruments. FLUOROSCOPY TIME: 404 seconds. RADIATION DOSE: 148.87 mGy. RAD/Lumbar Spine 2 or 3 Views IMPRESSION: Fluoroscopic guidance for spinal stimulator placement. Refer to procedure note. Electronically Signed: Grace Lamar MD at 14:10 EDT ,
[2022-03-07] MEDS: Cefazolin 2 GM in 0.9% Normal Saline 100 ML IV (12:06)
[2022-03-07] MEDS: Lidocaine 1% (30 ml sdv) 30 ML Vial INFILT (13:30)
[2022-03-07] MEDS: Bacitracin 500 UNITS/GM PACKET (14:14)
[2022-03-07] MEDS: fentaNYL 100 MCG/2 ML Ampul 25 MCG IV ×3 (16:12→16:27)
[2022-03-07] MEDS: Gabapentin 100 MG Capsule PO (16:27)
--- NOTE | 2022-03-07 17:34 | OP.PCM_ITS ---
Report of Operation Date of Procedure: 03/07/22 Description of Surgical Findings:: Description of Surgical Findings:: Pre-Operative Diagnosis:?Lumbosacral radiculopathy, lumbosacral degenerative disc disease, lumbosacral spinal stenosis, postlaminectomy syndrome of the lumbar spine Post-Operative Diagnosis:?Lumbosacral radiculopathy, lumbosacral degenerative disc disease, lumbosacral spinal stenosis, postlaminectomy syndrome of the lumbar spine Surgery/Procedure Performed::?1.? Spinal cord stimulator thoracolumbar leads placement x2 #2 spinal cord stimulator Medtronic intellus generator placement #3 spinal cord stimulator generator pocket creation at the right gluteal region #4 spinal cord stimulator simple programming, 5-intraoperative fluoroscopic interpretation Description of Surgical Findings:: MAC COMPLICATIONS: None BLOOD LOSS: Minimal Implanted device: Spinal cord stimulator lead [id number] lot number [id number], lead #2? [id number] lot number [id number] Medtronic spinal cord stimulator genera tor intellus serial number [id number] PROCEDURE IN DETAIL: History and physical today was reviewed. Risks and benefits of procedure explained. The patient understood, agreed to procedure, informed consent was obtained. IV inserted per routine protocol. The patient was taken to the operating room, placed in the prone position with a pillow positioned underneath the abdomen. A 2 g of Ancef IV piggyback was infused per anesthesia. The lower back and right gluteal area was prepped and draped in a sterile fashion using iodine x3 Ioban was placed.? The C-arm was brought in position for AP view at the T12-L1 vertebral bodies under direct visualization fluoroscopy on a true AP view the T12-L1 interlaminar space was identified skin and subcutaneous tissue and size approximately 10 cc of a mix of 2% lidocaine and 0.25% Marcaine using a 25-gauge regular needle followed by a 25-gauge 3-1/2 inch spinal needle towards the interlaminar space at L2-3, the skin and subcutaneous tissue were then anesthetized and using an 11-gauge blade was then taken down to the skin and subcutaneous tissue using a 14-gauge 3-1/2 inch Touhy needle provided by the [employer] kit the needle was passed through the skin towards the interlaminar space at T12-L1 and a paramedian approach the needle was then advanced under direct visualization fluoroscopy towards the interlaminar space at T12-L1 [id number] technique was then carried to air towards the interlaminar space at L2-3 once the tip of the needle was in the epidural space and loss of resistance was encountered to air and after confirmation of AP as well as oblique view of the spinal cord stimulator lead was then advanced under direct visualization fluoroscopy to be at the tip of the lead at T8 and the bottom of the lead around mid T10 after confirmation of AP as well as lateral view to confirm correct placement of the lead in the posterior compartment of the epidural space the previous procedure was then repeated to the right paramedian approach towards interlaminar space T12-L1 the second lead was then inserted under direct visualization with fluoroscopy to be at the mid T8 and mid T10 area the leads were were then connected to the external neurostimulator and patient was then awakened to confirm satisfactory coverage of the painful area once satisfactory coverage was then achieved the stylette of each needle was then removed and the skin and subcutaneous tissue on to the left of the paramedian needles was then taken anesthetized with a total of 10 cc of the previous mixture of 0.25% Marcaine and 2% lidocaine using a 25-gauge regular needle the incision was then taken down through the skin and subcutaneous tissue towards the fascia making sure hemostasis was then maintained via cautery, the spinal cord stimulator leads were then passed through the above incision and secured using the biwing and sutured down with a 2-0 silk to the fascia at that level the spinal cord stimulator leads were then tunneled via a tunneler p rovided by the [employer] kit towards the previously incised spinal cord stimulator battery at the right gluteal region skin and subcutaneous tissue were anesthetized with approximately 10 cc of a mix of 2% lidocaine and 0.25% Marcaine using a 25 gauge regular needle, skin and subcutaneous tissue was then taken down with the 11-gauge blade hemostasis was maintained with Bovie and direct pressure the incision was then taken down to the fascia and the battery was then secured with the 2-0 silk sutures that were the spinal cord stimulator leads the upper lead was then marked the new until spinal cord stimulator battery was then provided Via [employer] kit the battery was then reattached of the spinal cord stimulator make ensure that the top lead is attached to the top position from 0-7 electrodes and the bottom from 8-15 electrodes once impedance was then checked to be in the proper average number the intellus battery was then inserted into the pocket and impedance with when checked again the pocket was then inspected to confirm hemostasis in place, the intellus battery was then secured to the fascia using a 2-0 silk to the upper eyes of the battery confirming an upward writing of the intellus facing posterior,? once complete confirmation the battery was then placed in the position and the the mid paramedian and the gluteal incisions were then closed primarily through 0 Vicryl in an interrupted fashion followed by a 3-0 Vicryl in a running fashion followed by a 4-0 Vicryl to the skin, hemostasis was then maintained during the procedure the skin was then covered with a Steri-Strips and bacitracin patient was then returned into the supine position in a stable condition and returned to recovery in a stable condition patient experienced no signs or symptoms of intrathecal or intravascular injection patient experienced no paresthesia the procedure was completed without any apparent difficulty any complication the patient appeared to tolerate well, motor as well as sensory function was unchanged from prior to the procedure ESTIMATED BLOOD LOSS: Minimal less than 25 mL ASSESSMENT AND PLAN: This is a 76-year-old male with lumbosacral radiculopathy lumbosacral degenerative disc disease lumbosacral spinal stenosis status post 1.? Spinal cord stimulator thoracolumbar leads placement x2 #2 spinal cord stimulator Medtronic intellus generator placement #3 spinal cord stimulator generator pocket creation at the right gluteal region #4 spinal cord stimulator simple programming, 5-intraoperative fluoroscopic interpretation patient will continue her current medications a prescription was provided to the patient? Keflex 500 mg 1 p.o. every 8 hours for 7 days, Percocet 5-325 mg half to 1 tablet every 6 hours as needed for postoperative pain dispense 20, postop instruction were given in writing to the patient and his ? as well as verbally and in writing, patient will follow approximately 1 week for reevaluation.
[2022-03-07] MEDS: 0.9% Saline Lock 10 ML Syringe IV (17:45)
== END 2022-03-07 17:55 | disposition home or self-care (01) ==
LOC: SDC 10:15 → AC 10:29
PROVIDERS: PCP Family Medicine; Referring Provider Anesthesiology Pain Medicine; Visit Provider Anesthesiology Pain Medicine
PROC: (CPT 63685; principal; 2022-03-07 11:45)
DX: M51.17 Intervertebral disc disorders with radiculopathy, lumbosacral region (principal); G20 Parkinson's disease; M48.07 Spinal stenosis, lumbosacral region; M96.1 Postlaminectomy syndrome, not elsewhere classified; I10 Essential (primary) hypertension; Z79.82 Long term (current) use of aspirin; Z79.899 Other long term (current) drug therapy
CPT/HCPCS: 63685; 63650 ×2; 00300; 72100; 76000; C1778; C1820; J7120; A4216; J2405

== ENCOUNTER → 2022-03-31 | Outpatient (CLI) | payer MEDICARE, SELFPAY ==
--- NOTE | 2022-03-31 12:32 | CT_ITS ---
STUDY: CT CHEST, ABDOMEN T PELVIS WITH CONTRAST REASON FOR EXAM: Male, 76 years old. Assess treatment response. Patient has history of bladder carcinoma. RADIATION DOSAGE (If Supplied By Facility): CTDIvol = ( 18.95 ) mGy, DLP = ( 1678.04 ) mGycm TECHNIQUE: Transaxial imaging was performed following intravenous administration of IV 100mL Isovue-300. Individualized dose optimization techniques were used for this CT. COMPARISON: Comparison is made with prior study dated 10/14/2021. FINDINGS: CHEST A right-sided Port-A-Cath is seen with the tip in the superior vena cava. Hyperinflation. Diffuse emphysematous changes in keeping with COPD. Stable minimal degree of linear scarring at the right lung base. There is no demonstrated pleural abnormality. There are calcifications of the coronary arteries. Sternal cerclage wires and vascular clips are present from a prior sternotomy and coronary artery bypass graft procedure (CABG). There are multiple small lymph nodes within the mediastinum, which are normal in size and morphology most compatible with reactive lymph hyperplasia. Normal hilar regions. Normal unenhanced pulmonary arteries. Normal aorta arch and descending thoracic aorta. There are multi-level degenerative changes of the thoracic spine. Stable cyst in the upper pole of the right kidney. ABDOMEN Stable subcentimeters cyst in the midportion of the right lobe of the liver. Normal gallbladder and extrahepatic biliary system. Normal spleen. Normal pancreas. Normal bilateral adrenal glands. 3.7 cm cyst in the upper aspect of the right kidney. Normal left kidney. Normal visualized stomach. Fluid-filled small bowel loops without evidence of dilatation. There are multiple colonic diverticula consistent with diverticulosis. The appendix is visualized and appears normal. There is diffuse atherosclerotic calcification of the abdominal aorta. The abdominal aorta as a transverse dimension of 3.2 cm. Normal inferior vena cava. Normal retroperitoneum. Normal abdominal wall. There are diffuse degenerative changes of the visualized lumbar spine. Prior laminectomy and fusion at the L4-L5 level. Loss of the normal lumbar lordosis. PELVIS Stable mild degree of bladder wall thickening. There is no pelvic fluid. There is no pelvic lymphadenopathy or mass lesion. There is diffuse atherosclerotic calcification of the pelvic arteries. CT/CT Chest, Abd, Pel w/Contrast IMPRESSION: Stable examination. Electronically Signed: Shashank Ann MD at 15:12 EDT ,
[2022-03-31] MEDS: 0.9% Saline Lock 10 ML Syringe IV (12:57)
== END | disposition home or self-care (01) ==
LOC: CT 12:30
PROVIDERS: PCP Family Medicine; Referring Provider Nurse Practitioner Family; Visit Provider Nurse Practitioner Family
DX: C67.9 Malignant neoplasm of bladder, unspecified (principal)
CPT/HCPCS: 71260; 74177; Q9967; A4216

== ENCOUNTER → 2022-04-05 | Outpatient (CLI) | payer MEDICARE, SELFPAY ==
--- NOTE | 2022-04-05 15:15 | RAD_ITS ---
STUDY: X-RAY - PELVIS AND RIGHT HIP REASON FOR EXAM: Male, 76 years old. Right hip pain after spinal cord stimulator placed one month ago. TECHNIQUE: 3 views of the pelvis and hip. COMPARISON: None. FINDINGS: There is a non-specific bowel gas pattern. Normal visualized soft tissue structures. There is posterior fusion of L3-4. There is a sacral stimulator in the right buttock with leads extending upward towards the spinal canal. There is narrowing with cortical sclerosis and osteophyte formation of the sacroiliac joint consistent with degenerative osteoarthritic changes. Normal iliac wings and sacrum. Normal bilateral superior and inferior pubic rami. Normal pubic symphysis. Normal bilateral ischial tuberosities. Normal visualized right femoral head. There is minimal osteoarthritic spur formation of the right acetabular rim. There is mild articular joint space narrowing of the right hip. RAD/HIP, UNI W/ Pelvis 2-3 Views IMPRESSION: 1. Mild degenerative changes right hip and sacroiliac joints. 2. Spinal cord stimulator generator in the soft tissues of the right buttock. 3. Surgical fusion of the lumbar spine. Electronically Signed: Cesar Mendez DO at 16:31 EDT ,
== END | disposition home or self-care (01) ==
LOC: MTRAD 15:12
PROVIDERS: PCP Family Medicine; Referring Provider Nurse Practitioner Family; Visit Provider Nurse Practitioner Family
DX: M25.551 Pain in right hip (principal)
CPT/HCPCS: 73502

== ENCOUNTER → 2022-05-20 | Outpatient (CLI) | payer MEDICARE, SELFPAY ==
[2022-05-20 12:50] LABS: PSA,Total - Annual Screen 0.14 ng/mL (0.00-4.00)
== END | disposition home or self-care (01) ==
LOC: MFPLAB 10:07
PROVIDERS: PCP Family Medicine; Referring Provider Family Medicine; Visit Provider Family Medicine
DX: Z12.5 Encounter for screening for malignant neoplasm of prostate (principal)
CPT/HCPCS: 36415; 84153; G0103

== ENCOUNTER → 2022-06-27 | Outpatient (CLI) | payer MEDICARE, SELFPAY ==
--- NOTE | 2022-06-27 12:34 | RAD_ITS ---
INDICATION: PAIN EXAMINATION/TECHNIQUE: X-RAY - LEFT XR Clavicle Unilateral 2 VIEWS COMPARISON: Chest x-ray 01/18/2022 FINDINGS: SOFT TISSUES: No soft tissue swelling or gas. Median sternotomy sutures. BONES/JOINTS: No acute fracture. Included joint spaces anatomically maintained. No sclerotic or destructive changes observed. RAD/Clavicle IMPRESSION: Unremarkable study. Electronically Signed: Ernie Javier MD at 0:55 EST ,
== END | disposition home or self-care (01) ==
PROVIDERS: PCP Family Medicine; Referring Provider Family Medicine; Visit Provider Family Medicine
DX: M25.512 Pain in left shoulder (principal)
CPT/HCPCS: 73000

== ENCOUNTER → 2022-08-12 | Outpatient (CLI) | payer MEDICARE, SELFPAY ==
[2022-08-12 15:35] LABS: ALB/GLOB Ratio 1.2 RATIO (0.9-2.4); AST(SGOT) 20 U/L (15-37); Absolute Lymphocyte Count 0.82 X10^3/uL (0.83-4.51); Absolute Neutrophil Count 6.3 X10^3/uL (2.0-7.7); Alanine Aminotransfer ALT/SGPT 24 U/L (16-61); Albumin, Serum 3.6 g/dL (3.2-5.0); Alkaline Phosphatase 91 U/L (45-117); Anion Gap 5 (5-15); BUN 21 mg/dL (7-18); Basophil# 0.07 X10^3/uL; Basophil% 0.8 % (0-1); Calcium,Total 9.2 mg/dL (8.5-10.1); Chloride 108 mmol/L (98-107); Cholesterol 101 mg/dL (200); Creatinine, Serum 1.31 mg/dL (0.70-1.30); EST Glomerular Filtration Rate 57 mL/min (>60); Eosinophil# 1.01 X10^3/uL; Eosinophils% 11.3 % (0-5); Est Glom Filt Rate - Afr Amer 68 mL/min (>60); Globulin 3.1 g/dL (2.2-4.2); Glucose 76 mg/dL (74-106); Hematocrit 48.6 % (40-54); Hemoglobin 15.3 g/dL (13.0-16.5); High Density Lipoprotein 36 mg/dL; Lymphocyte # 0.82 X10^3/ul (0.83-4.51); Lymphocyte % 9.2 % (19-41); Mean Corp Hgb Conc 31.5 g/dL (32-36); Mean Corpuscular Hgb 32.3 pg (27.0-32.0); Mean Corpuscular Volume 102.7 fL (80-94); Mean Platelet Vol. 10.5 fl (6.2-12.0); Monocyte# 0.72 X10^3/uL; Monocyte% 8.1 % (0-10); NRBC Flagged by Analyzer 0 % (0-5); Neutrophil # 6.25 X10^3/uL (2.7-7.7); Neutrophil % 70.3 % (47-70); Platelet Count 153 K/mm3 (150-450); Potassium 4.6 mmol/L (3.5-5.1); Protein, Total 6.7 g/dL (6.4-8.2); RBC Distribution Width SD 53.2 fl (35.1-43.9); Red Blood Count 4.73 M/mm3 (4.6-6.2); Sodium Level 140 mmol/L (136-145); Triglycerides 61 mg/dL; Very Low Density Lipoprotein 12 mg/dL (5-40); White Blood Count 8.9 K/mm3 (4.4-11.0)
[2022-08-12 15:45] LABS: Hemoglobin A1c 5.3 % (3.8-5.6)
== END | disposition home or self-care (01) ==
LOC: MFPLAB 12:13
PROVIDERS: PCP Family Medicine; Referring Provider Family Medicine; Visit Provider Family Medicine
DX: I25.10 Atherosclerotic heart disease of native coronary artery without angina pectoris (principal); R73.02 Impaired glucose tolerance (oral)
CPT/HCPCS: 36415; 80053; 80061; 83036; 85025

== ENCOUNTER → 2022-09-19 | Outpatient (CLI) | payer MEDICARE, SELFPAY ==
--- NOTE | 2022-09-19 09:48 | NM_ITS ---
CLINICAL: 77-year-old male with history of left shoulder, sternoclavicular pain and history of carcinoma of the urinary bladder. WHOLE BODY 99m Tc MDP RADIONUCLIDE BONE SCINTIGRAPHY COMPARISON: None available FINDINGS: Following the intravenous administration of 21.8 mCi of 99m Tc MDP, whole body bone images reveal: 1. Increased radiopharmaceutical concentration is noted in the left proximal clavicle. 2. Increased tracer uptake is noted in the acromioclavicular compartments of both shoulders, elbows bilaterally, both wrist articulations, the patellofemoral medial tibial compartment of the right knee, the right hand and right elbow, heterogeneously apparent in the cervical, thoracic and lumbar spine. 3. The remaining skeletal structures are scintigraphically unremarkable with normal-appearing renal images and urinary bladder activity identified. NM/Bone Scan Whole Body IMPRESSION: 1. The increase in radiopharmaceutical concentration defined in the left proximal clavicle is most consistent with trauma-fracture. Plain film radiography correlation may be of benefit. 2. 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 3. There is no typical scintigraphic evidence of diffuse axial skeletal metastatic disease on the current examination. Electronically Signed: Gunner Martinez, at 20:53 EDT ,
== END | disposition home or self-care (01) ==
LOC: NM 09:45
PROVIDERS: PCP Family Medicine; Referring Provider Internal Medicine Medical Oncology; Visit Provider Internal Medicine Medical Oncology
DX: Z85.51 Personal history of malignant neoplasm of bladder (principal)
CPT/HCPCS: 78306; A9503

== ENCOUNTER → 2022-09-23 | Outpatient (CLI) | payer MEDICARE, SELFPAY ==
--- NOTE | 2022-09-23 12:36 | CT_ITS ---
EXAM: CT CHEST, ABDOMEN AND PELVIS WITH INTRAVENOUS CONTRAST CLINICAL INDICATION: met bladder ca, assess disease status; IV only TECHNIQUE: Helically acquired images were obtained of the chest, abdomen and pelvis with intravenous contrast. CTDIvol = ( 15.20 ) mGy, DLP = ( 1297.81 ) mGycm This CT exam was performed using one or more of the following dose reduction techniques: automated exposure control, adjustment of the mA and/or kV according to patient size, and/or use of iterative reconstruction technique. This report was created using [employer] report [employer] technology. CONTRAST: IV 100mL Isovue-300 COMPARISON: None. FINDINGS: CHEST: LUNGS AND PLEURAL SPACES: Moderate centrilobular emphysema, worse at the upper lobes. No pleural effusion or pneumothorax. Mild subsegmental atelectasis or scarring at the posterior aspect of the right lower lobe. No consolidation. HEART: Unremarkable. No cardiomegaly or pericardial effusion. Multivessel calcific coronary atherosclerosis. No other cardiomediastinal or hilar abnormalities. MEDIASTINUM: See above. THYROID: Unremarkable. No thyroid lesions. ABDOMEN: LIVER: Unremarkable. Homogeneous. No focal mass. GALLBLADDER AND BILE DUCTS: Unremarkable. No calcified gallstones. No gallbladder distention or wall edema. No intra- or extrahepatic biliary ductal dilation. PANCREAS: Unremarkable. No focal cystic or solid mass. SPLEEN: Unremarkable. Normal size without focal cystic or solid mass. ADRENALS: Unremarkable. No nodules. KIDNEYS AND URETERS: No hydroureteronephrosis. Bilateral renal cysts are benign. Normal renal size and position. STOMACH AND BOWEL: Upper abdomen notable for stool throughout the colon and distal colonic diverticulosis without acute diverticulitis or colitis. Fluid within nondistended loops of small bowel without wall thickening or inflammation can be seen with gastroenteritis in the appropriate clinical setting. PELVIS: APPENDIX: No evidence of acute appendicitis. BLADDER: Bladder is decompressed limiting its assessment. REPRODUCTIVE: Unremarkable as visualized. No mass. CHEST, ABDOMEN and PELVIS: INTRAPERITONEAL SPACE: Unremarkable. No ascites or other fluid collection. No free air. BONES/JOINTS: Recent comminuted fracture involving the medial aspect of the left clavicle, potentially pathologic. Sclerotic areas involving the L1, L2 and L3 vertebral bodies. While this may be degenerative, sclerotic metastasis is not excluded. L3-4 posterior osteometallic fusion. Degenerative changes of the thoracolumbar spine. No hardware complications. SOFT TISSUES: Focal irregular soft tissue thickening at the left posterior bladder. Tumor is not excluded. No discrete abdominal or pelvic wall hernia. VASCULATURE: See above. LYMPH NODES: Unremarkable. No enlarged lymph nodes. CT/CT Chest, Abd, Pel w/Contrast IMPRESSION: 1. Recent comminuted fracture involving the medial aspect of the left clavicle, potentially pathologic. 2. Sclerotic areas involving the L1, L2 and L3 vertebral bodies. While this may be degenerative, sclerotic metastasis is not excluded. 3. No other evidence for metastatic disease involving the chest, abdomen, and pelvis. 4. Focal irregular soft tissue thickening at the left posterior bladder. Tumor is not excluded. Electronically Signed: Bahman Sam MD at 2:32 EDT ,
[2022-09-23] MEDS: 0.9% Saline Lock 10 ML Syringe IV (13:14)
[2022-09-23 13:15] LABS: CREATININE FINGERSTICK 0.9 mg/dL (0.70-1.30); EGFR FINGERSTICK > 60.0000 mL/min (>60)
== END | disposition home or self-care (01) ==
LOC: CT 12:35
PROVIDERS: PCP Family Medicine; Referring Provider Internal Medicine Medical Oncology; Visit Provider Internal Medicine Medical Oncology
DX: C67.9 Malignant neoplasm of bladder, unspecified (principal)
CPT/HCPCS: 71260; 74177; Q9967; A4216

== ENCOUNTER → 2022-10-25 | Outpatient (CLI) | payer MEDICARE, SELFPAY ==
[2022-10-25 15:35] LABS: Hematocrit 48.4 % (40-54); Hemoglobin 15.5 g/dL (13.0-16.5); Mean Corpuscular Hgb 32.6 pg (27.0-32.0); Mean Corpuscular Volume 101.9 fL (80-94); Mean Platelet Vol. 10.5 fl (6.2-12.0); Platelet Count 143 K/mm3 (150-450); RBC Distribution Width CV 13.6 % (11.6-14.6); RBC Distribution Width SD 51.8 fl (35.1-43.9); Red Blood Count 4.75 M/mm3 (4.6-6.2); White Blood Count 7.4 K/mm3 (4.4-11.0)
[2022-10-25 15:54] LABS: ALB/GLOB Ratio 1.4 RATIO (0.9-2.4); AST(SGOT) 20 U/L (15-37); Alanine Aminotransfer ALT/SGPT 24 U/L (16-61); Albumin, Serum 3.8 g/dL (3.2-5.0); Alkaline Phosphatase 107 U/L (45-117); Anion Gap 6 (5-15); BUN 20 mg/dL (7-18); BUN/Creat Ratio 15.2 RATIO (10-20); Calcium,Total 8.9 mg/dL (8.5-10.1); Chloride 105 mmol/L (98-107); Creatinine, Serum 1.32 mg/dL (0.70-1.30); EST Glomerular Filtration Rate 56 mL/min (>60); Est Glom Filt Rate - Afr Amer 68 mL/min (>60); Globulin 2.7 g/dL (2.2-4.2); Glucose 91 mg/dL (74-106); Potassium 4.5 mmol/L (3.5-5.1); Protein, Total 6.5 g/dL (6.4-8.2); Sodium Level 140 mmol/L (136-145)
== END | disposition home or self-care (01) ==
LOC: MTLAB 12:35
PROVIDERS: PCP Family Medicine; Referring Provider Nurse Practitioner Family; Visit Provider Nurse Practitioner Family
DX: D69.6 Thrombocytopenia, unspecified (principal); N18.30 Chronic kidney disease, stage 3 unspecified
CPT/HCPCS: 36415; 80053; 85027

== ENCOUNTER → 2022-11-11 | Outpatient (CLI) | payer MEDICARE, SELFPAY ==
[2022-11-11 12:18] LABS: Absolute Lymphocyte Count 0.75 X10^3/uL (0.83-4.51); Absolute Neutrophil Count 5.8 X10^3/uL (2.0-7.7); Basophil# 0.07 X10^3/uL; Basophil% 0.9 % (0-1); Eosinophil# 0.72 X10^3/uL; Hematocrit 46.9 % (40-54); Lymphocyte # 0.75 X10^3/ul (0.83-4.51); Lymphocyte % 9.4 % (19-41); Mean Corpuscular Hgb 32.8 pg (27.0-32.0); Mean Corpuscular Volume 102.4 fL (80-94); Mean Platelet Vol. 10.5 fl (6.2-12.0); Monocyte# 0.63 X10^3/uL; Monocyte% 7.9 % (0-10); NRBC Flagged by Analyzer 0 % (0-5); Neutrophil # 5.82 X10^3/uL (2.7-7.7); Neutrophil % 72.4 % (47-70); Platelet Count 155 K/mm3 (150-450); RBC Distribution Width CV 13.8 % (11.6-14.6); RBC Distribution Width SD 52.3 fl (35.1-43.9); Red Blood Count 4.58 M/mm3 (4.6-6.2)
[2022-11-11 12:47] LABS: ALB/GLOB Ratio 1.1 RATIO (0.9-2.4); AST(SGOT) 19 U/L (15-37); Alanine Aminotransfer ALT/SGPT 18 U/L (16-61); Albumin, Serum 3.5 g/dL (3.2-5.0); Alkaline Phosphatase 98 U/L (45-117); Anion Gap 6 (5-15); BUN 19 mg/dL (7-18); BUN/Creat Ratio 15.3 RATIO (10-20); Chloride 106 mmol/L (98-107); Cholesterol 95 mg/dL (200); Creatinine, Serum 1.24 mg/dL (0.70-1.30); EST Glomerular Filtration Rate 60 mL/min (>60); Est Glom Filt Rate - Afr Amer 73 mL/min (>60); Globulin 3.1 g/dL (2.2-4.2); Glucose 94 mg/dL (74-106); High Density Lipoprotein 32 mg/dL; Phosphorus 2.5 mg/dL (2.5-4.9); Potassium 4.4 mmol/L (3.5-5.1); Protein, Total 6.6 g/dL (6.4-8.2); Sodium Level 139 mmol/L (136-145); Triglycerides 76 mg/dL; Very Low Density Lipoprotein 15 mg/dL (5-40)
[2022-11-11 13:11] LABS: Hemoglobin A1c 5.2 % (3.8-5.6)
== END | disposition home or self-care (01) ==
LOC: MFPLAB 10:11
PROVIDERS: PCP Family Medicine; Visit Provider Family Medicine
DX: I25.10 Atherosclerotic heart disease of native coronary artery without angina pectoris (principal); R73.02 Impaired glucose tolerance (oral); E83.39 Other disorders of phosphorus metabolism
CPT/HCPCS: 36415; 80053; 80061; 83036; 84100; 85025

== ENCOUNTER → 2022-11-29 | Outpatient (CLI) | payer MEDICARE, SELFPAY ==
--- NOTE | 2022-11-29 08:55 | CDU_ITS ---
Reason For Study: Bilateral carotid stenosis Rt. Velocities/BP Lt. Velocities/BP Prox CCA 64.5/19.2 cm/sec. Prox CCA 82.8/22.3 cm/sec. Mid CCA 88.1/24.8 cm/sec. Mid CCA 93.8/26.7 cm/sec. Dist CCA 59.8/16.3 cm/sec. Dist CCA 70.7/24.5 cm/sec. Prox ICA 68.3/20.1 cm/sec. Prox ICA 61.9/22.3 cm/sec. Mid ICA 100.3/30 cm/sec. Mid ICA 75.1/30 cm/sec. Dist ICA 60.8/19 cm/sec. Dist ICA 75.1/31.1 cm/sec. Rt. ICA/CCA = 1.56. Lt. ICA/CCA = 0.91. Prox ECA 83.4/10.7 cm/sec. Prox ECA 74/13.5 cm/sec. Rt. Vert. 28.9/12.4 cm/sec. Lt. Vert. 47.6/16.8 cm/sec. Right Extracranial There is heterogeneous, irregular atherosclerotic plaque noted in the right common carotid artery. There is heterogeneous, irregular atherosclerotic plaque noted in the right internal carotid artery. The right internal carotid artery is very tortuous. There is intimal thickening but no significant atherosclerotic plaque noted in the right external carotid artery. Antegrade flow is noted in the right vertebral artery. Left Extracranial There is homogeneous, smooth atherosclerotic plaque noted in the left common carotid artery. There is heterogeneous, irregular atherosclerotic plaque noted in the left internal carotid artery. There is heterogeneous, irregular atherosclerotic plaque noted in the left external carotid artery. Antegrade flow is noted in the left vertebral artery. Procedure Carotid Duplex 11256. This is a Carotid Duplex examination using B-mode, color flow and specral Doppler. Exam performed in department. VL/Carotid Duplex Ultrasound Interpretation Summary Irregular calcific plaque with shadowing at the proximal right internal carotid artery with less than 50% stenosis. Tortuosity of the right internal carotid artery noted. Irregular plaque at the proximal left internal carotid artery with less than 50 % stenosis. Postoperative changes noted. Less than 50% stenosis left external carotid artery Patent and antegrade vertebral arteries bilaterally No change from the previous examination of April 07, 2021 Ordering Physician: Demond Davis Referring Physician: Demond Davis Performed By: Barbara Rodriguez RVT
--- NOTE | 2022-11-29 09:01 | AAAS_ITS ---
Reason For Study: AAA Screening Aorta Measurements Aorta Doppler Measurements Unable to visualize proximal aorta due to bowel Peak systolic flow velocities within the mid aorta gas. measure 49.1 cm/sec. Mid aorta measures3.06 x 3.04cm. in cross- Peak systolic flow velocities within the distal sectional axis. aorta measure 34.9 cm/sec. Mid aorta measures3.01cm. in longitudinal axis. Distal aorta measures2.30 x 2.35cm. in cross- sectional axis. Distal aorta measures2.34cm. in longitudinal axis. Left Iliac Artery Left iliac artery measures 0.91 x 0.96 cm. in the cross-sectional axis. Left iliac artery measures 0.96 cm. in the longitudinal axis. Peak systolic velocity in the left iliac artery measures 96.6 cm/sec. Right Iliac Artery Right iliac artery measures 0.70 x 0.70 cm. in the cross-sectional axis. Right iliac artery measures 0.66 cm. in the longitudinal axis. Peak systolic velocity in the right iliac artery measures 114.9 cm/sec. Procedure Aorta IVC Iliac vasculature or bypass grafts 39517. Technically difficult due to bowel gas. Exam performed in department. VL/AAA Screening Interpretation Summary Mid abdominal aorta small aortic dimension at 3.06 x 3.04 cm in diameter just m eeting criteria for mid abdominal aortic aneurysm Left common iliac normal at 0.91 x 0.96 cm in diameter Right common iliac normal at 0.7 x 0.7 cm in diameter Examination was noted to be technically difficult secondary to bowel gas Ordering Physician: Demond Davis Referring Physician: Demond Davis Performed By: Barbara Rodriugez RVT
== END | disposition home or self-care (01) ==
LOC: CVS 08:53
PROVIDERS: PCP Family Medicine; Referring Provider Family Medicine; Visit Provider Family Medicine
DX: I71.40 Abdominal aortic aneurysm, without rupture, unspecified (principal); I65.23 Occlusion and stenosis of bilateral carotid arteries
CPT/HCPCS: 76706; 93880

== ENCOUNTER → 2023-02-21 | Outpatient (CLI) | payer MEDICARE, SELFPAY ==
--- NOTE | 2023-02-21 08:05 | NM_ITS ---
CLINICAL: 77-year-old male with history of left clavicular fracture. WHOLE BODY 99m Tc MDP RADIONUCLIDE BONE SCINTIGRAPHY COMPARISON: Previous whole body bone scintigraphy study dated 09/19/2022 FINDINGS: Following the intravenous administration of 28.2 mCi of 99m Tc MDP, whole body bone images reveal: 1. Persistent increased uptake is defined in the left proximal clavicle in the single focus on the current examination. The intensity of uptake is similar to the study dated 09/19/2022. 2. Enhanced tracer distribution is demonstrated in the acromioclavicular compartments of both shoulders, the cervical, thoracic and lumbar spine, the bilateral forefoot. 3. The remaining skeletal structures are scintigraphically unremarkable with normal-appearing renal images and urinary bladder activity identified. NM/Bone Scan Whole Body IMPRESSION: 1. 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 On the current examination, a single focus of increased uptake is demonstrated. 2. 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 3. Overall compared to the examination dated 09/19/2022, there is minimal interval change as described above. In patients > 65 years of age, increased radiopharmaceutical concentration on bone scintigraphy in uncomplicated documented fracture, may take > 18 months for complete resolution. (Bharathi et al, Seminars of Nuclear Medicine, 13:104, 1983). Electronically Signed: Gunner Martinez DO at 23:31 EDT ,
== END | disposition home or self-care (01) ==
LOC: NM 08:05
PROVIDERS: PCP Family Medicine; Referring Provider Nurse Practitioner Family; Visit Provider Nurse Practitioner Family
DX: C67.9 Malignant neoplasm of bladder, unspecified (principal)
CPT/HCPCS: 78306; A9503

== ENCOUNTER → 2023-02-24 | Outpatient (CLI) | payer MEDICARE, SELFPAY ==
--- NOTE | 2023-02-24 13:30 | CT_ITS ---
STUDY: CT CHEST, ABDOMEN T PELVIS WITH CONTRAST REASON FOR EXAM: Male, 77 years old. Assess response to treatment. Bladder cancer follow-up. Prior chemotherapy and radiation therapy. RADIATION DOSAGE (If Supplied By Facility): CTDIvol = ( 15.68 ) mGy, DLP = ( 1267.07 ) mGycm TECHNIQUE: Transaxial imaging was performed following intravenous administration of IV 100mL Isovue-300. Individualized dose optimization techniques were used for this CT. COMPARISON: Comparison is made with prior study dated September 23, 2022. FINDINGS: CHEST A right-sided portacatheter is seen with the tip in the superior vena cava. Mild degree of hydrocephalus changes with bullous formation in the upper lobes. Mild scarring at the right lung base. There is no demonstrated pleural abnormality. There are calcifications of the coronary arteries. There are multiple small lymph nodes within the mediastinum, which are normal in size and morphology most compatible with reactive lymph hyperplasia. Normal hilar regions. Normal unenhanced pulmonary arteries. There is atherosclerotic calcification of the aortic arch with tortuosity and elongation of the aortic arch and descending thoracic aorta. There are degenerative changes of the thoracic spine. Spinal cord stimulator device is seen. Persistent deformity of the medial aspect of the left clavicle most likely representing a pathological fracture. There is a 3.4 cm cyst in the upper pole of the right kidney. ABDOMEN Tiny cyst in the inferior aspect of the right lobe of the liver. Normal gallbladder and extrahepatic biliary system. Normal spleen. Normal pancreas. Normal bilateral adrenal glands. 3.4 cm cyst in the upper pole of the right kidney. Normal left kidney. Normal visualized stomach. Normal small intestine. There are multiple colonic diverticula consistent with diverticulosis. The appendix is visualized and appears normal. There is diffuse atherosclerotic calcification of the abdominal aorta, without a demonstrated aneurysm. Normal inferior vena cava. Normal retroperitoneum. Normal abdominal wall. There are diffuse degenerative changes of the visualized lumbar spine. Prior laminectomy and fusion in the lower lumbar spine with interpedicular screw and pramod fixation device. PELVIS Stable mild mural thickening along the posterior lateral aspect of the left bladder base. Prior hysterectomy. There is no pelvic fluid. There is no pelvic lymphadenopathy or mass lesion. There is diffuse atherosclerotic calcification of the pelvic arteries. CT/CT Chest, Abd, Pel w/Contrast IMPRESSION: Stable examination. Electronically Signed: Shashank Ann MD at 15:05 EDT ,
[2023-02-24] MEDS: 0.9% Saline Lock 10 ML Syringe IV (13:54)
== END | disposition home or self-care (01) ==
LOC: CT 13:28
PROVIDERS: PCP Family Medicine; Referring Provider Nurse Practitioner Family; Visit Provider Nurse Practitioner Family
DX: C67.9 Malignant neoplasm of bladder, unspecified (principal)
CPT/HCPCS: 71260; 74177; Q9967; A4216

== ENCOUNTER → 2023-03-22 | Outpatient (CLI) | payer MEDICARE, SELFPAY ==
[2023-03-22 13:03] LABS: AST(SGOT) 30 U/L (15-37); Alanine Aminotransfer ALT/SGPT 33 U/L (16-61); Alkaline Phosphatase 97 U/L (45-117); Anion Gap 4 (5-15); BUN 23 mg/dL (7-18); BUN/Creat Ratio 21.1 RATIO (10-20); Calcium,Total 8.7 mg/dL (8.5-10.1); Chloride 112 mmol/L (98-107); Cholesterol 98 mg/dL (200); Creatinine, Serum 1.09 mg/dL (0.70-1.30); EST Glomerular Filtration Rate 70 mL/min (>60); Est Glom Filt Rate - Afr Amer 85 mL/min (>60); Glucose 85 mg/dL (74-106); High Density Lipoprotein 31 mg/dL; Phosphorus 2.7 mg/dL (2.5-4.9); Potassium 3.7 mmol/L (3.5-5.1); Sodium Level 143 mmol/L (136-145); Triglycerides 52 mg/dL; Very Low Density Lipoprotein 10 mg/dL (5-40)
[2023-03-22 13:34] LABS: Hemoglobin A1c 5.2 % (3.8-5.6)
== END | disposition home or self-care (01) ==
LOC: MTLAB 10:13
PROVIDERS: PCP Family Medicine; Referring Provider Family Medicine; Visit Provider Family Medicine
DX: I25.10 Atherosclerotic heart disease of native coronary artery without angina pectoris (principal); R73.02 Impaired glucose tolerance (oral); E83.39 Other disorders of phosphorus metabolism
CPT/HCPCS: 36415; 80053; 80061; 83036; 84100

== ENCOUNTER 2023-06-06 12:00 | Outpatient (RCR) | payer MEDICARE, SELFPAY ==
--- NOTE | 2023-04-17 11:24 | HP.PTEVAL_ITS ---
Patient's Visit Information Visit Information Visit Information: VALE GARCIA is a 77 year old M referred to Physical Therapy by Dr. Demond Davis MD with a diagnosis of Loss of Balance and PD. Date of Evaluation: 04/17/23 Physical Therapist: FERMIN Cespedes Visit Plan Frequency: 2x /Week Duration: 2 Months Plan: 2X/ week for 6-8 weeks of standing balance with EO/EC, Dynamic balance with EO/EC, gait training, Subjective Subjective: Pt told Dr Mukherjee that he was having trouble with balance. He feels that is is some of the meds. He has PD about 1.5 years ago. He sees Dr Garsia. He is on meds for it. He feels that it helps. He struggles mostly his R hand tremor. He gets dizzy if he tries to move too fast. He is also on chemo for bladder cancer and on chemo for 5 years. He just remodeled his bathroom and he is able to do what he wants but it just takes him more time. He is still driving. He has no issues going up and down steps and not issues getting out of a chair. Objective Objective: Gait: Pt walks with flexed trunk with small LIDIA with smaller stride and increase veering. Heel and toe raises: LE MMT: B hip flex 16# R knee ext 25.4 and L 18.5 R knee flex 18.1 and L 16/5 FGA: 15 CATSIB: 58 HEP: standing UE supported heel and toe raises Balance/Special Test Scores Functional Gait Assessment Score: 15 % Disability: 50.0000 CATSIB Score (Max score 120 seconds): 58 Lower Extremity Functional Score: 59 Goals Goal 1:: I HEP Goal Time Frame: 6-8 Weeks Goal 2:: Be able to stand with EC X 45 seconds without LOB (3 seconds at eval) Goal Time Frame: 4-6 Weeks Goal 3:: Increase balance with walking with head turns without veering or LOB Goal Time Frame: 4-6 Weeks Goal 4:: Increase CATIB (score was 58/120 at eval) Goal Time Frame: 6-8 Weeks Rehabilitation Potential Rehabilitation Potential: Good Anticipated Interventions Patient/Client Instruction: Educate patient on: Condition and Plan of Care For the Purpose of:: To improve muscle performance and motor function, To improve ability to perform ADL's, To increase tolerance to activity/condition/position, To improve performance and independence with ADL's, To decrease level of supervision to perform tasks, To improve ability of physical actions for home/community/work/leisure, To improve gait and locomotor functions, To improve balance and To improve safety with gait Therapeutic Exercise to Include: Strength training, Endurance training, Balance training, Gait and locomotor training and Neuromotor development For the Purpose of:: To improve muscle performance and motor function, To im prove ability to perform ADL's, To increase tolerance to activity/condition/position, To improve performance and independence with ADL's, To decrease level of supervision to perform tasks, To improve ability of physical actions for home/community/work/leisure, To improve gait and locomotor functions, To increase flexibility/ROM, To improve endurance, To improve balance and To improve safety with gait Functional Training to Include: Gait training For the Purpose of:: To improve gait and locomotor functions and To improve safety with gait Text: Thank you for the opportunity to evaluate your patient. For Medicare and Medicare HMO plans, please review the plan of care and approve it. It will need to be FAXED BACK to us at [phone] for Medicare purposes. For Medicare only, by signing this I certify the plan of care. Please let me know if there are questions or concerns regarding this plan of care. Physician Signature: Date:
--- NOTE | 2023-06-06 13:02 | HP.PTDCSUM ---
Discharge Summary D/C summary: It has been my pleasure to treat VALE GARCIA referred by Dr. Demond Davis MD, with the diagnosis of Loss of Balance and PD for a total of 7 visit(s). Discharge Date: 06/06/23 Please see the following information for a summary of their discharge status. Subjective Subjective: He feels shaky today and thinks that it is the after chemo pill. Overall he feels his balance is better and he is doing exercises at home. He feels stronger as well. Overall Improvement % Improvement: 80 Objective Objective/Function: CATSIB 120 FGA 15 Walking with head turns... improved balance Standing balance with EC... improved to 34 seconds Goals Goal 1:: I HEP Goal Progress: Goal Met Goal 2:: Be able to stand with EC X 45 seconds without LOB (3 seconds at eval) Goal Progress: Progressing Goal 3:: Increase balance with walking with head turns without veering or LOB Goal Progress: Progressing Goal 4:: Increase CATIB (score was 58/120 at eval) Goal Progress: Goal Met Plan Plan: DC PT to HEP Issued standing hip flex, hip abd, heel and toe raises, bridges, sit to stands D/C Information Discharge Comments: DC PT to HEP d/c sentence: If there are questions or concerns regarding this patient's physical therapy, please feel free to call me at [phone]. Thank you for the referral of this patient. Sincerely, Yeimi Berry, MPT Balance/Gait/Functional tests Balance/Special Test Scores Functional Gait Assessment Score: 15 % Disability: 50.0000 CATSIB Score (Max score 120 seconds): 120 Lower Extremity Functional Score: 59 Improvement % Improvement: 80
== END 2023-06-06 19:00 | disposition home or self-care (01) ==
LOC: PT 12:00
PROVIDERS: PCP Family Medicine; Referring Provider Family Medicine; Visit Provider Family Medicine
DX: R26.89 Other abnormalities of gait and mobility (principal); G20.A1 Parkinson's disease without dyskinesia, without mention of fluctuations
CPT/HCPCS: 97110; 97112; 97161; 97530

== ENCOUNTER → 2023-07-06 | Outpatient (CLI) | payer MEDICARE, SELFPAY ==
--- NOTE | 2023-07-06 12:28 | MRI_ITS ---
STUDY: MRI BRAIN WITH AND WITHOUT CONTRAST REASON FOR EXAM: Male, 77 years old. follow L acoustic neuroma; bilateral hearing loss -- with attention to the IAC''s -- Patient has dorsal column stimulator TECHNIQUE: Standardized multiplanar fat and water weighted pulse sequences were obtained. IV 15 cc clariscan was administered for the contrast portion of the examination. COMPARISON: November 09, 2021 FINDINGS: Minor atrophy and periventricular white matter ischemic change without mass effect or restricted diffusion Normal bilateral basal ganglia. Normal thalami. There is no extra-axial fluid accumulation. Normal flow voids within the major intracranial circulation suggesting patency by spin echo criteria. Normal venous enhancement. There is no enhancing intra-axial or extra-axial abnormality. Normal sella turcica, pituitary gland, infundibular stalk, optic chiasm and hypothalamus. Normal tectal plate and pineal gland. Normal midbrain, santana and medulla. Normal cerebellum. Normal basal cisterns. Normal bilateral temporal bones. There is a relatively homogeneously enhancing lesion in the left cerebellopontine angle cistern extending into the internal auditory canal measuring approximately 1.28 .74 cm. This is stable in size since prior study Postsurgical changes of the orbits.. Mild mucosal thickening of the right maxillary sinus and minor mucosal thickening of the ethmoid air cells. Normal calvarium and skull base. Normal visualized soft tissue structures. Normal visualized upper cervical spine. MRI/Brain W/WO Contrast IMPRESSION: Stable appearance to acoustic neuroma in the left cerebellopontine angle cistern extending into the internal auditory canal. Minor periventricular white matter ischemic changes without evidence for acute infarct Electronically Signed: Miguel A Ochoa MD at 16:48 EST ,
--- OUTSIDE RECORDS SUMMARY | 2023-07-06 12:40 | XMS RPT_ITS | CCD ---
Author Name Unknown Address [id number] [place] [address] Organization [facility] Care Team Providers Care Bi Technical Lead Name Role Phone CIPRIANO Gaines, Naty Villalta Unavailable Unavailjustin e Narinder Shaikh Unavailable Unavailable DECLAN, RUSLAN DO Unavailable Unavailable DECLAN, RUSLAN DO Unavailable Unavailable DECLAN, RUSLAN DO Unavailable Unavailable RED, CECILY A Unavailable Unavailable RED, CECILY A Unavailable Unavailable PROVIDER, UNKNOWN Unavailable Unavailable PROVIDER, UNKNOWN Unavailable Unavailable PROVIDER, UNKNOWN Unavailable Unavailable RED, CECILY A Unavailable Unavailable RED, CECILY A Unavailable Unavailable WINSTON, JIMY T Unavailable Unavailable WINSTON, JIMY T Unavailable Unavailable WINSTON, JIMY T Unavailable Unavailable PROVIDER, UNKNOWN Unavailable Unavailable PROVIDER, UNKNOWN Unavailable Unavailable PROVIDER, UNKNOWN Unavailable Unavailable LOPEZ, PAUL Unavailable Unavailable LOPEZ, PAUL Unavailable Unavailable LOPEZ, PAUL Unavailable Unavailable DAMON, WARREN C Unavailable Unavailable DAMON, WARREN C Unavailable Unavailable RED, CECILY A Unavailable Unavailable DAMON, WARREN C Unavailable Unavailable RED, CECILY A Unavailable Unavailable PROVIDER, UNKNOWN Unavailable Unavailable PROVIDER, UNKNOWN Unavailable Unavailable PROVIDER, UNKNOWN Unavailable Unavailable DAMON, WARREN C Unavailable Unavailable DAMON, WARREN C Unavailable Unavailable DAMON, WARREN C Unavailable Unavailable RED, CECILY A Unavailable Unavailable PROVIDER, UNKNOWN Unavailable Unavailable PROVIDER, UNKNOWN Unavailable Unavailable PROVIDER, UNKNOWN Unavailable Unavailable RED, CECILY A Unavailable Unavailable RED, CECILY A Unavailable Unavailable RED, CECILY A Unavailable Unavailable RED, CECILY A Unavailable Unavailable PROVIDER, UNKNOWN Unavailable Unavailable PROVIDER, UNKNOWN Unavailable Unavailable PROVIDER, UNKNOWN Unavailable Unavailable Chavez, Caitlin Unavailable Unavailable Chavez, Caitlin Unavailable Unavailable Unavailable Primary Care Provider Nico Hernández MD Primary Care Provider NICO SINGER Primary Care Unavailable VAMSHI LANE Attending Unavailable NICO SINGER Primary Care Unavailable VAMSHI LANE Referring Unavailable NICO SINGER Primary Care Unavailable VAMSHI LANE Attending Unavailable VAMSHI LANE Admitting Unavailable VAMSHI LANE Attending Unavailable VAMSHI LANE Attending Unavailable Allergies Allergy Classification Reported Allergen(s) Allergy Type Date of Onset Reaction(s) Facility (5 sources) Amoxicillin Drug Allergy 10-19-2022 Other [facility] Medications Current Medications Medication Drug Class(es) Dates Sig (Normalized) Sig (Original) acetaminophen 325 mg / HYDROcodone bitartrate 5 mg oral tablet (2 sources) Opioid Agonist Start: 10-31-2022 End: 11-05-2022 take 1 tablet by mouth every six hours as needed for pain HYDROcodone-acetami nophen ([place]) 5-325 MG tablet Indications: Pathological fracture, left shoulder, initial encounter for fracture Take 1 tablet by mouth every 6 hours as needed for severe pain (7-10) for up to 5 days. 20 tablet 0 10/31/2022 11/05/2022 Active amantadine hydrochloride 100 mg oral capsule (5 sources) Influenza A M2 Protein Inhibitor take 1 capsule by mouth twice daily amantadine (Symmetrel) 100 MG capsule Take 100 mg by mouth 2 times daily. 0 Active finasteride 5 mg oral tablet (5 sources) 5-alpha Reductase Inhibitor take 1 tablet by mouth once daily finasteride (Proscar) 5 MG tablet Take 5 mg by mouth daily. Do not crush, chew, or split. 0 Active gabapentin 100 mg oral capsule (5 sources) Anti-epileptic Agent gabapentin (Neurontin) 100 MG capsule Take by mouth. 0 Active wjfnwyorojgb-womm-zr nerals-folic acid (Centrum) chewable tablet (5 sources) multivitamin-iro n-m inerals-folic acid (Centrum) chewable tablet Chew 1 tablet daily. 0 Active 4 ml pembrolizumab 25 mg/ml injection (5 sources) Programmed Receptor-1 Blocking Antibody pembrolizumab (Keytruda) 100 MG/4ML chemo injection Infuse into a venous catheter Once. 0 Active Completed/Discontinued Medications Medication Drug Class(es) Dates Sig (Normalized) Sig (Original) acetaminophen 500 mg oral tablet (2 sources) Start: 10-31-2022 End: 10-31-2022 acetaminophen (Tylenol) tablet 1,000 mg ALPRAZolam 0.25 mg disintegrating oral tablet (2 sources) Benzodiazepine Start: 10-31-2022 End: 10-31-2022 ALPRAZolam (Xanax) disintegrating tablet 0.25 mg amoxicillin 500 mg oral tablet (4 sources) Penicillin-class Antibacterial Start: 03-16-2015 take 4 tablets by mouth every hour AMOXICILLIN 500 MG TABS 4 tablets by mouth 1 hr prior to procedure AMOXICILLIN [id number] Naty Gaines RN aspirin 81 mg oral tablet (17 sources) Nonsteroidal Anti-inflammatory Drug Start: 05-10-2013 take 1 tablet by mouth once daily ASPIRIN 81 MG TABS One tablet by mouth daily ASPIRIN [id number] Dianna No RN Problems Active Problems Problem Classification Problem Date Documented Da te Episodic/Chronic Cancer of bone and connective tissue (1 source) Primary malignant neoplasm of clavicle; Translations: [Malignant neoplasm of ribs, sternum and clavicle] Chronic Cardiac dysrhythmias (4 sources) Ventricular premature beats; Translations: [Ventricular premature depolarization] Onset: 05-10-2013 05-10-2013 Chronic Coronary atherosclerosis and other heart disease (8 sources) Coronary atherosclerosis; Translations: [Coronary arteriosclerosis] Onset: 05-10-2013 03-16-2015 Chronic Disorders of lipid metabolism (4 sources) Hyperlipidemia; Translations: [Hyperlipidemia, unspecified] Onset: 05-10-2013 05-10-2013 Chronic Essential hypertension (4 sources) Hypertensive disorder; Translations: [Essential (primary) hypertension] Onset: 05-10-2013 05-10-2013 Chronic Heart valve disorders (12 sources) Mitral valve regurgitation; Translations: [Nonrheumatic mitral (valve) insufficiency] Onset: 05-10-2013 Resolved: 03-16-2015 05-10-2013 Chronic Other nutritional; endocrine; and metabolic disorders (4 sources) Body mass index (BMI) 31.0-31.9, adult; Translations: [Body mass index (BMI) 31.0-31.9, adult] Onset: 05-13-2013 05-13-2013 Chronic Pathological fracture (7 sources) Pathological fracture of left clavicle; Translations: [Pathological fracture, left shoulder, initial encounter for fracture] Onset: 10-31-2022 Episodic Jodi-; endo-; and myocarditis; cardiomyopathy (4 sources) Cardiomyopathy; Translations: [Cardiomyopathy, unspecified] Onset: 05-10-2013 05-10-2013 Chronic Residual codes; unclassified (3 sources) Obstructive sleep apnea syndrome; Translations: [Obstructive sleep apnea (adult) (pediatric)] Onset: 10-26-2022 10-26-2022 Chronic Unclassified (2 sources) Coronary artery bypass graft; Translations: [Presence of coronary angioplasty implant and graft] Onset: 05-10-2013 05-10-2013 Unclassified (2 sources) Heart valve replacement ; Translations: [Presence of prosthetic heart valve] Onset: 08-01-2013 03-16-2015 Unclassified (2 sources) Long-term drug therapy; Translations: [Other marine oil terminal superintendent (current) drug therapy] Onset: 03-16-2015 03-16-2015 Past or Other Problems Problem Classification Problem Date Documented Date Episodic/Chronic Other aftercare (2 sources) Other intermediate (current) drug therapy; Translations: [Other marine oil terminal superintendent (current) drug therapy] Onset: 03-16-2015 03-16-2015 Episodic Other lower respiratory disease (4 sources) Dyspnea; Translations: [Shortness of breath] Onset: 05-10-2013 05-10-2013 Episodic Other nutritional; endocrine; and metabolic disorders (4 sources) Body mass index (BMI) 29.0-29.9, adult; Translations: [Body mass index (BMI) 29.0-29.9, adult] Onset: 05-13-2013 08-22-2013 Episodic Unclassified (2 sources) Replacement of mitral valve ; Translations: [Other specified postprocedural states] Onset: 08-01-2013 08-01-2013 Results Test Name Value Interpretation Reference Range Facil ity Vital Signs Date Time Vital Sign Value Performing Clinician Faci lity 11-15-2022 14:20-0400 Body height 167.[address] MD Work Phone: [employer] 11-15-2022 14:20-0400 Body mass index (BMI) [Ratio] 30.18 kg/m2 Vamshi Lane MD Work Phone: [facility] 11-15-2022 14:20-0400 Body weight 84.[address] MD Work Phone: [facility] 11-15-2022 14:20-0400 Diastolic blood pressure 78 mm[Hg] Vamshi Lane MD Work Phone: [facility] 11-15-2022 14:20-0400 Heart rate 74 /min Vamshi Lane MD Work Phone: [facility] 11-15-2022 14:20-0400 Systolic blood pressure 142 mm[Hg] Vamshi Lane MD Work Phone: [facility] 10-31-2022 09:25-0400 Body temperature 97 [degF] Vamshi Lane MD Work Phone: [facility] 10-31-2022 09:25-0400 Diastolic blood pressure 70 mm[Hg] Vamshi Lane MD Work Phone: [facility] 10-31-2022 09:25-0400 Heart rate 63 /min Vamshi Lane MD Work Phone: [facility] 10-31-2022 09:25-0400 Respiratory rate 18 /min Vamshi Lane MD Work Phone: [facility] 10-31-2022 09:25-0400 SaO2% (BldA) [Mass fraction] 95 % Vamshi Lane MD Work Phone: [facility] 10-31-2022 09:25-0400 Systolic blood pressure 114 mm[Hg] Vamshi Lane MD Work Phone: [facility] 10-31-2022 06:38-0400 Body height 167.[address] MD Work Phone: [facility] 10-31-2022 06:38-0400 Body mass index (BMI) [Ratio] 30.18 kg/m2 Vamshi Lane MD Work Phone: [facility] 10-31-2022 06:38-0400 Body weight 84.[address] MD Work Phone: [facility] 10-19-2022 13:09-0400 Body height 167.[address] MD Work Phone: [facility] 10-19-2022 13:09-0400 Body mass index (BMI) [Ratio] 30.34 kg/m2 Vamshi Lane MD Work Phone: [facility] 10-19-2022 13:09-0400 Body weight 85.[address] MD Work Phone: [facility] 10-19-2022 13:09-0400 Diastolic blood pressure 88 mm[Hg] Vamshi Lane MD Work Phone: [facility] 10-19-2022 13:09-0400 Heart rate 66 /min Vamshi Lane MD Work Phone: [facility] 10-19-2022 13:09-0400 Systolic blood pressure 142 mm[Hg] Vamshi Lane MD Work Phone: [facility] 11-24-2016 13:59-0400 BMI (Body Mass Index) 29.34 kg/m2 Caitlin Ndi[facility] Work Phone: 11-24-2016 13:59-0400 Body weight 87.54 kg Caitlin [facility] Work Phone: 11-24-2016 13:59-0400 BP Diastolic 60 mm[Hg] [facility] Work Phone: 11-24-2016 13:59-0400 BP Systolic 116 mm[Hg] [facility] Work Phone: 11-24-2016 13:59-0400 Height 172.72 cm [facility]lin [facility] Work Phone: 11-24-2016 13:59-0400 Pulse (Heart Rate) 64 /min Caitlin N[facility] Work Phone: 11-24-2016 13:59-0400 Pulse Oximetry 97 % [facility]lin [facility] Work Phone: 11-24-2016 13:59-0400 Respiratory Rate 18 /min Caitlin [facility] Work Phone: 11-24-2016 13:59-0400 Weight 87.54 kg [facility]lin [facility] Work Phone: 03-04-2016 13:04-0400 BMI (Body Mass Index) 28.49 kg/m2 Normanumi Neel [facility] Work Phone: 03-04-2016 13:04-0400 BP Diastolic 80 mm[Hg] Harumi DeFinis [facility] Work Phone: 03-04-2016 13:04-0400 BP Systolic 140 mm[Hg] Harumi DeFinis [facility] Work Phone: 03-04-2016 13:04-0400 BSA (Body Surface Area) 1.99 m2 Harumi DeFinis [facility] Work Phone: 03-04-2016 13:04-0400 Pulse (Heart Rate) 72 /min Harumi DeFinis [facility] Work Phone: 03-04-2016 13:04-0400 Respiratory Rate 20 /min Harumi DeFinis [facility] Work Phone: 03-04-2016 13:04-0400 Weight 85 kg Harumi DeFinis [facility] Work Phone: 08-22-2013 13:06-0500 Heart rate 418 ms Caitlin Chavez [facility] Work Phone: 08-22-2013 13:06-0500 Heart rate 95 /min Caitlin Chavez [facility] Work Phone: 08-22-2013 12:52-0500 Body Temperature 97.8 [degF] Harumi DeFinis [facility] Work Phone: 08-22-2013 12:52-0500 Pulse Oximetry 95 % Harumi DeFinis [facility] Work Phone: 05-13-2013 13:42-0500 Height 172.72 cm Harumi DeFinis [facility] Work Phone: Encounters Encounter Date Encounter Type Care Provider Facility Start: 11-15-2022 End: 11-15-2022 ambulatory [facility] Start: 11-15-2022 End: 11-15-2022 Postop follow up visit related to original px Vamshi Lane MD Work Phone: [facility] Procedures Date Procedure Procedure Detail Performing Clinician Start: 11-24-2016 End: 11-24-2016 Documentation of current medications Caitlin Chavez Start: 11-24-2016 End: 11-24-2016 REMA Lassiter MD Work Phone: Start: 11-24-2016 End: 11-24-2016 Follow Up Appt 6 months Lamine Lassiter MD Work Phone: Start: 03-04-2016 End: 03-04-2016 REMA Lassiter MD Work Phone: Start: 03-04-2016 End: 05-25-2016 Echocardiography Lamine Lassiter MD Work Phone: Start: 03-04-2016 End: 03-04-2016 Follow Up Appt 6 months Lamine Lassiter MD Work Phone: Start: 03-17-2015 End: 03-17-2015 Dietary management education, guidance, and counseling Caitlin Chavez Start: 03-17-2015 End: 03-17-2015 REMA Lassiter MD Work Phone: Start: 03-17-2015 End: 03-30-2015 Echocardiography Lamine Lassiter MD Work Phone: Start: 03-17-2015 End: 03-17-2015 Follow Up Appt 1 year Ambar Danielson Work Phone: Start: 09-08-2014 End: 09-08-2014 REMA Lassiter MD Work Phone: Start: 09-08-2014 End: 09-08-2014 Follow Up Appt 6 months Lamine Lassiter MD Work Phone: Start: 12-11-2013 End: 12-13-2013 Stress Echocardiogram (treadmill) Lamine Lassiter MD Work Phone: Start: 09-20-2013 End: 09-03-2014 *Microalbumin, Creatine Ratio, rand urine Lamine Lassiter MD Work Phone: Start: 08-22-2013 End: 11-14-2013 Cardiac Rehab Lamine Lassiter MD Work Phone: Start: 08-22-2013 End: 08-22-2013 REMA Lassiter MD Work Phone: Start: 08-22-2013 End: 08-22-2013 Follow Up Appt 1 year Ambar Danielson Work Phone: Start: 08-01-2013 Heart valve replacement Status, heart valve replacement NEC Caitlin Chavez Start: 05-13-2013 End: 05-13-2013 REMA Lassiter MD Work Phone: Start: 05-13-2013 End: 05-13-2013 Follow Up Appt 6 months Lamine Lassiter MD Work Phone: Start: 05-13-2013 End: 08-06-2013 Pulmonary Fuction Test - complete Lamine Lassiter MD Work Phone: Start: 05-10-2013 Coronary artery bypass graft CORONARY ARTERY BYPASS GRAFT, HX OF Caitlin Chavez Plan of Treatment Date Care Activity Detail Author Start: 04-02-2029 DTaP/Tdap/Td Vaccine s (2 - Td or Tdap) DTaP/Tdap/Td Vaccines (2 - Td or Tdap) [facility] Start: 10-31-2022 End: 10-31-2022 Admission to same day surgery center 10/31/[address] Vamshi Lane MD [address] [place] [address] [place] [id number] Open biopsy frozen section left proximal clavicle [ (CPT )] [facility] Payers Date Payer Category Payer Medicare [employer] YU BANEGAS [id number] 2021-Present [address] [place] [address] Medicare HMO [id number] 2021 Medicare [id number] Blue Cross Blue Shield [id number] Unknown ANTHEM BLUE CROS S ANTHEM BLUE CROSS [id number] Effective for all dates [address] [place] [address] [place] [id number] Social History Date Type Detail Facility Start: 10-19-2022 End: 10-26-2022 Tobacco smoking status NHIS Ex-smoker [facility] End: 06-19-1996 History of tobacco use Current smoker [facility] End: 06-19-1996 History of tobacco use Cigarette Smoker [facility] Start: 10-19-2022 Tobacco use and exposure Smokeless t obacco non-user [facility] Start: 10-19-2022 End: 11-15-2022 Alcohol intake Ex-drinker (finding) [facility] Start: 10-17-2022 Tobacco Comment snuff [facility] Start: 1945 Sex Assigned At Not on file [facility] Start: 10-08-2022 End: 11-15-2022 Exposure to SARS-CoV-2 (event) Not sure [facility] Start: 10-26-2022 Tobacco use and exposure User of smo keless tobacco [facility] Start: 10-26-2022 History SDOH Transport Med 2 [facility] Clinical Notes 10-18-2022 to 11-15-[address] MD - 11/15/2022 2:15 PM EDTOp Note - Vamshi Lane MD - 10/31/2022 7:32 AM EDTOp Note - Vamshi Lane MD - 10/31/2022 7:[address] MD - 10/31/2022 7:18 AM EDT Note Date & Type Note Facility 11-15-2022 History of Presen t illness Narrative [facility] [address] [place] [address] [place] [id number] Dept: [phone] Dept Chief Complaint Patient presents with Post-op XR DOS 10/31/22 OPEN BX RESECTION LEFT MEDIAL CLAVICLE NON UNION SUBJECTIVE HPI Vale is a 77-year-old male 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 He underwent curettage and resection of a portion of the clavicle 10/31/2022. Postoperatively he is doing very well with well-healed incision no significant pain back to relatively normal activities. Family comes in for counseling of the neck steps. He is set up to see Dr. Cardona for a PET scan today and definitive treatment management. Patient Active Problem List Diagnosis Date Noted KAYLYNN (obstructive sleep apnea) 10/26/2022 Allergies Allergen Reactions Amoxicillin Other Caused C diff Family History Problem Relation Name Age of Onset Dementia Mother Hypertension Mother Heart attack Father Coronary artery disease Father Heart disease Father Past Medical History: Diagnosis Date Anemia due to chemotherapy Arthritis Bladder mass BPH (benign prostatic hyperplasia) Cancer (CMS/HCC) (HCC) urethelial cancer,bladder wall, squamous cell Coronary artery disease Fracture, clavicle left Glaucoma Heart disease History of chemotherapy Hyperlipidemia Hypertension LA (myocardial infarction) (CMS/HCC) (HCC) KAYLYNN (obstructive sleep apnea) Parkinson disease (HCC) PVC (premature ventricular contraction) Sleep apnea Stenosis of left carotid artery Social History Socioeconomic History Marital status: Spouse name: Not on file Number of children: Not on file Years of education: Not on file Highest education level: Not on file Occupational History Not on file Tobacco Use Smoking status: Former Types: Cigarettes Quit date: 1996 Years since quittin.4 Smokeless tobacco: Current Tobacco comments: snuff Vaping Use Vaping Use: Never used Substance and Sexual Activity Alcohol use: Not Currently Drug use: Never Sexual activity: Not on file Other Topics Concern Not on file Social History Narrative Not on file Social Determinants of Health Financial Resource Strain: Not on file Food Insecurity: Not on file Transportation Needs: No Transportation Needs Lack of Transportation (Medical): No Lack of Transportation (Non-Medical): No Physical Activity: Not on file Stress: Not on file Social Connections: Not on file Intimate Partner Violence: Not on file Housing Stability: Unknown Unable to Pay for Housing in the Last Year: No Number of Places Lived in the Last Year: Not on file Unstable Housing in the Last Year: No Past Surgical History: Procedure Laterality Date BONE BIOPSY Left 10/31/2022 Left Clavicle CARDIAC SURGERY CAROTID ENDARTERECTOMY Left CATARACT EXTRACTION EXTRACAPSULAR W/ INTRAOCULAR LENS IMPLANTATION Bilateral COLONOSCOPY CORONARY ARTERY BYPASS GRAFT KNEE ARTHROSCOPY MITRAL VALVE REPAIR N/A SPINAL CORD STIMULATOR IMPLANT N/A SPINE SURGERY N/A TOE SURGERY N/A Current Outpatient Medications Medication Sig Dispense Refill amantadine (Symmetrel) 100 MG capsule Take 100 mg by mouth 2 times daily. aspirin 81 MG EC tablet Take 162 mg by mouth daily. atorvastatin (Lipitor) 40 MG tablet Take 40 mg by mouth daily. finasteride (Proscar) 5 MG tablet Take 5 mg by mouth daily. Do not crush, chew, or split. gabapentin (Neurontin) 100 MG capsule Take by mouth. metoprolol succinate XL (Toprol-XL) 25 MG 24 hr tablet Take by mouth. Do not crush or chew. yhrnzefohquw-kuxy-acaprsye-folic acid (Centrum) chewable tablet Chew 1 tablet daily. naproxen (Naprosyn) 250 MG tablet Take by mouth. pembrolizumab (Keytruda) 100 MG/4ML chemo injection Infuse into a venous catheter Once. tamsulosin (Flomax) 0.4 MG 24 hr capsule Take 0.4 mg by mouth daily. Travoprost (TRAVATAN OP) Administer into affected eye(s). No current facility-administered medications for this visit. Review of Systems Musculoskeletal: LEFT CLAVICLE INCISION CLEAN AND DRY, STERI STRIPS REMOVED PAIN CONTROLLED ROM improving to left shoulder had PET scan done yesterday following with oncology this week for review of scan All other systems reviewed and are negative. OBJECTIVE Vitals: 11/15/22 1420 BP: (!) 142/78 Pulse: 74 Weight: 187 lb (84.8 kg) Height: 5' 6 (1.676 m) Physical Exam Physical Exam Vitals and nursing note reviewed. Constitutional: Appearance: Normal appearance. Cardiovascular: Rate and Rhythm: Normal rate. Pulmonary: Effort: Pulmonary effort is normal. Skin: General: Skin is warm and dry. Neurological: General: No focal deficit present. Mental Status: He is alert and oriented to person, place, and time. Psychiatric: Mood and Affect: Mood normal. Behavior: Behavior normal. Incisions well-healed no signs of infection subcuticular stitch in place. Shoulder range of motion good and strong some discomfort with cross arm adduction. No neuroma or nerve symptoms. XRAY INTERPRETATION X-rays show a defect in the clavicle were resected at the nonunion and metastatic disease. The bones are relatively well aligned. No signs of any destructive lesion anywhere else. No air is identified. ASSESSMENT 1. Malignant neoplasm of left clavicle (HCC) Metastatic uroepithelial carcinoma to left clavicle status post biopsy excision PLAN I will defer treatment work-up and plan to Dr. Cardona. And I have called Previously to let him know the diagnosis so he is prepared. We will see what the PET scan shows at this point time no follow-up with me as necessary. We did discuss possibility of having other metastatic sites that may need intervention but at this point time he has no pain anywhere else. I appreciate the referral and I will be glad to dissipate in the future if needed. No follow-ups on file. Voice recognition was used for portions of this note and although it was reviewed prior to signing some incorrect words or phrases could be present. Electronically signedby Sarah Jones RN on 11/16/2022 at 2:32 PM documented in this encounter [facility] 11-04-[address] left ye sterday about Vale's path results. I have sent a message to Dr Lane to recall Vale to discuss pathology and plan of care [facility] 11-02-2022 Note Called Erma back, in structions given for care of incision, limit lifting, no lotions no ointments to incision Pathology still in progress PO appt made for 11/15/22 11:15 with soheila and Vale in agreement with plan of care [facility] 10-31-2022 Note Patient: Vale Garcia Procedure Summary Date: 10/31/22 Room / Location: [address] Operating Room Anesthesia Start: 731 Anesthesia Stop: 848 Procedure: Open biopsy frozen section left proximal clavicle (Left: Shoulder) Diagnosis: Pathological fracture, left shoulder, initial encounter for fracture (Pathological fracture, left shoulder, initial encounter for fracture [M84.412A]) Surgeons: Vamshi Lane MD Responsible Provider: Gunner Sánchez MD Anesthesia Type: general, regional ASA Status: 3 Anesthesia Type: general, regional Vitals Value Taken Time BP 101/64 10/31/22 0846 Temp 97.4 10/31/22 0850 Pulse 65 10/31/22 0850 Resp 15 10/31/22 0850 SpO2 99 % 10/31/22 0850 Vitals shown include unvalidated device data. Anesthesia Post Evaluation Patient location during evaluation: PACU Patient participation: complete - patient participated Level of consciousness: responsive to verbal stimuli Pain management: satisfactory to patient Airway patency: patent Dental Injury: no Cardiovascular status: acceptable, blood pressure returned to baseline and hemodynamically stable Respiratory status: acceptable, spontaneous ventilation and face mask Hydration status: euvolemic Nausea/Vomiting: controlled No notable events documented. Patient can be discharged once all PACU criteria has been met. [facility] 10-31-2022 Note Patient: Vale Garcia Procedure Summary Date: 10/31/22 Room / Location: [address] Operating Room Anesthesia Start: 0732 Anesthesia Stop: 0849 Procedure: Open biopsy frozen section left proximal clavicle (Left: Shoulder) Diagnosis: Pathological fracture, left shoulder, initial encounter for fracture (Pathological fracture, left shoulder, initial encounter for fracture [M84.412A]) Surgeons: Vamshi Lane MD Responsible Provider: Gunner Sánchez MD Anesthesia Type: general, regional ASA Status: 3 Anesthesia Type: general, regional Vitals Value Taken Time BP 101/64 10/31/22 0846 Temp 97.4 10/31/22 0849 Pulse 66 10/31/22 0849 Resp 16 10/31/22 0849 SpO2 98 % 10/31/22 0849 Vitals shown include unvalidated device data. Anesthesia Post Evaluation Patient location during evaluation: PACU Patient participation: complete - patient participated Level of consciousness: awake and alert and responsive to verbal stimuli Pain score: 0 Pain management: satisfactory to patient Multimodal analgesia pain management approach Airway patency: patent Two or more strategies used to mitigate risk of obstructive sleep apnea Cardiovascular status: acceptable and hemodynamically stable Respiratory status: acceptable and face mask Hydration status: acceptable No notable events documented. MIPS #430 PONV Patient received an inhalational anesthetic (4554F) Patient does not exhibit three or more risk factors for PONV (X0430)) MIPS # 424 Perioperative Temperature Management Anesthesia time was less than 60 minutes (4256F) MIPS #477 Multimodal Pain Management Not emergent case Patient was administered multimodal pain management (two or more drugs and/or interventions excluding systemic opioids) in the periopeartive period occurring at some time between 6 hours prior to anesthesia start time until discharged from PACU (G2148) MIPS #404 Anesthesiology Smoking Abstinence The patient is not a current smoker (e.g. cigarette, cigar, pipe, e-cigarette/vaping/marijuana) If no stop here (XX404) I completed my handoff to the receiving clinician during which we: 1. Identified the patient 2. Identified the responsible provider 3. Reviewed the pertinent medical history 4. Discussed the surgical course 5. Reviewed intra-op anesthesia management and issues during anesthesia 6. Set expectations for post-procedure period 7. Allowed opportunity for questions and acknowledgement of understanding. [facility] 10-31-2022 Note Peripheral Block Time Out: 10/31/2022 7:18 AM Start time: 10/31/2022 7:21 AM End time: 10/31/2022 7:24 AM Reason for block: at surgeon's request and post-op pain management Staffing Performed: PATIENT CARE SECRETARY Resident/PATIENT CARE SECRETARY: Vini Jason APRN - SYBIL Preanesthetic Checklist Completed: patient identified, IV checked, site marked, risks and benefits discussed, surgical consent and timeout performed Region: Truncal Primary: Cervical Plexus Peripheral Block Patient position: supine Prep: ChloraPrep Patient monitoring: heart rate and continuous pulse ox O2: Room air Laterality: left Injection technique: single-shot Guidance: ultrasound guided -image retained in chart, tip of the needle identified by ultraound during injection. Needle Needle: 22G X 80 mm Additional Notes 10/31/2022 7:21 AM Assessment Injection assessment: negative aspiration for heme, no paresthesia on injection, incremental injection, local visualized surrounding nerve on ultrasound and transient paresthesias Heart rate change: no Slow fractionated injection: yes Required Documentation: Relevant anatomy identified (Nerves, Vessels, Muscles), Negative for blood on aspiration, Local anesthetic injected incrementally with intermittent aspiration every 5 mL, Normal resistance with injection, Local anesthetic spread visualized around nerves or plane., No EKG changes noted, No symptoms of toxicity and No paresthesias reported by patient during injectionMedications xbvGCVUPptwui-juakmnxerjn-pubkvzs rine (TAP) syringe - Injection 5 mL - 10/31/2022 7:21:00 AM [facility] 10-31-2022 Note Peripheral Block Time Out: 10/31/2022 7:18 AM Patient location during procedure: Procedural Start time: 10/31/2022 7:18 AM End time: 10/31/2022 7:21 AM Reason for block: at surgeon's request and post-op pain management Staffing Performed: PATIENT CARE SECRETARY Resident/PATIENT CARE SECRETARY: RACHEL Fernandez CRNA Preanesthetic Checklist Completed: patient identified, IV checked, site marked, risks and benefits discussed, surgical consent and timeout performed Region: Upper Extremities Primary: Interscalene Peripheral Block Patient position: supine Prep: ChloraPrep Patient monitoring: continuous pulse ox and heart rate O2: Room air Laterality: left Injection technique: single-shot Guidance: ultrasound guided -image retained in chart, tip of the needle identified by ultraound during injection. Local infiltration: lidocaine 2% Needle Needle: 22G X 80 mm Additional Notes Patient Position - Supine w/head elevated Nerve stimulating, Minimum current when twitches disappeared at 0.3mA Post Procedure - Patient tolerated procedure well. No complications noted10/31/2022 7:18 AM and midazolam (Versed) injection - IntraVENous 1 mg - 10/31/2022 7:18:00 AM Assessment Injection assessment: negative aspiration for heme, no paresthesia on injection, incremental injection and local visualized surrounding nerve on ultrasound Heart rate change: no Slow fractionated injection: yes Required Documentation: Relevant anatomy identified (Nerves, Vessels, Muscles), Negative for blood on aspiration, Local anesthetic injected incrementally with intermittent aspiration every 5 mL, Normal resistance with injection, Local anesthetic spread visualized around nerves or plane., No EKG changes noted, No symptoms of toxicity and No paresthesias reported by patient during injectionMedications midazolam (Versed) injection - IntraVENous 1 mg - 10/31/2022 7:18:00 TKroyYJPMFlpiid-vpncqtpejrs-bvfkd phrine (TAP) syringe - Injection 15 mL - 10/31/2022 7:18:00 AM [facility] 10-31-2022 Note Airway Date/Time: 10/31/2022 7:40 AM Urgency: scheduled Airway not difficult General Information and Staff Patient location during procedure: Procedural Resident/PATIENT CARE SECRETARY: RACHEL Auguste CRNA Performed: PATIENT CARE SECRETARY Indications and Patient Condition Indications for airway management: anesthesia Sedation level: Asleep Preoxygenated: yes Patient position: sniffing MILS maintained throughout Mask difficulty assessment: 1 - vent by mask Final Airway Details Final airway type: supraglottic airway Successful airway: air-Q Size 4.5 Number of attempts at approach: 1 Number of other approaches attempted: 0 [facility] 10-31-2022 Note Interval History and Physical I have interviewed and examined the patient and reviewed the recent History and Physical. There have been no changes to the recent H&P documentation. The patient understands the planned operation and its associated risks and benefits and agrees to proceed. The surgical consent form has been signed. BP 135/81 Pulse 61 Temp 36.3 ?C (97.3 ?F) (Temporal) Resp 18 Ht 1.676 m (5' 6 ) Wt 84.8 kg (187 lb) SpO2 95% BMI 30.18 kg/m? 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 Direct Mail Manager(s): Daily Anesthesia: General with a block EBL: Minimal IVF: Crystalloid Medications: Preoperative antibiotics Implants: No implants utilized Clinical History/Indication for Surgery The patient is a 77 y.o. year old male who was presents for open biopsy with possible frozen section left clavicle nonunion versus tumor. Patient has a history of transitional cell bladder cancer and has a relatively atraumatic fracture of the medial clavicle with some destruction but clinical appearance of possible nonunion. After discussion with medical oncology we felt that getting tissue to prove that this was not a pathologic fracture is warranted. The patient did have a previous hot bone scan in this area prior to treatment. We considered doing a needle biopsy but due to the location and the potential insufficient tissue we elected for an open incisional biopsy. Shared informed decision making was performed. There was fluid noted within the nonunion. The tissue was very firm and hard I did not get cultures as of the fluid seem to be typical nonunion fluid. We did remove the entire callus in this area and expose both ends of the clavicle I did not do a frozen section as I did not think this was tumor but will defer to permanent sections. Typical indications for surgery were reviewed and surgery was recommended. Risks of surgery in general were reviewed including, but not limited to, infection, recurrence, need for additional procedures,damage to normal structures as well as medical complications such as LA, stroke, PE, DVT, and even . Specific indications and/or risks of this procedure were discussed as well including, but not limited to: Injury to vital structures behind the clavicle. Infection postoperatively. Pt was given opportunity to ask questions and consider his options. He ultimately elected to proceed with surgery. No guarantees were given or implied. Operative Narration The patient was identified in the pre-operative holding area. The surgical site was identified and marked. Informed consent was obtained. The patient was then brought to the operating room and placed supine on the operating table. Anesthesia was administered and care of the head, neck, and airway was maintained by the anesthesia staff throughout the entire procedure. All bony prominences were identified and padded. A tourniquet was not applied to the operative extremity which was then prepped and draped in the usual sterile fashion. A surgical timeout was performed. Antibiotics were confirmed to have been given. A longitudinal incision was made over the medial clavicle where the palpable mass could be identified. Dissected down through the skin subcutaneous tissue maintain hemostasis. Careful dissection around the callus was done and remove the entire anterior aspect of the callus formation. There is thick fibrous areas and no definite evidence of tumor therefore I did not do a frozen section. We exposed the entire nonunion removed all the tissue from the anterior and between the bone ends. The bone ends were freshened up and the tissue removed was sent for permanent sections. I saw no definite evidence of neoplasm but obviously will defer to permanent section since his history of cancer makes him at high risk. Copious irrigation was then used. Layered closure with 2-0 Vicryl 3-0 Vicryl and a 4-0 Monocryl was applied patient procedure well was stable throughout the procedure. Once the patient was awakened from anesthesia, they were transported to the PACU in stable condition, having tolerated surgery well with no immediate complications. Postoperative Plan Weight-bear as tolerated function as tolerated. We will call him with final pathology. This operative report was prepared and signed by Vamshi Lane MD at 10/31/22, 8:26 AM documented in this encounter [facility] 10-31-2022 Note Formatting of this n ote might be different from the original. Images from the original note were not included. 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 Direct Mail Manager(s): Daily Anesthesia: General with a block EBL: Minimal IVF: Crystalloid Medications: Preoperative antibiotics Implants: No implants utilized Clinical History/Indication for Surgery The patient is a 77 y.o. year old male who was presents for open biopsy with possible frozen section left clavicle nonunion versus tumor. Patient has a history of transitional cell bladder cancer and has a relatively atraumatic fracture of the medial clavicle with some destruction but clinical appearance of possible nonunion. After discussion with medical oncology we felt that getting tissue to prove that this was not a pathologic fracture is warranted. The patient did have a previous hot bone scan in this area prior to treatment. We considered doing a needle biopsy but due to the location and the potential insufficient tissue we elected for an open incisional biopsy. Shared informed decision making was performed. There was fluid noted within the nonunion. The tissue was very firm and hard I did not get cultures as of the fluid seem to be typical nonunion fluid. We did remove the entire callus in this area and expose both ends of the clavicle I did not do a frozen section as I did not think this was tumor but will defer to permanent sections. Typical indications for surgery were reviewed and surgery was recommended. Risks of surgery in general were reviewed including, but not limited to, infection, recurrence, need for additional procedures,damage to normal structures as well as medical complications such as LA, stroke, PE, DVT, and even . Specific indications and/or risks of this procedure were discussed as well including, but not limited to: Injury to vital structures behind the clavicle. Infection postoperatively. Pt was given opportunity to ask questions and consider his options. He ultimately elected to proceed with surgery. No guarantees were given or implied. Operative Narration The patient was identified in the pre-operative holding area. The surgical site was identified and marked. Informed consent was obtained. The patient was then brought to the operating room and placed supine on the operating table. Anesthesia was administered and care of the head, neck, and airway was maintained by the anesthesia staff throughout the entire procedure. All bony prominences were identified and padded. A tourniquet was not applied to the operative extremity which was then prepped and draped in the usual sterile fashion. A surgical timeout was performed. Antibiotics were confirmed to have been given. A longitudinal incision was made over the medial clavicle where the palpable mass could be identified. Dissected down through the skin subcutaneous tissue maintain hemostasis. Careful dissection around the callus was done and remove the entire anterior aspect of the callus formation. There is thick fibrous areas and no definite evidence of tumor therefore I did not do a frozen section. We exposed the entire nonunion removed all the tissue from the anterior and between the bone ends. The bone ends were freshened up and the tissue removed was sent for permanent sections. I saw no definite evidence of neoplasm but obviously will defer to permanent section since his history of cancer makes him at high risk. Copious irrigation was then used. Layered closure with 2-0 Vicryl 3-0 Vicryl and a 4-0 Monocryl was applied patient procedure well was stable throughout the procedure. Once the patient was awakened from anesthesia, they were transported to the PACU in stable condition, having tolerated surgery well with no immediate complications. Postoperative Plan Weight-bear as tolerated function as tolerated. We will call him with final pathology. This operative report was prepared and signed by Vamshi Lane MD at 10/31/22, 8:26 AM [facility] 10-31-2022 Note Formatting of this n ote might be different from the original. Images from the original note were not included. 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 Direct Mail Manager(s): Daily Anesthesia: General with a block EBL: Minimal IVF: Crystalloid Medications: Preoperative antibiotics Implants: No implants utilized Clinical History/Indication for Surgery The patient is a 77 y.o. year old male who was presents for open biopsy with possible frozen section left clavicle nonunion versus tumor. Patient has a history of transitional cell bladder cancer and has a relatively atraumatic fracture of the medial clavicle with some destruction but clinical appearance of possible nonunion. After discussion with medical oncology we felt that getting tissue to prove that this was not a pathologic fracture is warranted. The patient did have a previous hot bone scan in this area prior to treatment. We considered doing a needle biopsy but due to the location and the potential insufficient tissue we elected for an open incisional biopsy. Shared informed decision making was performed. There was fluid noted within the nonunion. The tissue was very firm and hard I did not get cultures as of the fluid seem to be typical nonunion fluid. We did remove the entire callus in this area and expose both ends of the clavicle I did not do a frozen section as I did not think this was tumor but will defer to permanent sections. Typical indications for surgery were reviewed and surgery was recommended. Risks of surgery in general were reviewed including, but not limited to, infection, recurrence, need for additional procedures,damage to normal structures as well as medical complications such as LA, stroke, PE, DVT, and even . Specific indications and/or risks of this procedure were discussed as well including, but not limited to: Injury to vital structures behind the clavicle. Infection postoperatively. Pt was given opportunity to ask questions and consider his options. He ultimately elected to proceed with surgery. No guarantees were given or implied. Operative Narration The patient was identified in the pre-operative holding area. The surgical site was identified and marked. Informed consent was obtained. The patient was then brought to the operating room and placed supine on the operating table. Anesthesia was administered and care of the head, neck, and airway was maintained by the anesthesia staff throughout the entire procedure. All bony prominences were identified and padded. A tourniquet was not applied to the operative extremity which was then prepped and draped in the usual sterile fashion. A surgical timeout was performed. Antibiotics were confirmed to have been given. A longitudinal incision was made over the medial clavicle where the palpable mass could be identified. Dissected down through the skin subcutaneous tissue maintain hemostasis. Careful dissection around the callus was done and remove the entire anterior aspect of the callus formation. There is thick fibrous areas and no definite evidence of tumor therefore I did not do a frozen section. We exposed the entire nonunion removed all the tissue from the anterior and between the bone ends. The bone ends were freshened up and the tissue removed was sent for permanent sections. I saw no definite evidence of neoplasm but obviously will defer to permanent section since his history of cancer makes him at high risk. Copious irrigation was then used. Layered closure with 2-0 Vicryl 3-0 Vicryl and a 4-0 Monocryl was applied patient procedure well was stable throughout the procedure. Once the patient was awakened from anesthesia, they were transported to the PACU in stable condition, having tolerated surgery well with no immediate complications. Postoperative Plan Weight-bear as tolerated function as tolerated. We will call him with final pathology. This operative report was prepared and signed by Vamshi Lane MD at 10/31/22, 8:26 AM [facility] 10-31-2022 History and physical note Interval History and Physical I have interviewed and examined the patient and reviewed the recent History and Physical. There have been no changes to the recent H&P documentation. The patient understands the planned operation and its associated risks and benefits and agrees to proceed. The surgical consent form has been signed. 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 There have been no changes to the recent H&P documentation. The patient understands the planned operation and its associated risks and benefits and agrees to proceed. The surgical consent form has been signed. 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 Plan: Proceed with planned surgical procedure open biopsy documented in this encounter [facility] 10-26-2022 Note Medical Clearance re ceived, scanned into media consultant [facility] [place] [facility] 10-26-2022 Note Patient: Vale Garcia Procedure Information Date/Time: 10/31/22729 Procedure: Open biopsy frozen section left proximal clavicle (Left: Shoulder) - 60 minutes Location: [address] Operating Room Surgeons: Vamshi Lane MD Relevant Problems Anesthesia (+) KAYLYNN (obstructive sleep apnea) (-) Delayed emergence from anesthesia (-) Difficult intravenous access (-) Difficult intubation (-) Family history of malignant hyperthermia (-) Motion sickness (-) PONV (postoperative nausea and vomiting) Pulmonary (+) KAYLYNN (obstructive sleep apnea) Past Medical History: Past Medical History: No date: Anemia due to chemotherapy No date: Arthritis No date: Bladder mass No date: BPH (benign prostatic hyperplasia) No date: Cancer (CMS/HCC) (HCC) Comment: urethelial cancer,bladder wall, squamous cell No date: Coronary artery disease No date: Fracture, clavicle Comment: left No date: Heart disease No date: History of chemotherapy No date: Hypertension No date: KAYLYNN (obstructive sleep apnea) No date: Parkinson disease (HCC) No date: PVC (premature ventricular contraction) No date: Sleep apnea No date: Stenosis of left carotid artery Past Surgical History: Past Surgical History: No date: CARDIAC SURGERY No date: CAROTID ENDARTERECTOMY; Left No date: CATARACT EXTRACTION EXTRACAPSULAR W/ INTRAOCULAR LENS IMPLANTATION; Bilateral No date: COLONOSCOPY No date: KNEE ARTHROSCOPY No date: MITRAL VALVE REPAIR; N/A No date: SPINAL CORD STIMULATOR IMPLANT; N/A No date: SPINE SURGERY; N/A No date: TOE SURGERY; N/A Social History: TOBACCO: reports that he quit smoking about 26 years ago. His smoking use included cigarettes. He uses smokeless tobacco. ETOH: reports that he does not currently use alcohol. Social History Substance and Sexual Activity Drug Use Never Family History: Family History Problem Relation Name Age of Onset ? Dementia Mother ? Hypertension Mother ? Heart attack Father ? Coronary artery disease Father ? Heart disease Father Screening: unknown Clinical information reviewed: Tobacco Allergies Meds Med Hx Surg Hx Fam Hx Soc Hx Physical Exam Airway Mallampati: II TM distance: >3 FB Neck ROM: full Mouth Open: normalendotracheal tube not in place Cardiovascular Dental (+) Missing Comments: missing teeth - 2 top 2 bottom nothing loose or broken no partials or dentures Pulmonary Abdominal Anesthesia Plan ASA 3 general and regional (Interscalene and cervical plexus blocks for post op pain management) The patient is not a current smoker. Anesthetic plan and risks discussed with patient. patient is NPO Short ERAS Has spinal cord stimulator implant Followed by Cardiology No recent CP/SOB KAYLYNN Screening STOP-Bang Total Score: 3 Labs: Lab Results Component Value Date WBC 7.2 10/26/2022 HGB 15.2 10/26/2022 HCT 45.3 10/26/2022 MCV 97.9 10/26/2022 PLT 137 (L) 10/26/2022 Lab Results Component Value Date NA 137 10/26/2022 K 4.3 10/26/2022 CL 104 10/26/2022 CO2 26 10/26/2022 BUN 18 10/26/2022 CREATININE 1.28 (H) 10/26/2022 GLUCOSE 92 10/26/2022 CALCIUM 8.5 10/26/2022 EGFR 58.0 (L) 10/26/2022 No echocardiogram results found for the past 14 days 10/26/22 ECG 12-LEAD (Preliminary) This result has not been signed. Information might be incomplete. Impression SINUS RHYTHM VENTRICULAR PREMATURE COMPLEX RIGHT ATRIAL ABNORMALITY LAD, CONSIDER LEFT ANTERIOR FASCICULAR BLOCK LOW VOLTAGE IN FRONTAL LEADS CONSIDER ANTERIOR INFARCT ARTIFACT IN LEAD(S) I,II,III,aVR,aVL,aVF,V1,V2,V3,V4, V5,V6 No previous ECG available for comparison [facility] 10-26-2022 Note Comprehensive PreSur gical History and Physical ? Name: Vale Garcia : 1945 (Age-77 y.o.) Date of Service: Pt seen/examined on 10/26/2022 Procedure Information Date/Time: 10/31/22 0730 Procedure: Open biopsy frozen section left proximal clavicle (Left: Shoulder) - 60 minutes Location: [address] Operating Room Surgeons: Vamshi Lane MD Chief Complaint: Pathological fracture, left shoulder History Of Present Illness: 77 y.o. male who presents with chief complaint mentioned above. Per surgeon's note pt with a left proximal clavicle fracture sustained on 06/25/22. Patient states he was cranking up a trailer and felt a pop in his left clavicle region. Patient has a history of bladder cancer and has undergone chemo, radiation, and keytruda therapy. Patient is currently on a treatment break and not undergoing any form cancer therapy at this time. Given his history and the relatively low energy nature of the injury, there was concern for pathologic fracture. Per note review, patient had a bone scan in May 2018 that showed increased uptake in the left proximal clavicle at that time. Subsequent bone scans demonstrated no increased uptake in the left clavicle until he sustained this fracture. At this time, patient reports minimal discomfort. He states he is able to perform his daily activities without difficulty and only notices discomfort in his clavicle if he's doing more strenuous activities. Denies any numbness or tingling. Denies fever, chills, nausea, vomiting, SOB, night pain, weight loss. Pt has seen the surgeon and elected for above procedure. Saw PCP for check up and surgery clearance yesterday, had labs and EKG done - went well per patient Denies Hx of DM, Asthma/COPD, CHF, a fib, TIA/CVA, DVT/PE Hx problems with anesthesia? - no Dental? - missing teeth - 2 top 2 bottom nothing loose or broken no partials or dentures Snore at night? -no. +kaylynn no cpap worn Past Medical History: Past Medical History: No date: Anemia due to chemotherapy No date: Arthritis No date: Bladder mass No date: BPH (benign prostatic hyperplasia) No date: Cancer (CMS/HCC) (HCC) Comment: urethelial cancer,bladder wall, squamous cell No date: Coronary artery disease No date: Fracture, clavicle Comment: left No date: Heart disease No date: History of chemotherapy No date: Hypertension No date: KAYLYNN (obstructive sleep apnea) No date: Parkinson disease (HCC) No date: PVC (premature ventricular contraction) No date: Sleep apnea No date: Stenosis of left carotid artery Past Surgical History: Past Surgical History: No date: CARDIAC SURGERY No date: CAROTID ENDARTERECTOMY; Left No date: CATARACT EXTRACTION EXTRACAPSULAR W/ INTRAOCULAR LENS IMPLANTATION; Bilateral No date: COLONOSCOPY No date: KNEE ARTHROSCOPY No date: MITRAL VALVE REPAIR; N/A No date: SPINAL CORD STIMULATOR IMPLANT; N/A No date: SPINE SURGERY; N/A No date: TOE SURGERY; N/A Medications Prior to Admission: Current Outpatient Medications: amantadine (Symmetrel) 100 MG capsule, Take 100 mg by mouth 2 times daily., Disp: , Rfl: aspirin 81 MG EC tablet, Take 81 mg by mouth daily., Disp: , Rfl: atorvastatin (Lipitor) 40 MG tablet, Take 40 mg by mouth daily., Disp: , Rfl: finasteride (Proscar) 5 MG tablet, Take 5 mg by mouth daily. Do not crush, chew, or split., Disp: , Rfl: gabapentin (Neurontin) 100 MG capsule, Take by mouth., Disp: , Rfl: metoprolol succinate XL (Toprol-XL) 25 MG 24 hr tablet, Take by mouth. Do not crush or chew., Disp: , Rfl: oydnwtdzrggb-fzwz-xevmcnfn-folic acid (Centrum) chewable tablet, Chew 1 tablet daily., Disp: , Rfl: naproxen (Naprosyn) 250 MG tablet, Take by mouth., Disp: , Rfl: pembrolizumab (Keytruda) 100 MG/4ML chemo injection, Infuse into a venous catheter Once., Disp: , Rfl: tamsulosin (Flomax) 0.4 MG 24 hr capsule, Take 0.4 mg by mouth daily., Disp: , Rfl: Travoprost (TRAVATAN OP), Administer into affected eye(s)., Disp: , Rfl: CHRONIC NARCOTIC USE: No Allergies: Amoxicillin If patient has opioid allergy, is it okay to take Acetaminophen: N/A Social History: TOBACCO: reports that he quit smoking about 26 years ago. His smoking use included cigarettes. He uses smokeless tobacco. ETOH: reports that he does not currently use alcohol. Social History Substance and Sexual Activity Drug Use Never Family History: Family History Problem Relation Name Age of Onset Dementia Mother Hypertension Mother Heart attack Father Coronary artery disease Father Heart disease Father REVIEW OF SYSTEMS: Review of Systems Constitutional: Negative for chills and fever. Respiratory: Negative for shortness of breath. Cardiovascular: Negative for chest pain. Pertinent positives as noted in the HPI. Physical Exam: Physical Exam Constitutional: General: He is awake. He is not in acute distress. Appearance: Normal appearance. (more content not included)... [facility] 10-26-2022 Note Comprehensive PreSur gical History and Physical ? Name: Vale Garcia : 1945 (Age-77 y.o.) Date of Service: Pt seen/examined on 10/26/2022 Procedure Information Date/Time: 10/31/22 0730 Procedure: Open biopsy frozen section left proximal clavicle (Left: Shoulder) - 60 minutes Location: [address] Operating Room Surgeons: Vamshi Lane MD Chief Complaint: Pathological fracture, left shoulder History Of Present Illness: 77 y.o. male who presents with chief complaint mentioned above. Per surgeon's note pt with a left proximal clavicle fracture sustained on 06/25/22. Patient states he was cranking up a trailer and felt a pop in his left clavicle region. Patient has a history of bladder cancer and has undergone chemo, radiation, and keytruda therapy. Patient is currently on a treatment break and not undergoing any form cancer therapy at this time. Given his history and the relatively low energy nature of the injury, there was concern for pathologic fracture. Per note review, patient had a bone scan in May 2018 that showed increased uptake in the left proximal clavicle at that time. Subsequent bone scans demonstrated no increased uptake in the left clavicle until he sustained this fracture. At this time, patient reports minimal discomfort. He states he is able to perform his daily activities without difficulty and only notices discomfort in his clavicle if he's doing more strenuous activities. Denies any numbness or tingling. Denies fever, chills, nausea, vomiting, SOB, night pain, weight loss. Pt has seen the surgeon and elected for above procedure. Saw PCP for check up and surgery clearance yesterday, had labs and EKG done - went well per patient Denies Hx of DM, Asthma/COPD, CHF, a fib, TIA/CVA, DVT/PE Hx problems with anesthesia? - no Dental? - missing teeth - 2 top 2 bottom nothing loose or broken no partials or dentures Snore at night? -no. +kaylynn no cpap worn Past Medical History: Past Medical History: No date: Anemia due to chemotherapy No date: Arthritis No date: Bladder mass No date: BPH (benign prostatic hyperplasia) No date: Cancer (CMS/HCC) (HCC) Comment: urethelial cancer,bladder wall, squamous cell No date: Coronary artery disease No date: Fracture, clavicle Comment: left No date: Heart disease No date: History of chemotherapy No date: Hypertension No date: KAYLYNN (obstructive sleep apnea) No date: Parkinson disease (HCC) No date: PVC (premature ventricular contraction) No date: Sleep apnea No date: Stenosis of left carotid artery Past Surgical History: Past Surgical History: No date: CARDIAC SURGERY No date: CAROTID ENDARTERECTOMY; Left No date: CATARACT EXTRACTION EXTRACAPSULAR W/ INTRAOCULAR LENS IMPLANTATION; Bilateral No date: COLONOSCOPY No date: KNEE ARTHROSCOPY No date: MITRAL VALVE REPAIR; N/A No date: SPINAL CORD STIMULATOR IMPLANT; N/A No date: SPINE SURGERY; N/A No date: TOE SURGERY; N/A Medications Prior to Admission: Current Outpatient Medications: amantadine (Symmetrel) 100 MG capsule, Take 100 mg by mouth 2 times daily., Disp: , Rfl: aspirin 81 MG EC tablet, Take 81 mg by mouth daily., Disp: , Rfl: atorvastatin (Lipitor) 40 MG tablet, Take 40 mg by mouth daily., Disp: , Rfl: finasteride (Proscar) 5 MG tablet, Take 5 mg by mouth daily. Do not crush, chew, or split., Disp: , Rfl: gabapentin (Neurontin) 100 MG capsule, Take by mouth., Disp: , Rfl: metoprolol succinate XL (Toprol-XL) 25 MG 24 hr tablet, Take by mouth. Do not crush or chew., Disp: , Rfl: cfvupabysmyy-hhpn-cfkenvoy-folic acid (Centrum) chewable tablet, Chew 1 tablet daily., Disp: , Rfl: naproxen (Naprosyn) 250 MG tablet, Take by mouth., Disp: , Rfl: pembrolizumab (Keytruda) 100 MG/4ML chemo injection, Infuse into a venous catheter Once., Disp: , Rfl: tamsulosin (Flomax) 0.4 MG 24 hr capsule, Take 0.4 mg by mouth daily., Disp: , Rfl: Travoprost (TRAVATAN OP), Administer into affected eye(s)., Disp: , Rfl: CHRONIC NARCOTIC USE: No Allergies: Amoxicillin If patient has opioid allergy, is it okay to take Acetaminophen: N/A Social History: TOBACCO: reports that he quit smoking about 26 years ago. His smoking use included cigarettes. He uses smokeless tobacco. ETOH: reports that he does not currently use alcohol. Social History Substance and Sexual Activity Drug Use Never Family History: Family History Problem Relation Name Age of Onset Dementia Mother Hypertension Mother Heart attack Father Coronary artery disease Father Heart disease Father REVIEW OF SYSTEMS: Review of Systems Constitutional: Negative for chills and fever. Respiratory: Negative for shortness of breath. Cardiovascular: Negative for chest pain. Pertinent positives as noted in the HPI. Physical Exam: Physical Exam Constitutional: General: He is awake. He is not in acute distress. Appearance: Normal appearance. (more content not included)... [facility] 10-18-2022 History of Presen t illness Narrative [facility] [address] [place] [id number] Dept: [phone] Dept Chief Complaint Patient presents with New Patient Left clavicle fx /DR Cardona SUBJECTIVE HPI Vale is a 77-year-old RHD male who presents as a referral of Dr. Cardona for evaluation of a left proximal clavicle fracture sustained on 06/25/22. Patient states he was cranking up a trailer and felt a pop in his left clavicle region. Patient has a history of bladder cancer and has undergone chemo, radiation, and keytruda therapy. Patient is currently on a treatment break and not undergoing any form cancer therapy at this time. Given his history and the relatively low energy nature of the injury, there was concern for pathologic fracture. Per note review, patient had a bone scan in May 2018 that showed increased uptake in the left proximal clavicle at that time. Subsequent bone scans demonstrated no increased uptake in the left clavicle until he sustained this fracture. At this time, patient reports minimal discomfort. He states he is able to perform his daily activities without difficulty and only notices discomfort in his clavicle if he's doing more strenuous activities. Denies any numbness or tingling. Denies fever, chills, nausea, vomiting, SOB, night pain, weight loss. No other complaints. There are no problems to display for this patient. Allergies Allergen Reactions Amoxicillin Other Caused C diff Family History Problem Relation Name Age of Onset Dementia Mother Hypertension Mother Heart attack Father Coronary artery disease Father Heart disease Father Past Medical History: Diagnosis Date Anemia due to chemotherapy Arthritis Bladder mass Cancer (CMS/HCC) (HCC) urethelial cancer,bladder wall, squamous cell Fracture, clavicle left Heart disease History of chemotherapy Hypertension KAYLYNN (obstructive sleep apnea) Parkinson disease (HCC) PVC (premature ventricular contraction) Sleep apnea Stenosis of left carotid artery Social History Socioeconomic History Marital status: Unknown Spouse name: Not on file Number of children: Not on file Years of education: Not on file Highest education level: Not on file Occupational History Not on file Tobacco Use Smoking status: Former Types: Cigarettes Quit date: 1996 Years since quittin.3 Smokeless tobacco: Never Tobacco comments: snuff Substance and Sexual Activity Alcohol use: Not Currently Drug use: Never Sexual activity: Not on file Other Topics Concern Not on file Social History Narrative Not on file Social Determinants of Health Financial Resource Strain: Not on file Food Insecurity: Not on file Transportation Needs: Not on file Physical Activity: Not on file Stress: Not on file Social Connections: Not on file Intimate Partner Violence: Not on file Housing Stability: Not on file Past Surgical History: Procedure Laterality Date CARDIAC SURGERY CAROTID ENDARTERECTOMY Left CATARACT EXTRACTION EXTRACAPSULAR W/ INTRAOCULAR LENS IMPLANTATION Bilateral COLONOSCOPY KNEE ARTHROSCOPY MITRAL VALVE REPAIR N/A SPINAL CORD STIMULATOR IMPLANT N/A SPINE SURGERY N/A TOE SURGERY N/A Current Outpatient Medications Medication Sig Dispense Refill amantadine (Symmetrel) 100 MG capsule Take 100 mg by mouth 2 times daily. aspirin 81 MG EC tablet Take 81 mg by mouth daily. atorvastatin (Lipitor) 40 MG tablet Take 40 mg by mouth daily. finasteride (Proscar) 5 MG tablet Take 5 mg by mouth daily. Do not crush, chew, or split. gabapentin (Neurontin) 100 MG capsule Take by mouth. metoprolol succinate XL (Toprol-XL) 25 MG 24 hr tablet Take by mouth. Do not crush or chew. lksmdeirsgul-oqbd-xwgzwoye-folic acid (Centrum) chewable tablet Chew 1 tablet daily. naproxen (Naprosyn) 250 MG tablet Take by mouth. pembrolizumab (Keytruda) 100 MG/4ML chemo injection Infuse into a venous catheter Once. tamsulosin (Flomax) 0.4 MG 24 hr capsule Take 0.4 mg by mouth daily. Travoprost (TRAVATAN OP) Administer into affected eye(s). No current facility-administered medications for this visit. Review of Systems HENT: Positive for hearing loss. Musculoskeletal: Positive for arthralgias and myalgias. 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 OBJECTIVE Vitals: 10/19/22 1309 BP: (!) 142/88 BP Location: Right arm Patient Position: Sitting Pulse: 66 Weight: 188 lb (85.3 kg) Height: 5' 6 (1.676 m) Physical Exam Physical Exam Vitals and nursing note reviewed. Constitutional: Appearance: Normal appearance. Cardiovascular: Rate and Rhythm: Normal rate. Pulmonary: Effort: Pulmonary effort is normal. Skin: General: Skin is warm and dry. Neurological: General: No focal deficit present. Mental Status: He is alert and oriented to person, place, and time. Psychiatric: Mood and Affect: Mood normal. Behavior: Behavior normal. Left upper extremity: Palpable callus mass at the left proximal clavicle consistent with known fracture. Minimal tenderness to palpation and no overlying skin changes. Full painless range of motion of the shoulder. Motor and sensation intact throughout the left upper extremity. Palpable radial pulse. XRAY INTERPRETATION I have reviewed the actual outside facility imaging studies obtained and interpreted them at the time of the visit CT C/A/P (09/23/22) independently reviewed and demonstrated a comminuted left proximal clavicle fracture. No other acute fractures or dislocations. Possible patholgogic ASSESSMENT Left proximal clavicle fracture, potentially pathologic Clinical and imaging findings discussed with patient and in great detail. We discussed that his clavicle fracture is in a location where there was previous increased uptake on bone scan, which increases the likelihood that this is a pathologic fracture. He is doing well clinically at this time. We discussed that I would like to have a conversation with Dr. Cardona about the cancer treatment regimen and goals of treatment, which will help guide our next steps and the potential need for a biopsy. Patient expressed understanding and is agreeable. PLAN - Will contact Dr. Cardona to discuss patient; will contact patient after our discussion to go over next steps. - Activity as tolerated - Patient to call the office with questions/concerns No follow-ups on file. Voice recognition was used for portions of this note and although it was reviewed prior to signing some incorrect words or phrases could be present. Electronically signedby Sarah Jones RN on 10/19/2022 at 1:13 PM documented in this encounter [facility]* Diagnosis Pathological fracture, left shoulder, initial encounter for fracture [facility] Diagnosis Malignant neoplasm of left clavicle (HCC)- [facility]* Attachments The following attachments cannot be sent through Care Everywhere. * Bone Biopsy (Icelandic) * General Anesthesia Discharge Instructions (I[place]ic) [facility] Purpose Family History No Family History Records FoundNo Family History Records FoundNo Family History Records Found Advance Directives No Advanced Directives Records FoundNo Advanced Directives Records FoundNo Advanced Directives Records Found Reason for Referral Specialty Diagnoses / Procedures Referred By Contac t Referred To Contact Diagnoses Pathological fracture, left shoulder, initial encounter for fracture Ronald Munoz JD, MD [address] [facility] [place] [address] Referral ID Status Reason Start Date Expiration Date V isits Requested Visits Authorized [id number] Pending Review 1 1 Additional Source Comments (unrecognized sect ion and content) No Status Records FoundNo Status Records FoundNo Status Records Found INFORMATION SOURCE (unrecogn ized section and content) DATE CREATED AUTHOR AUTHOR'S ORGANIZ ATION 12/11/2017 [facility] ([place]) DATE CREATED AUTHOR AUTHOR'S ORGANIZ ATION 11/27/2022 [facility] Reason for Visit (unrecogniz ed section and content) Specialty Diagnoses / Procedures Referred By Brian t Referred To Contact Diagnoses Pathological fracture, left shoulder, initial encounter for fracture Pathological fracture, left shoulder, initial encounter for fracture [M84.412A] Procedures MT BIOPSY BONE OPEN SUPERFICIAL Open biopsy frozen section left proximal clavicle Vamshi Lane MD [address] [facility] [address] [place] [address] [facility] [address] [place] [address] Referral ID Status Reason Start Date Expiration Date Visits Re quested Visits Authorized [id number] 1 1 Reason Comments Post-op XR DOS 10/31/22 OPEN BX RESECTION LEFT MEDIAL CLAVICLE NON UNION Scheduled Active and Recently Administ ered Medications (unrecognized section and content) Continuous Medication Order 10/29/2022 10/30/2022 10/31/2022 lactated Ringer's infusion 50 mL/hr, IntraVENous, Continuous, Starting on Mon10/31/22 at 0630, Preprocedure, Upon admission to sameday - please start iv if patient does not have iv access. Use 500ml NS for patients on dialysis. 0732 (New Bag - Prov ider: RACHEL Auguste CRNA)0831 (Stopped - Provider: RACHEL Auguste CRNA) PRN Medication Order 10/29/2022 10/30/2022 10/31/2022 ALPRAZolam (Xanax) disintegrating tablet 0.25 mg 0.25 mg, Oral, PRN, anxiety, Starting on Mon10/31/22 at 0627, For 1 dose, Preprocedure, Using dry hands, place tablet on top of tongue and allow to disintegrate. Administration with water is not necessary. sodium chloride 0.9 % infusion 5-250 mL/hr, IntraVENous, PRN, if patient receiving piggyback infusions and maintenance fluids are not ordered OR KVO fluids to protect IV site / prevent frequent line interruptions / long duration, Starting on Mon10/31/22 at 0627, Preprocedure, For piggyback infusion, administer at same rate as piggyback for a total of 25 mL. Enter 25 mL into dose field and piggyback rate into rate field of order. If piggyback is infusing at a rate less than 100 mL/hr, enter 25 mL into dose field and 100 mL/hr into rate field of order. For KVO fluids, enter rate of 20 mL/hr or less into rate field of order. sodium chloride 0.9 % infusion 5-250 mL/hr, IntraVENous, PRN, if patient receiving piggyback infusions and maintenance fluids are not ordered OR KVO fluids to protect IV site / prevent frequent line interruptions/ long duration, Starting on Mon10/31/22 at 0627, Preprocedure, For piggyback infusion, administer at same rate as piggyback for a total of 25 mL. Enter 25 mL into dose field and piggyback rate into rate field of order. If piggyback is infusing at a rate less than 100 mL/hr, enter 25 mL into dose field and 100 mL/hr into rate field of order. For KVO fluids, enter rate of 20 mL/hr or less into rate field of order. sodium chloride 0.9 % irrigation solution (CANCELED) As needed, Starting on Mon10/31/22 at 0805, Intraprocedure 0805 (Given - Provid er: Vamshi Lane MD) sodium chloride 0.9% (NS) flush 10 mL 10 mL, IntraVENous, PRN, line care, Starting on Mon10/31/22 at 0627, Preprocedure, After every IV line use sodium chloride 0.9% (NS) flush 5-40 mL 5-40 mL, IntraVENous, PRN, line care, After every IV line use, Starting on Mon10/31/22 at 0627, Preprocedure, For Line Patency: Peripheral IV = 5 mL; Midline or Central Line = 10 mL/lumen. If following IV push medication, administer flush at same rate as the IV push. Flush volume is determined by type of infusion therapy being given. For non-viscous solutions use: Peripheral IV = 5 mL Midline or Central Line = 10 mL/lumen For viscous solutions (i.e. blood components, parenteral nutrition, contrast media, or after obtaining blood sample) use: Peripheral IV = 10 mL Midline or Central Line = 20 mL/lumen Care Teams (unrecognized sec tion and content) Bi Technical Lead Relationship Specialty Start Date End Date Nico Singer MD [address] [phone] PCP - General Family Medicine 10/31/22 FOR RECORDS PERTAINING TO PATIENTS WHO ARE OR HAVE BEEN ENROLLED IN A CHEMICAL DEPENDENCY/SUBSTANCEABUSE PROGRAM, SOME INFORMATION MAY BE OMITTED. This clinical summary was aggregated from multiple sources. Caution should be exercised in using it in the provision of clinical care. This summary normalizes information from multiple sources, and as a consequence, information in this document may materially change the coding, format and clinical context of patient data. In addition, data may be omitted in some cases. CLINICAL DECISIONS SHOULD BE BASED ON THE PRIMARY CLINICAL RECORDS. [email or web address] provides no warranty or guarantee of the accuracy or completeness of information in this document.
== END | disposition home or self-care (01) ==
PROVIDERS: PCP Family Medicine; Referring Provider Psychiatry & Neurology Neurology; Visit Provider Psychiatry & Neurology Neurology
DX: D33.3 Benign neoplasm of cranial nerves (principal)
CPT/HCPCS: 70553; A9575

== ENCOUNTER → 2023-09-18 | Outpatient (CLI) | payer MEDICARE, SELFPAY ==
--- NOTE | 2023-09-18 12:41 | ECHODONC_ITS ---
Reason For Study: NON RHEUMATIC MV INSUFF Procedure This was a 2D Doppler, Color Flow transthoracic echocardiogram. Myocardial strain analysis was performed in this exam to aid in the assessment of cardiac function. Exam performed in department. Left Ventricle Normal LV size. Left ventricular systolic function is normal. The left ventricular ejection fraction is 45 %. Stage 1 diastolic dysfunction. No regional wall motion abnormalities noted. Right Ventricle Normal RV size. Normal systolic function. Atria The left atrium is moderately enlarged. Normal right atrium. Mitral Valve Status post mitral valve repair with annuloplasty ring. Tricuspid Valve Normal tricuspid valve. Pulmonic Valve The pulmonic valve is not well visualized. Great Vessels Normal aortic root. The pulmonary artery is normal size. Inferior vena cava collapse with respiration. Pericardium/Pleural No pericardial effusion. MMode/2D Measurements & Calculations Ao root diam: 3.9 cm LAV(MOD-bp): 76.6 ml LVAd ap4: 31.0 cm2 LAV(MOD-bp) Indexed: 42.1 ml/m2 LVLd ap4: 8.5 cm LAV(MOD-sp2): 58.0 ml EDV(MOD-sp4): 94.5 ml LAV(MOD-sp4): 94.5 ml EDV(sp4-el): 96.8 ml LVAs ap4: 21.9 cm2 LVLs ap4: 7.6 cm ESV(MOD-sp4): 53.3 ml ESV(sp4-el): 53.3 ml EF(MOD-sp4): 43.5 % EF(sp4-el): 44.9 % SV(MOD-sp4): 41.1 ml SV(sp4-el): 43.4 ml LA A4 area: 28.0 cm2 LA dimension(2D): 5.1 cm RA A4 area: 17.0 cm2 Time Measurements MV dec time: 0.20 sec Doppler Measurements & Calculations MV E max raz: 75.6 cm/sec Lat Peak E' Raz: 6.9 cm/sec Med Peak E' Raz: 5.0 cm/sec MV A max raz: 96.5 cm/sec E/E' lat: 11.0 E/E' med: 15.2 MV E/A: 0.78 MV V2 max: 130.4 cm/sec Ao V2 max: 84.0 cm/sec MV max P.8 mmHg MV dec slope: 392.0 cm/sec2 Ao max P.8 mmHg MV V2 mean: 69.3 cm/sec Ao V2 mean: 62.1 cm/sec MV mean P.3 mmHg Ao mean P.7 mmHg MV V2 VTI: 37.5 cm Ao V2 VTI: 20.7 cm AV (velocity ratio): 1.0 LV V1 max: 80.3 cm/sec LV V1 max P.6 mmHg LV V1 mean P.5 mmHg LV V1 mean: 57.0 cm/sec LV V1 VTI: 20.7 cm ECHO/ONC Echo Complete Interpretation Summary Normal LV size. Left ventricular systolic function is normal. The left ventricular ejection fraction is 45 %. Status post mitral valve repair with annuloplasty ring. Stage 1 diastolic dysfunction. The global longitudinal strain is mildly abnormal. The global longitudinal stra in = -15.2% (abnormal). Ordering Physician: Jomar Quinteros Referring Physician: Jomar Quinteros Performed By: Nati Alfaro RCS
== END | disposition home or self-care (01) ==
LOC: CVS 12:41
PROVIDERS: PCP Family Medicine; Referring Provider Internal Medicine Cardiovascular Disease; Visit Provider Internal Medicine Cardiovascular Disease
DX: I34.0 Nonrheumatic mitral (valve) insufficiency (principal)
CPT/HCPCS: 93306; 93356

== ENCOUNTER 2023-09-28 19:19 | Emergency (ER) | payer MEDICARE, SELFPAY ==
[2023-09-28] VITALS (21 sets, daily range): BP systolic 126–154; BP diastolic 66–108; PULSE 51–84; RESP 16–29; TEMP 36.1; O2SAT 93–98; BMI 26.7
--- NOTE | 2023-09-28 20:28 | EKG12_ITS ---
Test Reason : CP Blood Pressure : / mmHG Vent. Rate : 089 BPM Atrial Rate : 089 BPM P-R Int : 204 ms QRS Dur : 094 ms QT Int : 372 ms P-R-T Axes : -25 -69 055 degrees QTc Int : 452 ms Sinus rhythm with occasional Premature ventricular complexes Left axis deviation Low voltage QRS CAN NOT RULE OUT Inferior infarct (cited on or before 08-AUG-2003) Abnormal ECG Confirmed by Rick Loja ([id number]), purchase request editor PATRICIA SOARES ([id number]) on 09/29/2023 11:06:36 AM Referred By: RACHELL Confirmed By:Rick Loja
--- NOTE | 2023-09-28 20:28 | ED.VIS.DYS ---
HPI History of Present Illness Chief Complaint: Shortness of Breath Informant: patient Onset/Context/Timing Onset: Today Context: gradual Timing: Continuous Quality: Positive for Dyspnea on exertion Worsened by: Exertion Relieved by: Nothing Associated Symptoms Negative for cough, rhinorrhea, ear pain, fever, sore throat, chills, sweats, clear sputum, white sputum, yellow sputum or green sputum Chest Pain: Positive for Intermittent and Dull Narrative Narrative: Patient presents with shortness of breath that began today. Patient states it is gradually gotten worse throughout the day today. Patient states he cannot catch his breath. Patient states it is worse with exertion. Patient states nothing seems to help it. Patient does admit to some pain in his chest. Patient denies any cough. Patient denies any nausea or vomiting. Patient denies any fevers or chills. Patient states he has a history of bladder cancer. [facility] Medical History Abnormal CXR Anemia due to chemotherapy Arthritis Atherosclerotic heart disease of [place] coronary artery without angina pectoris Back pain Bladder cancer (04/2018) Blurry vision, bilateral Cancer of bladder wall Chemotherapy management, encounter for Chewing tobacco nicotine dependence CINV (chemotherapy-induced nausea and vomiting) Dehydration Educational circumstance Esophagitis, reflux Essential hypertension Facial rash Glaucoma Hiatus hernia syndrome History of squamous cell carcinoma (~10/2019) HLD (hyperlipidemia) Iron deficiency anemia Lung infiltrate on CT Lymphadenopathy, inguinal Malignant neoplasm of dome of bladder Malnutrition Mediastinal adenopathy Nonrheumatic mitral (valve) insufficiency Oral candidiasis KAYLYNN (obstructive sleep apnea) Parkinson disease Pelvic lymphadenopathy Personal history of colonic polyps Prerenal azotemia PVCs (premature ventricular contractions) Rash Retroperitoneal lymphadenopathy Skin lesion Sleep apnea 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 Wears glasses Wears hearing aid Witnessed episode of apnea Home Medications travoprost 0.004 % eye drops 1 drp EACH EYE QHS glaucoma 12/11/13 [History Last Taken Unknown] atorvastatin 40 mg tablet 40 mg PO QDAY cholesterol 12/22/17 [History Last Taken Unknown] acetaminophen 500 mg tablet 500 - 1,000 mg PO Q6H PRN PRN Pain 05/04/18 [History Last Taken Unknown] tamsulosin 0.4 mg capsule 0.8 mg PO DAILY urine flow 08/17/18 [History Last Taken 08/24/21 05:30] aspirin 81 mg tablet,delayed release 162 mg PO DAILY 01/20/20 [History Last Taken Unknown] naproxen sodium 220 mg tablet 220 mg PO DAILY PRN Pain Score 1-03/2801/20/20 [History Last Taken Unknown] multivitamin with folic acid 400 mcg tablet 1 tablet PO DAILY 02/11/20 [History Last Taken Unknown] finasteride 5 mg tablet 5 mg PO DAILY BPH 10/18/21 [History Last Taken Unknown] dexamethasone 4 mg tablet 8 mg (2 x 4 mg) PO .COMPLEX #12 tabs 02/09/23 [Rx Last Taken Unknown] ondansetron 8 mg disintegrating tablet 8 mg PO Q8H PRN nausea and vomiting #30 tabs 03/09/23 [Rx Last Taken Unknown] amantadine HCl 100 mg capsule 100 mg PO .COMPLEX Parkinson #60 caps 06/20/23 [Rx Last Taken Unknown] loratadine 10 mg tablet 10 mg PO DAILY #30 tabs 06/20/23 [Rx Last Taken Unknown] omeprazole 20 mg capsule,delayed release See Rx Instructions .Route .COMPLEX #30 caps 07/04/23 [Rx Last Taken Unknown] metoprolol tartrate 25 mg tablet 25 mg PO BID bp #180 tabs 08/08/23 [Rx Last Taken Unknown] gabapentin 100 mg capsule 100 mg PO BID 09/28/23 [History Last Taken Unknown] prednisone 20 mg tablet 60 mg (3 x 20 mg) PO DAILY #12 TABLETS 09/29/23 [Rx Last Taken Unknown] Allergy/AdvReac Type Severity Reaction Status Date / Time No Known Allergies Allergy Verified 09/28/23 19:21 Family History Father Myocardial infarction CAD (coronary artery disease) Heart disease Mother Heart disease Dementia Hypertension Surgical History H/O arthroscopic knee surgery H/O coronary artery bypass surgery (11/2009) History of back surgery History of biopsy of bladder History of bone marrow biopsy History of colonoscopy History of esophagogastroduodenoscopy (EGD) History of left-sided carotid endarterectomy (02/2010) History of mitral valve repair (07/22/13) History of squamous cell carcinoma excision (~10/2019) History of surgical removal of skin lesion History of toe surgery Hx of cataract removal with insertion of prosthetic lens PORT PLACEMENT Spinal cord stimulator status (02/2022) Social History Smoking Status: Former smoker Tobacco: How many years used: 20 Smokeless tobacco user: snuff Electronic Cigarette Use: not used second hand exposure: No alcohol intake: never substance use type: does not use caffeine: Yes Type: coffee Number of servings: 3 and tea Number of servings: 2 ROS ROS ED Constitutional Constitutional ED: Denies chills or fever(s) Eyes Eyes: Denies blurry vision or change in vision ENT ENT ED: Denies rhinorrhea or sore throat Cardiovascular Cardiovascular: Reports chest pain; Denies palpitations Respiratory/Chest Respiratory/Chest: Reports dyspnea; Denies cough Gastrointestinal Gastrointestinal: Denies nausea or vomiting Genitourinary Genitourinary ED: Denies dysuria or hematuria Musculoskeletal Musculoskeletal: Denies back pain or neck pain Integumentary Denies abscess or rash Neurologic Neurologic: Denies headache(s) or weakness Allergic/Immunologic Allergic/Immunologic ED: Denies mouth swelling or urticaria EXAM Physical Exam Const Vital Signs: 09/28/23 19:21 09/28/23 20:19 09/28/23 20:21 Temperature 97 F L Temperature Source Temporal Pulse Rate 84 82 Respiratory Rate 18 19 H Respiratory Effort Short of Breath Respiratory Depth Normal Respiratory Pattern Blood Pressure 152/77 H 146/91 H Blood Pressure Mean 102 109 Pulse Ox 95 95 Oxygen Delivery Method Room Air Room Air Room Air 09/28/23 20:40 09/28/23 20:45 09/28/23 21:03 Temperature Temperature Source Pulse Rate 76 78 79 Respiratory Rate 18 25 H Respiratory Effort Respiratory Depth Respiratory Pattern Blood Pressure 146/108 H Blood Pressure Mean 121 Pulse Ox 97 96 Oxygen Delivery Method 09/28/23 21:10 09/28/23 21:15 09/28/23 21:12 Temperature Temperature Source Pulse Rate 78 51 L 72 Respiratory Rate 20 H 25 H 18 Respiratory Effort Respiratory Depth Respiratory Pattern Normal Blood Pressure 126/100 H 153/99 H Blood Pressure Mean 109 107 Pulse Ox 98 96 Oxygen Delivery Method 09/28/23 21:41 09/28/23 21:45 09/28/23 22:00 Temperature Temperature Source Pulse Rate 78 83 81 Respiratory Rate 19 H 16 29 H Respiratory Effort Respiratory Depth Respiratory Pattern Blood Pressure 147/82 H 147/82 H Blood Pressure Mean 98 100 Pulse Ox 95 94 97 Oxygen Delivery Method 09/28/23 22:15 09/28/23 22:22 09/28/23 22:30 Temperature Temperature Source Pulse Rate 83 81 Respiratory Rate 27 H Respiratory Effort Respiratory Depth Respiratory Pattern Blood Pressure 136/71 H 143/66 H Blood Pressure Mean 91 88 Pulse Ox 96 Oxygen Delivery Method 09/28/23 22:45 09/28/23 23:00 09/28/23 23:15 Temperature Temperature Source Pulse Rate 84 81 81 Respiratory Rate 25 H 21 H 16 Respiratory Effort Respiratory Depth Respiratory Pattern Blood Pressure 137/79 H 154/88 H Blood Pressure Mean 86 106 Pulse Ox 95 97 94 Oxygen Delivery Method 09/28/23 23:30 09/28/23 23:45 09/28/23 23:52 Temperature Temperature Source Pulse Rate 82 83 Respiratory Rate 21 H 27 H Respiratory Effort Respiratory Depth Respiratory Pattern Blood Pressure 146/79 H Blood Pressure Mean 98 Pulse Ox 94 Oxygen Delivery Method 09/29/23 00:00 09/29/23 00:15 09/29/23 00:30 Temperature Temperature Source Pulse Rate 84 77 Respiratory Rate 22 H 19 H Respiratory Effort Respiratory Depth Respiratory Pattern Blood Pressure 140/69 H 154/106 H 148/89 H Blood Pressure Mean 78 122 105 Pulse Ox 95 Oxygen Delivery Method Positive well nourished and well developed General Appearance ED: well developed and NAD HEENT Reports moist mucous membranes Neck supple, no meningeal signs and no JVD Resp normal respiratory effort Auscultation: rales bilateral base Cardio regular rate and regular rhythm GI non-tender and non-distended Palpation: soft Neuro oriented x3, CN's II-XII intact bilaterally and no sensory deficits noted Ethel Coma Scale: document GCS findings Spontaneous Obeys Commands Oriented 15 Sensorium / Orientation: alert Speech: speech normal Motor Exam: strength 5/5 throughout Psych mental status grossly normal MDM MDM MDM Narrative Medical decision making narrative: Differential diagnosis includes pneumonia, viral illness, pulmonary embolism, cardiac dysrhythmia, cardiac ischemia, and reactive airway disease. EKG will be obtained to assess for cardiac dysrhythmia and cardiac ischemia. Chest x-ray will be obtained to assess for pneumonia and pneumothorax. CBC will be obtained to assess for leukocytosis and anemia. Basic metabolic profile will be obtained to assess for electrolyte abnormality and renal function. BNP will be obtained to assess for congestive heart failure. High-sensitivity troponin will be obtained to assess for cardiac ischemia. D-dimer will be obtained to assess for pulmonary embolism. COVID-19, influenza, and RSV PCR will be obtained to assess for viral illness. Lab Data Attestation: I reviewed the patient's lab results. Lab results narrative: Basic metabolic profile was reviewed and was within normal limits. CBC was reviewed. Platelets were slightly low at 145. The remainder is within normal limits. D-dimer was reviewed and was elevated at 1.99. BNP was reviewed and was normal at 80.4. COVID-19 PCR was reviewed and was negative. Influenza PCR was reviewed and was negative for influenza A and influenza B. RSV PCR was reviewed and was negative. High-sensitivity troponin was reviewed and was normal at 20. Labs: Laboratory Results - last 24 hr 09/28/23 20:52 WBC 4.4 RBC 3.95 L Hgb 13.3 Hct 40.6 MCV 102.8 H MCH 33.7 H MCHC 32.8 RDW Std Deviation 62.9 H RDW Coeff of Obey 16.6 H Plt Count 145 L MPV 10.6 Immature Gran % (Auto) 0.700 Neut % (Auto) 71.4 H Lymph % (Auto) 13.5 L Garland % (Auto) 11.9 H Eos % (Auto) 1.8 Baso % (Auto) 0.7 Absolute Neuts (auto) 3.1 Absolute Lymphs (auto) 0.59 L Nucleated RBC % 0 Differential Comment SEE COMMENT Platelet Estimate ADEQUATE RBC Morphology N CHROM Anisocytosis 1+ Macrocytosis 1+ D-Dimer Quant (PE/DVT) 1.99 H* Sodium 141 Potassium 3.8 Chloride 110 H Carbon Dioxide 27.0 Anion Gap 4 L BUN 18 Creatinine 1.15 Estim Creat Clear Calc 48.54 Est GFR (MDRD) Af Amer 79 Est GFR (MDRD) Non-Af 66 BUN/Creatinine Ratio 15.7 Glucose 101 Calcium 8.9 Troponin I High Sens 20 B-Natriuretic Peptide 80.4 Radiography Chest X-Ray - ED: 2 View, Read by ED Physician, Read by Radiologist and No Acute Disease CTA PE Study: No Evidence of PE and No Evidence of Dissection Diagnostic Testing: Clinical Impression(s) from Imaging Studies Chest X-Ray 09/28/23 20:50 IMPRESSION: No acute pulmonary finding. Electronically Signed: Smith Grimes MD at 21:23 EDT , Chest CTA 09/28/23 22:04 IMPRESSION: * No pulmonary embolism or other acute intrathoracic abnormality. * Moderate emphysema. * No change in size of a nonenlarged left axillary lymph node, previously shown to be FDG avid. * Stable appearance of the pathologic fracture of the medial left clavicle without evidence of interval healing Electronically Signed: Smith Grimes MD at 22:41 EDT , PA and lateral chest x-ray was obtained. There are 2 views. On my independent interpretation, lung montes are clear. There is normal cardiac silhouette. Bony thorax is normal. There is no acute process noted. Radiologist also interpreted the x-ray and agrees. Because of the elevated D-dimer, CTA of the chest was obtained. There is no pulmonary embolism or acute abnormality. There is moderate emphysema. This was interpreted by the radiologist and was also independently reviewed by myself. EKG Initial EKG: Attestation: I personally reviewed and interpreted this EKG as follows: Interpretation: Sinus Rhythm (89) and Non-Specific ST Changes Comments: EKG was obtained. On my independent interpretation, there is normal sinus rhythm with occasional PVCs with a rate of 89. UT interval was slightly prolonged at 204 ms. QRS interval was normal at 94 ms. QTc interval was 452 ms. There is left axis deviation at -69. There are nonspecific ST-T wave changes noted. Prior EKG tracings: available for review Prior: Unchanged (04/26/2019) Treatment and Re-Evaluation :: Patient was given a DuoNeb aerosol. Patient states that has had minimal improvement of his symptoms. Patient was ambulated with pulse oximeter. Patient maintained oxygen saturation of at least 92% while ambulating. Patient was given a dose of prednisone here. Patient was advised that this could be an exacerbation of his COPD. Patient was advised that it is not from pneumonia, COVID, influenza, RSV, congestive heart failure, or pulmonary embolus. Patient was given a prescription for prednisone. Patient was instructed to follow-up with his primary care physician in 3 to 5 days. Patient was instructed to return if worse in any way. Patient understood and was agreeable with the plan. All questions were answered. Discharge Plan Triage Chief Complaint: Shortness of Breath ED Provider: Juwan Sanchez Dx/Rx/DC Orders Clinical Impression: Dyspnea on exertion, Essential hypertension Instructions: ED Dyspnea Prescriptions: New prednisone 20 mg tablet 60 mg PO DAILY Qty: 12 0RF No Action finasteride 5 mg tablet 5 mg PO DAILY Patient Comments: TAKE 1 TABLET BY MOUTH ONCE DAILY dexamethasone 4 mg tablet 8 mg PO .COMPLEX Qty: 12 3RF Rx Instructions: Take 8 mg orally; on days 2-4 and 9-11 of chemotherapy cycle ONLY metoprolol tartrate 25 mg tablet 25 mg PO BID Qty: 180 3RF amantadine HCl 100 mg capsule 100 mg PO .COMPLEX Qty: 60 4RF Rx Instructions: 100 mg orally twice per day (take second dose 3 hours prior to bedtime) loratadine 10 mg tablet 10 mg PO DAILY Qty: 30 4RF Hold Instructions: other gabapentin 100 mg capsule 100 mg PO BID travoprost 1 DROP bottle 1 drp EACH EYE QHS atorvastatin 40 mg tablet 40 mg PO QDAY tamsulosin 0.4 mg capsule 0.8 mg PO DAILY acetaminophen 500 MG tablet 500 - 1,000 mg PO Q6H PRN PRN (Reason: Pain) aspirin 81 MG tablet,delayed release (DR/EC) 162 mg PO DAILY naproxen sodium 220 MG tablet 220 mg PO DAILY PRN (Reason: Pain Score 1-10/10) multivitamin with folic acid 1 TABLET tablet 1 tablet PO DAILY ondansetron 8 mg tablet,disintegrating 8 mg PO Q8H PRN (Reason: nausea and vomiting) Qty: 30 2RF omeprazole 20 mg capsule,delayed release(DR/EC) See Rx Instructions .ROUTE .COMPLEX Qty: 30 2RF Dose Instruction: Take 1 capsule by mouth at bedtime Rx Instructions: Take 1 capsule by mouth at bedtime Primary Care Provider: Demond Davis Referrals: Demond Davis MD [Primary Care Provider] - 3-5 Days Disposition Disposition: Home, Self Care
--- NOTE | 2023-09-28 20:50 | RAD_ITS ---
INDICATION: Dyspnea EXAMINATION/TECHNIQUE: X-RAY - XR Chest 2 Views COMPARISON: 02/24/2023 FINDINGS: LINES/DEVICES: Mitral valve prosthesis. Right chest wall infusion port. Spinal neural stimulator. LUNGS: The lungs are well expanded. No consolidation, edema or effusion. No pneumothorax. MEDIASTINUM AND CARDIOVASCULAR STRUCTURES: Cardiac silhouette not enlarged. Aorta is tortuous and atherosclerotic. Central airways and mediastinal contour are unremarkable. BONES AND SOFT TISSUES: Destructive changes involving the anterior first rib and medial left clavicle family appreciated. RAD/Chest PA and Lateral IMPRESSION: No acute pulmonary finding. Electronically Signed: Smith Grimes MD at 21:23 EDT ,
[2023-09-28 21:06] LABS: Absolute Lymphocyte Count 0.59 X10^3/uL (0.83-4.51); Absolute Neutrophil Count 3.1 X10^3/uL (2.0-7.7); Basophil# 0.03 X10^3/uL; Basophil% 0.7 % (0-1); Eosinophil# 0.08 X10^3/uL; Eosinophils% 1.8 % (0-5); Hematocrit 40.6 % (40-54); Hemoglobin 13.3 g/dL (13.0-16.5); Lymphocyte # 0.59 X10^3/ul (0.83-4.51); Lymphocyte % 13.5 % (19-41); Mean Corp Hgb Conc 32.8 g/dL (32-36); Mean Corpuscular Hgb 33.7 pg (27.0-32.0); Mean Corpuscular Volume 102.8 fL (80-94); Mean Platelet Vol. 10.6 fl (6.2-12.0); Monocyte# 0.52 X10^3/uL; Monocyte% 11.9 % (0-10); NRBC Flagged by Analyzer 0 % (0-5); Neutrophil # 3.12 X10^3/uL (2.7-7.7); Neutrophil % 71.4 % (47-70); POSITIVE DIFFERENTIAL YES; Platelet Count 145 K/mm3 (150-450); RBC Distribution Width CV 16.6 % (11.6-14.6); RBC Distribution Width SD 62.9 fl (35.1-43.9); Red Blood Count 3.95 M/mm3 (4.6-6.2); White Blood Count 4.4 K/mm3 (4.4-11.0)
[2023-09-28] MEDS: Ipratropium/Albuterol Sulfate 3 ML AMPUL.NEB INHALATION (21:12)
[2023-09-28 21:28] LABS: Anion Gap 4 (5-15); BUN 18 mg/dL (7-18); BUN/Creat Ratio 15.7 RATIO (10-20); Calcium,Total 8.9 mg/dL (8.5-10.1); Chloride 110 mmol/L (98-107); Creatinine, Serum 1.15 mg/dL (0.70-1.30); EST Glomerular Filtration Rate 66 mL/min (>60); Est Glom Filt Rate - Afr Amer 79 mL/min (>60); Estimated Creatinine Clearance 48.54 ml/min; Glucose 101 mg/dL (74-106); Potassium 3.8 mmol/L (3.5-5.1); Sodium Level 141 mmol/L (136-145)
[2023-09-28 21:55] LABS: D-Dimer Quantitative (DVT/PE) 1.99 FEU/ug/m (0.27-0.49)
[2023-09-28 21:58] LABS: Differential Indicated SCAN CRITERIA MET
[2023-09-28 22:02] LABS: Anisocytosis 1+; Macrocytosis 1+; Platelet Estimate ADEQUATE (ADEQ); Red Cell Morphology N CHROM NORMAL (NORM C&C)
--- NOTE | 2023-09-28 22:04 | CT_ITS ---
STUDY: CTA CHEST REASON FOR EXAM: Male, 78 years old. ELEVATED D-DIMER RADIATION DOSAGE (If Supplied By Facility): CTDIvol = ( 12.80 ) mGy, DLP = ( 407.37 ) mGycm TECHNIQUE: The examination was performed with the intravenous administration of IV 100mL Isovue-370. Post-processing of the angiographic images was performed, with multiplanar reformation and 3D reconstruction. Individualized dose optimization techniques were used for this CT. COMPARISON: CT chest dated 02/24/2023. PET CT dated 07/11/2023 FINDINGS: PULMONARY ARTERIES: Normal enhancement of the main pulmonary artery and right and left pulmonary arteries. Normal enhancement of the bilateral peripheral pulmonary arteries. There is no demonstrated pulmonary embolism. AORTA: Normal thoracic aorta and visualized great vessels. There is no demonstrated aortic dissection. MEDIASTINUM: Normal heart and pericardium. There is no demonstrated mediastinal lymphadenopathy or mediastinal mass lesion. Normal hilar regions. LUNGS/PLEURA: Normal visualized trachea and bronchi. Moderate emphysema. No acute pneumonic process. No pleural effusion or pneumothorax. No suspicious pulmonary nodules. CHEST WALL: No change in size of the nonenlarged left axillary lymph node, previously shown to be FDG avid. UPPER ABDOMEN: Normal visualized upper abdomen. OSSEOUS STRUCTURES: Stable nonunited, pathologic fracture of the medial left clavicle without evidence of any interval healing. No appreciable soft tissue component. CT/CTA Chest W/WO Contrast IMPRESSION: * No pulmonary embolism or other acute intrathoracic abnormality. * Moderate emphysema. * No change in size of a nonenlarged left axillary lymph node, previously shown to be FDG avid. * Stable appearance of the pathologic fracture of the medial left clavicle without evidence of interval healing Electronically Signed: Smith Grimes MD at 22:41 EDT ,
[2023-09-28 22:09] LABS: BNP,B-Type NATRIURETIC PEPTIDE 80.4 pg/mL (0-100)
[2023-09-29] VITALS: BP 140/69; PULSE 84; RESP 22; O2SAT 95
[2023-09-29 00:15] VITALS: BP 154/106; PULSE 77; RESP 19
[2023-09-29 00:30] VITALS: BP 148/89
[2023-09-29 00:42] LABS: Troponin-I HS 20 pg/mL (3.0-78.0)
[2023-09-29 00:51] VITALS: BP 141/89; PULSE 62; RESP 19; TEMP 36.6; O2SAT 92
[2023-09-29] MEDS: predniSONE 20 MG Tablet 60 MG PO (00:53)
== END 2023-09-29 00:58 | disposition home or self-care (01) ==
PROVIDERS: Emergency Provider Emergency Medicine; PCP Family Medicine; Visit Provider Emergency Medicine
DX: R06.09 Other forms of dyspnea (principal); G20.A1 Parkinson's disease without dyskinesia, without mention of fluctuations; J43.9 Emphysema, unspecified; R07.9 Chest pain, unspecified; I10 Essential (primary) hypertension; E78.5 Hyperlipidemia, unspecified; Z79.82 Long term (current) use of aspirin; Z79.899 Other long term (current) drug therapy; Z87.891 Personal history of nicotine dependence; Z85.51 Personal history of malignant neoplasm of bladder
CPT/HCPCS: 36591; 71046; 71275; 80048; 83880; 84484; 85025; 85379; 87631; 93005; 94640; 99285; Q9967; A4216

== ENCOUNTER → 2023-10-23 | Outpatient (CLI) | payer MEDICARE, SELFPAY ==
[2023-10-23 16:15] LABS: Vitamin B12 393 pg/mL (211-911)
[2023-10-27 11:09] LABS: Free Kappa Light Chains 26.4 mg/L (3.3-19.4); Free Lambda Light Chains 22.2 mg/L (5.7-26.3); Vitamin B1, Thiamine 201.6 nmol/L (66.5-200.0)
== END | disposition home or self-care (01) ==
PROVIDERS: PCP Family Medicine; Referring Provider Psychiatry & Neurology Neurology; Visit Provider Psychiatry & Neurology Neurology
DX: G62.9 Polyneuropathy, unspecified (principal)
CPT/HCPCS: 36415; 82607; 82746; 83883; 84425

== ENCOUNTER → 2023-10-25 | Outpatient (CLI) | payer MEDICARE, SELFPAY ==
--- NOTE | 2023-10-25 19:05 | STRESSREP_ITS ---
Stress Test Report Exercise myocardial perfusion stress test. 78-year-old man with a history of dyspnea and reduced ejection fraction Stress protocol: Resting EKG demonstrates normal sinus rhythm with a rate of 77 bpm resting blood pressure is 128/82 mmHg. The patient exercised according to the regular Bob protocol for a total duration of 3 minutes attaining a maximum heart rate of 126 bpm which was 88% of maximum predicted heart rate; the maximum workload was 4.6 metabolic equivalents. At rest there were no ST or T wave changes noted to suggest ischemia and at peak exercise upsloping ST changes only were noted which did not meet the criteria for ischemia. No clinical angina was noted the test was terminated due to the target heart rate being achieved/fatigue. The peak blood pressure was 180/89 mmHg. Rate-pressure product was 17,000 . Myocardial perfusion protocol. 12.0 mCi of technetium 99m sestamibi was injected at rest. The patient exe rcised according to regular Bob protocol for total duration of 3 minutes and at peak exercise 33.7 mCi of technetium 99m sestamibi was injected stress images were obtained stress and rest images were reconstructed in comparing the short axis vertical long and horizontal long axis. Gated images were also obtained. Perfusion SPECT analysis: Review of the stress images demonstrate normal uptake of tracer noted in all areas of the myocardium. The resting images similarly demonstrate normal uptake of tracer noted in all areas of the myocardium. No areas of reversibility are noted to suggest ischemia no previous infarct was noted. Gated SPECT analysis: The gated ejection fraction is 56%. Conclusion: Normal exercise myocardial perfusion stress test at a low workload. This may affect sensitivity for detection of ischemia. Preserved ejection fraction.
== END | disposition home or self-care (01) ==
LOC: CVS 06:15
PROVIDERS: PCP Family Medicine; Referring Provider Nurse Practitioner Family; Visit Provider Nurse Practitioner Family
DX: R06.02 Shortness of breath (principal); I42.9 Cardiomyopathy, unspecified
CPT/HCPCS: 78452; 93017; A9500; A4216; J2785

== ENCOUNTER → 2023-12-01 | Outpatient (CLI) | payer MEDICARE, SELFPAY ==
[2023-12-01 15:45] LABS: Absolute Lymphocyte Count 0.63 X10^3/uL (0.83-4.51); Absolute Neutrophil Count 3.2 X10^3/uL (2.0-7.7); Basophil# 0.04 X10^3/uL; Basophil% 0.8 % (0-1); Eosinophil# 0.39 X10^3/uL; Eosinophils% 8.1 % (0-5); Hematocrit 44.7 % (40-54); Hemoglobin 13.8 g/dL (13.0-16.5); Lymphocyte # 0.63 X10^3/ul (0.83-4.51); Mean Corp Hgb Conc 30.9 g/dL (32-36); Mean Corpuscular Hgb 32.1 pg (27.0-32.0); Mean Platelet Vol. 10.6 fl (6.2-12.0); Monocyte% 12.4 % (0-10); NRBC Flagged by Analyzer 0 % (0-5); Neutrophil # 3.15 X10^3/uL (2.7-7.7); Neutrophil % 65.3 % (47-70); Platelet Count 158 K/mm3 (150-450); RBC Distribution Width CV 15.3 % (11.6-14.6); RBC Distribution Width SD 58.7 fl (35.1-43.9); White Blood Count 4.8 K/mm3 (4.4-11.0)
[2023-12-01 23:20] LABS: Hemoglobin A1c 5.3 % (3.8-5.6)
[2023-12-02 02:04] LABS: AST(SGOT) 26 U/L (15-37); Alanine Aminotransfer ALT/SGPT 33 U/L (16-61); Albumin, Serum 3.2 g/dL (3.2-5.0); Alkaline Phosphatase 99 U/L (45-117); Anion Gap 7 (5-15); BUN 22 mg/dL (7-18); BUN/Creat Ratio 17.7 RATIO (10-20); Calcium,Total 9.3 mg/dL (8.5-10.1); Chloride 104 mmol/L (98-107); Cholesterol 115 mg/dL (200); Creatinine, Serum 1.24 mg/dL (0.70-1.30); EST Glomerular Filtration Rate 60 mL/min (>60); Est Glom Filt Rate - Afr Amer 73 mL/min (>60); Globulin 3.2 g/dL (2.2-4.2); Glucose 83 mg/dL (74-106); High Density Lipoprotein 33 mg/dL; Potassium 4.7 mmol/L (3.5-5.1); Protein, Total 6.4 g/dL (6.4-8.2); Sodium Level 139 mmol/L (136-145); Triglycerides 72 mg/dL; Very Low Density Lipoprotein 14 mg/dL (5-40)
== END | disposition home or self-care (01) ==
LOC: MFPLAB 11:33
PROVIDERS: PCP Family Medicine; Visit Provider Family Medicine
DX: E78.5 Hyperlipidemia, unspecified (principal); R73.02 Impaired glucose tolerance (oral)
CPT/HCPCS: 36415; 80053; 80061; 83036; 85025

== ENCOUNTER → 2023-12-14 | Outpatient (CLI) | payer MEDICARE, SELFPAY ==
--- NOTE | 2023-12-14 07:46 | CDU_ITS ---
Reason For Study: carotid stenosis Rt. Velocities/BP Lt. Velocities/BP Prox CCA 76.8/14.5 cm/sec. Prox CCA 79.0/16.3 cm/sec. Mid CCA 92.9/21.1 cm/sec. Mid CCA 86.3/28.6 cm/sec. Dist CCA 63.6/18.2 cm/sec. Dist CCA 82.6/26.2 cm/sec. Prox ICA 104.7/31.1 cm/sec. Prox ICA 98.6/31.1 cm/sec. Mid ICA 107.6/36.6 cm/sec. Mid ICA 85.1/29.8 cm/sec. Dist ICA 83.9/18.8 cm/sec. Dist ICA 76.5/29.8 cm/sec. Rt. ICA/CCA = 1.2. Lt. ICA/CCA = 1.1. Prox ECA 96.0/16.8 cm/sec. Prox ECA 59.3/9.0 cm/sec. Rt. Vert. 28.6/13.9 cm/sec. Lt. Vert. 76.5/27.4 cm/sec. Right Extracranial There is heterogeneous, irregular atherosclerotic plaque noted in the right common carotid artery. There is heterogeneous, irregular atherosclerotic plaque noted in the right internal carotid artery. There is intimal thickening but no significant atherosclerotic plaque noted in the right external carotid artery. Antegrade flow is noted in the right vertebral artery. Left Extracranial There is homogeneous, smooth atherosclerotic plaque noted in the left common carotid artery. There is heterogeneous, irregular atherosclerotic plaque noted in the left internal carotid artery. There is heterogeneous, irregular atherosclerotic plaque noted in the left external carotid artery. Antegrade flow is noted in the left vertebral artery. Procedure Carotid Duplex 32532. This is a Carotid Duplex examination using B-mode, color flow and specral Doppler. The exam was diagnostic. Exam performed in department. VL/Carotid Duplex Ultrasound Interpretation Summary Irregular plaque within the right common carotid and proximal internal carotid artery with less than 50% stenosis of the internal carotid Less than 50% stenosis right external carotid Irregular calcific plaque at the proximal left internal carotid artery with les s than 50% stenosis Patent postoperative changes of the left carotid bulb and proximal internal car otid artery noted Less than 50% stenosis left external carotid artery Patent antegrade vertebral arteries bilaterally Ordering Physician: Demond Davis Referring Physician: Demond Davis Performed By: Ellis Morin RVT
--- NOTE | 2023-12-14 07:46 | AAAS_ITS ---
Reason For Study: AAA Aorta Measurements Aorta Doppler Measurements Proximal aorta measures2.04 x 2.09cm. in cross- Peak systolic flow velocities within the proximal sectional axis. aorta measure 43.3 cm/sec. Proximal aorta measures2.15cm. in longitudinal Peak systolic flow velocities within the mid aorta axis. measure 39.7 cm/sec. Mid aorta measures3.03 x 3.0cm. in cross-sectionalPeak systolic flow velocities within the distal axis. aorta measure 28.8 cm/sec. Mid aorta measures3.0cm. in longitudinal axis. Distal aorta measures1.79 x 1.79cm. in cross- sectional axis. Distal aorta measures1.81cm. in longitudinal axis. Left Iliac Artery Left iliac artery measures .76 x .76 cm. in the cross-sectional axis. Left iliac artery measures .79 cm. in the longitudinal axis. Peak systolic velocity in the left iliac artery measures 74.1 cm/sec. Right Iliac Artery Right iliac artery measures .7 x .7 cm. in the cross-sectional axis. Right iliac artery measures .79 cm. in the longitudinal axis. Peak systolic velocity in the right iliac artery measures 85.0 cm/sec. Procedure Aorta IVC Iliac vasculature or bypass grafts 53450. The exam was diagnostic. Exam performed in department. VL/AAA Screening Interpretation Summary Maximal aortic dimension in the mid abdominal aorta 3.03 x 3 cm just making cri teria for small aortic aneurysm Left common iliac artery normal at 0.76 x 0.76 cm in diameter Right common neck artery is normal at 0.7 x 0.7 cm diameter No change from November 29, 2022 Ordering Physician: Demond Davis Referring Physician: Demond Davis Performed By: Ellis Morin, RVT
== END | disposition home or self-care (01) ==
LOC: CVS 07:45
PROVIDERS: PCP Family Medicine; Referring Provider Family Medicine; Visit Provider Family Medicine
DX: I65.23 Occlusion and stenosis of bilateral carotid arteries (principal); I71.40 Abdominal aortic aneurysm, without rupture, unspecified; R73.02 Impaired glucose tolerance (oral)
CPT/HCPCS: 76706; 93880

== ENCOUNTER → 2024-01-18 | Outpatient (CLI) | payer MEDICARE, SELFPAY ==
--- NOTE | 2024-01-18 08:06 | NM_ITS ---
CLINICAL: 78-year-old male with history of primary urinary bladder carcinoma. WHOLE BODY 99m Tc MDP RADIONUCLIDE BONE SCINTIGRAPHY COMPARISON: Previous whole body bone scintigraphy report dated 02/21/2023 FINDINGS: Following the intravenous administration of 28.0 mCi of 99m Tc MDP, whole body bone images reveal: 1. Redefined increased uptake remains apparent in the left proximal clavicle. 2. Enhanced radiopharmaceutical concentration is identified in the bilateral forefoot, the right-left wrists and hands, the acromioclavicular and sternoclavicular compartments of both shoulders, the patellofemoral and medial tibial compartment of the right knee, heterogeneously defined in the thoracic and lumbar spine. 3. The remaining skeletal structures are scintigraphically unremarkable with normal-appearing renal images and urinary bladder activity identified. NM/Bone Scan Whole Body IMPRESSION: 1. The increase in radiopharmaceutical concentration defined in the left proximal clavicle remains consistent with trauma-fracture. Correlation with plain film radiography may be of benefit for further evaluation. In patients > 65 years of age, increased radiopharmaceutical concentration on bone scintigraphy in uncomplicated documented fracture, may take > 18 months for complete resolution. (Bharathi et al, [employer]inars of [employer] Medicine, 13:104, 1983). 2. Degenerative arthrosis is defined in the right-left wrists and hands, the shoulders bilaterally, both knees, the thoracic and lumbar spine and forefoot bilaterally. 3. Overall compared to the previous whole body bone scintigraphy report dated 02/21/2023, there is minimal interval change. Electronically Signed: Gunner Martinez DO at 11:45 EDT ,
== END | disposition home or self-care (01) ==
LOC: NM 08:06
PROVIDERS: PCP Family Medicine; Referring Provider Internal Medicine Medical Oncology; Visit Provider Internal Medicine Medical Oncology
DX: C79.51 Secondary malignant neoplasm of bone (principal); C67.8 Malignant neoplasm of overlapping sites of bladder
CPT/HCPCS: 78306; A9503

== ENCOUNTER → 2024-01-22 | Outpatient (CLI) | payer MEDICARE, SELFPAY ==
--- NOTE | 2024-01-22 12:30 | CT_ITS ---
STUDY: CT CHEST, ABDOMEN T PELVIS WITH CONTRAST REASON FOR EXAM: Male, 78 years old. RESTAGING BLADDER CA RADIATION DOSAGE (If Supplied By Facility): CTDIvol = ( 15.92 ) mGy, DLP = ( 1379.99 ) mGycm TECHNIQUE: Transaxial imaging was performed following intravenous administration of IV 100mL Isovue-300. Multiplanar coronal and sagittal images were reformatted. Individualized dose optimization techniques were used for this CT. COMPARISON: Prior study dated: 09/28/2023. CT abdomen and pelvis report from 05/20/[address] from 10/17/2023. FINDINGS: CHEST Lungs/pleura: The central airways are patent. No consolidation. No pulmonary nodule or mass. The opacities seen in the right perihilar region on the prior PET CT have resolved. Moderate centrilobular and paraseptal emphysema. There is no demonstrated pleural abnormality. No pneumothorax. Mediastinum: Normal heart and pericardium. Coronary artery calcifications are present. Normal mediastinum. Normal hilar regions. Normal central pulmonary arteries. Normal aorta arch and descending thoracic aorta. Chest wall: Left axillary lymph node currently measures 1.8 x 1.2 cm. On the PET/CT this had measured 1 x 0.6 cm. ABDOMEN/PELVIS Liver/gallbladder/biliary tree: The liver is normal in size, shape, and attenuation. There is no mass or intrahepatic biliary ductal dilatation. Normal gallbladder. Dilated common bile duct measuring 1.1 cm. No ductal filling defect.. Pancreas: Normal pancreas. Spleen: Normal in size. No splenic lesion. Adrenal glands: Normal bilateral adrenal glands. Kidneys: The right kidney is normal in size, shape, and position. No hydronephrosis or nephrolithiasis. The left kidney is normal in size, shape, and position. No hydronephrosis or nephrolithiasis. Simple renal cysts. No specific follow-up recommended. GI tract: Normal visualized stomach. Fluid-filled appearance of small bowel throughout the abdomen without abnormal dilatation. Colonic diverticulosis without diverticulitis. The appendix is visualized and appears normal. Lymphovascular: Moderate atherosclerotic calcifications. Infrarenal abdominal aortic aneurysm measures 3.4 cm, similar to prior. Normal inferior vena cava. Normal retroperitoneum. No retroperitoneal or mesenteric lymphadenopathy. Abdominal wall: Normal abdominal wall. No focal abnormality to correlate with the abnormal FDG uptake posterior to the right femur. Radiopaque generator in the right superficial gluteal region. Bladder: Trabeculated bladder wall. Pelvic viscera: There is no pelvic fluid. There is no pelvic lymphadenopathy or mass lesion. OSSEOUS STRUCTURES Posterior fusion hardware at L3-L4. Degenerative changes of the hips. Degenerative change throughout the spine. Status post median sternotomy. No suspicious osseous lesions. CT/CT Chest, Abd, Pel w/Contrast IMPRESSION: Increased size of the previously shown to be FDG avid left axillary lymph node. Resolution of the prior left perihilar lung opacities. Moderate emphysema. No acute finding of the abdomen or pelvis. 3.4 cm abdominal aortic aneurysm. Follow-up recommended every 3 years. Electronically Signed: Paul Daniel MD at 8:34 EDT ,
[2024-01-22] MEDS: 0.9% Saline Lock 10 ML Syringe IV (12:55)
[2024-01-22 13:03] LABS: CREATININE FINGERSTICK < 1.0 mg/dL (0.70-1.30); EGFR FINGERSTICK > 60.0000 mL/min (>60)
== END | disposition home or self-care (01) ==
LOC: CT 12:30
PROVIDERS: PCP Family Medicine; Referring Provider Internal Medicine Medical Oncology; Visit Provider Internal Medicine Medical Oncology
DX: C67.8 Malignant neoplasm of overlapping sites of bladder (principal)
CPT/HCPCS: 71260; 74177; Q9967; A4216

== ENCOUNTER → 2024-05-20 | Outpatient (CLI) | payer MEDICARE, SELFPAY ==
--- NOTE | 2024-05-20 07:59 | CT_ITS ---
EXAM: CT CHEST, ABDOMEN AND PELVIS WITH INTRAVENOUS CONTRAST CLINICAL INDICATION: MONITOR BLADDER CA-IV ONLY TECHNIQUE: Helically acquired images were obtained of the chest, abdomen and pelvis with intravenous contrast. This CT exam was performed using one or more of the following dose reduction techniques: automated exposure control, adjustment of the mA and/or kV according to patient size, and/or use of iterative reconstruction technique. CONTRAST: IV 100mL Isovue-300 RADIATION DOSE: CTDIvol = 17.10 mGy, DLP = 1362.67 mGy-cm. COMPARISON: Compared to January 22, 2024 CT. Report from PET scan body October 17, 2023, mentioned malignant uptake values in the left axilla, right lower anterior lung in 2 separate locations, likely inflammatory change in the left upper lobe suspected malignant hypermetabolism focus adjacent to proximal femur. FINDINGS: CHEST: LUNGS AND PLEURAL SPACES: Bullous emphysema in the upper lung montes. Ill-defined slightly nodular focus in the superior segment of the right lower lobe, roughly 7 mm, similar to prior exam. No pleural effusion or thickening. No pneumothorax. No suspicious pulmonary nodules. HEART: Unremarkable. No pericardial effusion. No suspicious intracardiac filling defects. Moderate coronary artery calcifications. Normal heart size. MEDIASTINUM: Unremarkable. No mediastinal or hilar adenopathy. Esophagus is unremarkable. No hiatal hernia. THYROID: Unremarkable. No thyroid lesions. ABDOMEN: LIVER: Tiny stable subcentimeter hypodensity at 5 mm in the liver. GALLBLADDER AND BILE DUCTS: Similar mild common duct dilatation, roughly 1.3 cm, tapering distally. No visible filling defect. No calcified gallstones. No gallbladder distention or wall edema. PANCREAS: Unremarkable. No focal cystic or solid mass. SPLEEN: Unremarkable. Normal size without focal cystic or solid mass. ADRENALS: Unremarkable. No nodules. KIDNEYS AND URETERS: Multiple and bilateral renal cysts, several, greater on the right, similar to prior exam. Normal renal size and position. No hydronephrosis. STOMACH AND BOWEL: Mild fluid and gas in the stomach. Mildly prominent fluid and gas in multiple small bowel loops. Moderate-large amount of stool in most of the colon. Mild stool and gas in the rectosigmoid. No stomach or bowel distention. No focal inflammatory change. PELVIS: APPENDIX: Small appendix is at least partially seen on coronal images. BLADDER: Thick-walled urinary bladder with mildly irregular shape appears similar to prior exam. REPRODUCTIVE: Unremarkable as visualized. No mass. CHEST, ABDOMEN and PELVIS: INTRAPERITONEAL SPACE: Unremarkable. No ascites or other fluid collection. No free air. BONES/JOINTS: Postoperative change of the lumbar spine. Fusion at lower lumbar levels, stabilization hardware at L3-4. Multilevel vacuum discs and disc space narrowing with spondylosis and endplate sclerosis, most pronounced at T11-L3. Old median sternotomy wires. No suspicious lytic or blastic abnormality. SOFT TISSUES: See below. VASCULATURE: Mild stable aneurysmal dilatation of infrarenal aorta, 3.7 cm transverse by 3.6 cm AP. Atherosclerotic calcification of aorta. No visible PE. LYMPH NODES: Mildly larger left axillary ovoid nodule, likely metastatic lymphadenopathy considering prior PET/CT report. Now 2.4 cm x 1.7 cm, it was 1.8 cm x 1.4 cm in January. TUBES, LINES AND DEVICES: Similar right jugular [id number] catheter, tip in the distal SVC. No suspicious body wall soft tissue mass. Battery type device implanted in the right buttock subcutaneous fat with neurostimulator leads. CT/CT Chest, Abd, Pel w/Contrast IMPRESSION: 1. Mildly larger left axillary ovoid nodule, possibly neoplastic lymph node in the area of prior suspicious hypermetabolism on PET scan. And a slightly more visible or larger 7 mm nodular focus in the right lower lobe. Findings are otherwise similar to January 22, [address] 2. Advanced COPD. Mild infrarenal aortic aneurysm. Coronary artery calcifications. Mitral valve prosthesis. Prominent bowel contents to the level of the mid to distal descending colon. Persistent mildly thick-walled urinary bladder with irregular shape. Electronically Signed: Es Walden MD at 1:52 EST ,
[2024-05-20] MEDS: 0.9% Saline Lock 10 ML Syringe IV (08:15)
[2024-05-20 08:24] LABS: CREATININE FINGERSTICK < 1.0 mg/dL (0.70-1.30); EGFR FINGERSTICK > 60.0000 mL/min (>60)
== END | disposition home or self-care (01) ==
LOC: CT 07:59
PROVIDERS: PCP Family Medicine; Referring Provider Internal Medicine Medical Oncology; Visit Provider Internal Medicine Medical Oncology
DX: C67.1 Malignant neoplasm of dome of bladder (principal); C79.51 Secondary malignant neoplasm of bone
CPT/HCPCS: 71260; 74177; Q9967; A4216

== ENCOUNTER → 2024-05-24 | Outpatient (CLI) | payer MEDICARE, SELFPAY ==
--- NOTE | 2024-05-24 07:36 | NM_ITS ---
CLINICAL: 78-year-old male with history of urinary bladder carcinoma. WHOLE BODY 99m Tc MDP RADIONUCLIDE BONE SCINTIGRAPHY COMPARISON: Previous whole body bone scintigraphy study dated 01/18/2024 FINDINGS: Following the intravenous administration of 24.9 mCi of 99m Tc MDP, whole body bone images reveal: 1. Increased radiopharmaceutical concentration remains apparent in the left proximal clavicle which was scintigraphically manifest on bone scintigraphy studies dating back to May 2018. 2. Facilitated tracer uptake remains apparent in the 12th thoracic first through third and fifth lumbar vertebra, the left posterior sacrum, the region of the fourth thoracic vertebra, the wrist articulations bilaterally, the medial tibial compartment of the right knee, the medial compartment of the right ankle, the bilateral forefoot, the acromioclavicular compartment of the right shoulder and glenohumeral compartment of the left shoulder. 3. The remaining skeletal structures are scintigraphically unremarkable with normal-appearing renal images and urinary bladder activity identified. NM/Bone Scan Whole Body IMPRESSION: 1. 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 Plain film radiography correlation may be of benefit. 2. Degenerative arthritis is defined in the thoracic and lumbar spine, sacrum, both wrists, the right knee and right ankle, the forefoot bilaterally, and bilateral shoulder articulations. 3. Overall compared to the previous whole body bone scintigraphy study dated 01/18/2024, there is minimal interval change. Electronically Signed: Gunner Martinez DO at 8:48 EST ,
== END | disposition home or self-care (01) ==
LOC: NM 07:36
PROVIDERS: PCP Family Medicine; Referring Provider Internal Medicine Medical Oncology; Visit Provider Internal Medicine Medical Oncology
DX: C67.1 Malignant neoplasm of dome of bladder (principal); C79.51 Secondary malignant neoplasm of bone
CPT/HCPCS: 78306; A9503

== ENCOUNTER → 2024-07-04 | Outpatient (CLI) | payer MEDICARE, SELFPAY ==
--- NOTE | 2024-07-04 10:45 | RAD_ITS ---
STUDY: X-RAY CHEST REASON FOR EXAM: Male, 78 years old. BRONCHITIS TECHNIQUE: Single AP portable view of the chest. COMPARISON: CT of the chest dated May 20, 2024 FINDINGS: No visualized consolidation. Cystic emphysematous changes and hyperinflation of the lungs. Stable right chest port. There is no demonstrated pleural abnormality. Normal heart size. Sternal cerclage wires and vascular clips are present from a prior sternotomy and coronary artery bypass graft procedure (CABG). Normal mediastinum and yakov. Normal visualized pulmonary arteries. There is atherosclerotic calcification of the aortic arch with tortuosity. There are diffuse degenerative changes of the visualized thoracic spine. Normal visualized ribs, clavicles, and shoulders. There is no demonstrated abnormality of the visualized soft tissue structures of the upper abdomen. RAD/Chest PA and Lateral IMPRESSION: COPD Electronically Signed: Daniel Smith MD at 10:26 EST ,
== END | disposition home or self-care (01) ==
LOC: MTRAD 10:43
PROVIDERS: PCP Family Medicine; Referring Provider Family Medicine; Visit Provider Family Medicine
DX: J40 Bronchitis, not specified as acute or chronic (principal)

== ENCOUNTER → 2024-07-24 | Outpatient (CLI) | payer MEDICARE, SELFPAY ==
[2024-07-24 12:34] LABS: Absolute Lymphocyte Count 0.64 X10^3/uL (0.83-4.51); Absolute Neutrophil Count 5.2 X10^3/uL (2.0-7.7); Basophil# 0.06 X10^3/uL; Basophil% 0.8 % (0-1); Eosinophil# 1.04 X10^3/uL; Eosinophils% 13.8 % (0-5); Hematocrit 44.4 % (40-54); Hemoglobin 14.1 g/dL (13.0-16.5); Lymphocyte # 0.64 X10^3/ul (0.83-4.51); Lymphocyte % 8.5 % (19-41); Mean Corp Hgb Conc 31.8 g/dL (32-36); Mean Corpuscular Hgb 32.7 pg (27.0-32.0); Mean Platelet Vol. 10.4 fl (6.2-12.0); Monocyte# 0.56 X10^3/uL; Monocyte% 7.4 % (0-10); NRBC Flagged by Analyzer 0 % (0-5); Neutrophil # 5.21 X10^3/uL (2.7-7.7); Neutrophil % 69.2 % (47-70); Platelet Count 140 K/mm3 (150-450); RBC Distribution Width CV 13.8 % (11.6-14.6); RBC Distribution Width SD 53.1 fl (35.1-43.9); Red Blood Count 4.31 M/mm3 (4.6-6.2); White Blood Count 7.5 K/mm3 (4.4-11.0)
[2024-07-24 13:18] LABS: ALB/GLOB Ratio 1.2 RATIO (0.9-2.4); AST(SGOT) 18 U/L (15-37); Alanine Aminotransfer ALT/SGPT 22 U/L (16-61); Albumin, Serum 3.4 g/dL (3.2-5.0); Alkaline Phosphatase 80 U/L (45-117); Anion Gap 6 (5-15); BUN 24 mg/dL (7-18); BUN/Creat Ratio 20.2 RATIO (10-20); Calcium,Total 8.4 mg/dL (8.5-10.1); Chloride 107 mmol/L (98-107); Cholesterol 102 mg/dL (200); Creatinine, Serum 1.19 mg/dL (0.70-1.30); EST Glomerular Filtration Rate 63 mL/min (>60); Est Glom Filt Rate - Afr Amer 76 mL/min (>60); Globulin 2.9 g/dL (2.2-4.2); Glucose 86 mg/dL (74-106); High Density Lipoprotein 42 mg/dL; Potassium 4.5 mmol/L (3.5-5.1); Protein, Total 6.3 g/dL (6.4-8.2); Sodium Level 138 mmol/L (136-145); Triglycerides 50 mg/dL; Very Low Density Lipoprotein 10 mg/dL (5-40)
[2024-07-24 13:47] LABS: Hemoglobin A1c 5.1 % (3.8-5.6)
== END | disposition home or self-care (01) ==
LOC: MFPLAB 10:50
PROVIDERS: PCP Family Medicine; Referring Provider Family Medicine; Visit Provider Family Medicine
DX: I25.10 Atherosclerotic heart disease of native coronary artery without angina pectoris (principal); R73.02 Impaired glucose tolerance (oral)
CPT/HCPCS: 36415; 80053; 80061; 83036; 85025

== ENCOUNTER → 2024-08-19 | Outpatient (CLI) | payer MEDICARE, SELFPAY ==
--- NOTE | 2024-08-19 13:00 | CT_ITS ---
PROCEDURE: CT CHEST, ABD, PEL W/CONTRAST REASON FOR EXAM: History of bladder carcinoma. Follow-up examination. TECHNIQUE: Chest, abdomen and pelvis CT with intravenous contrast. No oral contrast. CONTRAST: 100 cc of Isovue-300. COMPARISON: Comparison is made with prior study dated May 22, 2024. FINDINGS: CT CHEST: Hardware: A right-sided port a catheter is seen with a the Lymph nodes: Stable enlargement of the left axillary lymph node measures Heart and Vasculature: Prior CABG. Coronary artery calcification. Atherosclerotic plaque formation of the aortic arch and descending thoracic aorta. Lungs and Airways: The right stable elevation of the posterior aspect of the right hemidiaphragm. Pleura: No pleural effusion. No pneumothorax. Bones: Degenerative changes of the thoracic spine. CT ABDOMEN/PELVIS: Liver: Stable tiny hepatic cysts. Gallbladder: Unremarkable. Spleen: Unremarkable. Pancreas: Unremarkable. Adrenals: Unremarkable. Kidneys: Stable bilateral renal cysts Bladder: Unremarkable. Reproductive Organs: Unremarkable. Bowel: Colonic diverticulosis without diverticulitis. Gas and fecal material seen throughout the colon. Appendix: Normal. Lymph nodes: No suspicious lymph node enlargement. Vasculature: Mild diffuse atherosclerotic calcifications are noted. Peritoneum / Retroperitoneum: No ascites. No free air. Bones: Stable prior fusion of the lower lumbar spine. CT/CT Chest, Abd, Pel w/Contrast IMPRESSION: Essentially stable examination. One or more dose reduction techniques were used (e.g., Automated exposure contr ol, adjustment of the mA and/or kV according to patient size, use of iterative reconstruction technique). Reading Location: [facility]
[2024-08-19] MEDS: 0.9% Saline Lock 10 ML Syringe IV (13:10)
== END | disposition home or self-care (01) ==
LOC: CT 12:53
PROVIDERS: PCP Family Medicine; Referring Provider Internal Medicine Medical Oncology; Visit Provider Internal Medicine Medical Oncology
DX: C67.1 Malignant neoplasm of dome of bladder (principal); C79.51 Secondary malignant neoplasm of bone
CPT/HCPCS: 71260; 74177; Q9967; A4216

== ENCOUNTER → 2024-09-02 | Outpatient (CLI) | payer MEDICARE, SELFPAY ==
--- NOTE | 2024-09-02 14:35 | LYMN_PTH ---
PATIENT: VALE GARCIA LOC: [facility] U#:[id number] AGE/SX: 78/M ROOM: RE09/02/[address]: Dr. Jolie Barrett MD : 1945 BED: DIS: 09/02/2024 SPEC #: [id number] RECD: 09/03/24 10:06 STATUS: ARAM REObey #: [id number] GENESIS: 09/02/24 14:[address]: Jolie Barrett DEPT: SURGICAL PATHOLOGY RECD BY: Cale Fernandez ENTERED: 09/03/24 10:08 SP TYPE: LYMPH NODE OTHR DR: Dr. Demond Davis MD Tissues: A - Axillary lymph node, NOS Procedures: Surgery Specimen Level IV HEADER OPERATION: Left axillary lymph node biopsy PRE-OP DIAGNOSIS: Biopsy of left axilla lymph node, positive PET scan-2023, increased size metastatic bladder cancer TISSUE SUBMITTED: A- Left axilla lymph node MICROSCOPIC DIAGNOSIS A. Left axilla, lymph node, biopsy: * Positive for metastatic carcinoma - see note. Note: The histomorphology(H&E) is compatible with urothelial origin. MICROSCOPIC DESCRIPTION Slides are reviewed. GROSS DESCRIPTION A. Received in fixative is one container labeled with the patient's name and designated Left axillary lymph node. The specimen consists of multiple fragments of pink tissue that measures 1.8 x 0.6 x 0.1cm. The specimen is totally submitted in one cassette. 09/03/2024 CPT:[id number] ADDENDUM ADDENDUM ADDENDUM ADDENDUM ADDENDUM ADDENDUM ADDENDUM ADDENDUM ADDENDUM ADDENDUM ADDENDUM ADDENDUM ADDENDUM ADDENDUM ADDENDUM ADDENDUM 10/07/2024 08:32 ADDENDUM 10/07/2024 08:32 ADDENDUM 10/07/2024 08:32 ADDENDUM 10/07/2024 08:32 ADDENDUM 10/07/2024 08:32 A. Left axilla, lymph node, biopsy: DNA NGS results: No FGFR2 or FGFR3 mutations seen; an activating, potentially targetable ERBB2 mutation with an overall mutation profile compatible with carcinoma of urothelial origin. RNA fusion panel: Negative for FGFR2 or FGFR3 or other fusions. NTRK FUSION RESULT: NOT DETECTED NTRK FUSION INTERPERATION: No NTRK, FGFR2, FGFR3 or other reportable gene fusions identified by RNA fusion panel. Comment: Given the NTKR negative result, additional analysis was performed for 227 additional genes recurrently associated with gene fusions in solid tumors. Sample and run controls are adequate. Please see complete Gen Path Report in the patient's EMR
== END | disposition home or self-care (01) ==
LOC: LABSPEC 15:57
PROVIDERS: PCP Family Medicine; Referring Provider Surgery; Visit Provider Surgery
DX: C67.9 Malignant neoplasm of bladder, unspecified (principal)
CPT/HCPCS: 88305

== ENCOUNTER → 2024-11-12 | Outpatient (CLI) | payer MEDICARE, SELFPAY ==
[2024-11-12 18:01] LABS: Absolute Lymphocyte Count 0.87 X10^3/uL (0.83-4.51); Absolute Neutrophil Count 4.9 X10^3/uL (2.0-7.7); Basophil# 0.02 X10^3/uL; Basophil% 0.3 % (0-1); Eosinophil# 0.81 X10^3/uL; Hematocrit 44.6 % (40-54); Hemoglobin 14.6 g/dL (13.0-16.5); Lymphocyte # 0.87 X10^3/ul (0.83-4.51); Lymphocyte % 11.8 % (19-41); Mean Corp Hgb Conc 32.7 g/dL (32-36); Mean Corpuscular Hgb 33.4 pg (27.0-32.0); Mean Corpuscular Volume 102.1 fL (80-94); Mean Platelet Vol. 10.4 fl (6.2-12.0); Monocyte# 0.75 X10^3/uL; Monocyte% 10.2 % (0-10); NRBC Flagged by Analyzer 0 % (0-5); Neutrophil # 4.87 X10^3/uL (2.7-7.7); Neutrophil % 66.2 % (47-70); Platelet Count 149 K/mm3 (150-450); RBC Distribution Width CV 13.7 % (11.6-14.6); Red Blood Count 4.37 M/mm3 (4.6-6.2); White Blood Count 7.4 K/mm3 (4.4-11.0)
[2024-11-12 18:46] LABS: ALB/GLOB Ratio 1.7 RATIO (0.9-2.4); AST(SGOT) 19 U/L (<=37); Alanine Aminotransfer ALT/SGPT 14 U/L (<=46); Alkaline Phosphatase 93 U/L (40-129); Anion Gap 11 (5-15); BUN 26 mg/dL (4-19); BUN/Creat Ratio 24.2 RATIO (10-20); Carbon Dioxide 25.6 mmol/L (21.0-32.0); Chloride 101 mmol/L (98-108); Cholesterol 116 mg/dL (<=200); Creatinine, Serum 1.07 mg/dL (0.70-1.20); EST Glomerular Filtration Rate 71 (>60); Globulin 2.4 g/dL (2.2-4.2); Glucose 96 mg/dL (70-99); High Density Lipoprotein 34 mg/dL; Low Density Lipoprotein Calc. 62 mg/dL; Potassium 4.1 mmol/L (3.3-5.1); Protein, Total 6.4 g/dL (5.9-8.4); Sodium Level 138 mmol/L (133-145); Total Bilirubin 0.56 mg/dL (0.00-1.30); Triglycerides 98 mg/dL; Very Low Density Lipoprotein 20 mg/dL (5-40); cholesterol:hdl ratio screen 3.38
[2024-11-12 19:02] LABS: Hemoglobin A1c 5.5 % (<=5.6)
== END | disposition home or self-care (01) ==
LOC: MFPLAB 15:43
PROVIDERS: PCP Family Medicine; Referring Provider Family Medicine; Visit Provider Family Medicine
DX: I25.10 Atherosclerotic heart disease of native coronary artery without angina pectoris (principal); R73.02 Impaired glucose tolerance (oral)
CPT/HCPCS: 36415; 80053; 80061; 83036; 85025

== ENCOUNTER → 2024-11-25 | Outpatient (CLI) | payer MEDICARE, SELFPAY ==
[2024-11-18 14:14] VITALS: BMI 28.3
--- NOTE | 2024-11-25 07:38 | AAAS_ITS ---
Reason For Study Reason For Study: AAA Aorta Measurements Aorta Doppler Measurements Proximal aorta measures1.97cm x 1.93cm. in cross-sectional Peak systolic flow velocities within the proximal aorta axis. measure 47 cm/sec. Proximal aorta measures1.99cm. in longitudinal axis. Peak systolic flow velocities within the mid aorta measure Mid aorta measures3.10cm x 3.18cm. in cross-sectional axis. 34 cm/sec. Mid aorta measures3.17cm. in longitudinal axis. Peak systolic flow velocities within the distal aorta Distal aorta measures2.41cm x 2.45cm. in cross-sectional measure 31 cm/sec. axis. Distal aorta measures2.44cm. in longitudinal axis. Left Iliac Artery Left iliac artery measures 1.11cm x 1.18 cm. in the cross-sectional axis. Left iliac artery measures 0.97 cm. in the longitudinal axis. Peak systolic velocity in the left iliac artery measures 90 cm/sec. Right Iliac Artery Right iliac artery measures 0.90cm 1.05 cm. in the cross-sectional axis. Right iliac artery measures 1.13 cm. in the longitudinal axis. Peak systolic velocity in the right iliac artery measures 156 cm/sec. Procedure Aorta IVC Iliac vasculature or bypass grafts [id number]. Exam performed in department. VL/AAA Screening Interpretation Summary Aorta patent, 3.18 cm aneurysm present Bilateral iliac arteries patent, normal caliber Ordering Physician: Demond Davis Referring Physician: Demond Davis Performed By: Paz Lal, LYNNE, RVT
--- NOTE | 2024-11-25 07:38 | CDU_ITS ---
Reason For Study Reason For Study: Carotid Stenosis Rt. Velocities/BP Lt. Velocities/BP Prox CCA 71/12 cm/sec. Prox CCA 90/25 cm/sec. Mid CCA 54/17 cm/sec. Mid CCA 82/25 cm/sec. Dist CCA 75/23 cm/sec. Dist CCA 68/21 cm/sec. Prox ICA 83/29 cm/sec. Prox ICA 65/20 cm/sec. Mid ICA 134/56 cm/sec. Mid ICA 74/32 cm/sec. Dist ICA 64/22 cm/sec. Dist ICA 69/27 cm/sec. Rt. ICA/CCA = 2.5. Lt. ICA/CCA = 0.9. Prox ECA 90/9 cm/sec. Prox ECA 72/13 cm/sec. Rt. Vert. 24/10 cm/sec. Lt. Vert. 66/11 cm/sec. Right Extracranial There is heterogeneous, irregular atherosclerotic plaque noted in the right common carotid artery. There is heterogeneous, irregular atherosclerotic plaque noted in the right internal carotid artery. There is intimal thickening but no significant atherosclerotic plaque noted in the right external carotid artery. Antegrade flow is noted in the right vertebral artery. Left Extracranial There is heterogeneous, irregular atherosclerotic plaque noted in the left common carotid artery. There is heterogeneous, irregular atherosclerotic plaque noted in the left internal carotid artery. There is heterogeneous, irregular atherosclerotic plaque noted in the left external carotid artery. Antegrade flow is noted in the left vertebral artery. Procedure Carotid Duplex [id number]. This is a Carotid Duplex examination using B-mode, color flow and specral Doppler. Exam performed in department. VL/Carotid Duplex Ultrasound Interpretation Summary Moderate (50-69%) stenosis right extracranial internal carotid. Mild (<50%) stenosis left extracranial internal carotid. Patent and antegrade vertebrals bilaterally. Ordering Physician: Demond Davis Referring Physician: Demond Davis Performed By: Paz Lal, RDCS, RVT
== END | disposition home or self-care (01) ==
LOC: CVS 07:36
PROVIDERS: PCP Family Medicine; Referring Provider Family Medicine; Visit Provider Family Medicine
DX: I65.23 Occlusion and stenosis of bilateral carotid arteries (principal); I71.40 Abdominal aortic aneurysm, without rupture, unspecified
CPT/HCPCS: 76706; 93880

== ENCOUNTER → 2025-01-13 | Outpatient (CLI) | payer MEDICARE, SELFPAY ==
[2024-11-18 14:14] VITALS: BMI 28.3
--- NOTE | 2025-01-13 13:15 | CT_ITS ---
PROCEDURE: CHEST WITH CONTRAST 01/13/2025 REASON FOR EXAM: METASTATIC BLADDER CA TECHNIQUE: CHEST WITH CONTRAST Coronal and Sagittal reconstruction series were provided. CONTRAST: Isovue-[id number] VOLUME: 100 mL One or more dose reduction techniques were used (e.g., Automated exposure control, adjustment of the mA and/or kV according to patient size, use of iterative reconstruction technique). RADIATION DOSE SUMMARY: CTDlvol: 13.15 mGy DLP: 504.9 mGycm COMPARISON: Prior study dated August 19, 2024. FINDINGS: Hardware: A right-sided port a catheter is seen with the tip in the superior vena cava. Lymph nodes: No significant lymphadenopathy is seen. The previously seen enlarged left axillary lymph node is not seen at this time. 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 Coronary artery calcification. Lungs and Airways: Hyperinflation. Emphysematous changes more pronounced in the upper lobes right greater than left with bullous formation. No pulmonary infiltration, mass lesion or nodule seen. Pleura: No pleural effusion. Upper Abdomen: There is a 3 cm cyst in the upper lateral portion of the right kidney. 1 cm cyst in the upper medial portion of the right kidney. Bilateral renal atrophy. Bones: Degenerative changes of the thoracic spine. Straightening of the normal thoracic kyphosis. CT/Chest WITH Contrast IMPRESSION: Coronary artery calcification (CAC) is is present No evidence of pulmonary metastasis. Hyperinflation and emphysematous changes. Reading Location: [id number]
[2025-01-13] MEDS: 0.9% Saline Lock 10 ML Syringe IV (13:45)
== END | disposition home or self-care (01) ==
LOC: CT 13:14
PROVIDERS: PCP Family Medicine; Referring Provider Internal Medicine Medical Oncology; Visit Provider Internal Medicine Medical Oncology
DX: C67.8 Malignant neoplasm of overlapping sites of bladder (principal); C77.3 Secondary and unspecified malignant neoplasm of axilla and upper limb lymph nodes
CPT/HCPCS: 71260; Q9967; A4216

== ENCOUNTER → 2025-02-27 | Outpatient (CLI) | payer MEDICARE, SELFPAY ==
[2024-11-18 14:14] VITALS: BMI 28.3
--- NOTE | 2025-02-27 10:45 | RAD_ITS ---
PROCEDURE: ELBOW MIN 3 VIEWS 02/27/2025 REASON FOR EXAM: ELBOW INJURY TECHNIQUE: Procedure Code: RADEL Modality: DX Procedure: ELBOW MIN 3 VIEWS Laterality: Left COMPARISON: None. RAD/Elbow min 3 Views IMPRESSION: No radiopaque foreign body is seen. No definite joint effusion is seen. Prominent soft tissue swelling of the posterior elbow, possibly due to the pres ence of fluid within the olecranon bursa. [id number] degenerative changes of the left elbow joint most apparent in the humeroulnar articulation, with anterior partial joint narrowing identified, as well. Probable mild radiocapitellar joint narrowing. Chronic appearing medial epicondylar enthesophyte also noted. No fracture or dislocation is seen. Reading Location: [place] [id number]
== END | disposition home or self-care (01) ==
LOC: MTRAD 10:45
PROVIDERS: PCP Family Medicine; Referring Provider Physician Assistant Surgical; Visit Provider Physician Assistant Surgical
DX: S59.902A Unspecified injury of left elbow, initial encounter (principal); X58.XXXA Exposure to other specified factors, initial encounter
CPT/HCPCS: 73080

== ENCOUNTER → 2025-03-13 | Outpatient (CLI) | payer MEDICARE, SELFPAY ==
[2024-11-18 14:14] VITALS: BMI 28.3
== END | disposition home or self-care (01) ==
LOC: MTLAB 13:08
PROVIDERS: PCP Family Medicine; Referring Provider Psychiatry & Neurology Neurology; Visit Provider Psychiatry & Neurology Neurology
DX: G62.9 Polyneuropathy, unspecified (principal)
CPT/HCPCS: 86335

== ENCOUNTER 2025-03-26 11:28 | Outpatient (CLI) | payer MEDICARE, SELFPAY ==
[2024-11-18 14:14] VITALS: BMI 28.3
[2025-03-26 12:41] LABS: Hematocrit 46.5 % (40-54); Hemoglobin 15.1 g/dL (13.0-16.5); Immature Granulocytes Count 0.040 X10^3/uL (0.0-0.0); Mean Corp Hgb Conc 32.5 g/dL (32-36); Mean Corpuscular Volume 101.8 fL (80-94); Mean Platelet Vol. 10.7 fl (6.2-12.0); NRBC Flagged by Analyzer 0 % (0-5); Platelet Count 129 K/mm3 (150-450); RBC Distribution Width CV 13.7 % (11.6-14.6); RBC Distribution Width SD 51.9 fl (35.1-43.9); Red Blood Count 4.57 M/mm3 (4.6-6.2); White Blood Count 7.6 K/mm3 (4.4-11.0)
[2025-03-26 15:24] LABS: AST(SGOT) 19 U/L (<=37); Alanine Aminotransfer ALT/SGPT 20 U/L (<=46); Albumin, Serum 4.0 g/dL (3.4-4.8); Alkaline Phosphatase 90 U/L (40-129); Anion Gap 9 (5-15); BUN 18 mg/dL (4-19); BUN/Creat Ratio 13.3 RATIO (10-20); Bilirubin, Direct 0.27 mg/dL (0.00-0.30); Calcium,Total 9.3 mg/dL (7.6-11.0); Carbon Dioxide 26.2 mmol/L (21.0-32.0); Chloride 103 mmol/L (98-108); Cholesterol 116 mg/dL (<=200); Globulin 2.6 g/dL (2.2-4.2); Glucose 85 mg/dL (70-99); Low Density Lipoprotein Calc. 64 mg/dL; Potassium 4.7 mmol/L (3.3-5.1); Triglycerides 73 mg/dL; Very Low Density Lipoprotein 15 mg/dL (5-40); cholesterol:hdl ratio screen 3.07
[2025-03-26 17:49] LABS: LDH 166 U/L (87-241)
== END 2025-03-26 23:59 | disposition home or self-care (01) ==
LOC: MTLAB 11:32
PROVIDERS: PCP Family Medicine; Referring Provider Student in an Organized Health Care Education/Training Program; Visit Provider Student in an Organized Health Care Education/Training Program
DX: C67.8 Malignant neoplasm of overlapping sites of bladder (principal); E78.2 Mixed hyperlipidemia
CPT/HCPCS: 36415; 80053; 80061; 82248; 83615; 85025

== ENCOUNTER → 2025-05-30 | Outpatient (CLI) | payer MEDICARE, SELFPAY ==
[2024-11-18 14:14] VITALS: BMI 28.3
[2025-05-30 12:45] LABS: AST(SGOT) 18 U/L (<=37); Alanine Aminotransfer ALT/SGPT 15 U/L (<=46); Albumin, Serum 4.0 g/dL (3.4-4.8); Alkaline Phosphatase 95 U/L (40-129); Anion Gap 9 (5-15); BUN 24 mg/dL (4-19); BUN/Creat Ratio 19.1 RATIO (10-20); Calcium,Total 9.4 mg/dL (7.6-11.0); Carbon Dioxide 28.3 mmol/L (21.0-32.0); Chloride 102 mmol/L (98-108); Globulin 2.4 g/dL (2.2-4.2); Glucose 70 mg/dL (70-99); Potassium 4.3 mmol/L (3.3-5.1)
== END | disposition home or self-care (01) ==
LOC: MTLAB 10:23
PROVIDERS: PCP Family Medicine; Referring Provider Family Medicine; Visit Provider Family Medicine
DX: R73.02 Impaired glucose tolerance (oral) (principal)
CPT/HCPCS: 36415; 80053; 83036